=== PATIENT | male | born 1985 | race American Indian/Alaskan Native ===

== ENCOUNTER 2017-08-07 12:22 | Inpatient (IN) | payer OTHER ==
[2017-08-07 13:18] LABS: Basophils # (Auto) 0.1 K/mm3 (0.0-0.1); Basophils % (Auto) 0.7 % (0.0-1.8); Eosinophils # (Auto) 0.1 K/mm3 (0.0-0.4); Eosinophils % (Auto) 0.7 % (0.0-4.3); Hematocrit 43.4 % (35.5-45.6); Hemoglobin 14.3 gm/dl (11.8-15.2); Lymphocytes # (Auto) 2.4 K/mm3 (1.2-5.4); Mean Corpuscular HGB Conc 33 % (32-34); Mean Corpuscular Hemoglobin 30 pg (28-32); Mean Corpuscular Volume 90 fl (84-94); Monocytes # (Auto) 0.4 K/mm3 (0.0-0.8); Monocytes % (Auto) 5.3 % (0.0-7.3); Platelet Count 284 K/mm3 (140-440); Red Blood Count 4.82 M/mm3 (3.65-5.03); Red Cell Distribution Width 12.2 % (13.2-15.2)
[2017-08-07 13:30] LABS: Calcium 9.5 mg/dL (8.4-10.2)
[2017-08-07] MEDS ORDERED: CALCIUM GLUCONATE 1,000 MG in NACL 0.9% 100 ML IV ONE (23:10)
[2017-08-07] MEDS ORDERED: KIONEX PO ONE (23:10)
[2017-08-07] MEDS ORDERED: SODIUM CHLORIDE FLUSH SYRINGE 10 ML IV PRN (23:45)
[2017-08-07] MEDS ORDERED: D5W/0.45% NACL/KCL 20 MEQ 20 MEQ/1,000 ML BAG IV SCH (23:45)
[2017-08-07] MEDS ORDERED: D50W (25GM) Syringe IV PRN (23:45)
[2017-08-07] MEDS ORDERED: NovoLIN R 100 UNITS in NACL 0.9% 99 ML IV SCH (23:45)
[2017-08-07] MEDS ORDERED: NACL 0.9% 1000 ML 1,000 ML IV ONE (23:45)
--- NOTE | 2017-08-07 23:53 | Emergency Department Report ---
ED General Adult HPI - General Chief complaint: Hyperglycemia Stated complaint: CHEST PAIN Time Seen by Provider: 08/07/17 23:09 Source: patient Mode of arrival: Ambulatory Limitations: No Limitations - History of Present Illness Initial comments: 32 yo male who comes in today due to an elevated blood glucose. He states that he is a type 1 diabetic and has been out of his medications times greater than two months. He admits to polydipsia, nausea, and some vomiting. Denies any chest pain, shortness of breath, fever, or chills. Blood glucose is 510 on his cmp. -: month(s) (two ) - Related Data Allergies Allergy/AdvReac Type Severity Reaction Status Date / Time No Known Allergies Allergy Verified 08/07/17 23:24 ED Review of Systems ROS: Stated complaint: CHEST PAIN Other details as noted in HPI Constitutional: malaise, weakness Eyes: denies: eye pain, eye discharge, vision change ENT: denies: ear pain, throat pain Respiratory: denies: cough, shortness of breath, wheezing Cardiovascular: denies: chest pain, palpitations Endocrine: increased thirst Gastrointestinal: nausea, vomiting Musculoskeletal: denies: back pain, joint swelling, arthralgia Skin: other (pressure-sore/callus left foot (sole)) Neurological: denies: headache, weakness, paresthesias Psychiatric: denies: anxiety, depression Hematological/Lymphatic: denies: easy bleeding, easy bruising ED Past Medical Hx - Past Medical History Hx Diabetes: Yes - Surgical History Additional Surgical History: toe amputation right foot - Social History Smoking Status: Current Every Day Smoker Substance Use Type: Marijuana ED Physical Exam - General Limitations: No Limitations General appearance: alert, in no apparent distress - Head Head exam: Present: atraumatic, normocephalic - Eye Eye exam: Present: normal appearance - ENT ENT exam: Present: mucous membranes dry - Neck Neck exam: Present: normal inspection - Respiratory Respiratory exam: Present: normal lung sounds bilaterally. Absent: respiratory distress - Cardiovascular Cardiovascular Exam: Present: regular rate, normal rhythm. Absent: systolic murmur, diastolic murmur, rubs, gallop - GI/Abdominal GI/Abdominal exam: Present: soft, normal bowel sounds - Extremities Exam Extremities exam: Present: other (callus/pressure sore-left foot (sole)) - Back Exam Back exam: Present: normal inspection - Neurological Exam Neurological exam: Present: alert, oriented X3 - Psychiatric Psychiatric exam: Present: normal affect, normal mood - Skin Skin exam: Present: other (callus/pressure sore-left foot (sole)) ED Course Vital Signs 08/07/17 08/08/17 08/08/17 12:34 00:57 01:00 Temperature 97.6 F Pulse Rate 100 H 103 H 104 H Respiratory 20 14 14 Rate Blood Pressure 144/98 179/100 O2 Sat by Pulse 100 100 Oximetry 08/08/17 08/08/17 01:11 01:22 Temperature 98.4 F Pulse Rate 91 H Respiratory 8 L 16 Rate Blood Pressure 179/100 O2 Sat by Pulse 99 98 Oximetry - Reevaluation(s) Reevaluation #1: 08/08/17 02:09 Patient to be admitted by the hospitalist for dka. ED Medical Decision Making - Lab Data Result diagrams: 08/07/17 13:03 08/08/17 00:13 - Medical Decision Making Medication non-compliance DKA - Differential Diagnosis medication non-compliance, dka Critical care attestation.: If time is entered above; I have spent that time in minutes in the direct care of this critically ill patient, excluding procedure time. ED Disposition Clinical Impression: DKA, type 1, Noncompliance with medication regimen Disposition: OP ADMIT IP TO THIS HOSP Is pt being admited?: Yes Does the pt Need Aspirin: No Condition: Fair Instructions: Diabetic Ketoacidosis (ED) Referrals: PRIMARY CARE, [Primary Care Provider] - 3-5 Days Time of Disposition: 02:11
[2017-08-08 00:50] LABS: BUN/Creatinine Ratio 23; Blood Urea Nitrogen 27 mg/dL (9-20); Calcium 8.9 mg/dL (8.4-10.2); Hemolysis Index 4
[2017-08-08] MEDS: KCL 10MEQ/100ML 10 MEQ/100 ML BAG IV SCH (01:20)
[2017-08-08] MEDS: KCL 20MEQ/100ML 20 MEQ/100 ML BAG IV SCH (01:21)
[2017-08-08 03:48] LABS: Bilirubin,Urine NEG (Negative); Blood,Urine SM (Negative); Color,Urine Yellow (Yellow); Nitrite,Urine NEG (Negative); Urobilinogen,Urine < 2.0 mg/dL (<2.0)
[2017-08-08 03:51] LABS: Protein,Urine >500 mg/dL (Negative)
[2017-08-08 03:53] LABS: BUN/Creatinine Ratio 21; Blood Urea Nitrogen 23 mg/dL (9-20); Calcium 8.4 mg/dL (8.4-10.2); Hemolysis Index 16
[2017-08-08] MEDS ORDERED: MILK OF MAGNESIA PO PRN (03:55)
[2017-08-08] MEDS ORDERED: PERCOCET 5/325 PO PRN (03:55)
[2017-08-08] MEDS ORDERED: TYLENOL PO PRN (03:55)
[2017-08-08] MEDS ORDERED: ZOFRAN IV PRN (03:55)
[2017-08-08] MEDS ORDERED: DULCOLAX PR PRN (03:55)
--- NOTE | 2017-08-08 04:17 | History and Physical Report ---
History of Present Illness Date of examination: 08/08/17 History of present illness: 32-year-old man with a history of insulin-dependent diabetes comes emergency room with complaints of nausea vomiting, abdominal soreness and chest pain over the last 2 months. He has not taken any insulin since that time. Chest pain is in the left substernal which he describes as sharp pain, intermittent for 1- 2 hours, intensity 4 with 10, no radiation, stated that the pain is worse when he sits up Review Of Systems: Constitutional: no weight loss Ears, eyes, nose, mouth and throat: no nasal congestion, no nasal discharge, no sinus pressure, blurry vision, diplopia Neck: No neck pain or rigidity. Cardiovascular: No palpitations Respiratory: No shortness of breath, cough Gastrointestinal: No hematochezia Genitourinary : no dysuria, frequency , hematuria Musculoskeletal: no muscle ache Integumentary: no rash, no pruritis Neurological: no parathesias, focal weakness Endocrine: no cold or heat intolerance, no polyuria or polydipsia Hematologic/Lymphatic: no easy bruising, no easy bleeding, no gland swelling Allergic/Immunologic: no urticaria, no angioedema. PAST MEDICAL HISTORY:insulin-dependent diabetes PAST SURGICAL HISTORY: Amputation of the right second to fourth toe FAMILY HISTORY: Diabetes SOCIAL HISTORY: Smoked 2 cigars a day, now on use, and alcohol Medications and Allergies Allergies Allergy/AdvReac Type Severity Reaction Status Date / Time No Known Allergies Allergy Verified 08/07/17 23:24 Active Meds: Active Medications Acetaminophen (Tylenol) 650 mg PO Q4H PRN PRN Reason: Pain MILD(1-3)/Fever >100.5/BRUNO Bisacodyl (Dulcolax) 10 mg [place] QDAY PRN PRN Reason: Constipation unrelieved by MOM Dextrose (D50w (25gm) Syringe) 0 ml IV ONCE PRN PRN Reason: Hypoglycemia Enoxaparin Sodium (Lovenox) 40 mg SUB-Q QDAY@1000 MINNIE Potassium Chloride/Dextrose/Sod Cl (D5w/0.45% Nacl/Kcl 20 Meq) 20 meq in 1,000 mls @ 125 mls/hr IV DIRECT MINNIE Last Admin: 08/08/17 01:08 Dose: 125 mls/hr Insulin Human Regular 100 (units/ Sodium Chloride) 100 mls @ 1 mls/hr IV TITR MINNIE; 1 UNITS/HR PRN Reason: Protocol Last Titration: 08/08/17 03:40 Dose: 1.5 units/hr, 1.5 mls/hr Magnesium Hydroxide (Milk Of Magnesia) 30 ml PO Q4H PRN PRN Reason: Constipation Ondansetron HCl (Zofran) 4 mg IV Q8H PRN PRN Reason: N/V unrelieved by Reglan Oxycodone/Acetaminophen (Percocet 5/325) 1 tab PO Q6H PRN PRN Reason: Pain, Moderate (4-6) Sodium Chloride (Sodium Chloride Flush Syringe 10 Ml) 10 ml IV PRN PRN PRN Reason: LINE FLUSH Exam - Physical Exam Narrative exam: Gen. appearance: Patient lying in bed in no acute distress HEENT: Normocephalic/atraumatic, pupils equal round reactive to light, extra occular movement intact, no scleral icterus, no JVD or thyromegaly or nodule, neck is supple, mucous membrane dry, no erythema or exudate Heart: S1-S2, regular rate and rhythm Lungs: Clear to auscultation bilateral breathing comfortable Abdomen: Positive bowel sounds, nontender, nondistended, no organomegaly Extremities: Callous on the left foot, No edema, cyanosis, clubbing Neuro:: Oriented 3 , cranial nerves II-12 intact, speech, motor intact Skin: No rash, nodules, warm dry - Constitutional Vitals: Temp Pulse Resp BP Pulse Ox 98.4 F 97 H 13 131/82 100 08/08/17 03:34 08/08/17 03:30 08/08/17 03:30 08/08/17 03:30 08/08/17 03:30 Results - Labs CBC & Chem 7: 08/07/17 13:03 08/08/17 03:12 Labs: Abnormal lab results 08/07/17 08/07/17 08/07/17 Range/Units 12:41 13:03 13:03 RDW 12.2 L (13.2-15.2) % POC ABG pCO2 (35-45) Sodium 132 L (137-145) mmol/L Potassium 5.2 H (3.6-5.0) mmol/L Chloride 91.3 L (98-107) mmol/L Carbon Dioxide (22-30) mmol/L BUN 26 H (9-20) mg/dL Glucose 510 H* (75-100) mg/dL POC Glucose 445 H (70-105) 08/07/17 08/07/17 08/08/17 Range/Units 13:58 19:53 00:13 RDW (13.2-15.2) % POC ABG pCO2 46.5 H (35-45) Sodium 133 L (137-145) mmol/L Potassium (3.6-5.0) mmol/L Chloride 91.3 L (98-107) mmol/L Carbon Dioxide 31 H (22-30) mmol/L BUN 27 H (9-20) mg/dL Glucose 455 H (75-100) mg/dL POC Glucose 443 H (70-105) 08/08/17 08/08/17 08/08/17 Range/Units 01:17 02:22 03:12 RDW (13.2-15.2) % POC ABG pCO2 (35-45) Sodium (137-145) mmol/L Potassium (3.6-5.0) mmol/L Chloride (98-107) mmol/L Carbon Dioxide (22-30) mmol/L BUN 23 H (9-20) mg/dL Glucose 156 H (75-100) mg/dL POC Glucose 417 H 277 H (70-105) 08/08/17 Range/Units 03:43 RDW (13.2-15.2) % POC ABG pCO2 (35-45) Sodium (137-145) mmol/L Potassium (3.6-5.0) mmol/L Chloride (98-107) mmol/L Carbon Dioxide (22-30) mmol/L BUN (9-20) mg/dL Glucose (75-100) mg/dL POC Glucose 135 H (70-105) Assessment and Plan Assessment DKA Dehydration atypical chest pain Noncompliant Plan Admit to medicine Continue IV fluids, insulin drip Check serial chemistries, chest x-ray, cardiac enzymes Consult critical care, cardiology DVT prophylaxis
--- NOTE | 2017-08-08 04:48 | XRay Report ---
FINAL REPORT PROCEDURE: XR CHEST 1V AP TECHNIQUE: Chest radiograph anteroposterior view. CPT 65809 HISTORY: cp COMPARISON: No prior studies are available for comparison. FINDINGS: Heart: Normal. Mediastinum/Vessels: Normal. Lungs/Pleural space: There are no infiltrates, effusions or pneumothoraces.. Bony thorax: No acute osseous abnormality. Life support devices: None. IMPRESSION: No acute cardiopulmonary abnormality.
[2017-08-08] MEDS ORDERED: ZOFRAN ONE (05:50)
[2017-08-08 06:25] LABS: Creatine Kinase MB 4.8 ng/mL (0.0-4.0)
[2017-08-08 06:38] LABS: HDL Cholesterol 39 mg/dL (40-59); LDL Cholesterol,Direct TNR mg/dL (50-130)
[2017-08-08 06:50] LABS: BUN/Creatinine Ratio 22; Blood Urea Nitrogen 22 mg/dL (9-20); Calcium 8.6 mg/dL (8.4-10.2); Hemolysis Index 11
[2017-08-08 08:32] LABS: BUN/Creatinine Ratio 19; Blood Urea Nitrogen 21 mg/dL (9-20); Calcium 8.6 mg/dL (8.4-10.2); Hemolysis Index 6
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
[2017-08-08] MEDS ORDERED: LOVENOX SUB-Q SCH (10:00)
[2017-08-08] MEDS: ASPIRIN PO SCH (10:05)
[2017-08-08] MEDS: LOVENOX SUB-Q SCH (10:06)
[2017-08-08 10:35] LABS: Creatine Kinase MB 4.3 ng/mL (0.0-4.0)
[2017-08-08] MEDS ORDERED: D50W (25GM) Syringe IV PRN (11:52)
--- NOTE | 2017-08-08 11:55 | Progress Note ---
Assessment and Plan Assessment and plan: DKA. The patient will be transitioned to his home regimen long-acting insulin of 70/30 50 units every morning and 20 units at bedtime. Discontinue IV insulin drip. Now that the anion gap is closed. Chest pain, atypical. EKG with no acute ischemic changes. Continue to trend cardiac isoenzymes. Follow-up echocardiogram. Continue aspirin and statin. Patient for stress thallium in a.m. Cardiology following. Diabetes mellitus type 1. As above. Hyperlipidemia/hypertriglyceridemia. Consider starting gemfibrozil History Interval history: No new issues overnight. No complaints of chest pain. Hospitalist Physical - Constitutional Vitals: Temp Pulse Resp BP Pulse Ox 98.4 F 78 15 154/85 100 08/08/17 03:34 08/08/17 06:30 08/08/17 06:30 08/08/17 06:30 08/08/17 06:30 General appearance: Present: no acute distress - EENT Eyes: Present: PERRL, EOM intact ENT: hearing intact, clear oral mucosa, dentition normal - Neck Neck: Present: supple, normal ROM - Respiratory Respiratory effort: normal Respiratory: bilateral: CTA - Cardiovascular Rhythm: regular Heart Sounds: Present: S1 & S2. Absent: gallop, rub - Extremities Extremities: no ischemia, No edema, Full ROM - Abdominal General gastrointestinal: soft, non-tender, non-distended, normal bowel sounds - Integumentary Integumentary: Present: clear, warm, dry - Neurologic Neurologic: CNII-XII intact, moves all extremities Results - Labs CBC & Chem 7: 08/07/17 13:03 08/08/17 07:55 Labs: Laboratory Last Values WBC 7.6 K/mm3 (4.5-11.0) 08/07/17 13:03 RBC 4.82 M/mm3 (3.65-5.03) 08/07/17 13:03 Hgb 14.3 gm/dl (11.8-15.2) 08/07/17 13:03 Hct 43.4 % (35.5-45.6) 08/07/17 13:03 MCV 90 fl (84-94) 08/07/17 13:03 MCH 30 pg (28-32) 08/07/17 13:03 MCHC 33 % (32-34) 08/07/17 13:03 RDW 12.2 % (13.2-15.2) L 08/07/17 13:03 Plt Count 284 K/mm3 (140-440) 08/07/17 13:03 Lymph % (Auto) 31.0 % (13.4-35.0) 08/07/17 13:03 [place] % (Auto) 5.3 % (0.0-7.3) 08/07/17 13:03 Eos % (Auto) 0.7 % (0.0-4.3) 08/07/17 13:03 Baso % (Auto) 0.7 % (0.0-1.8) 08/07/17 13:03 Lymph # 2.4 K/mm3 (1.2-5.4) 08/07/17 13:03 [place] # 0.4 K/mm3 (0.0-0.8) 08/07/17 13:03 Eos # 0.1 K/mm3 (0.0-0.4) 08/07/17 13:03 Baso # 0.1 K/mm3 (0.0-0.1) 08/07/17 13:03 Seg Neutrophils % 62.3 % (40.0-70.0) 08/07/17 13:03 Seg Neutrophils # 4.7 K/mm3 (1.8-7.7) 08/07/17 13:03 POC ABG pH 7.390 (7.35-7.45) 08/07/17 13:58 POC ABG pCO2 46.5 (35-45) H 08/07/17 13:58 POC ABG pO2 82 (80-105) 08/07/17 13:58 POC ABG HCO3 28.1 08/07/17 13:58 POC ABG Total CO2 30 08/07/17 13:58 POC ABG O2 Sat 96 08/07/17 13:58 POC ABG Base Excess 3 08/07/17 13:58 FiO2 21 % 08/07/17 13:58 Sodium 143 mmol/L (137-145) 08/08/17 07:55 Potassium 3.8 mmol/L (3.6-5.0) 08/08/17 07:55 Chloride 103.4 mmol/L (98-107) 08/08/17 07:55 Carbon Dioxide 27 mmol/L (22-30) 08/08/17 07:55 Anion Gap 16 mmol/L 08/08/17 07:55 BUN 21 mg/dL (9-20) H 08/08/17 07:55 Creatinine 1.1 mg/dL (0.8-1.5) 08/08/17 07:55 Estimated GFR > 60 ml/min 08/08/17 07:55 BUN/Creatinine Ratio 19 % 08/08/17 07:55 Glucose 89 mg/dL (75-100) 08/08/17 07:55 POC Glucose 120 (70-105) H 08/08/17 07:38 Calcium 8.6 mg/dL (8.4-10.2) 08/08/17 07:55 Phosphorus 3.60 mg/dL (2.5-4.5) 08/08/17 00:13 Magnesium 1.90 mg/dL (1.7-2.3) 08/08/17 00:13 Total Creatine Kinase 237 units/L (55-170) H 08/08/17 09:54 CK-MB (CK-2) 4.3 ng/mL (0.0-4.0) H 08/08/17 09:54 CK-MB (CK-2) Rel Index 1.8 (0-4) 08/08/17 09:54 Troponin T 0.031 ng/mL (0.00-0.029) H D 08/08/17 09:54 Triglycerides 523 mg/dL (2-149) H 08/08/17 05:31 Cholesterol 363 mg/dL (50-199) H 08/08/17 05:31 LDL Cholesterol Direct TNR 08/08/17 05:31 HDL Cholesterol 39 mg/dL (40-59) L 08/08/17 05:31 Cholesterol/HDL Ratio 9.30 % 08/08/17 05:31 Urine Color Yellow (Yellow) 08/08/17 03:34 Urine Turbidity Clear (Clear) 08/08/17 03:34 Urine pH 6.0 (5.0-7.0) 08/08/17 03:34 Ur Specific [place] 1.023 (1.003-1.030) 08/08/17 03:34 Urine Protein >500 mg/dL (Negative) 08/08/17 03:34 Urine Glucose (UA) >=500 mg/dL (Negative) 08/08/17 03:34 Urine Ketones Neg mg/dL (Negative) 08/08/17 03:34 Urine Blood Sm (Negative) 08/08/17 03:34 Urine Nitrite Neg (Negative) 08/08/17 03:34 Urine Bilirubin Neg (Negative) 08/08/17 03:34 Urine Urobilinogen < 2.0 mg/dL (<2.0) 08/08/17 03:34 Ur Leukocyte Esterase Neg (Negative) 08/08/17 03:34 Urine WBC (Auto) 1.0 /HPF (0.0-6.0) 08/08/17 03:34 Urine RBC (Auto) 2.0 /HPF (0.0-6.0) 08/08/17 03:34 U Epithel Cells (Auto) < 1.0 /HPF (0-13.0) 08/08/17 03:34
--- NOTE | 2017-08-08 13:17 | Progress Note ---
Subjective Date of service: 08/08/17 Principal diagnosis: Diabetic ketoacidosis for ICU admission on insulin infusion Objective Vital Signs - 12hr 08/08/17 08/08/17 08/08/17 01:21 01:22 01:25 Temperature 98.4 F Pulse Rate 92 H 91 H Respiratory 12 16 11 L Rate Blood Pressure 181/97 181/97 O2 Sat by Pulse 99 98 100 Oximetry 08/08/17 08/08/17 08/08/17 01:30 01:35 01:41 Temperature Pulse Rate 90 93 H 99 H Respiratory 12 15 14 Rate Blood Pressure 155/109 155/109 155/109 O2 Sat by Pulse 100 100 Oximetry 08/08/17 08/08/17 08/08/17 01:45 01:50 01:55 Temperature Pulse Rate 96 H 97 H 103 H Respiratory 14 16 14 Rate Blood Pressure 155/97 155/109 155/97 O2 Sat by Pulse 100 100 100 Oximetry 08/08/17 08/08/17 08/08/17 02:00 02:05 02:10 Temperature Pulse Rate 104 H 96 H 100 H Respiratory 15 11 L 14 Rate Blood Pressure 155/97 139/88 139/88 O2 Sat by Pulse 99 100 100 Oximetry 08/08/17 08/08/17 08/08/17 02:15 02:21 02:25 Temperature Pulse Rate 102 H 93 H 99 H Respiratory 15 18 13 Rate Blood Pressure 135/90 135/90 135/90 O2 Sat by Pulse 100 100 100 Oximetry 08/08/17 08/08/17 08/08/17 02:30 02:35 02:41 Temperature Pulse Rate 95 H 103 H 104 H Respiratory 13 16 16 Rate Blood Pressure 148/95 148/95 148/95 O2 Sat by Pulse 100 100 Oximetry 08/08/17 08/08/17 08/08/17 02:45 02:51 02:55 Temperature Pulse Rate 93 H 100 H 107 H Respiratory 13 13 14 Rate Blood Pressure 131/76 131/76 131/76 O2 Sat by Pulse 100 99 Oximetry 08/08/17 08/08/17 08/08/17 03:00 03:05 03:11 Temperature Pulse Rate 99 H 100 H 110 H Respiratory 16 14 18 Rate Blood Pressure 135/76 135/76 135/76 O2 Sat by Pulse 99 100 100 Oximetry 08/08/17 08/08/17 08/08/17 03:15 03:21 03:25 Temperature Pulse Rate 102 H 96 H 97 H Respiratory 15 12 17 Rate Blood Pressure 131/80 131/80 131/80 O2 Sat by Pulse 100 99 100 Oximetry 08/08/17 08/08/17 08/08/17 03:30 03:34 03:40 Temperature 98.4 F Pulse Rate 97 H 94 H Respiratory 13 10 L Rate Blood Pressure 131/82 131/82 O2 Sat by Pulse 100 100 Oximetry 08/08/17 08/08/17 08/08/17 03:51 04:00 04:11 Temperature Pulse Rate 93 H 92 H 94 H Respiratory 11 L 12 15 Rate Blood Pressure 131/82 143/84 137/118 O2 Sat by Pulse 100 100 100 Oximetry 08/08/17 08/08/17 08/08/17 04:21 04:30 04:41 Temperature Pulse Rate 103 H 94 H 89 Respiratory 14 29 H 11 L Rate Blood Pressure 137/118 154/97 154/97 O2 Sat by Pulse 100 100 100 Oximetry 08/08/17 08/08/17 08/08/17 04:51 05:00 05:11 Temperature Pulse Rate 87 86 86 Respiratory 13 16 28 H Rate Blood Pressure 154/97 154/85 154/85 O2 Sat by Pulse 100 100 100 Oximetry 08/08/17 08/08/17 08/08/17 05:20 05:31 05:41 Temperature Pulse Rate 88 91 H 108 H Respiratory 32 H 13 9 L Rate Blood Pressure 154/85 154/85 154/85 O2 Sat by Pulse 100 100 100 Oximetry 08/08/17 08/08/17 08/08/17 05:51 05:55 06:00 Temperature Pulse Rate 89 84 81 Respiratory 10 L 15 13 Rate Blood Pressure 140/87 140/87 161/103 O2 Sat by Pulse 100 100 100 Oximetry 08/08/17 08/08/17 08/08/17 06:05 06:10 06:15 Temperature Pulse Rate 86 102 H 81 Respiratory 13 13 11 L Rate Blood Pressure 164/92 164/92 152/93 O2 Sat by Pulse 100 100 100 Oximetry 08/08/17 08/08/17 08/08/17 06:21 06:25 06:30 Temperature Pulse Rate 85 81 78 Respiratory 13 15 15 Rate Blood Pressure 164/92 164/92 154/85 O2 Sat by Pulse 100 100 100 Oximetry CBC and BMP: 01/23/18 13:03 08/08/17 07:55 ABG, PT/INR, D-dimer: ABG POC ABG pH 7.390 (7.35-7.45) 08/07/17 13:58 POC ABG pCO2 46.5 (35-45) H 08/07/17 13:58 POC ABG pO2 82 (80-105) 08/07/17 13:58 POC ABG HCO3 28.1 08/07/17 13:58 POC ABG Total CO2 30 08/07/17 13:58 POC ABG O2 Sat 96 08/07/17 13:58 Abnormal lab findings: Abnormal Labs 08/07/17 08/07/17 08/07/17 12:41 13:03 13:03 RDW 12.2 L POC ABG pCO2 Sodium 132 L Potassium 5.2 H Chloride 91.3 L Carbon Dioxide BUN 26 H Glucose 510 H* POC Glucose 445 H Total Creatine Kinase CK-MB (CK-2) Troponin T Triglycerides Cholesterol HDL Cholesterol 08/07/17 08/07/17 08/08/17 13:58 19:53 00:13 RDW POC ABG pCO2 46.5 H Sodium 133 L Potassium Chloride 91.3 L Carbon Dioxide 31 H BUN 27 H Glucose 455 H POC Glucose 443 H Total Creatine Kinase CK-MB (CK-2) Troponin T Triglycerides Cholesterol HDL Cholesterol 08/08/17 08/08/17 08/08/17 01:17 02:22 03:12 RDW POC ABG pCO2 Sodium Potassium Chloride Carbon Dioxide BUN 23 H Glucose 156 H POC Glucose 417 H 277 H Total Creatine Kinase CK-MB (CK-2) Troponin T Triglycerides Cholesterol HDL Cholesterol 08/08/17 08/08/17 08/08/17 03:43 05:20 05:31 RDW POC ABG pCO2 Sodium Potassium Chloride Carbon Dioxide BUN 22 H Glucose 138 H POC Glucose 135 H 154 H Total Creatine Kinase CK-MB (CK-2) Troponin T Triglycerides Cholesterol HDL Cholesterol 08/08/17 08/08/17 08/08/17 05:31 06:34 07:38 RDW POC ABG pCO2 Sodium Potassium Chloride Carbon Dioxide BUN Glucose POC Glucose 155 H 120 H Total Creatine Kinase 263 H CK-MB (CK-2) 4.8 H Troponin T 0.039 H Triglycerides 523 H Cholesterol 363 H HDL Cholesterol 39 L 08/08/17 08/08/17 07:55 09:54 RDW POC ABG pCO2 Sodium Potassium Chloride Carbon Dioxide BUN 21 H Glucose POC Glucose Total Creatine Kinase 237 H CK-MB (CK-2) 4.3 H Troponin T 0.031 H D Triglycerides Cholesterol HDL Cholesterol
--- NOTE | 2017-08-08 13:19 | Consultation ---
History of Present Illness Consult date: 08/08/17 Requesting physician: [facility]ERS History of present illness: 32-year-old man with a history of insulin-dependent diabetes comes emergency room with complaints of nausea vomiting, abdominal soreness and chest pain over the last 2 months. He has not taken any insulin since that time. Chest pain is in the left substernal which he describes as sharp pain, intermittent for 1- 2 hours, intensity 4 with 10, no radiation, stated that the pain is worse when he sits up Currently on insulin infusion, states his nausea and vomiting is better. No fevers or chills. No abdominal pain Review Of Systems: Constitutional: no weight loss Ears, eyes, nose, mouth and throat: no nasal congestion, no nasal discharge, no sinus pressure, blurry vision, diplopia Neck: No neck pain or rigidity. Cardiovascular: No palpitations Respiratory: No shortness of breath, cough Gastrointestinal: No hematochezia Genitourinary : no dysuria, frequency , hematuria Musculoskeletal: no muscle ache Integumentary: no rash, no pruritis Neurological: no parathesias, focal weakness Endocrine: no cold or heat intolerance, no polyuria or polydipsia Hematologic/Lymphatic: no easy bruising, no easy bleeding, no gland swelling Allergic/Immunologic: no urticaria, no angioedema. PAST MEDICAL HISTORY:insulin-dependent diabetes PAST SURGICAL HISTORY: Amputation of the right second to fourth toe FAMILY HISTORY: Diabetes SOCIAL HISTORY: Smoked 2 cigars a day, now on use, and alcohol Past History Past Medical History: diabetes Past Surgical History: Other (RLE toe amputations ) Social history: lives with family. denies: smoking, alcohol abuse, prescription drug abuse Family history: diabetes Medications and Allergies Allergies Allergy/AdvReac Type Severity Reaction Status Date / Time No Known Allergies Allergy Verified 08/07/17 23:24 Active Meds: Active Medications Acetaminophen (Tylenol) 650 mg PO Q4H PRN PRN Reason: Pain MILD(1-3)/Fever >100.5/BRUNO Aspirin (Aspirin) 325 mg PO QDAY [facility] Last Admin: 08/08/17 10:05 Dose: 325 mg Atorvastatin Calcium (Lipitor) 80 mg PO QHS MINNIE Bisacodyl (Dulcolax) 10 mg [place] QDAY PRN PRN Reason: Constipation unrelieved by MOM Dextrose (D50w (25gm) Syringe) 50 ml IV PRN PRN PRN Reason: Hypoglycemia Enoxaparin Sodium (Lovenox) 40 mg SUB-Q QDAY@1000 MINNIE Last Admin: 08/08/17 10:06 Dose: 40 mg Insulin Human Isoph/Insulin Regular (Novolin 70/30) 50 unit SUB-Q QAM MINNIE Insulin Human Isoph/Insulin Regular (Novolin 70/30) 20 unit SUB-Q QPM MINNIE Insulin Human Regular (Novolin R) 0 units SUB-Q ACHS MINNIE PRN Reason: Protocol Magnesium Hydroxide (Milk Of Magnesia) 30 ml PO Q4H PRN PRN Reason: Constipation Ondansetron HCl (Zofran) 4 mg IV Q8H PRN PRN Reason: N/V unrelieved by Burke Last Admin: 08/08/17 05:50 Dose: 4 mg Oxycodone/Acetaminophen (Percocet 5/325) 1 tab PO Q6H PRN PRN Reason: Pain, Moderate (4-6) Physical Examination Vital signs: Vital Signs Temp Pulse Resp BP Pulse Ox 97.6 F 100 H 20 144/98 100 08/07/17 12:34 08/07/17 12:34 08/07/17 12:34 08/07/17 12:34 08/07/17 12:34 General appearance: no acute distress HEENT: Positive: PERRL, Normocephaly, Mucus Membranes Moist Neck: Positive: neck supple, trachea midline Cardiac: Positive: Reg Rate and Rhythm, S1/S2 Lungs: Positive: clear to auscultation Neuro: Positive: Grossly Intact Abdomen: Positive: Soft. Negative: Tender Skin: Positive: Clear. Negative: Rash, Wound Musculoskeletal: No Fluid Collection, No Pain, Normal Range of Motion Extremities: Absent: edema Results - Laboratory Findings CBC and BMP: 08/07/17 13:03 08/08/17 07:55 ABG POC ABG pH 7.390 (7.35-7.45) 08/07/17 13:58 POC ABG pCO2 46.5 (35-45) H 08/07/17 13:58 POC ABG pO2 82 (80-105) 08/07/17 13:58 POC ABG HCO3 28.1 08/07/17 13:58 POC ABG Total CO2 30 08/07/17 13:58 POC ABG O2 Sat 96 08/07/17 13:58 Abnormal lab findings: Abnormal Labs 08/07/17 08/07/17 08/07/17 12:41 13:03 13:03 RDW 12.2 L POC ABG pCO2 Sodium 132 L Potassium 5.2 H Chloride 91.3 L Carbon Dioxide BUN 26 H Glucose 510 H* POC Glucose 445 H Total Creatine Kinase CK-MB (CK-2) Troponin T Triglycerides Cholesterol HDL Cholesterol 08/07/17 08/07/17 08/08/17 13:58 19:53 00:13 RDW POC ABG pCO2 46.5 H Sodium 133 L Potassium Chloride 91.3 L Carbon Dioxide 31 H BUN 27 H Glucose 455 H POC Glucose 443 H Total Creatine Kinase CK-MB (CK-2) Troponin T Triglycerides Cholesterol HDL Cholesterol 08/08/17 08/08/17 08/08/17 01:17 02:22 03:12 RDW POC ABG pCO2 Sodium Potassium Chloride Carbon Dioxide BUN 23 H Glucose 156 H POC Glucose 417 H 277 H Total Creatine Kinase CK-MB (CK-2) Troponin T Triglycerides Cholesterol HDL Cholesterol 08/08/17 08/08/17 08/08/17 03:43 05:20 05:31 RDW POC ABG pCO2 Sodium Potassium Chloride Carbon Dioxide BUN 22 H Glucose 138 H POC Glucose 135 H 154 H Total Creatine Kinase CK-MB (CK-2) Troponin T Triglycerides Cholesterol HDL Cholesterol 08/08/17 08/08/17 08/08/17 05:31 06:34 07:38 RDW POC ABG pCO2 Sodium Potassium Chloride Carbon Dioxide BUN Glucose POC Glucose 155 H 120 H Total Creatine Kinase 263 H CK-MB (CK-2) 4.8 H Troponin T 0.039 H Triglycerides 523 H Cholesterol 363 H HDL Cholesterol 39 L 08/08/17 08/08/17 07:55 09:54 RDW POC ABG pCO2 Sodium Potassium Chloride Carbon Dioxide BUN 21 H Glucose POC Glucose Total Creatine Kinase 237 H CK-MB (CK-2) 4.3 H Troponin T 0.031 H D Triglycerides Cholesterol HDL Cholesterol Assessment and Plan DKA Dehydration Atypical chest pain [place] abuse disorder Noncompliant - Admit telemetry -DKA protocol -VTE prophylaxis - Smoking cessation counselling -Need for medical adherence/compliance discussed -Transition to long acting and weight based insulin -Chest pain per cardiology
[2017-08-09 06:47] LABS: Alanine Aminotransferase 18 units/L (7-56); Albumin 2.6 g/dL (3.9-5); BUN/Creatinine Ratio 18; Blood Urea Nitrogen 18 mg/dL (9-20); Calcium 8.3 mg/dL (8.4-10.2); Hemolysis Index 1
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
[2017-08-09] MEDS ORDERED: LEXISCAN IV ONE ×2 (09:21→09:28)
[2017-08-09] MEDS: LOVENOX SUB-Q SCH (10:00)
[2017-08-09] MEDS: ASPIRIN PO SCH (10:00)
--- NOTE | 2017-08-09 10:12 | Progress Note ---
Assessment and Plan Assessment: Chest pain, atypical - currently resolved; ECG with no acute ischemic changes Minimally elevated troponin - with downwards trend Uncontrolled DM Hyperlipidemia Hypertriglyceridemia Medication noncompliance Plan: Proceed with lexiscan MPI stress test this AM. Await findings. Await echo. DM management per primary. Assessment and plan reviewed with pt at bedside. The patient has been seen in conjunction with Dr. VALENTIN Joaquin who agrees with the assessment and plan of care. Subjective Date of service: 08/09/17 Principal diagnosis: uncontrolled DM; chest pain Interval history: pt for stress test today. with no current complaints. Objective Last Vital Signs Temp 98.5 F 08/09/17 07:45 Pulse 95 H 08/09/17 07:45 Resp 20 08/09/17 07:45 BP 160/92 08/09/17 07:45 Pulse Ox 100 08/09/17 07:45 - Physical Examination General: No Apparent Distress HEENT: Positive: PERRL, Normocephaly, Mucus Membranes Moist Neck: Positive: neck supple, trachea midline Cardiac: Positive: Reg Rate and Rhythm, S1/S2 Lungs: Positive: clear to auscultation Neuro: Positive: Grossly Intact Abdomen: Positive: Soft. Negative: Tender Skin: Positive: Clear. Negative: Rash, Wound Musculoskeletal: No Fluid Collection, No Pain, Normal Range of Motion Extremities: Absent: edema - Labs and Meds Cardiac Enzymes 08/08/17 08/09/17 Range/Units 09:54 05:52 AST 24 (5-40) units/L CK-MB (CK-2) 4.3 H (0.0-4.0) ng/mL Comprehensive Metabolic Panel 08/09/17 Range/Units 05:52 Sodium 138 (137-145) mmol/L Potassium 3.7 (3.6-5.0) mmol/L Chloride 100.6 (98-107) mmol/L Carbon Dioxide 27 (22-30) mmol/L BUN 18 (9-20) mg/dL Creatinine 1.0 (0.8-1.5) mg/dL Glucose 233 H (75-100) mg/dL Calcium 8.3 L (8.4-10.2) mg/dL AST 24 (5-40) units/L ALT 18 (7-56) units/L Alkaline Phosphatase 73 (35-129) units/L Total Protein 5.4 L (6.3-8.2) g/dL Albumin 2.6 L (3.9-5) g/dL - Imaging and Cardiology EKG: report reviewed, image reviewed Echo: pending - Telemetry EKG Rhythm: Sinus Rhythm - EKG Sinus rhythms and dysrhythmias: sinus rhythm
--- NOTE | 2017-08-09 12:20 | Event Note ---
Date: 08/09/17 Lexiscan MPI stress test this AM negative for ischemia, EF 50%. Echo reviewed - EF 55-60%, normal diastolic filling, RVSP 20mmHg. Currently stable cardiac status. Nothing further to add from cardiac perspective at this time. Will follow on as needed basis. Ferdinand MONTEIRO NP / DR. VALENTIN KERR
[2017-08-09 17:44] VITALS: BP 148/102
--- NOTE | 2017-08-10 07:37 | Treadmill Report ---
NAME OF TEST: Nuclear stress test. The patient was brought to the Cardiology Lab and a Lexiscan stress test is performed. Post-stress images revealed homogeneous distribution of the isotope. No significant reversible defects are noted during rest. Accompanying gated study shows good systolic function with no wall motion abnormalities. Calculated ejection fraction is 59%. IMPRESSION: 1. Nuclear stress test is negative for ischemia. 2. Left ventricular ejection fraction is noted to be 59%. 3. Suggest clinical correlation. JOB# [id number] KBM/NTS
== END 2017-08-09 17:30 | disposition home or self-care (01) | DRG 639 ==
LOC: ED 12:22 → CC1 08-08 03:55 → 3A 08-08 13:50
PROVIDERS: ADMIT Internal Medicine; ATTEND Hospitalist
PROC: 4A033R1 Measurement of Arterial Saturation, Peripheral, Percutaneous Approach (ICD-10-PCS; principal; 2017-08-07)
DX: E10.10 Type 1 diabetes mellitus with ketoacidosis without coma (principal); Z89.421 Acquired absence of other right toe(s); F17.200 Nicotine dependence, unspecified, uncomplicated; Z91.19 Patient's noncompliance with other medical treatment and regimen; E86.0 Dehydration; Z83.3 Family history of diabetes mellitus; E78.1 Pure hyperglyceridemia
CPT/HCPCS: 36415; 71045; 78452; 80048; 80053; 80061; 81001; 82550; 82553; 82803; 82962; 83735; 84100; 84484; 85025; 93005; 93010; 93017; 93306; 96365; 96366; 96372; 96375; A9270-GY; A9502; J0610; J1650; J1815; J2405; J2785; J7030

== ENCOUNTER 2019-01-28 13:31 | Inpatient (IN) | payer OTHER ==
[2019-01-28] MEDS ORDERED: TYLENOL PO PRN (14:31)
[2019-01-28] MEDS ORDERED: D50W (25GM) Syringe IV PRN (14:31)
--- NOTE | 2019-01-28 16:54 | History and Physical Report ---
History of Present Illness Date: 01/28/19 Date of admission: 01/28/2019 Chief Complaint: Right AKA and new ESRD on HD History of present illness: 33-year-old male with chest pressure and MALONEY for 2 wks prior to seeking assistance at ED. Once admitted he was found to have dry gangrene of right foot and ARF. Vascular surgery and nephrology were consulted. After prolonged decision timeframe the patient opted for amputation and an AKA was performed on 01/02/2019. He also required HD. It was hoped that his kidneys would return to former level of function but this did not happen. He is now ESRD and on HD TTS. On exam patient noted to have lateral deviation of right eye and he states this has been the case for the past year and is accompanied by blurred vision in the right eye. Will need ophthalmology follow up. He states his diabetes control has been poor. After the patient was medically stabilized he was transferred for further rehabilitation. All available medical records have been reviewed. Plan of care was discussed with patient and family. Past History Past Medical History: diabetes (1), ESRD, hypertension Past Surgical History: Other (R AKA, Toe amputations) Social history: lives with family (two-story), full code, other (positive THC). denies: smoking (former), alcohol abuse, prescription drug abuse Family history: diabetes, hypertension Medications and Allergies Allergies Allergy/AdvReac Type Severity Reaction Status Date / Time No Known Allergies Allergy Verified 08/07/17 23:24 Home Medications Medication Instructions Recorded Confirmed Last Taken Type Aspirin 325 mg PO QDAY #30 tablet 08/09/17 Unknown Rx AtorvaSTATin [Lipitor] 80 mg PO QHS #30 tablet 08/09/17 Unknown Rx Insulin NPH/Regular [NovoLIN 70/30] 25 unit SUB-Q QPM #30 units 08/09/17 Unknown Rx Insulin NPH/Regular [NovoLIN 70/30] 50 unit SUB-Q QAM #30 units 08/09/17 Unknown Rx Active Meds: Active Medications Acetaminophen (Tylenol) 650 mg PO Q4H PRN PRN Reason: Pain MILD(1-3)/Fever >100.5/BRUNO Amlodipine Besylate (Norvasc) 10 mg PO QDAY [facility] Atorvastatin Calcium (Lipitor) 40 mg PO QHS [facility] Bumetanide (Bumex) 2 mg PO QDAY [facility] Carvedilol (Coreg) 25 mg PO BID [facility] Dextrose (D50w (25gm) Syringe) 50 ml IV PRN PRN PRN Reason: Hypoglycemia Ferrous Sulfate (Feosol) 325 mg PO QDAY [facility] Gabapentin (Neurontin) 100 mg PO HS [facility] Heparin Sodium (Porcine) (Heparin) 5,000 unit SUB-Q Q8HR [facility] Hydralazine HCl (Apresoline) 75 mg PO Q8HR [facility] Insulin Glargine (Lantus) 8 units SUB-Q QHS [facility] Insulin Human Lispro (Humalog) 0 unit SUB-Q AC [facility]; Protocol Isosorbide Mononitrate (Imdur) 60 mg PO BID [facility] Ondansetron HCl (Zofran Odt) 4 mg PO Q8H PRN PRN Reason: Nausea And Vomiting Oxycodone/Acetaminophen (Percocet 5/325) 1 tab PO Q6H PRN PRN Reason: Pain, Moderate (4-6) Polyethylene Glycol (Miralax 3350) 17 gm PO QDAY [facility] Sevelamer Carbonate (Renvela) 2,400 mg PO AC [facility]NIE Zinc Acetate/Diphenhydramine (Banophen Anti-Itch) 1 applic TP Q8H PRN PRN Reason: Itching Review of Systems All systems: negative (ROS negative for 12 systems except as noted below with pertinent positives and negatives.) Constitutional: weakness Eyes: right: blurred vision (for about 1 year) Ears, nose, mouth and throat: no tinnitis, no decreased hearing Cardiovascular: no chest pain, no orthopnea, no palpitations, no rapid/irregular heart beat, no edema Respiratory: no cough, no cough with sputum Gastrointestinal: nausea, constipation, no abdominal pain, no vomiting, no diarrhea Genitourinary Male: no dysuria, no hematuria Musculoskeletal: leg numbness/tingling, prior amputations Integumentary: sores, wounds (DTI left heel, wound on left forefoot plantar surface), dryness, other (tattoos) Neurological: no head injury, no transient paralysis, no lack of coordination Psychiatric: no anxiety Endocrine: high blood sugars Exam - Exam Narrative exam: MUSCULOSKELETAL SPECIALTY EXAM CONSTITUTIONAL: Well developed, well nourished, appropriately groomed LYMPHATIC: No appreciable abnormalities palpable in neck EENT: Visual chan full to confrontation on the left, decreased on right. EOMI with lateral deviation of the right. Oropharynx clear. Hearing intact to soft voice RESPIRATORY: Clear to auscultation bilaterally, no increased work of breathing CARDIOVASCULAR: Regular Rate/ Rhythm, no swelling, edema or tenderness in BUE or BLE. Pulses palpable in all extremities. All extremities warm. GI: + bowel sounds, soft, NTTP, nondistended. INTEGUMENTARY: DTI on left heel and dry skin with callus on the plantar surface of the forefoot, otherwise normal, no lesion, rash, masses or bruising noted in extremities. AKA well healed MUSCULOSKELETAL: Right AKA, otherwise BUE and BLE normal without defect, crepitus, subluxation, effusion, arthritic changes or TTP. BUE 4+/5, good ROM, with normal tone. BLE 4/5 good ROM, with normal tone, left foot drop NEURO: CN 2-12 grossly intact. Sensation intact in all extremities. Reflexes 2+ bilaterally at biceps, brachioradialis and L patella. No clonus at ankle. Coordination intact in BUE. No tremor noted in 4 extremities. POSTURE and GAIT: Sitting posture good. Balance appears reasonable. Gait deferred until seen with therapy. PSYCH: Alert, orientated x3, affect appears normal. Insight appears intact. Assessment and Plan Assessment and plan: Patient was assessed and evaluated for Acute Inpatient Rehab Unit. Due to the patients above-mentioned medical complexity, along with decreased functional mobility and self care, this patient continues to require and be appropriate for a comprehensive, multidisciplinary [id number] rehabilitation program. These needs cannot be met in an outpatient or other less intensive setting. The patient would continue to benefit from skilled therapy intervention for at least 3 hours per day, five days a week, with techniques specific to the needs of the patient to improve function, activities of daily living, and reintegration into the community. The patient continues to require: -- OT to improve ROM, self-care, and learn use of adaptive equipment -- PT to improve strength and balance, functional transfers, and ambulation with energy conservation techniques to improve functional mobility -- 24 hour RN to ensure and prevent skin breakdown, promote progressive independence while ensuring safety, ensure education regarding medications, and incorporation of the rehabilitation at the bedside -- 24 hour In Room Dining Server to coordinate this interdisciplinary program, and to manage/prevent complications as a result of the patients medical comorbidities. -Plan of care by day 4 -Weekly team conferences With such a program, there is a reasonable certainty that the goals individualized for this patient can be achieved within the specified length of stay. Right AKA: Monitor for wound healing or further injury. Contact Float Operator for prosthesis. Limb protector on when OOB. ESRD on HD: Consulted nephrology. TTS schedule. DM I: Continue diet and insulin. Monitor and adjust as needed. Constipation: Miralax and monitor for improvement Phantom sensation and phantom pain: Low dose gabapentin and monitor for improvement Left foot drop: likely due to neuropathy. May need AFO but will need to monitor for wound issues Left foot wounds: consult wound care, keep clean, monitor for healing Z73.6 ADL dysfunction: OT will work on improving ability to perform ADLs (including assistive devices) to increase independence and decrease caregiver burden and improve functional transfers and mobility training. R26.2 Difficulty walking: PT will work on gait training and proper use of assistive devices and advance as appropriate to use of stairs and outside ambulation on uneven surfaces. R26.81 Unsteadiness on feet: PT will work on improving static and dynamic si tting and standing balance as well as proper use of assistive devices to decrease risk of falls. R26.89 Abnormality of gait: PT will work to improve safety and efficiency of gait through neuromotor training and gait training along with instruction on proper use of assistive devices. M62.81 Muscle weakness: PT & OT will work on strengthening exercises to improve functional strength including mixture of closed and open kinetic chain exercises. R53.81 Debility: PT & OT will work on improving overall functional status to improve participation with ADLs, mobility and social involvement. R53.83 Fatigue: PT & OT will work on improving endurance through aerobic exercises and therapeutic activity while monitoring patients tolerance for activity and vital signs as needed. DVT ppx: heparin TID Pain: Continue physical modalities in therapy and pain medications as needed to achieve functional pain control. Sleep: Monitor and address as needed. Bowel: Monitor and address as needed. Appetite: Monitor and address as needed. Discharge planning: Pending therapy progress and care plan meeting. Will continue discussion with therapy team, SW, patient and family. Restrictions/ Precautions: Falls WB status: FWB Functional Hx: ADLs: Independent Cognition: Independent Mobility: No AD Barriers to Discharge: Decreased mobility and ability to perform self care, balance deficits, weakness Estimated Length of Stay: 14-18 days Discharge Destination: Home with family POST ADMISSION PHYSICIAN EVALUATION I have examined the patient and find that functional status, medical condition and appropriateness for IRF admission are essentially unchanged from those described in the preadmission screening. Will monitor for wound infection, DVT/PE, bowel and bladder complications and complications due to ESRD, DM, pressure sores and electrolyte abnormalities. Will attempt to avoid occurrence of these issues or treat them if they present themselves.
[2019-01-28] MEDS: LANTUS SUB-Q SCH (22:05)
[2019-01-28] MEDS: HEPARIN SUB-Q SCH (22:05)
[2019-01-28] MEDS: APRESOLINE PO SCH (22:06)
[2019-01-28] MEDS: COREG PO SCH (22:06)
[2019-01-28] MEDS: NEURONTIN PO SCH (22:07)
[2019-01-28] MEDS: IMDUR PO SCH (22:09)
[2019-01-28] MEDS: HumaLOG SUB-Q SCH (22:27)
[2019-01-28] MEDS: RENVELA PO SCH (22:27)
[2019-01-28] MEDS: PERCOCET 5/325 PO PRN (23:22)
[2019-01-29 04:47] LABS: Basophils # (Auto) 0.1 K/mm3 (0.0-0.1); Basophils % (Auto) 0.7 % (0.0-1.8); Eosinophils # (Auto) 0.1 K/mm3 (0.0-0.4); Eosinophils % (Auto) 1.8 % (0.0-4.3); Hematocrit 39.4 % (35.5-45.6); Hemoglobin 12.3 gm/dl (11.8-15.2); Lymphocytes # (Auto) 2.8 K/mm3 (1.2-5.4); Lymphocytes % (Auto) 38.8 % (13.4-35.0); Mean Corpuscular HGB Conc 31 % (32-34); Mean Corpuscular Volume 87 fl (84-94); Monocytes # (Auto) 0.7 K/mm3 (0.0-0.8); Monocytes % (Auto) 9.9 % (0.0-7.3); Platelet Count 390 K/mm3 (140-440); Red Blood Count 4.56 M/mm3 (3.65-5.03); Red Cell Distribution Width 17.4 % (13.2-15.2)
[2019-01-29 05:08] LABS: Alanine Aminotransferase 12 units/L (7-56); Albumin 2.1 g/dL (3.9-5); BUN/Creatinine Ratio 9; Blood Urea Nitrogen 35 mg/dL (9-20); Calcium 8.2 mg/dL (8.4-10.2); Hemolysis Index 7
[2019-01-29] MEDS: APRESOLINE PO SCH ×3 (05:10→23:06)
[2019-01-29] MEDS: HEPARIN SUB-Q SCH ×3 (05:11→23:08)
[2019-01-29] MEDS: IMDUR PO SCH ×2 (07:17→23:11)
[2019-01-29] MEDS: ZOFRAN ODT PO PRN (07:17)
[2019-01-29] MEDS: COREG PO SCH ×2 (07:18→23:07)
[2019-01-29] MEDS: RENVELA PO SCH ×3 (07:18→16:55)
[2019-01-29] MEDS: NORVASC PO SCH (07:19)
[2019-01-29] MEDS: MIRALAX 3350 PO SCH (07:20)
[2019-01-29] MEDS: BUMEX PO SCH (07:20)
[2019-01-29] MEDS: HumaLOG SUB-Q SCH ×3 (07:30→16:56)
[2019-01-29] MEDS ORDERED: FEOSOL PO SCH (08:00)
--- NOTE | 2019-01-29 12:17 | Consultation ---
History of Present Illness - History of Present Illness Thank you for the consultation ! Patient was evaluated today My assessment and plan are as follows; End-stage renal disease: Patient is currently on hemodialysis, and will need to continue with hemodialysis on Sunday schedule, outpatient dialysis can be arranged at [facility], patient wants to follow up with me Current dialysis access is a permacath patient will require fistula creation, vascular surgery need to consider fistula creation, we'll ask vascular surgery to see He was started on hemodialysis a month ago at [place] and was told that he has end-stage renal disease Anemia and end-stage renal disease: Monitor hemoglobin and hematocrit er ythropoietin as needed. Workup as required Secondary hyperparathyroidism: Check phosphorus and PTH level periodically, binders as needed Dialysis access: Currently working well, which is a permacath nearly one month old patient needs fistula, Malnutrition risk: High consider high-protein diet dietitian evaluation and follow-up in general 1.5 g protein per KG body weight Fluid restriction: 1200 cc per day not to exceed more than that Adequately counseled and educated about other hospital related issues as well Labs were discussed with patient and simple [place] Patient does appear to have good understanding of all the dialysis related issues Patient was adequately counseled and educated regarding multiple renal related issues. Renal prognosis remains guarded at this time All renal related questions were answered and simple [place] pertinent lab studies as well as imaging results were also discussed with patient We will continue to follow and make recommendations from renal standpoint. Thank you for the consultation Author: Jose Garcia M.D. [facility], [address] [place] [address] Tel; [phone] Source of information: From patient History of present illness Patient is a 33-year-old -[place] male who is currently in maintenance hemodialysis, he was told to have end-stage renal disease at [facility] and was initiated on dialysis and is currently on Sunday schedule patient does not have it indicated dialysis facility at this point he lives in the [facility] and is currently looking for dialysis facility. Patient stated that he used to live in [facility] and has known history of chronic kidney disease Dry gangrene of the right foot status post above-knee amputation on December History of smoking History of hypertension Hyperlipidemia Past medical history significant for end-stage renal disease, started dialysis in [place] peripheral arterial disease Above-knee amputation December 2018 Anemia and end-stage renal disease Secondary hyperparathyroidism Current allergies: None Home medication: Medication: Reviewed Social history: Reviewed Family history: Reviewed Review of systems: Patient is here for rehabilitation, has peripheral arterial disease All other review of systems negative Physical examination Vitals: Reviewed General: No acute distress HEENT: Oral mucosa moist no pallor or icterus Central venous catheter site: Clear Neck: Supple without any JVD thyromegaly or nodular mass Chest: Clear to auscultation Heart: Regular rate and rhythm S1-S2 heard no S3-S4 Abdomen: Soft nontender, bowel sounds present no renal bruit no suprapubic masses no CVA tenderness noted Extremity: Minimal edema dry skin no peripheral cyanosis above-knee amputation Endocrine: Thyroid not enlarged Psychiatric: No agitation and aggression noted Musculoskeletal: No joint effusion noted Labs and x-rays: Reviewed from this admission Past History Past Medical History: diabetes (1), ESRD, hypertension Past Surgical History: Other (R AKA, Toe amputations) Social history: lives with family (two-story), full code, other (positive THC). denies: smoking (former), alcohol abuse, prescription drug abuse Family history: diabetes, hypertension Medications and Allergies Allergies Allergy/AdvReac Type Severity Reaction Status Date / Time No Known Allergies Allergy Verified 08/07/17 23:24 Home Medications Medication Instructions Recorded Confirmed Last Taken Type Aspirin 325 mg PO QDAY #30 tablet 08/09/17 01/29/19 Unknown Rx AtorvaSTATin [Lipitor] 80 mg PO QHS #30 tablet 08/09/17 01/29/19 Unknown Rx Insulin NPH/Regular [NovoLIN 70/30] 25 unit SUB-Q QPM #30 units 08/09/17 01/29/19 Unknown Rx Insulin NPH/Regular [NovoLIN 70/30] 50 unit SUB-Q QAM #30 units 08/09/17 01/29/19 Unknown Rx Active Meds: Active Medications Acetaminophen (Tylenol) 650 mg PO Q4H PRN PRN Reason: Pain MILD(1-3)/Fever >100.5/BRUNO Amlodipine Besylate (Norvasc) 10 mg PO QDAY [facility] Last Admin: 01/29/19 07:19 Dose: 10 mg Documented by: Atorvastatin Calcium (Lipitor) 40 mg PO QHS [facility] Last Admin: 01/28/19 22:06 Dose: 40 mg Documented by: Bumetanide (Bumex) 2 mg PO QDAY [facility] Last Admin: 01/29/19 07:20 Dose: 2 mg Documented by: Carvedilol (Coreg) 25 mg PO BID [facility] Last Admin: 01/29/19 07:18 Dose: 25 mg Documented by: Dextrose (D50w (25gm) Syringe) 50 ml IV PRN PRN PRN Reason: Hypoglycemia Ferrous Sulfate (Feosol) 325 mg PO QDAY [facility] Last Admin: 01/29/19 07:19 Dose: 325 mg Documented by: Gabapentin (Neurontin) 100 mg PO [facility] Last Admin: 01/28/19 22:07 Dose: 100 mg Documented by: Heparin Sodium (Porcine) (Heparin) 5,000 unit SUB-Q Q8HR [facility] Last Admin: 01/29/19 05:11 Dose: 5,000 unit Documented by: Hydralazine HCl (Apresoline) 75 mg PO Q8HR [facility] Last Admin: 01/29/19 05:10 Dose: 75 mg Documented by: Insulin Glargine (Lantus) 8 units SUB-Q QHS [facility] Last Admin: 01/28/19 22:05 Dose: 8 units Documented by: Insulin Human Lispro (Humalog) 0 unit SUB-Q [facility]; Protocol Last Admin: 01/29/19 07:30 Dose: Not Given Documented by: Isosorbide Mononitrate (Imdur) 60 mg PO BID [facility] Last Admin: 01/29/19 07:17 Dose: 60 mg Documented by: Ondansetron HCl (Zofran Odt) 4 mg PO Q8H PRN PRN Reason: Nausea And Vomiting Last Admin: 01/29/19 07:17 Dose: 4 mg Documented by: Oxycodone/Acetaminophen (Percocet 5/325) 1 tab PO Q6H PRN PRN Reason: Pain, Moderate (4-6) Last Admin: 01/28/19 23:22 Dose: 1 tab Documented by: Polyethylene Glycol (Miralax 3350) 17 gm PO QDAY [facility] Last Admin: 01/29/19 07:20 Dose: 17 gm Documented by: Sevelamer Carbonate (Renvela) 2,400 mg PO [facility] Last Admin: 01/29/19 07:18 Dose: 2,400 mg Documented by: Zinc Acetate/Diphenhydramine (Banophen Anti-Itch) 1 applic TP Q8H PRN PRN Reason: Itching Exam - Vital Signs Vital signs: Vital Signs Temp Pulse Resp BP Pulse Ox 98.4 F 103 H 18 158/89 98 01/28/19 17:04 01/28/19 17:04 01/28/19 17:04 01/28/19 17:04 01/28/19 17:04 Results - Lab Results 01/29/19 04:00 01/29/19 04:00 Most recent lab results Calcium 8.2 mg/dL (8.4-10.2) L 01/29/19 04:00 Phosphorus 4.50 mg/dL (2.5-4.5) 01/29/19 04:00 Magnesium 2.50 mg/dL (1.7-2.3) H 01/29/19 04:00
[2019-01-29] MEDS ORDERED: NACL 0.9% 100 ML IV PRN (16:10)
--- NOTE | 2019-01-29 17:04 | Progress Note ---
Subjective Date of service: 01/29/19 Principal diagnosis: Right AKA and new ESRD on HD Interval history: 33-year-old male with chest pressure and MALONEY for 2 wks prior to seeking assistance at ED. Once admitted he was found to have dry gangrene of right foot and ARF. Vascular surgery and nephrology were consulted. After prolonged decision timeframe the patient opted for amputation and an AKA was performed on 01/02/2019. He also required HD. It was hoped that his kidneys would return to former level of function but this did not happen. He is now ESRD and on HD TTS. On exam patient noted to have lateral deviation of right eye and he states this has been the case for the past year and is accompanied by blurred vision in the right eye. Will need ophthalmology follow up. He states his diabetes control has been poor. Patient is participating in therapy and making reasonable progress. Taking rest breaks as needed. +BM. Denies pain, palpitations, dyspnea, cough, weakness, or joint pain. States he has constipation and hard stools over past several days. He does not want suppository but will continue to try oral methods. He does have some nausea but denies vomiting. Concerned for large stool burden but will be patient to see if he improves over the next few days. BP has been elevated at times. Will monitor and address medications after dialysis tomorrow to see where his baseline is on current medications. Blood GLU is reasonable, continue to monitor. All records, vitals, labs and medications were reviewed. No other issues per patient, nursing or therapy. Objective - Exam Narrative Exam: MUSCULOSKELETAL SPECIALTY EXAM CONSTITUTIONAL: Well developed, well nourished, appropriately groomed EENT: Visual chan full to confrontation on the left, decreased on right. EOMI with lateral deviation of the right. Hearing intact to soft voice RESPIRATORY: Clear to auscultation bilaterally, no increased work of breathing CARDIOVASCULAR: Regular Rate/ Rhythm, no swelling, edema or tenderness in BUE or BLE. Pulses palpable in all extremities. All extremities warm. GI: + bowel sounds, soft, NTTP, nondistended. INTEGUMENTARY: DTI on left heel and dry skin with callus on the plantar surface of the forefoot, otherwise normal, no lesion, rash, masses or bruising noted in extremities. AKA well healed MUSCULOSKELETAL: Right AKA, otherwise BUE and BLE normal without defect, crepitus, subluxation, effusion, arthritic changes or TTP. BUE 4+/5, good ROM, with normal tone. BLE 4/5 good ROM, with normal tone, left foot drop NEURO: CN 2-12 grossly intact. Sensation intact in all extremities. No tremor noted in 4 extremities. POSTURE and GAIT: Sitting posture good. Balance appears reasonable. Gait deferred until seen with therapy. PSYCH: Alert, orientated x3, affect appears normal. Insight appears intact. - Constitutional Vitals: Vital Signs - 12hr 01/29/19 01/29/19 01/29/19 05:10 07:19 07:48 Temperature 36.6 C Pulse Rate 95 H 101 H Respiratory 16 Rate Blood Pressure 150/85 120/60 Blood Pressure 120/60 [Left] O2 Sat by Pulse 100 100 Oximetry 01/29/19 01/29/19 12:36 15:39 Temperature 36.7 C 36.5 C Pulse Rate 96 H 103 H Respiratory 18 18 Rate Blood Pressure 142/84 177/99 Blood Pressure [Left] O2 Sat by Pulse 100 100 Oximetry - Allied health notes Allied health notes reviewed: nursing, PT, OT FIMS assessment as documented by PT/OT/ST: Grooming Patient cleans teeth/dentures: Yes Patient manjarrez/brushes hair: Yes Toileting Toileting Device Commode over Toilet,Grab Bar Patient able to: Adjust clothes before,Clean self Patient able to perform: 2/3 (67%) Toileting FIM Score 3. Moderate Assistance (Patient = 50% or more. Some lifting.) Social interaction/Memory/Problem solving Social Interaction FIM Score 6. Mod. Lucas (Mostly appropriate. May need meds. No supv.) Memory FIM Score 5. Supervision (Needs cueing <10%, stressful/ unfamiliar situations.) Problem Solving FIM Score 5. Supervision (Needs cueing <10% to solve routine problems.) Transfers Mode of Locomotion: Wheelchair Toilet Transfers FIM Score 4. Minimal Assistance (Patient = 75% or more. Needs touching.) Patient transferred to: Shower Shower Transfers FIM Score 4. Minimal Assistance (Patient = 75% or more. Needs touching.) Eating Eating FIM Score 6. Modified Lucas (Special consistency or uses device.) Dressing-Upper body Patient retrieves clothing No items: Patient applies/removes UE n/a prosthesis or orthosis: Upper Body Dressing FIM Score 6. Modified Lucas (Needs equipment, velcro or pros./orth.) Dressing-lower body Patient retrieves clothing No items: Patient applies/removes LE No prosthesis or orthosis: Lower Body Dressing FIM Score 2. Maximal Assistance (Patient = 25% or more) - Labs CBC & Chem 7: 01/29/19 04:00 01/29/19 04:00 Labs: Laboratory Results - last 72 hr 01/28/19 01/29/19 01/29/19 21:37 04:00 04:00 WBC 7.3 RBC 4.56 Hgb 12.3 Hct 39.4 MCV 87 MCH 27 L MCHC 31 L RDW 17.4 H Plt Count 390 Lymph % (Auto) 38.8 H Beauregard % (Auto) 9.9 H Eos % (Auto) 1.8 Baso % (Auto) 0.7 Lymph # 2.8 Beauregard # 0.7 Eos # 0.1 Baso # 0.1 Seg Neutrophils % 48.8 Seg Neutrophils # 3.6 Sodium 138 Potassium 4.9 Chloride 101.0 Carbon Dioxide 29 Anion Gap 13 BUN 35 H Creatinine 4.1 H Estimated GFR 21 BUN/Creatinine Ratio 9 Glucose 89 POC Glucose 240 H Hemoglobin A1c Calcium 8.2 L Phosphorus 4.50 Magnesium 2.50 H Total Bilirubin < 0.20 AST 13 ALT 12 Alkaline Phosphatase 137 H Total Protein 4.8 L Albumin 2.1 L Albumin/Globulin Ratio 0.8 01/29/19 01/29/19 01/29/19 04:00 07:23 11:58 WBC RBC Hgb Hct MCV MCH MCHC RDW Plt Count Lymph % (Auto) Beauregard % (Auto) Eos % (Auto) Baso % (Auto) Lymph # Beauregard # Eos # Baso # Seg Neutrophils % Seg Neutrophils # Sodium Potassium Chloride Carbon Dioxide Anion Gap BUN Creatinine Estimated GFR BUN/Creatinine Ratio Glucose POC Glucose 118 H 143 H Hemoglobin A1c 4.2 Calcium Phosphorus Magnesium Total Bilirubin AST ALT Alkaline Phosphatase Total Protein Albumin Albumin/Globulin Ratio 01/29/19 16:30 WBC RBC Hgb Hct MCV MCH MCHC RDW Plt Count Lymph % (Auto) Bea[place]gard % (Auto) Eos % (Auto) Baso % (Auto) Lymph # Bea[place]gard # Eos # Baso # Seg Neutrophils % Seg Neutrophils # Sodium Potassium Chloride Carbon Dioxide Anion Gap BUN Creatinine Estimated GFR BUN/Creatinine Ratio Glucose POC Glucose 135 H Hemoglobin A1c Calcium Phosphorus Magnesium Total Bilirubin AST ALT Alkaline Phosphatase Total Protein Albumin Albumin/Globulin Ratio Assessment and Plan Right AKA: Monitor for wound healing or further injury. Contact Home Care Scheduler for prosthesis. Limb protector on when OOB. ESRD on HD: Consulted nephrology. TTS schedule. Hypertension: Monitor for now, look to adjust medications after HD if BP remains elevated DM I: Continue diet and insulin. Monitor and adjust as needed. Constipation: Miralax and monitor for improvement Phantom sensation and phantom pain: Low dose gabapentin and monitor for improvement Left foot drop: likely due to neuropathy. May need AFO but will need to monitor for wound issues Left foot wounds: consult wound care, keep clean, monitor for healing Z73.6 ADL dysfunction: OT will work on improving ability to perform ADLs (including assistive devices) to increase independence and decrease caregiver burden and improve functional transfers and mobility training. R26.2 Difficulty walking: PT will work on gait training and proper use of assistive devices and advance as appropriate to use of stairs and outside ambulation on uneven surfaces. R26.81 Unsteadiness on feet: PT will work on improving static and dynamic sitting and standing balance as well as proper use of assistive devices to decrease risk of falls. R26.89 Abnormality of gait: PT will work to improve safety and efficiency of gait through neuromotor training and gait training along with instruction on proper use of assistive devices. M62.81 Muscle weakness: PT & OT will work on strengthening exercises to improve functional strength including mixture of closed and open kinetic chain exercises. R53.81 Debility: PT & OT will work on improving overall functional status to improve participation with ADLs, mobility and social involvement. R53.83 Fatigue: PT & OT will work on improving endurance through aerobic exercises and therapeutic activity while monitoring patients tolerance for activity and vital signs as needed. DVT ppx: heparin TID Pain: Continue physical modalities in therapy and pain medications as needed to achieve functional pain control. Sleep: Monitor and address as needed. Bowel: Monitor and address as needed. Appetite: Monitor and address as needed. Discharge planning: Pending therapy progress and care plan meeting. Will continue discussion with therapy team, SW, patient and family. Restrictions/ Precautions: Falls WB status: FWB Functional Hx: ADLs: Independent Cognition: Independent Mobility: No AD Barriers to Discharge: Decreased mobility and ability to perform self care, balance deficits, weakness Estimated Length of Stay: 14-18 days Discharge Destination: Home with family
[2019-01-29] MEDS: PERCOCET 5/325 PO PRN (23:07)
[2019-01-29] MEDS: NEURONTIN PO SCH (23:11)
[2019-01-29] MEDS: LANTUS SUB-Q SCH (23:14)
[2019-01-29] MEDS: BANOPHEN ANTI-ITCH TP PRN (23:21)
[2019-01-30] MEDS: IMDUR PO SCH ×2 (08:00→22:03)
[2019-01-30] MEDS: BUMEX PO SCH (08:00)
[2019-01-30] MEDS: COREG PO SCH ×3 (08:00→23:06)
[2019-01-30] MEDS: RENVELA PO SCH ×3 (08:06→16:30)
[2019-01-30] MEDS: HEPARIN SUB-Q SCH ×3 (08:06→22:01)
[2019-01-30] MEDS: APRESOLINE PO SCH ×4 (08:12→23:05)
--- NOTE | 2019-01-30 09:03 | Progress Note ---
Subjective Principal diagnosis: Right AKA and new ESRD on HD Interval history: Patient was seen today for follow-up on multiple renal related issues Patient normally dialyzes Sunday He does not want to do any vascular access: Fistula at this time He wants to do it in outpatient setting Patient denies any complaints of chest pain shortness of breath nausea vomiting Events over 24 hours were noted Vitals intake output medications were reviewed Allergies: Reviewed Social/family history: Reviewed Physical examination: Gen.: No acute distress HEENT: Oral mucosa moist, no icterus Neck: Supple no thyromegaly maass or JVD Chest: Clear to auscultation Heart: Regular rate and rhythm S1-S2 heard no S3-S4 Abdomen: Soft nontender no suprapubic masses nor organomegaly Extremity: Dry skin less than 1+ edema,No petechial rashes Psych: No evidence of any agitation and aggression noted Neurological: Alert awake Assessment and plan End-stage renal disease continue with hemodialysis treatment on Sunday Current dialysis access is a central venous catheter I have educated the patient to consider a avoid keeping this catheter for a long time Vascular surgery appointment has already been scheduled patient wants to think about his permanent access Told him about the signs and symptoms of catheter-related infection bacteremia sepsis and remotely Patient wants to establish the dialysis clinic at [facility] as he lives in that area and he wants to follow up with me has been given choices for other facilities as well Anemia and end-stage renal disease: To monitor and follow Secondary hyperparathyroidism: Monitor phosphorus and PTH level along with vitamin D Has had kidney biopsy done at [place] and was told that he has end-stage renal disease and will need to consider dialysis lifelong dose he gets transplant monitor dialysis related labs had a long discussion patient educated him about permanent access when health permits, Case was also discussed with his mother the bedside with his consent We'll continue to follow and make a recommendation from renal standpoint Patient has been adequately counseled and educated regarding all the renal related issues and does have a good understanding Lab results as well as renal progress was discussed with patient and simple [place] We will continue to follow and make recommendation from renal standpoint. For any questions please call me at: [phone] Objective - Vital Signs Vital signs: Vital Signs - 12hr 01/29/19 01/29/19 01/29/19 23:06 23:07 23:11 Temperature Pulse Rate 97 H 97 H 87 Respiratory Rate Blood Pressure 163/88 163/88 163/88 O2 Sat by Pulse Oximetry 01/30/19 01/30/19 01/30/19 00:20 00:21 04:53 Temperature 99.8 F H 98.6 F Pulse Rate 109 H 104 H Respiratory 17 24 Rate Blood Pressure 146/90 150/85 O2 Sat by Pulse 97 98 Oximetry 01/30/19 01/30/19 07:12 08:12 Temperature 98.6 F Pulse Rate 97 H 97 H Respiratory 18 Rate Blood Pressure 159/90 159/90 O2 Sat by Pulse 95 Oximetry - Lab 01/29/19 04:00 01/29/19 04:00 Most recent lab results Calcium 8.2 mg/dL (8.4-10.2) L 01/29/19 04:00 Phosphorus 4.50 mg/dL (2.5-4.5) 01/29/19 04:00 Magnesium 2.50 mg/dL (1.7-2.3) H 01/29/19 04:00 Medications & Allergies - Medications Allergies/Adverse Reactions: Allergies No Known Allergies Allergy (Verified 08/07/17 23:24) Home Medications: Home Medications Medication Instructions Recorded Confirmed Last Taken Type Aspirin 325 mg PO QDAY #30 tablet 08/09/17 01/29/19 Unknown Rx AtorvaSTATin [Lipitor] 80 mg PO QHS #30 tablet 08/09/17 01/29/19 Unknown Rx Insulin NPH/Regular [NovoLIN 70/30] 25 unit SUB-Q QPM #30 units 08/09/17 01/29/19 Unknown Rx Insulin NPH/Regular [NovoLIN 70/30] 50 unit SUB-Q QAM #30 units 08/09/17 01/29/19 Unknown Rx Active Medications: Generic Name Dose Route Start Last Admin Trade Name Freq PRN Reason Stop Dose Admin Acetaminophen 650 mg 01/28/19 14:31 Tylenol PO Q4H PRN Pain MILD(1-3)/Fever >100.5/BRUNO Amlodipine Besylate 10 mg 01/29/19 08:00 01/29/19 07:19 Norvasc PO 10 mg QDAY MINNIE Administration Atorvastatin Calcium 40 mg 01/28/19 21:00 01/29/19 23:08 Lipitor PO 40 mg QHS MINNIE Administration Bumetanide 2 mg 01/29/19 08:00 01/29/19 07:20 Bumex PO 2 mg QDAY MINNIE Administration Carvedilol 25 mg 01/28/19 22:00 01/29/19 23:07 Coreg PO 25 mg BID MINNIE Administration Dextrose 50 ml 01/28/19 14:31 D50w (25gm) Syringe IV PRN PRN Hypoglycemia Gabapentin 100 mg 01/28/19 22:00 01/29/19 23:11 Neurontin PO 100 mg HS MINNIE Administration Heparin Sodium (Porcine) 5,000 unit 01/28/19 22:00 01/30/19 08:06 Heparin SUB-Q 5,000 unit Q8HR MINNIE Administration Hydralazine HCl 25 mg 01/29/19 12:17 01/30/19 08:12 Apresoline PO 25 mg Q8HR MINNIE Administration Sodium Chloride 100 mls @ 999 mls/hr 01/29/19 16:10 Nacl 0.9% IV GRIS PRN Hypotension Insulin Glargine 8 units 01/28/19 21:00 01/29/19 23:14 Lantus SUB-Q 8 units QHS MINNIE Administration Insulin Human Lispro 0 unit 01/28/19 16:30 01/29/19 16:56 Humalog SUB-Q Not Given [facility] Protocol Isosorbide Mononitrate 60 mg 01/28/19 22:00 01/29/19 23:11 Imdur PO 60 mg BID MINNIE Administration Ondansetron HCl 4 mg 01/28/19 16:38 01/29/19 07:17 Zofran Odt PO 4 mg Q8H PRN Administration Nausea And Vomiting Oxycodone/Acetaminophen 1 tab 01/28/19 14:48 01/29/19 23:07 Percocet 5/325 PO 1 tab Q6H PRN Administration Pain, Moderate (4-6) Polyethylene Glycol 17 gm 01/29/19 08:00 01/29/19 07:20 Miralax 3350 PO 17 gm QDAY MINNIE Administration Sevelamer Carbonate 2,400 mg 01/28/19 16:30 01/30/19 08:06 Renvela PO 2,400 mg AC [facility] Administration Zinc Acetate/Diphenhydramine 1 applic 01/28/19 14:48 01/29/19 23:21 Banophen Anti-Itch TP 1 applic Q8H PRN Administration Itching
[2019-01-30] MEDS: HumaLOG SUB-Q SCH ×3 (10:00→16:30)
--- NOTE | 2019-01-30 10:35 | Progress Note ---
Subjective Date of service: 01/30/19 Principal diagnosis: Right AKA and new ESRD on HD Interval history: 33-year-old male with chest pressure and MALONEY for 2 wks prior to seeking assistance at ED. Once admitted he was found to have dry gangrene of right foot and ARF. Vascular surgery and nephrology were consulted. After prolonged decision timeframe the patient opted for amputation and an AKA was performed on 01/02/2019. He also required HD. It was hoped that his kidneys would return to former level of function but this did not happen. He is now ESRD and on HD TTS. On exam patient noted to have lateral deviation of right eye and he states this has been the case for the past year and is accompanied by blurred vision in the right eye. Will need ophthalmology follow up. He states his diabetes control has been poor. Patient is participating in therapy and making reasonable progress. Taking rest breaks as needed. +BM. Denies pain, palpitations, dyspnea, cough, weakness, or joint pain. States he has constipation and hard stools over past several days, had BM today but was difficult to pass. BP has been elevated and is moreso today. Hydralazine dose was decreased by nephrology. Will monitor and address. Blood GLU is reasonable, continue to monitor. Director Of Communications will re-assess the ampu shield soon - too large. Nephrology has consulted vascular for fistula creation. Appreciate assistance. Surgery will have to be coordinated with therapy next week after patient has bee n here for 7 days. Administrative coordination also needed and should be cleared through occupational therapist rehab manager. All records, vitals, labs and medications were reviewed. No other issues per patient, nursing or therapy. Objective - Exam Narrative Exam: MUSCULOSKELETAL SPECIALTY EXAM CONSTITUTIONAL: Well developed, well nourished, appropriately groomed EENT: Visual chan full to confrontation on the left, decreased on right. EOMI with lateral deviation of the right. Hearing intact to soft voice RESPIRATORY: Clear to auscultation bilaterally, no increased work of breathing CARDIOVASCULAR: Regular Rate/ Rhythm, no swelling, edema or tenderness in BUE or BLE. Pulses palpable in all extremities. All extremities warm. GI: + bowel sounds, soft, NTTP, nondistended. INTEGUMENTARY: DTI on left heel and dry skin with callus on the plantar surface of the forefoot, otherwise normal, no lesion, rash, masses or bruising noted in extremities. AKA well healed MUSCULOSKELETAL: Right AKA, otherwise BUE and BLE normal without defect, crepitus, subluxation, effusion, arthritic changes or TTP. BUE 4+/5, good ROM, with normal tone. BLE 4/5 good ROM, with normal tone, left foot drop NEURO: CN 2-12 grossly intact. Sensation intact in all extremities. No tremor noted in 4 extremities. POSTURE and GAIT: Sitting posture good. Balance appears reasonable. Gait deferred until seen with therapy. PSYCH: Alert, orientated x3, affect appears normal. Insight appears intact. - Constitutional Vitals: Vital Signs - 12hr 01/29/19 01/29/19 01/29/19 23:06 23:07 23:11 Temperature Pulse Rate 97 H 97 H 87 Respiratory Rate Blood Pressure 163/88 163/88 163/88 O2 Sat by Pulse Oximetry 01/30/19 01/30/19 01/30/19 00:20 00:21 04:53 Temperature 37.7 C H 37.0 C Pulse Rate 109 H 104 H Respiratory 17 24 Rate Blood Pressure 146/90 150/85 O2 Sat by Pulse 97 98 Oximetry 01/30/19 01/30/19 07:12 08:12 Temperature 37.0 C Pulse Rate 97 H 97 H Respiratory 18 Rate Blood Pressure 159/90 159/90 O2 Sat by Pulse 95 Oximetry - Allied health notes Allied health notes reviewed: nursing, PT, OT FIMS assessment as documented by PT/OT/ST: Grooming Patient cleans teeth/dentures: Yes Patient manjarrez/brushes hair: Yes Toileting Toileting Device Commode over Toilet,Grab Bar Patient able to: Adjust clothes before,Clean self Patient able to perform: 2/3 (67%) Toileting FIM Score 3. Moderate Assistance (Patient = 50% or more. Some lifting.) Social interaction/Memory/Problem solving Social Interaction FIM Score 6. Mod. [place] (Mostly appropriate. May need meds. No supv.) Memory FIM Score 6. Modified [place](Mild difficulty remembering people/routines.) Problem Solving FIM Score 5. Supervision (Needs cueing <10% to solve routine problems.) Transfers Mode of Locomotion: Wheelchair Bed/Chair/Wheelchair Transfers 4. Minimal Assistance (Patient = 75% or more. FIM Score Needs touching.) Toilet Transfers FIM Score 4. Minimal Assistance (Patient = 75% or more. Needs touching.) Patient transferred to: Shower Shower Transfers FIM Score 4. Minimal Assistance (Patient = 75% or more. Needs touching.) Locomotion- Stairs Stairs FIM Score 0. Activity does not occur Locomotion- walk/wheelchair Most Frequent Mode of Wheelchair Locomotion: Walking FIM Score 0. Activity does not occur Wheelchair Propulsion Distance 150 Wheelchair FIM Score 4. Minimal Assistance (Patient = 75% or more. Minimum of 150 ft.) Eating Eating FIM Score 6. Modified [place] (Special consistency or uses device.) Dressing-Upper body Patient retrieves clothing No items: Patient applies/removes UE n/a prosthesis or orthosis: Upper Body Dressing FIM Score 6. Modified [place] (Needs equipment, velcro or pros./orth.) Dressing-lower body Patient retrieves clothing No items: Patient applies/removes LE No prosthesis or orthosis: Lower Body Dressing FIM Score 2. Maximal Assistance (Patient = 25% or more) - Labs CBC & Chem 7: 01/29/19 04:00 01/29/19 04:00 Labs: Laboratory Results - last 72 hr 01/28/19 01/29/19 01/29/19 21:37 04:00 04:00 WBC 7.3 RBC 4.56 Hgb 12.3 Hct 39.4 MCV 87 MCH 27 L MCHC 31 L RDW 17.4 H Plt Count 390 Lymph % (Auto) 38.8 H [place] % (Auto) 9.9 H Eos % (Auto) 1.8 Baso % (Auto) 0.7 Lymph # 2.8 [place] # 0.7 Eos # 0.1 Baso # 0.1 Seg Neutrophils % 48.8 Seg Neutrophils # 3.6 Sodium 138 Potassium 4.9 Chloride 101.0 Carbon Dioxide 29 Anion Gap 13 BUN 35 H Creatinine 4.1 H Estimated GFR 21 BUN/Creatinine Ratio 9 Glucose 89 POC Glucose 240 H Hemoglobin A1c Calcium 8.2 L Phosphorus 4.50 Magnesium 2.50 H Total Bilirubin < 0.20 AST 13 ALT 12 Alkaline Phosphatase 137 H Total Protein 4.8 L Albumin 2.1 L Albumin/Globulin Ratio 0.8 01/29/19 01/29/19 01/29/19 04:00 07:23 11:58 WBC RBC Hgb Hct MCV MCH MCHC RDW Plt Count Lymph % (Auto) [place] % (Auto) Eos % (Auto) Baso % (Auto) Lymph # [place] # Eos # Baso # Seg Neutrophils % Seg Neutrophils # Sodium Potassium Chloride Carbon Dioxide Anion Gap BUN Creatinine Estimated GFR BUN/Creatinine Ratio Glucose POC Glucose 118 H 143 H Hemoglobin A1c 4.2 Calcium Phosphorus Magnesium Total Bilirubin AST ALT Alkaline Phosphatase Total Protein Albumin Albumin/Globulin Ratio 01/29/19 01/29/19 01/30/19 16:30 22:23 08:26 WBC RBC Hgb Hct MCV MCH MCHC RDW Plt Count Lymph % (Auto) [place] % (Auto) Eos % (Auto) Baso % (Auto) Lymph # [place] # Eos # Baso # Seg Neutrophils % Seg Neutrophils # Sodium Potassium Chloride Carbon Dioxide Anion Gap BUN Creatinine Estimated GFR BUN/Creatinine Ratio Glucose POC Glucose 135 H 247 H 141 H Hemoglobin A1c Calcium Phosphorus Magnesium Total Bilirubin AST ALT Alkaline Phosphatase Total Protein Albumin Albumin/Globulin Ratio Assessment and Plan Right AKA: Monitor for wound healing or further injury. Contact Director Of Communications for prosthesis. Limb protector on when OOB. ESRD on HD: Consulted nephrology. TTS schedule. Hypertension: Monitor for now, look to adjust medications after HD if BP remains elevated DM I: Continue diet and insulin. Monitor and adjust as needed. Constipation: Miralax and monitor for improvement Phantom sensation and phantom pain: Low dose gabapentin and monitor for improvement Left foot drop: likely due to neuropathy. May need AFO but will need to monitor for wound issues Left foot wounds: consult wound care, keep clean, monitor for healing Z73.6 ADL dysfunction: OT will work on improving ability to perform ADLs (including assistive devices) to increase independence and decrease caregiver burden and improve functional transfers and mobility training. R26.2 Difficulty walking: PT will work on gait training and proper use of assistive devices and advance as appropriate to use of stairs and outside ambulation on uneven surfaces. R26.81 Unsteadiness on feet: PT will work on improving static and dynamic sit ting and standing balance as well as proper use of assistive devices to decrease risk of falls. R26.89 Abnormality of gait: PT will work to improve safety and efficiency of gait through neuromotor training and gait training along with instruction on proper use of assistive devices. M62.81 Muscle weakness: PT & OT will work on strengthening exercises to improve functional strength including mixture of closed and open kinetic chain exercises. R53.81 Debility: PT & OT will work on improving overall functional status to improve participation with ADLs, mobility and social involvement. R53.83 Fatigue: PT & OT will work on improving endurance through aerobic exercises and therapeutic activity while monitoring patients tolerance for activity and vital signs as needed. DVT ppx: heparin TID Pain: Continue physical modalities in therapy and pain medications as needed to achieve functional pain control. Sleep: Monitor and address as needed. Bowel: Monitor and address as needed. Appetite: Monitor and address as needed. Discharge planning: Pending therapy progress and care plan meeting. Will continue discussion with therapy team, SW, patient and family. Restrictions/ Precautions: Falls WB status: FWB Functional Hx: ADLs: Independent Cognition: Independent Mobility: No AD Barriers to Discharge: Decreased mobility and ability to perform self care, balance deficits, weakness Estimated Length of Stay: 14-18 days Discharge Destination: Home with family
--- NOTE | 2019-01-30 13:56 | Consultation ---
History of Present Illness - Reason for Consult Consult date: 01/30/19 - History of Present Illness He is a 33-year-old Black male who is currently on maintenance hemodialysis, he was diagnosed with ESRD at [facility] and was initiated on dialysis and is currently on Sunday schedule. He is currently admitted in acute rehab after he had right AKA at [facility] 01/02/10. He is currently getting hemodialysis throught right IJ permacath placed at [facility] as well. A vascular surgery consult has been requested for evaluation for creation of permanent hemodialysis access. Past History Past Medical History: diabetes (1), ESRD, hypertension Past Surgical History: Other (R AKA, Toe amputations; right IJ permacath) Social history: lives with family (two-story), full code, other (positive THC; admits marijuana use). denies: smoking (former), alcohol abuse, prescription drug abuse Family history: diabetes, hypertension Medications and Allergies Allergies Allergy/AdvReac Type Severity Reaction Status Date / Time No Known Allergies Allergy Verified 08/07/17 23:24 Home Medications Medication Instructions Recorded Confirmed Last Taken Type Aspirin 325 mg PO QDAY #30 tablet 08/09/17 01/29/19 Unknown Rx AtorvaSTATin [Lipitor] 80 mg PO QHS #30 tablet 08/09/17 01/29/19 Unknown Rx Insulin NPH/Regular [NovoLIN 70/30] 25 unit SUB-Q QPM #30 units 08/09/17 01/29/19 Unknown Rx Insulin NPH/Regular [NovoLIN 70/30] 50 unit SUB-Q QAM #30 units 08/09/17 01/29/19 Unknown Rx Active Meds: Active Medications Acetaminophen (Tylenol) 650 mg PO Q4H PRN PRN Reason: Pain MILD(1-3)/Fever >100.5/BRUNO Amlodipine Besylate (Norvasc) 10 mg PO QDAY [facility] Last Admin: 01/29/19 07:19 Dose: 10 mg Documented by: Atorvastatin Calcium (Lipitor) 40 mg PO QHS [facility] Last Admin: 01/29/19 23:08 Dose: 40 mg Documented by: Bumetanide (Bumex) 2 mg PO QDAY [facility] Last Admin: 01/29/19 07:20 Dose: 2 mg Documented by: Carvedilol (Coreg) 25 mg PO BID [facility] Last Admin: 01/29/19 23:07 Dose: 25 mg Documented by: Dextrose (D50w (25gm) Syringe) 50 ml IV PRN PRN PRN Reason: Hypoglycemia Gabapentin (Neurontin) 100 mg PO HS [facility] Last Admin: 01/29/19 23:11 Dose: 100 mg Documented by: Heparin Sodium (Porcine) (Heparin) 5,000 unit SUB-Q Q8HR [facility] Last Admin: 01/30/19 08:06 Dose: 5,000 unit Documented by: Hydralazine HCl (Apresoline) 25 mg PO Q8HR [facility] Last Admin: 01/30/19 08:12 Dose: 25 mg Documented by: Sodium Chloride (Nacl 0.9%) 100 mls @ 999 mls/hr IV GRIS PRN PRN Reason: Hypotension Insulin Glargine (Lantus) 8 units SUB-Q QHS [facility] Last Admin: 01/29/19 23:14 Dose: 8 units Documented by: Insulin Human Lispro (Humalog) 0 unit SUB-Q [facility]; Protocol Last Admin: 01/29/19 16:56 Dose: Not Given Documented by: Isosorbide Mononitrate (Imdur) 60 mg PO BID [facility] Last Admin: 01/29/19 23:11 Dose: 60 mg Documented by: Ondansetron HCl (Zofran Odt) 4 mg PO Q8H PRN PRN Reason: Nausea And Vomiting Last Admin: 01/29/19 07:17 Dose: 4 mg Documented by: Oxycodone/Acetaminophen (Percocet 5/325) 1 tab PO Q6H PRN PRN Reason: Pain, Moderate (4-6) Last Admin: 01/29/19 23:07 Dose: 1 tab Documented by: Polyethylene Glycol (Miralax 3350) 17 gm PO QDAY [facility] Last Admin: 01/29/19 07:20 Dose: 17 gm Documented by: Sevelamer Carbonate (Renvela) 2,400 mg PO [facility] Last Admin: 01/30/19 08:06 Dose: 2,400 mg Documented by: Zinc Acetate/Diphenhydramine (Banophen Anti-Itch) 1 applic TP Q8H PRN PRN Reason: Itching Last Admin: 01/29/19 23:21 Dose: 1 applic Documented by: Review of Systems Constitutional: no weight loss, no weight gain, no fever, no chills Cardiovascular: no chest pain, no edema, no shortness of breath Respiratory: no cough, no shortness of breath, no congestion Integumentary: no rash, no sores Neurological: weakness, gait dysfunction Exam - Constitutional Vitals: Temp Pulse Resp BP Pulse Ox 98.6 F 97 H 18 159/90 95 01/30/19 07:12 01/30/19 08:12 01/30/19 07:12 01/30/19 08:12 01/30/19 07:12 General appearance: Present: no acute distress, well-nourished - EENT ENT: hearing intact, clear oral mucosa, dentition normal - Neck Neck: Present: supple, normal ROM, other (right IJ permacath ) - Respiratory Respiratory effort: normal (nonlabored at rest) - Cardiovascular Rhythm: regular - Extremities Extremities: No edema, normal temperature, abnormal (right radial pulse palpable +1 left radial pulse nonpalpabe) Extremity abnormal: other (Right AKA incision healing well) Results - Labs CBC & Chem 7: 01/29/19 04:00 01/29/19 04:00 Labs: Abnormal lab results 01/29/19 01/29/19 01/30/19 Range/Units 16:30 22:23 08:26 POC Glucose 135 H 247 H 141 H (70-105) 01/30/19 Range/Units 13:37 POC Glucose 140 H (70-105) Assessment and Plan ESRD on hemodialysis He has ESRD will need custodial hemodialysis access. Will obtain vein mapping to evaluate. He is right hand dominant. Advised no INT, BP, or phlebotomy to the left arm in preparation for creation of hemodialysis access. Long discussion completed about temporary and permanent hemodialysis accesses. Advised of risks if continues with temporary vs permanent hemodialysis access.
--- NOTE | 2019-01-30 17:05 | Vascular Lab Report ---
DOPPLER ULTRASOUND UPPER EXTREMITY VENOUS MAPPING, BILATERAL INDICATION / CLINICAL INFORMATION: vein mapping upper extremities for dialysis access TECHNIQUE: Grayscale, color and spectral Doppler imaging of the venous system of the right and left upper extrem ities was performed. COMPARISON: None available. FINDINGS: RIGHT UPPER EXTREMITY: Brachial Artery (Diameter, in cm): 0.38 Radial Artery (Diameter, in cm): 0.16 Basilic Vein (Diameter, in cm): - Upper Arm: 0.22 - Mid Arm: 0.23 - Low Arm: 0.23 - Antecubital: 0.23 - Upper Forearm: Not visualized - Mid Forearm: Not visualized - Distal Forearm: Not visualized Cephalic Vein (Diameter, in cm): - Upper Arm: 0.15 - Mid Arm: 0.16 - Low Arm: 0.14 - Antecubital: 0.39 - Upper Forearm: 0.15 - Mid Forearm: 0.12 - Distal Forearm: 0.13 LEFT UPPER EXTREMITY: Brachial Artery (Diameter, in cm): 0.28 Radial Artery (Diameter, in cm): 0.13 Basilic Vein (Diameter, in cm): - Upper Arm: 0.17 - Mid Arm: 0.19 - Low Arm: 0.17 - Antecubital: 0.17 - Upper Forearm: 0.16 - Mid Forearm: 0.15 - Distal Forearm: 0.11 Cephalic Vein (Diameter, in cm): - Upper Arm: 0.15 - Mid Arm: 0.17 - Low Arm: 0.17 - Antecubital: 0.19 - Upper Forearm: 0.13 - Mid Forearm: 0.15 - Distal Forearm: 0.09 Additional Findings: None. IMPRESSION: 1. Upper extremity venous mapping as above. Signer Name: Niharika Mejias MD Signed: 01/30/2019 5:00 PM Workstation Name: [id number]
[2019-01-30] MEDS: MIRALAX 3350 PO SCH (18:52)
[2019-01-30] MEDS: LANTUS SUB-Q SCH (22:02)
[2019-01-30] MEDS: NEURONTIN PO SCH (22:02)
[2019-01-30 22:14] LABS: Hepatitis C Virus Antibody Non-Reactive (NonReactive)
[2019-01-30 23:29] LABS: Hepatitis B Surface Antigen Non-Reactive (Negative)
[2019-01-31] MEDS: HEPARIN SUB-Q SCH ×3 (06:36→21:14)
[2019-01-31] MEDS: ZOFRAN ODT PO PRN (06:36)
[2019-01-31] MEDS: APRESOLINE PO SCH ×4 (06:37→22:55)
[2019-01-31] MEDS: NORVASC PO SCH ×2 (08:02→08:11)
[2019-01-31] MEDS: IMDUR PO SCH ×2 (08:02→21:19)
[2019-01-31] MEDS: BUMEX PO SCH (08:02)
[2019-01-31] MEDS: MIRALAX 3350 PO SCH (08:03)
[2019-01-31] MEDS: RENVELA PO SCH ×3 (08:03→17:09)
[2019-01-31] MEDS: COREG PO SCH ×2 (08:03→21:20)
[2019-01-31] MEDS: HumaLOG SUB-Q SCH ×3 (08:34→17:08)
--- NOTE | 2019-01-31 09:21 | Progress Note ---
Subjective Principal diagnosis: Right AKA and new ESRD on HD Interval history: Patient was seen today for follow-up on multiple renal related issues Patient normally dialyzes Sunday Tolerated his dialysis treatment fairly well Events over 24 hours were noted Vitals intake output medications were reviewed Allergies: Reviewed Social/family history: Reviewed Physical examination: Gen.: No acute distress HEENT: Oral mucosa moist, no icterus Neck: Supple no thyromegaly maass or JVD Chest: Clear to auscultation Heart: Regular rate and rhythm S1-S2 heard no S3-S4 Abdomen: Soft nontender no suprapubic masses nor organomegaly Extremity: Dry skin less than 1+ edema,No petechial rashes Psych: No evidence of any agitation and aggression noted Neurological: Alert awake Assessment and plan End-stage renal disease continue with hemodialysis treatment on Sunday, was started on dialysis at [facility] and is new to dialysis He does need an outpatient dialysis center, he wants to go to [facility] instruct him on losartan, increase hydralazine Current dialysis access is a central venous catheter I have educated the patient to consider a avoid keeping this catheter for a long time Vascular surgery appointment has already been scheduled patient wants to think about his permanent access Told him about the signs and symptoms of catheter-related infection bacteremia sepsis and remotely Patient wants to establish the dialysis clinic at [facility] as he lives in that area and he wants to follow up with me has been given choices for other facilities as well Anemia and end-stage renal disease: To monitor and follow Secondary hyperparathyroidism: Monitor phosphorus and PTH level along with vitamin D Has had kidney biopsy done at [place] and was told that he has end-stage renal disease and will need to consider dialysis lifelong dose he gets transplant monitor dialysis related labs had a long discussion patient educated him about permanent access when health permits, Case was also discussed with his mother the bedside with his consent We'll continue to follow and make a recommendation from renal standpoint Patient has been adequately counseled and educated regarding all the renal related issues and does have a good understanding Lab results as well as renal progress was discussed with patient and simple [place] We will continue to follow and make recommendation from renal standpoint. For any questions please call me at: [phone] Objective - Vital Signs Vital signs: Vital Signs - 12hr 01/30/19 01/30/19 01/31/19 22:00 22:03 04:21 Temperature 98.0 F Pulse Rate 102 H 86 Pulse Rate [ 104 H Left Radial] Respiratory 19 Rate Blood Pressure 178/94 157/78 O2 Sat by Pulse 100 Oximetry 01/31/19 01/31/19 06:37 08:11 Temperature Pulse Rate 86 Pulse Rate [ Left Radial] Respiratory Rate Blood Pressure 157/78 162/89 O2 Sat by Pulse Oximetry - Lab 01/29/19 04:00 01/29/19 04:00 Most recent lab results Calcium 8.2 mg/dL (8.4-10.2) L 01/29/19 04:00 Phosphorus 4.50 mg/dL (2.5-4.5) 01/29/19 04:00 Magnesium 2.50 mg/dL (1.7-2.3) H 01/29/19 04:00 Medications & Allergies - Medications Allergies/Adverse Reactions: Allergies No Known Allergies Allergy (Verified 08/07/17 23:24) Home Medications: Home Medications Medication Instructions Recorded Confirmed Last Taken Type Aspirin 325 mg PO QDAY #30 tablet 08/09/17 01/29/19 Unknown Rx AtorvaSTATin [Lipitor] 80 mg PO QHS #30 tablet 08/09/17 01/29/19 Unknown Rx Insulin NPH/Regular [NovoLIN 70/30] 25 unit SUB-Q QPM #30 units 08/09/17 0 01/29/19 Unknown Rx Insulin NPH/Regular [NovoLIN 70/30] 50 unit SUB-Q QAM #30 units 08/09/17 Unknown Rx Active Medications: Generic Name Dose Route Start Last Admin Trade Name Freq PRN Reason Stop Dose Admin Acetaminophen 650 mg 01/28/19 14:31 Tylenol PO Q4H PRN Pain MILD(1-3)/Fever >100.5/BRUNO Amlodipine Besylate 10 mg 01/29/19 08:00 01/31/19 08:11 Norvasc PO 10 mg QDAY [facility] Administration Atorvastatin Calcium 40 mg 01/28/19 21:00 01/30/19 22:02 Lipitor PO 40 mg QHS [facility] Administration Bumetanide 2 mg 01/29/19 08:00 01/31/19 08:02 Bumex PO 2 mg QDAY [facility] Administration Carvedilol 25 mg 01/28/19 22:00 01/31/19 08:03 Coreg PO 25 mg BID [facility] Administration Dextrose 50 ml 01/28/19 14:31 D50w (25gm) Syringe IV PRN PRN Hypoglycemia Gabapentin 100 mg 01/28/19 22:00 01/30/19 22:02 Neurontin PO 100 mg HS [facility] Administration Heparin Sodium (Porcine) 5,000 unit 01/28/19 22:00 01/31/19 06:36 Heparin SUB-Q 5,000 unit Q8HR [facility] Administration Hydralazine HCl 25 mg 01/29/19 12:17 01/31/19 06:37 Apresoline PO 25 mg Q8HR [facility] Administration Sodium Chloride 100 mls @ 999 mls/hr 01/29/19 16:10 Nacl 0.9% IV GRIS PRN Hypotension Insulin Glargine 8 units 01/28/19 21:00 01/30/19 22:02 Lantus SUB-Q 8 units QHS [facility] Administration Insulin Human Lispro 0 unit 01/28/19 16:30 01/31/19 08:34 Humalog SUB-Q Not Given [facility] Protocol Isosorbide Mononitrate 60 mg 01/28/19 22:00 01/31/19 08:02 Imdur PO 60 mg BID [facility] Administration Ondansetron HCl 4 mg 01/28/19 16:38 01/31/19 06:36 Zofran Odt PO 4 mg Q8H PRN Administration Nausea And Vomiting Oxycodone/Acetaminophen 1 tab 01/28/19 14:48 01/29/19 23:07 Percocet 5/325 PO 1 tab Q6H PRN Administration Pain, Moderate (4-6) Polyethylene Glycol 17 gm 01/29/19 08:00 01/31/19 08:03 Miralax 3350 PO 17 gm QDAY [facility] Administration Sevelamer Carbonate 2,400 mg 01/28/19 16:30 01/31/19 08:03 Renvela PO 2,400 mg [facility] Administration Zinc Acetate/Diphenhydramine 1 applic 01/28/19 14:48 01/29/19 23:21 Banophen Anti-Itch TP 1 applic Q8H PRN Administration Itching
--- NOTE | 2019-01-31 09:32 | Progress Note ---
Subjective Date of service: 01/31/19 Principal diagnosis: Right AKA and new ESRD on HD Interval history: 33-year-old male with chest pressure and MALONEY for 2 wks prior to seeking assistance at ED. Once admitted he was found to have dry gangrene of right foot and ARF. Vascular surgery and nephrology were consulted. After prolonged decision timeframe the patient opted for amputation and an AKA was performed on 01/02/2019. He also required HD. It was hoped that his kidneys would return to former level of function but this did not happen. He is now ESRD and on HD TTS. On exam patient noted to have lateral deviation of right eye and he states this has been the case for the past year and is accompanied by blurred vision in the right eye. Will need ophthalmology follow up. He states his diabetes control has been poor. Patient is participating in therapy and making reasonable progress. Taking rest breaks as needed. -BM. Denies pain, palpitations, dyspnea, cough, or joint pain. States he has constipation and hard stools over past several days, miralax is helping. Blood GLU is reasonable, continue to monitor. Discussed BP with Dr Garcia - appreciate assistance. Vein mapping yesterday. Will work to schedule fistual creation with vasc surgery. Discussed prognosis and use of prosthesis with patient and mother. He will need to closely monitor BLE for wounds to avoid further infections and/or amputations. Surgery will have to be coordinated with therapy next week after patient has been here for 7 days. Administrative coordination also needed and should be cleared through facility rehab director. All records, vitals, labs and medications were reviewed. No other issues per patient, nursing or therapy. Objective - Exam Narrative Exam: MUSCULOSKELETAL SPECIALTY EXAM CONSTITUTIONAL: Well developed, well nourished, appropriately groomed EENT: Visual chan full to confrontation on the left, decreased on right. EOMI with lateral deviation of the right. Hearing intact to soft voice RESPIRATORY: Clear to auscultation bilaterally, no increased work of breathing CARDIOVASCULAR: Regular Rate/ Rhythm, no swelling, edema or tenderness in BUE or BLE. Pulses palpable in all extremities. All extremities warm. GI: + bowel sounds, soft, NTTP, nondistended. INTEGUMENTARY: DTI on left heel and dry skin with callus on the plantar surface of the forefoot, otherwise normal, no lesion, rash, masses or bruising noted in extremities. AKA well healed MUSCULOSKELETAL: Right AKA, otherwise BUE and BLE normal without defect, crepitus, subluxation, effusion, arthritic changes or TTP. BUE 4+/5, good ROM, with normal tone. BLE 4-/5 good ROM, with normal tone, left foot drop NEURO: CN 2-12 grossly intact. Sensation intact in all extremities. No tremor noted in 4 extremities. POSTURE and GAIT: Sitting posture good. Balance appears reasonable. Gait deferred until seen with therapy. PSYCH: Alert, orientated x3, affect appears normal. Insight appears intact. - Constitutional Vitals: Vital Signs - 12hr 01/30/19 01/30/19 01/31/19 22:00 22:03 04:21 Temperature 36.7 C Pulse Rate 102 H 86 Pulse Rate [ 104 H Left Radial] Respiratory 19 Rate Blood Pressure 178/94 157/78 O2 Sat by Pulse 100 Oximetry 01/31/19 01/31/19 06:37 08:11 Temperature Pulse Rate 86 Pulse Rate [ Left Radial] Respiratory Rate Blood Pressure 157/78 162/89 O2 Sat by Pulse Oximetry - Allied health notes Allied health notes reviewed: nursing, PT, OT FIMS assessment as documented by PT/OT/ST: Grooming Patient cleans teeth/dentures: Yes Patient manjarrez/brushes hair: Yes Toileting Toileting Device Commode over Toilet,Grab Bar Patient able to: Adjust clothes before,Clean self Patient able to perform: 2/3 (67%) Toileting FIM Score 3. Moderate Assistance (Patient = 50% or more. Some lifting.) Social interaction/Memory/Problem solving Social Interaction FIM Score 6. Mod. Wirt (Mostly appropriate. May need meds. No supv.) Memory FIM Score 6. Modified Wirt(Mild difficulty remembering people/routines.) Problem Solving FIM Score 5. Supervision (Needs cueing <10% to solve routine problems.) Transfers Mode of Locomotion: Wheelchair Bed/Chair/Wheelchair Transfers 5. Supervision (Needs supv. or set-up for FIM Score sliding board, foot rests.) Toilet Transfers FIM Score 4. Minimal Assistance (Patient = 75% or more. Needs touching.) Patient transferred to: Shower Shower Transfers FIM Score 4. Minimal Assistance (Patient = 75% or more. Needs touching.) Locomotion- Stairs Stairs FIM Score 0. Activity does not occur Locomotion- walk/wheelchair Most Frequent Mode of Wheelchair Locomotion: Walking FIM Score 0. Activity does not occur Wheelchair Propulsion Distance 350 Wheelchair FIM Score 5. Supervision (Minimum 150 ft. supv./cues or 50 ft. independently.) Eating Eating FIM Score 6. Modified Wirt (Special consistency or uses device.) Dressing-Upper body Patient retrieves clothing No items: Patient applies/removes UE n/a prosthesis or orthosis: Upper Body Dressing FIM Score 6. Modified Wirt (Needs equipment, velcro or pros./orth.) Dressing-lower body Patient retrieves clothing No items: Patient applies/removes LE No prosthesis or orthosis: Lower Body Dressing FIM Score 2. Maximal Assistance (Patient = 25% or more) - Labs CBC & Chem 7: 01/29/19 04:00 01/29/19 04:00 Labs: Laboratory Results - last 72 hr 01/28/19 01/29/19 01/29/19 21:37 04:00 04:00 WBC 7.3 RBC 4.56 Hgb 12.3 Hct 39.4 MCV 87 MCH 27 L MCHC 31 L RDW 17.4 H Plt Count 390 Lymph % (Auto) 38.8 H Coles % (Auto) 9.9 H Eos % (Auto) 1.8 Baso % (Auto) 0.7 Lymph # 2.8 Coles # 0.7 Eos # 0.1 Baso # 0.1 Seg Neutrophils % 48.8 Seg Neutrophils # 3.6 Sodium 138 Potassium 4.9 Chloride 101.0 Carbon Dioxide 29 Anion Gap 13 BUN 35 H Creatinine 4.1 H Estimated GFR 21 BUN/Creatinine Ratio 9 Glucose 89 POC Glucose 240 H Hemoglobin A1c Calcium 8.2 L Phosphorus 4.50 Magnesium 2.50 H Total Bilirubin < 0.20 AST 13 ALT 12 Alkaline Phosphatase 137 H Total Protein 4.8 L Albumin 2.1 L Albumin/Globulin Ratio 0.8 Hepatitis A IgM Ab Hep Bs Antigen Hep B Core IgM Ab Hepatitis C Antibody 01/29/19 01/29/19 01/29/19 04:00 07:23 11:58 WBC RBC Hgb Hct MCV MCH MCHC RDW Plt Count Lymph % (Auto) Coles % (Auto) Eos % (Auto) Baso % (Auto) Lymph # Coles # Eos # Baso # Seg Neutrophils % Seg Neutrophils # Sodium Potassium Chloride Carbon Dioxide Anion Gap BUN Creatinine Estimated GFR BUN/Creatinine Ratio Glucose POC Glucose 118 H 143 H Hemoglobin A1c 4.2 Calcium Phosphorus Magnesium Total Bilirubin AST ALT Alkaline Phosphatase Total Protein Albumin Albumin/Globulin Ratio Hepatitis A IgM Ab Hep Bs Antigen Hep B Core IgM Ab Hepatitis C Antibody 01/29/19 01/29/19 01/30/19 16:30 22:23 08:26 WBC RBC Hgb Hct MCV MCH MCHC RDW Plt Count Lymph % (Auto) Coles % (Auto) Eos % (Auto) Baso % (Auto) Lymph # Coles # Eos # Baso # Seg Neutrophils % Seg Neutrophils # Sodium Potassium Chloride Carbon Dioxide Anion Gap BUN Creatinine Estimated GFR BUN/Creatinine Ratio Glucose POC Glucose 135 H 247 H 141 H Hemoglobin A1c Calcium Phosphorus Magnesium Total Bilirubin AST ALT Alkaline Phosphatase Total Protein Albumin Albumin/Globulin Ratio Hepatitis A IgM Ab Hep Bs Antigen Hep B Core IgM Ab Hepatitis C Antibody 01/30/19 01/30/19 01/30/19 13:37 20:52 21:24 WBC RBC Hgb Hct MCV MCH MCHC RDW Plt Count Lymph % (Auto) Coles % (Auto) Eos % (Auto) Baso % (Auto) Lymph # Coles # Eos # Baso # Seg Neutrophils % Seg Neutrophils # Sodium Potassium Chloride Carbon Dioxide Anion Gap BUN Creatinine Estimated GFR BUN/Creatinine Ratio Glucose POC Glucose 140 H 185 H Hemoglobin A1c Calcium Phosphorus Magnesium Total Bilirubin AST ALT Alkaline Phosphatase Total Protein Albumin Albumin/Globulin Ratio Hepatitis A IgM Ab Non-reactive Hep Bs Antigen Non-reactive Hep B Core IgM Ab Non-reactive Hepatitis C Antibody Non-reactive 01/31/19 08:35 WBC RBC Hgb Hct MCV MCH MCHC RDW Plt Count Lymph % (Auto) Coles % (Auto) Eos % (Auto) Baso % (Auto) Lymph # Coles # Eos # Baso # Seg Neutrophils % Seg Neutrophils # Sodium Potassium Chloride Carbon Dioxide Anion Gap BUN Creatinine Estimated GFR BUN/Creatinine Ratio Glucose POC Glucose 93 Hemoglobin A1c Calcium Phosphorus Magnesium Total Bilirubin AST ALT Alkaline Phosphatase Total Protein Albumin Albumin/Globulin Ratio Hepatitis A IgM Ab Hep Bs Antigen Hep B Core IgM Ab Hepatitis C Antibody Assessment and Plan Right AKA: Monitor for wound healing or further injury. Contact School Transportation Director for prosthesis. Limb protector on when OOB. ESRD on HD: Consulted nephrology. TTS schedule. Hypertension: Appreciate nephrology assistance DM I: Continue diet and insulin. Monitor and adjust as needed. Constipation: Miralax and monitor for improvement Phantom sensation and phantom pain: Low dose gabapentin and monitor for improvement Left foot drop: likely due to neuropathy. May need AFO but will need to monitor for wound issues Left foot wounds: consult wound care, keep clean, monitor for healing Z73.6 ADL dysfunction: OT will work on improving ability to perform ADLs ( including assistive devices) to increase independence and decrease caregiver burden and improve functional transfers and mobility training. R26.2 Difficulty walking: PT will work on gait training and proper use of assistive devices and advance as appropriate to use of stairs and outside ambulation on uneven surfaces. R26.81 Unsteadiness on feet: PT will work on improving static and dynamic sitting and standing balance as well as proper use of assistive devices to decrease risk of falls. R26.89 Abnormality of gait: PT will work to improve safety and efficiency of gait through neuromotor training and gait training along with instruction on proper use of assistive devices. M62.81 Muscle weakness: PT & OT will work on strengthening exercises to improve functional strength including mixture of closed and open kinetic chain exercises. R53.81 Debility: PT & OT will work on improving overall functional status to improve participation with ADLs, mobility and social involvement. R53.83 Fatigue: PT & OT will work on improving endurance through aerobic exercises and therapeutic activity while monitoring patients tolerance for activity and vital signs as needed. DVT ppx: heparin TID Pain: Continue physical modalities in therapy and pain medications as needed to achieve functional pain control. Sleep: Monitor and address as needed. Bowel: Monitor and address as needed. Appetite: Monitor and address as needed. Discharge planning: Pending therapy progress and care plan meeting. Will continue discussion with therapy team, SW, patient and family. Restrictions/ Precautions: Falls WB status: FWB Functional Hx: ADLs: Independent Cognition: Independent Mobility: No AD Barriers to Discharge: Decreased mobility and ability to perform self care, balance deficits, weakness Estimated Length of Stay: 14-18 days Discharge Destination: Home with family
[2019-01-31] MEDS: PERCOCET 5/325 PO PRN (17:07)
--- NOTE | 2019-01-31 18:45 | Progress Note ---
Assessment and Plan - Patient Problems (1) ESRD (end stage renal disease) on dialysis Current Visit: Yes Status: Chronic Plan to address problem: will need avg for permanent access our surgical schedule does not permit creation of new access anytime in the next few days. will most likely be scheduled as an out patient Subjective Date of service: 01/31/19 Principal diagnosis: Right AKA and new ESRD on HD Interval history: He underwent upper extremity venous imaging today for possible hemodialysis access results suggest no veins are usable for creation of an AV fistula. Objective - Exam Narrative Exam: no veins for avf- will need avg. - Constitutional Vitals: Vital Signs - 12hr 01/31/19 01/31/19 01/31/19 08:11 12:49 17:17 Temperature 97.8 F 97.9 F Pulse Rate 107 H 95 H Respiratory 20 20 Rate Blood Pressure 162/89 Blood Pressure 131/84 166/90 [Left] O2 Sat by Pulse 99 Oximetry - Labs CBC & Chem 7: 01/29/19 04:00 01/29/19 04:00 Labs: Abnormal lab results 01/30/19 01/31/19 01/31/19 Range/Units 21:24 13:15 17:04 POC Glucose 185 H 208 H 212 H (70-105) Medications & Allergies - Medications Allergies/Adverse Reactions: Allergies No Known Allergies Allergy (Verified 08/07/17 23:24) Home Medications: Home Medications Medication Instructions Recorded Confirmed Last Taken Type Aspirin 325 mg PO QDAY #30 tablet 08/09/17 01/29/19 Unknown Rx AtorvaSTATin [Lipitor] 80 mg PO QHS #30 tablet 08/09/17 01/29/19 Unknown Rx Insulin NPH/Regular [NovoLIN 70/30] 25 unit SUB-Q QPM #30 units 08/09/1701/13 Unknown Rx Insulin NPH/Regular [NovoLIN 70/30] 50 unit SUB-Q QAM #30 units 08/09/17 01/29/19 Unknown Rx Active Medications: Generic Name Dose Route Start Last Admin Trade Name Freq PRN Reason Stop Dose Admin Acetaminophen 650 mg 01/28/19 14:31 Tylenol PO Q4H PRN Pain MILD(1-3)/Fever >100.5/BRUNO Amlodipine Besylate 10 mg 01/29/19 08:00 01/31/19 08:11 Norvasc PO 10 mg QDAY MINNIE Administration Atorvastatin Calcium 40 mg 01/28/19 21:00 01/30/19 22:02 Lipitor PO 40 mg QHS MINNIE Administration Bumetanide 2 mg 01/29/19 08:00 01/31/19 08:02 Bumex PO 2 mg QDAY MINNIE Administration Carvedilol 25 mg 01/28/19 22:00 01/31/19 08:03 Coreg PO 25 mg BID MINNIE Administration Dextrose 50 ml 01/28/19 14:31 D50w (25gm) Syringe IV PRN PRN Hypoglycemia Gabapentin 100 mg 01/28/19 22:00 01/30/19 22:02 Neurontin PO 100 mg HS MINNIE Administration Heparin Sodium (Porcine) 5,000 unit 01/28/19 22:00 01/31/19 14:00 Heparin SUB-Q Not Given Q8HR MINNIE Hydralazine HCl 25 mg 01/29/19 12:17 01/31/19 14:00 Apresoline PO Not Given Q8HR [facility] Sodium Chloride 100 mls @ 999 mls/hr 01/29/19 16:10 Nacl 0.9% IV GRIS PRN Hypotension Insulin Glargine 8 units 01/28/19 21:00 01/30/19 22:02 Lantus SUB-Q 8 units QHS [facility] Administration Insulin Human Lispro 0 unit 01/28/19 16:30 01/31/19 17:08 Humalog SUB-Q 3 unit AC [facility] Administration Protocol Isosorbide Mononitrate 60 mg 01/28/19 22:00 01/31/19 08:02 Imdur PO 60 mg BID MINNIE Administration Ondansetron HCl 4 mg 01/28/19 16:38 01/31/19 06:36 Zofran Odt PO 4 mg Q8H PRN Administration Nausea And Vomiting Oxycodone/Acetaminophen 1 tab 01/28/19 14:48 01/31/19 17:07 Percocet 5/325 PO 1 tab Q6H PRN Administration Pain, Moderate (4-6) Polyethylene Glycol 17 gm 01/29/19 08:00 01/31/19 08:03 Miralax 3350 PO 17 gm QDAY MINNIE Administration Sevelamer Carbonate 2,400 mg 01/28/19 16:30 01/31/19 17:09 Renvela PO 2,400 mg AC MINNIE Administration Zinc Acetate/Diphenhydramine 1 applic 01/28/19 14:48 01/29/19 23:21 Banophen Anti-Itch TP 1 applic Q8H PRN Administration Itching
--- NOTE | 2019-01-31 19:51 | IRU Plan of Care ---
Interdisciplinary Plan of Care - IP IRU INTERDISCIPLINARY PLAN: [facility] Inpatient Rehab Unit Plan of Care IRU Interdisciplinary Care Plan Start: 01/28/19 16:50 Freq: Admission then PRN Status: Active Protocol: Document 01/31/19 15:52 TH (Rec: 01/31/19 15:59 TH [id number]) Interdisciplinary Problem List Interdisciplinary Problem List Interdisciplinary Problem List Impaired Bathing/Grooming, Query Text:Answers will Trigger Problems Impaired Dressing,Impaired and Outcomes on Worklist. Mobility,Impaired Transfers, Impaired Toileting,Impaired Nutrition,Knowledge Deficits, Impaired Skin/Tissue Integrity ,Discharge Concerns,Impaired Home Management,Impaired Safety,Medications Education, Diabetes Education,Impaired Cardiovascular System IRU Interdisciplinary Care Plan Therapy Services Therapy Services Will Include: Physical Therapy,Occupational Query Text:Patient will be seen for a Therapy minimum of 3 hours of daily therapy 5 out of 7 days a week. Therapy intensity may be adjusted within a 7 consecutive day period to effectively serve the individual needs of the patient. Treatment Frequency/Intensity/Duration Treatment Frequency 5xwk Treatment Intensity 3 hours per day Treatment Duration 14-21 days Problem Area: Eating/Swallowing Eating/Swallowing Outcomes Eating/Swallowing Interventions Problem Area: Bathing/Grooming Bathing/Grooming Outcomes Improve [place] w/ Grooming,Improve [place] w/ Bathing Bathing/Grooming Interventions ADL Training,Use of Assistive Devices,Therapeutic Exercise, Therapeutic Activity, Neuromuscular Re-Education, Balance Work Problem Area: Dressing Dressing Outcomes Improve [place] w/ UB Dressing,Improve [place] w/ LB Dressing Dressing Interventions ADL Training,Use of Assistive Devices,Neuromuscular Re- Education,Therapeutic Exercise ,Balance Work,Modalities, Patient/Caregiver Education Problem Area: Mobility Mobility Outcomes Improve [place] w/ Bed Mobility,Improve [place] w/ Ambulation,Improve [place] w/ Stairs/Curb, Improve [place] w/ Wheelchair Mobility Interventions Therapeutic Exercise, Neuromuscular Re-Ed.,Use of Assistive Devices,Patient/ Caregiver Education,Bed Mobility Work,Gait Training,W/ C Mobility Work Problem Area: Transfers Transfers Outcomes Improve [place] w/ Toilet Transfers,Improve [place] w/ Tub/Shower Transfers Transfers Interventions Transfer Training,Therapeutic Exercise,Neuromuscular Re- Education,Visual/Perceptual Training,Activity Tolerance Work,Modalities,Use of Assistive Devices,Patient/ Caregiver Education Problem Area: Bowel/Bladder Managment Bowel/Bladder Outcomes Bowel/Bladder Interventions Problem Area: Toileting Toileting Outcomes Improve [place] w/ Toileting Toileting Interventions ADL Training,Balance Work,Use of Assistive Devices,Patient/ Caregiver Education Problem Area: Nutrition Nutrition Outcomes Nutrition Interventions Problem Area: Comprehension Comprehension Outcomes Comprehension Interventions Problem Area: Expression Expression Outcomes Expression Interventions Problem Area: Problem Solving Problem Solving Outcomes Problem Solving Interventions Problem Area: Memory Memory Outcomes Memory Interventions Problem Area: Pain Management Pain Management Outcomes Pain Management Interventions Problem Area: Knowledge Deficits Knowledge Deficits Outcomes Demonstrate Ability to Manage Blood Glucose,Verbalize Understanding of S/S of Stroke Knowledge Deficits Interventions Disease/Injury/Sx. Intervention Education, Medication Use Education, Disease Management Education, Safety Education Problem Area: Skin/Tissue Integrity Skin/Tissue Integrity Outcomes Exhibit Healing of Wound/ Incision,Demonstrate Understanding of Pressure Relief Skin/Tissue Integrity Interventions Skin/Wound Care,Dressing Change Education,Positioning/ Turning Problem Area: Social Interaction Social Interaction Outcomes Social Interaction Interventions Problem Area: Adjustment to Disability Adjustment to Disability Outcomes Adjustment to Disability Interventions Problem Area: Discharge Concerns Discharge Concerns Outcomes Discharge w/ Necessary Equipment,Have Home Health/ Outpatient Services Discharge Concerns Interventions Discharge Planning,Family/ Caregiver Conference,Family/ Caregiver Training Problem Area: Community Reintegration Community Reintegration Outcomes Community Reintegration Interventions Problem Area: Home Management Home Management Outcomes Home Management Interventions Problem Area: Safety Safety Outcomes Provide Safe Environment, Perform Selfcare Safely, Demonstrate Good Safety w/ Transfers/Mobility Safety Interventions Identify Fall Risk,[place] Pt. to Environment,Reduce Environmental Hazards, Implement Mechanical Devices, i.e. Chair Alarm (Post Fall Update),Re-Educate Patient/ Caregiver for Safety (Post Fall Update) Problem Area: Medication Education Medication Education Outcomes Patient/Caregiver will Verbalize Understanding of Medications Medication Education Interventions Explain Administration/Side Effects/Interactions Problem Area: Diabetes Education Diabetes Education Outcomes Demonstrate Knowledge of Resources Availlable in Diabetic Ed. Folder Diabetes Education Interventions Give Pt. Diabetes Education Folder,Discuss Pathophysiology of Diabetes Problem Area: Oxygenation Oxygenation Outcomes Oxygenation Interventions Problem Area: Cardiovascular Cardiovascular Outcomes Cardiovascular Interventions Physician Only Medical Prognosis and Rehabilitation Fair medical prognosis. Poorly controlled type I DM, new onset ESRD, HTN, with recent AKA secondary to infection. Good rehab potential, AKA but does have significant motor weakness. Will need to improve strength, balance and continue education about medical condition to improve overall health and outcome. Potential (Completed by Physician) This plan of care has been developed based on the findings from the pre- admission assessment, post admission physician evaluation, information gathered from the assessments from all therapy disciplines and other pertinent clinicians. The plan of care has been reviewed and discussed in collaboration with the interdisciplinary team. The plan of care will be reviewed and updated at least weekly.
[2019-01-31] MEDS: LANTUS SUB-Q SCH (21:18)
[2019-01-31] MEDS: NEURONTIN PO SCH (21:22)
[2019-01-31] MEDS: COZAAR PO SCH (22:52)
[2019-02-01] MEDS: HEPARIN SUB-Q SCH ×3 (06:41→21:49)
[2019-02-01] MEDS: APRESOLINE PO SCH ×3 (06:42→21:51)
[2019-02-01] MEDS: RENVELA PO SCH ×4 (08:00→17:18)
[2019-02-01] MEDS: COZAAR PO SCH (08:25)
[2019-02-01] MEDS: IMDUR PO SCH ×2 (08:25→21:55)
[2019-02-01] MEDS: COREG PO SCH ×2 (08:26→21:54)
[2019-02-01] MEDS: MIRALAX 3350 PO SCH (10:16)
[2019-02-01] MEDS: BUMEX PO SCH (10:16)
[2019-02-01] MEDS: HumaLOG SUB-Q SCH ×3 (10:23→17:18)
--- NOTE | 2019-02-01 12:17 | Progress Note ---
Assessment and Plan Impression * End-stage renal disease * Hypertension * Status post right above-knee amputation * Anemia * Peripheral artery disease Recommendations * Patient is scheduled for hemodialysis today * Continue dialysis on TTS schedule * Vascular surgery consult appreciated * Binders with meals * Procrit with dialysis per protocol * He will also require outpatient dialysis arrangement Subjective Date of service: 02/01/19 Principal diagnosis: Right AKA and new ESRD on HD Interval history: Patient is awake and alert. Comfortable. Denies any shortness of breath. Objective - Vital Signs Vital signs: Vital Signs - 12hr 02/01/19 02/01/19 02/01/19 00:19 00:20 06:42 Temperature 97.9 F Pulse Rate 94 H 96 H 96 H Respiratory 16 Rate Blood Pressure 149/79 141/84 O2 Sat by Pulse 99 99 Oximetry 02/01/19 06:46 Temperature 98.8 F Pulse Rate 96 H Respiratory 18 Rate Blood Pressure 141/84 O2 Sat by Pulse 99 Oximetry - General Appearance General appearance: well-developed, well-nourished, appears stated age EENT: PERRL, mucous membranes moist Neck: no JVD, no thyromegaly, no carotid bruit, supple, other (right IJ PermCath in place) Respiratory: Present: Clear to Ascultation Cardiology: regular, normal heart rate, S1S2, no murmurs Gastrointestinal: normal, normoactive bowel sounds Integumentary: no rash, other (right above-knee amputation. 1+ edema in left leg) - Lab 01/29/19 04:00 01/29/19 04:00 Most recent lab results Calcium 8.2 mg/dL (8.4-10.2) L 01/29/19 04:00 Phosphorus 4.50 mg/dL (2.5-4.5) 01/29/19 04:00 Magnesium 2.50 mg/dL (1.7-2.3) H 01/29/19 04:00 Medications & Allergies - Medications Allergies/Adverse Reactions: Allergies No Known Allergies Allergy (Verified 08/07/17 23:24) Home Medications: Home Medications Medication Instructions Recorded Confirmed Last Taken Type Aspirin 325 mg PO QDAY #30 tablet 08/09/17 01/29/19 Unknown Rx AtorvaSTATin [Lipitor] 80 mg PO QHS #30 tablet 08/09/17 01/29/19 Unknown Rx Insulin NPH/Regular [NovoLIN 70/30] 25 unit SUB-Q QPM #30 units 08/09/17 01/29/19 Unknown Rx Insulin NPH/Regular [NovoLIN 70/30] 50 unit SUB-Q QAM #30 units 08/09/17 01/29/19 Unknown Rx Active Medications: Generic Name Dose Route Start Last Admin Trade Name Freq PRN Reason Stop Dose Admin Acetaminophen 650 mg 01/28/19 14:31 Tylenol PO Q4H PRN Pain MILD(1-3)/Fever >100.5/BRUNO Atorvastatin Calcium 40 mg 01/28/19 21:00 01/31/19 21:21 Lipitor PO 40 mg QHS MINNIE Administration Bumetanide 2 mg 01/29/19 08:00 02/01/19 10:16 Bumex PO 2 mg QDAY MINNIE Administration Carvedilol 25 mg 01/28/19 22:00 02/01/19 08:26 Coreg PO Not Given BID MINNIE Dextrose 50 ml 01/28/19 14:31 D50w (25gm) Syringe IV PRN PRN Hypoglycemia Gabapentin 100 mg 01/28/19 22:00 01/31/19 21:22 Neurontin PO 100 mg HS MINNIE Administration Heparin Sodium (Porcine) 5,000 unit 01/28/19 22:00 02/01/19 06:41 Heparin SUB-Q 5,000 unit Q8HR MINNIE Administration Hydralazine HCl 50 mg 01/31/19 22:00 02/01/19 06:42 Apresoline PO 50 mg Q8HR MINNIE Administration Sodium Chloride 100 mls @ 999 mls/hr 01/29/19 16:10 Nacl 0.9% IV GRIS PRN Hypotension Insulin Glargine 8 units 01/28/19 21:00 01/31/19 21:18 Lantus SUB-Q 8 units QHS MINNIE Administration Insulin Human Lispro 0 unit 01/28/19 16:30 02/01/19 10:23 Humalog SUB-Q 3 unit AC MINNIE Administration Protocol Isosorbide Mononitrate 60 mg 01/28/19 22:00 02/01/19 08:25 Imdur PO Not Given BID [facility] Losartan Potassium 100 mg 01/31/19 22:00 02/01/19 08:25 Cozaar PO Not Given QDAY MINNIE Ondansetron HCl 4 mg 01/28/19 16:38 01/31/19 06:36 Zofran Odt PO 4 mg Q8H PRN Administration Nausea And Vomiting Oxycodone/Acetaminophen 1 tab 01/28/19 14:48 01/31/19 17:07 Percocet 5/325 PO 1 tab Q6H PRN Administration Pain, Moderate (4-6) Polyethylene Glycol 17 gm 01/29/19 08:00 02/01/19 10:16 Miralax 3350 PO 17 gm QDAY MINNIE Administration Sevelamer Carbonate 2,400 mg 01/28/19 16:30 02/01/19 12:10 Renvela PO 2,400 mg AC MINNIE Administration Zinc Acetate/Diphenhydramine 1 applic 01/28/19 14:48 01/29/19 23:21 Banophen Anti-Itch TP 1 applic Q8H PRN Administration Itching
[2019-02-01] MEDS: PERCOCET 5/325 PO PRN ×2 (15:02→21:50)
[2019-02-01] MEDS ORDERED: NACL 0.9 (PRIMING MACHINE ONLY DIALYSIS) MC ONE (18:55)
[2019-02-01] MEDS: LANTUS SUB-Q SCH (21:45)
[2019-02-01] MEDS: NEURONTIN PO SCH (21:50)
[2019-02-02] MEDS: HEPARIN SUB-Q SCH ×3 (05:45→22:23)
[2019-02-02] MEDS: APRESOLINE PO SCH ×4 (05:46→22:25)
[2019-02-02] MEDS: PERCOCET 5/325 PO PRN ×3 (05:47→22:28)
[2019-02-02] MEDS: HumaLOG SUB-Q SCH ×3 (09:41→18:45)
[2019-02-02] MEDS: COREG PO SCH ×2 (09:44→22:24)
[2019-02-02] MEDS: BUMEX PO SCH (09:45)
[2019-02-02] MEDS: IMDUR PO SCH ×2 (09:45→22:25)
[2019-02-02] MEDS: RENVELA PO SCH ×3 (09:46→18:54)
[2019-02-02] MEDS: COZAAR PO SCH (09:47)
[2019-02-02] MEDS: MIRALAX 3350 PO SCH (09:49)
--- NOTE | 2019-02-02 13:04 | Progress Note ---
Assessment and Plan Impression * End-stage renal disease * Hypertension * Status post right above-knee amputation * Anemia * Peripheral artery disease Recommendations * Patient had uneventful hemodialysis yesterday * Continue dialysis on TTS schedule * Vascular surgery consult appreciated * Binders with meals * Procrit with dialysis per protocol * He will also require outpatient dialysis arrangement * His blood pressure is noted to be elevated. Adjust his antihypertensive meds Subjective Date of service: 02/02/19 Principal diagnosis: Right AKA and new ESRD on HD Interval history: Patient is comfortable. Uneventful hemodialysis yesterday. Objective - Vital Signs Vital signs: Vital Signs - 12hr 02/02/19 02/02/19 02/02/19 04:57 05:46 07:46 Temperature 98.3 F Pulse Rate 104 H 97 H 96 H Respiratory 20 Rate Blood Pressure 153/82 174/102 Blood Pressure 153/82 [Left] O2 Sat by Pulse 98 100 Oximetry 02/02/19 02/02/19 02/02/19 09:44 09:45 09:47 Temperature Pulse Rate 98 H 98 H 98 H Respiratory Rate Blood Pressure 174/102 174/102 174/102 Blood Pressure [Left] O2 Sat by Pulse Oximetry - General Appearance General appearance: well-developed, well-nourished, appears stated age EENT: PERRL, mucous membranes moist Neck: no JVD, no thyromegaly, no carotid bruit, supple, other (right IJ PermCath in place.) Respiratory: Present: Clear to Ascultation Cardiology: regular, normal heart rate, S1S2, no murmurs Gastrointestinal: normal, normoactive bowel sounds Integumentary: no rash, other (right above-knee amputation. 1+ edema left lower extremity) - Lab 01/29/19 04:00 01/29/19 04:00 Most recent lab results Calcium 8.2 mg/dL (8.4-10.2) L 01/29/19 04:00 Phosphorus 4.50 mg/dL (2.5-4.5) 01/29/19 04:00 Magnesium 2.50 mg/dL (1.7-2.3) H 01/29/19 04:00 Medications & Allergies - Medications Allergies/Adverse Reactions: Allergies No Known Allergies Allergy (Verified 08/07/17 23:24) Home Medications: Home Medications Medication Instructions Recorded Confirmed Last Taken Type Aspirin 325 mg PO QDAY #30 tablet 08/09/17 01/29/19 Unknown Rx AtorvaSTATin [Lipitor] 80 mg PO QHS #30 tablet 08/09/17 01/29/19 Unknown Rx Insulin NPH/Regular [NovoLIN 70/30] 25 unit SUB-Q QPM #30 units 08/09/17 01/29/19 Unknown Rx Insulin NPH/Regular [NovoLIN 70/30] 50 unit SUB-Q QAM #30 units 08/09/17 01/29/19 Unknown Rx Active Medications: Generic Name Dose Route Start Last Admin Trade Name Freq PRN Reason Stop Dose Admin Acetaminophen 650 mg 01/28/19 14:31 Tylenol PO Q4H PRN Pain MILD(1-3)/Fever >100.5/BRUNO Atorvastatin Calcium 40 mg 01/28/19 21:00 02/01/19 21:54 Lipitor PO 40 mg QHS MINNIE Administration Bumetanide 2 mg 01/29/19 08:00 02/02/19 09:45 Bumex PO 2 mg QDAY MINNIE Administration Carvedilol 25 mg 01/28/19 22:00 02/02/19 09:44 Coreg PO 25 mg BID MINNIE Administration Dextrose 50 ml 01/28/19 14:31 D50w (25gm) Syringe IV PRN PRN Hypoglycemia Gabapentin 100 mg 01/28/19 22:00 02/01/19 21:50 Neurontin PO 100 mg HS MINNIE Administration Heparin Sodium (Porcine) 5,000 unit 01/28/19 22:00 02/02/19 05:45 Heparin SUB-Q 5,000 unit Q8HR MINNIE Administration Hydralazine HCl 50 mg 01/31/19 22:00 02/02/19 05:46 Apresoline PO 50 mg Q8HR MINNIE Administration Sodium Chloride 100 mls @ 999 mls/hr 01/29/19 16:10 Nacl 0.9% IV GRIS PRN Hypotension Insulin Glargine 8 units 01/28/19 21:00 02/01/19 21:45 Lantus SUB-Q 8 units QHS MINNIE Administration Insulin Human Lispro 0 unit 01/28/19 16:30 02/02/19 09:41 Humalog SUB-Q 2 unit AC MINNIE Administration Protocol Isosorbide Mononitrate 60 mg 01/28/19 22:00 02/02/19 09:45 Imdur PO 60 mg BID MINNIE Administration Losartan Potassium 100 mg 01/31/19 22:00 02/02/19 09:47 Cozaar PO 100 mg QDAY MINNIE Administration Ondansetron HCl 4 mg 01/28/19 16:38 01/31/19 06:36 Zofran Odt PO 4 mg Q8H PRN Administration Nausea And Vomiting Oxycodone/Acetaminophen 1 tab 01/28/19 14:48 02/02/19 05:47 Percocet 5/325 PO 1 tab Q6H PRN Administration Pain, Moderate (4-6) Polyethylene Glycol 17 gm 01/29/19 08:00 02/02/19 09:49 Miralax 3350 PO Not Given QDAY MINNIE Sevelamer Carbonate 2,400 mg 01/28/19 16:30 02/02/19 09:46 Renvela PO 2,400 mg AC MINNIE Administration Zinc Acetate/Diphenhydramine 1 applic 01/28/19 14:48 01/29/19 23:21 Banophen Anti-Itch TP 1 applic Q8H PRN Administration Itching
[2019-02-02] MEDS: BANOPHEN ANTI-ITCH TP PRN (22:21)
[2019-02-02] MEDS: LANTUS SUB-Q SCH (22:22)
[2019-02-02] MEDS: NEURONTIN PO SCH (22:24)
[2019-02-03] MEDS: APRESOLINE PO SCH ×3 (06:22→22:30)
[2019-02-03] MEDS: PERCOCET 5/325 PO PRN ×2 (06:22→22:44)
[2019-02-03] MEDS: HEPARIN SUB-Q SCH ×3 (06:23→22:32)
[2019-02-03 07:35] LABS: Hematocrit 42.1 % (35.5-45.6); Hemoglobin 13.2 gm/dl (11.8-15.2); Mean Corpuscular HGB Conc 31 % (32-34); Mean Corpuscular Volume 85 fl (84-94); Platelet Count 336 K/mm3 (140-440); Red Blood Count 4.93 M/mm3 (3.65-5.03); Red Cell Distribution Width 17.2 % (13.2-15.2)
[2019-02-03 08:01] LABS: Calcium 8.7 mg/dL (8.4-10.2)
[2019-02-03] MEDS: RENVELA PO SCH ×3 (08:12→16:45)
[2019-02-03] MEDS: IMDUR PO SCH ×2 (08:13→22:29)
[2019-02-03] MEDS: MIRALAX 3350 PO SCH ×2 (08:13→08:22)
[2019-02-03] MEDS: BUMEX PO SCH (08:13)
[2019-02-03] MEDS: COREG PO SCH ×2 (08:13→22:30)
[2019-02-03] MEDS: COZAAR PO SCH (08:13)
[2019-02-03] MEDS: ZOFRAN ODT PO PRN (08:18)
[2019-02-03] MEDS: HumaLOG SUB-Q SCH ×3 (08:20→16:47)
--- NOTE | 2019-02-03 14:14 | Progress Note ---
Subjective Date of service: 02/03/19 Principal diagnosis: Right AKA and new ESRD on HD Interval history: 33-year-old male with chest pressure and MALONEY for 2 wks prior to seeking assistance at ED. Once admitted he was found to have dry gangrene of right foot and ARF. Vascular surgery and nephrology were consulted. After prolonged decision timeframe the patient opted for amputation and an AKA was performed on 01/02/2019. He also required HD. It was hoped that his kidneys would return to former level of function but this did not happen. He is now ESRD and on HD TTS. On exam patient noted to have lateral deviation of right eye and he states this has been the case for the past year and is accompanied by blurred vision in the right eye. Will need ophthalmology follow up. He states his diabetes control has been poor. Patient is participating in therapy and making reasonable progress. Taking rest breaks as needed. +BM. Denies pain, palpitations, dyspnea, cough, or joint pain. Blood GLU is reasonable, continue to monitor. BP elevated, nephrology managing - appreciate their assistance. Will work to schedule fistual creation with vasc surgery. Continue to work on improving LLE strength. He states he has secured a first floor apartment. He will need to closely monitor BLE for wounds to avoid further infections and/or amputations. Still awaiting wound nurse consult Surgery will have to be coordinated with therapy next week after patient has been here for 7 days. Administrative coordination also needed and should be cleared through music rehabilitation therapist. All records, vitals, labs and medications were reviewed. No other issues per patient, nursing or therapy. Objective - Exam Narrative Exam: MUSCULOSKELETAL SPECIALTY EXAM CONSTITUTIONAL: Well developed, well nourished, appropriately groomed EENT: EOMI with lateral deviation of the right. Hearing intact to soft voice RESPIRATORY: Clear to auscultation bilaterally, no increased work of breathing CARDIOVASCULAR: Regular Rate/ Rhythm, no swelling, edema or tenderness in BUE or BLE. Pulses palpable in all extremities. All extremities warm. GI: + bowel sounds, soft, NTTP, nondistended. INTEGUMENTARY: DTI on left heel and dry skin with callus on the plantar surface of the forefoot, otherwise normal, no lesion, rash, masses or bruising noted in extremities. AKA well healed MUSCULOSKELETAL: Right AKA, otherwise BUE and BLE normal without defect, crepitus, subluxation, effusion, arthritic changes or TTP. BUE 4+/5, good ROM, with normal tone. BLE 4-/5 good ROM, with normal tone, left foot drop NEURO: CN 2-12 grossly intact. Sensation intact in all extremities. No tremor noted in 4 extremities. POSTURE and GAIT: Sitting posture good. Balance appears reasonable. Gait deferred until seen with therapy. PSYCH: Alert, orientated x3, affect appears normal. Insight appears intact. - Constitutional Vitals: Vital Signs - 12hr 02/03/19 08:00 Temperature 37.0 C Pulse Rate 71 Respiratory 20 Rate Blood Pressure 154/90 [Left] O2 Sat by Pulse 97 Oximetry - Allied health notes Allied health notes reviewed: nursing, PT, OT FIMS assessment as documented by PT/OT/ST: Grooming Patient cleans teeth/dentures: Yes Patient manjarrez/brushes hair: Yes Toileting Toileting Device Commode over Toilet,Grab Bar Patient able to: Adjust clothes before,Clean self Patient able to perform: 2/3 (67%) Toileting FIM Score 3. Moderate Assistance (Patient = 50% or more. Some lifting.) Social interaction/Memory/Problem solving Social Interaction FIM Score 7. Complete [place] (Interacts appropriately. Controls temper.) Memory FIM Score 6. Modified [place](Mild difficulty remembering people/routines.) Problem Solving FIM Score 6. Mod. [place] (Mild difficulty or needs more time w/ complex.) Transfers Mode of Locomotion: Wheelchair Bed/Chair/Wheelchair Transfers 3. Moderate Assistance (Patient = 50% or more. FIM Score Some lifting.) Toilet Transfers FIM Score 4. Minimal Assistance (Patient = 75% or more. Needs touching.) Patient transferred to: Shower Shower Transfers FIM Score 4. Minimal Assistance (Patient = 75% or more. Needs touching.) Locomotion- Stairs Stairs FIM Score 0. Activity does not occur Locomotion- walk/wheelchair Most Frequent Mode of Wheelchair Locomotion: Walking FIM Score 0. Activity does not occur Wheelchair Propulsion Distance 250 Wheelchair FIM Score 5. Supervision (Minimum 150 ft. supv./cues or 50 ft. independently.) Eating Eating FIM Score 7. Complete [place] (Cuts meat, opens containers, regular diet.) Dressing-Upper body Patient retrieves clothing No items: Patient applies/removes UE n/a prosthesis or orthosis: Upper Body Dressing FIM Score 6. Modified [place] (Needs equipment, velcro or pros./orth.) Dressing-lower body Patient retrieves clothing No items: Patient applies/removes LE No prosthesis or orthosis: Lower Body Dressing FIM Score 5. Supv./Set-Up ([place] sets out clothes or applies pros./orth.) - Labs CBC & Chem 7: 02/03/19 07:25 02/03/19 07:25 Labs: Laboratory Results - last 72 hr 01/31/19 01/31/19 01/31/19 13:15 17:04 21:23 WBC RBC Hgb Hct MCV MCH MCHC RDW Plt Count Sodium Potassium Chloride Carbon Dioxide Anion Gap BUN Creatinine Estimated GFR BUN/Creatinine Ratio Glucose POC Glucose 208 H 212 H 188 H Calcium 02/01/19 02/01/19 02/01/19 07:41 12:12 21:00 WBC RBC Hgb Hct MCV MCH MCHC RDW Plt Count Sodium Potassium Chloride Carbon Dioxide Anion Gap BUN Creatinine Estimated GFR BUN/Creatinine Ratio Glucose POC Glucose 200 H 216 H 189 H Calcium 02/02/19 02/02/19 02/02/19 07:50 11:52 16:06 WBC RBC Hgb Hct MCV MCH MCHC RDW Plt Count Sodium Potassium Chloride Carbon Dioxide Anion Gap BUN Creatinine Estimated GFR BUN/Creatinine Ratio Glucose POC Glucose 164 H 177 H 204 H Calcium 02/02/19 02/03/19 02/03/19 21:12 07:25 07:25 WBC 8.0 RBC 4.93 Hgb 13.2 Hct 42.1 MCV 85 MCH 27 L MCHC 31 L RDW 17.2 H Plt Count 336 Sodium 142 Potassium 4.4 Chloride 105.3 Carbon Dioxide 26 Anion Gap 15 BUN 33 H Creatinine 4.1 H Estimated GFR 21 BUN/Creatinine Ratio 8 Glucose 97 POC Glucose 160 H Calcium 8.7 02/03/19 02/03/19 07:29 12:11 WBC RBC Hgb Hct MCV MCH MCHC RDW Plt Count Sodium Potassium Chloride Carbon Dioxide Anion Gap BUN Creatinine Estimated GFR BUN/Creatinine Ratio Glucose POC Glucose 93 175 H Calcium Assessment and Plan Right AKA: Monitor for wound healing or further injury. Contact Publishing Systems Analyst for prosthesis. Limb protector on when OOB. ESRD on HD: Consulted nephrology. TTS schedule. Has center at discharge but may transfer to one in [place] Hypertension: Appreciate nephrology assistance DM I: Continue diet and insulin. Monitor and adjust as needed. Constipation: Miralax and monitor for improvement Phantom sensation and phantom pain: Low dose gabapentin and monitor for improvement Left foot drop: likely due to neuropathy. May need AFO but will need to monitor for wound issues Left foot wounds: consult wound care, keep clean, monitor for healing Z73.6 ADL dysfunction: OT will work on improving ability to perform ADLs (including assistive devices) to increase independence and decrease caregiver burden and improve functional transfers and mobility training. R26.2 Difficulty walking: PT will work on gait training and proper use of assistive devices and advance as appropriate to use of stairs and outside ambulation on uneven surfaces. R26.81 Unsteadiness on feet: PT will work on improving static and dynamic sitting and standing balance as well as proper use of assistive devices to decrease risk of falls. R26.89 Abnormality of gait: PT will work to improve safety and efficiency of gait through neuromotor training and gait training along with instruction on proper use of assistive devices. M62.81 Muscle weakness: PT & OT will work on strengthening exercises to improve functional strength including mixture of closed and open kinetic chain exercises. R53.81 Debility: PT & OT will work on improving overall functional status to improve participation with ADLs, mobility and social involvement. R53.83 Fatigue: PT & OT will work on improving endurance through aerobic exercises and therapeutic activity while monitoring patients tolerance for activity and vital signs as needed. DVT ppx: heparin TID Pain: Continue physical modalities in therapy and pain medications as needed to achieve functional pain control. Sleep: Monitor and address as needed. Bowel: Monitor and address as needed. Appetite: Monitor and address as needed. Discharge planning: Pending therapy progress and care plan meeting. Will continue discussion with therapy team, SW, patient and family. Restrictions/ Precautions: Falls WB status: FWB Functional Hx: ADLs: Independent Cognition: Independent Mobility: No AD Barriers to Discharge: Decreased mobility and ability to perform self care, balance deficits, weakness Estimated Length of Stay: 14-18 days Discharge Destination: Home with family
--- NOTE | 2019-02-03 16:56 | Progress Note ---
Assessment and Plan - Patient Problems (1) ESRD (end stage renal disease) on dialysis Current Visit: Yes Status: Chronic Plan to address problem: ESRD on hemodialysis access: Right IJ perm cath continue HD TTS. (2) DKA, type 1 Current Visit: No Status: Acute Plan to address problem: DM type I with history of DKA Continue medications monitor fingerstick. (3) Anemia Current Visit: Yes Status: Acute Plan to address problem: Mild Anemia Hb: 13.2g/dl Monitor CBC. (4) Chest pain Current Visit: No Status: Acute Qualifiers: Ischemic chest pain type: other angina pectoris type Plan to address problem: Chest pain : - has resolved - Subjective Principal diagnosis: Right AKA and new ESRD on HD Interval history: 33 year old with medical history signficant for uncontrolled DM type I with new right above knee amputation and ESRD s/p kidney biopsy per report had DM nephropathy Patient seen today has Right IJ perm cath is anxious about fistula creation denies any orthopnea or PNd Dialysis TTS schedule.d Objective - Vital Signs Vital signs: Vital Signs - 12hr 02/03/19 02/03/19 02/03/19 08:00 12:01 16:29 Temperature 98.6 F 98.0 F 97.9 F Pulse Rate 71 93 H 99 H Respiratory 20 20 18 Rate Blood Pressure 146/90 152/94 Blood Pressure 154/90 [Left] O2 Sat by Pulse 97 99 99 Oximetry - General Appearance General appearance: well-developed, well-nourished EENT: ATNC, PERRL, mucous membranes moist Neck: no JVD Respiratory: Present: Clear to Ascultation Cardiology: regular, S1S2 Gastrointestinal: normal, normoactive bowel sounds Integumentary: no rash Neurologic: no focal deficit, alert and oriented x3, CN 3-12 intact, other (righ t AKA. ) Psychiatric: mood/affect appropriate - Lab 02/03/19 07:25 02/03/19 07:25 Most recent lab results Calcium 8.7 mg/dL (8.4-10.2) 02/03/19 07:25 Phosphorus 4.50 mg/dL (2.5-4.5) 01/29/19 04:00 Magnesium 2.50 mg/dL (1.7-2.3) H 01/29/19 04:00 Medications & Allergies - Medications Allergies/Adverse Reactions: Allergies No Known Allergies Allergy (Verified 08/07/17 23:24) Home Medications: Home Medications Medication Instructions Recorded Confirmed Last Taken Type Aspirin 325 mg PO QDAY #30 tablet 08/09/17 01/29/19 Unknown Rx AtorvaSTATin [Lipitor] 80 mg PO QHS #30 tablet 08/09/17 01/29/19 Unknown Rx Insulin NPH/Regular [NovoLIN 70/30] 25 unit SUB-Q QPM #30 units 08/09/17 01/29/19 Unknown Rx Insulin NPH/Regular [NovoLIN 70/30] 50 unit SUB-Q QAM #30 units 08/09/17 01/29/19 Unknown Rx Active Medications: Generic Name Dose Route Start Last Admin Trade Name Freq PRN Reason Stop Dose Admin Acetaminophen 650 mg 01/28/19 14:31 Tylenol PO Q4H PRN Pain MILD(1-3)/Fever >100.5/BRUNO Atorvastatin Calcium 40 mg 01/28/19 21:00 02/02/19 22:24 Lipitor PO 40 mg QHS MINNIE Administration Bumetanide 2 mg 01/29/19 08:00 02/03/19 08:13 Bumex PO 2 mg QDAY MINNIE Administration Carvedilol 25 mg 01/28/19 22:00 02/03/19 08:13 Coreg PO 25 mg BID MINNIE Administration Dextrose 50 ml 01/28/19 14:31 D50w (25gm) Syringe IV PRN PRN Hypoglycemia Gabapentin 100 mg 01/28/19 22:00 02/02/19 22:24 Neurontin PO 100 mg HS MINNIE Administration Heparin Sodium (Porcine) 5,000 unit 01/28/19 22:00 02/03/19 15:08 Heparin SUB-Q 5,000 unit Q8HR MINNIE Administration Hydralazine HCl 100 mg 02/02/19 14:00 02/03/19 15:07 Apresoline PO 100 mg Q8HR MINNIE Administration Sodium Chloride 100 mls @ 999 mls/hr 01/29/19 16:10 Nacl 0.9% IV GRIS PRN Hypotension Insulin Glargine 8 units 01/28/19 21:00 02/02/19 22:22 Lantus SUB-Q 8 units QHS MINNIE Administration Insulin Human Lispro 0 unit 01/28/19 16:30 02/03/19 16:47 Humalog SUB-Q Not Given AC ON LICENSE OF [facility] Protocol Isosorbide Mononitrate 60 mg 01/28/19 22:00 02/03/19 08:13 Imdur PO 60 mg BID MINNIE Administration Losartan Potassium 100 mg 01/31/19 22:00 02/03/19 08:13 Cozaar PO 100 mg QDAY MINNIE Administration Ondansetron HCl 4 mg 01/28/19 16:38 02/03/19 08:18 Zofran Odt PO 4 mg Q8H PRN Administration Nausea And Vomiting Oxycodone/Acetaminophen 1 tab 01/28/19 14:48 02/03/19 06:22 Percocet 5/325 PO 1 tab Q6H PRN Administration Pain, Moderate (4-6) Polyethylene Glycol 17 gm 01/29/19 08:00 02/03/19 08:22 Miralax 3350 PO Not Given QDAY ON LICENSE OF [facility] Sevelamer Carbonate 2,400 mg 01/28/19 16:30 02/03/19 16:45 Renvela PO 2,400 mg AC ON LICENSE OF [facility] Administration Zinc Acetate/Diphenhydramine 1 applic 01/28/19 14:48 02/02/19 22:21 Banophen Anti-Itch TP 1 applic Q8H PRN Administration Itching
[2019-02-03] MEDS: NEURONTIN PO SCH (22:30)
[2019-02-03] MEDS: LANTUS SUB-Q SCH (22:30)
[2019-02-04] MEDS: HEPARIN SUB-Q SCH ×3 (05:35→21:36)
[2019-02-04] MEDS: APRESOLINE PO SCH ×3 (05:35→21:36)
[2019-02-04] MEDS: ZOFRAN ODT PO PRN (05:40)
[2019-02-04] MEDS: MIRALAX 3350 PO SCH ×2 (05:46→08:32)
[2019-02-04] MEDS: HumaLOG SUB-Q SCH ×3 (07:17→16:53)
[2019-02-04 08:36] LABS: Calcium 8.8 mg/dL (8.4-10.2)
[2019-02-04] MEDS: RENVELA PO SCH ×3 (09:27→19:27)
[2019-02-04] MEDS: COZAAR PO SCH (09:27)
[2019-02-04] MEDS: IMDUR PO SCH ×2 (09:28→21:36)
[2019-02-04] MEDS: COREG PO SCH ×2 (09:28→21:36)
[2019-02-04] MEDS: BUMEX PO SCH (09:29)
--- NOTE | 2019-02-04 09:34 | Progress Note ---
Subjective Date of service: 02/04/19 Principal diagnosis: Right AKA and new ESRD on HD Interval history: 33-year-old male with chest pressure and MALONEY for 2 wks prior to seeking assistance at ED. Once admitted he was found to have dry gangrene of right foot and ARF. Vascular surgery and nephrology were consulted. After prolonged decision timeframe the patient opted for amputation and an AKA was performed on 01/02/2019. He also required HD. It was hoped that his kidneys would return to former level of function but this did not happen. He is now ESRD and on HD TTS. On exam patient noted to have lateral deviation of right eye and he states this has been the case for the past year and is accompanied by blurred vision in the right eye. Will need ophthalmology follow up. He states his diabetes control has been poor. Patient is participating in therapy and making reasonable progress. Taking rest breaks as needed. +BM. Denies pain, palpitations, dyspnea, cough, or joint pain. Blood GLU is reasonable, continue to monitor. BP elevated, nephrology managing - appreciate their assistance. Continue to work on improving LLE strength. He states he has secured a first floor apartment. He will need to closely monitor BLE for wounds to avoid further infections and/or amputations. W ound nurse educated patient on care of DTI. Continue to monitor. Surgery will likely be after discharge based on surgery schedule. Discussed in team conference. Making good progress. Able to stand. Continues with foot drop. new protector in place. All records, vitals, labs and medications were reviewed. No other issues per patient, nursing or therapy. Objective - Exam Narrative Exam: MUSCULOSKELETAL SPECIALTY EXAM CONSTITUTIONAL: Well developed, well nourished, appropriately groomed EENT: EOMI with lateral deviation of the right. Hearing intact to soft voice RESPIRATORY: Clear to auscultation bilaterally, no increased work of breathing CARDIOVASCULAR: Regular Rate/ Rhythm, no swelling, edema or tenderness in BUE or BLE. Pulses palpable in all extremities. All extremities warm. GI: + bowel sounds, soft, NTTP, nondistended. INTEGUMENTARY: DTI on left heel and dry skin with callus on the plantar surface of the forefoot, otherwise normal, no lesion, rash, masses or bruising noted in extremities. AKA well healed MUSCULOSKELETAL: Right AKA, otherwise BUE and BLE normal without defect, crepitus, subluxation, effusion, arthritic changes or TTP. BUE 4+/5, good ROM, with normal tone. BLE 4-/5 good ROM, with normal tone, left foot drop NEURO: CN 2-12 grossly intact. Sensation intact in all extremities. No tremor noted in 4 extremities. POSTURE and GAIT: Sitting posture good. Balance appears reasonable. Gait deferred until seen with therapy. PSYCH: Alert, orientated x3, affect appears normal. Insight appears intact. - Constitutional Vitals: Vital Signs - 12hr 02/04/19 02/04/19 04:18 07:13 Temperature 36.6 C 36.9 C Pulse Rate 100 H 104 H Pulse Rate [ 100 H From Monitor] Respiratory 18 18 Rate Blood Pressure 162/87 128/77 O2 Sat by Pulse 98 98 Oximetry - Allied health notes Allied health notes reviewed: nursing, PT, OT FIMS assessment as documented by PT/OT/ST: Grooming Patient cleans teeth/dentures: Yes Patient manjarrez/brushes hair: Yes Patient washes, rinses and Yes dries face: Patient washes, rinses and Yes dries hands: Patient performs (no make-up/ / (100%) shaving): Grooming FIM Score 5. Supervision ([place] applies toothpaste or opens containers.) Toileting Toileting Device Commode over Toilet,Grab Bar Patient able to: Adjust clothes before,Clean self Patient able to perform: 2/3 (67%) Toileting FIM Score 3. Moderate Assistance (Patient = 50% or more. Some lifting.) Social interaction/Memory/Problem solving Social Interaction FIM Score 6. Mod. [place] (Mostly appropriate. May need meds. No supv.) Memory FIM Score 6. Modified [place](Mild difficulty remembering people/routines.) Problem Solving FIM Score 6. Mod. [place] (Mild difficulty or needs more time w/ complex.) Transfers Mode of Locomotion: Wheelchair Bed/Chair/Wheelchair Transfers 4. Minimal Assistance (Patient = 75% or more. FIM Score Needs touching.) Toilet Transfers FIM Score 4. Minimal Assistance (Patient = 75% or more. Needs touching.) Patient transferred to: Shower Shower Transfers FIM Score 4. Minimal Assistance (Patient = 75% or more. Needs touching.) Locomotion- Stairs Stairs FIM Score 0. Activity does not occur Locomotion- walk/wheelchair Most Frequent Mode of Wheelchair Locomotion: Walking FIM Score 0. Activity does not occur Wheelchair Propulsion Distance 250 Wheelchair FIM Score 5. Supervision (Minimum 150 ft. supv./cues or 50 ft. independently.) Eating Eating FIM Score 6. Modified [place] (Special consistency or uses device.) Dressing-Upper body Patient retrieves clothing Yes items: Patient applies/removes UE n/a prosthesis or orthosis: Upper Body Dressing FIM Score 5. Supv./Set-Up ([place] sets out clothes or applies pros./orth.) Dressing-lower body Patient retrieves clothing No items: Patient applies/removes LE n/a prosthesis or orthosis: Lower Body Dressing FIM Score 5. Supv./Set-Up ([place] sets out clothes or applies pros./orth.) - Labs CBC & Chem 7: 02/03/19 07:25 02/04/19 07:22 Labs: Laboratory Results - last 72 hr 02/01/19 02/01/19 02/02/19 12:12 21:00 07:50 WBC RBC Hgb Hct MCV MCH MCHC RDW Plt Count Sodium Potassium Chloride Carbon Dioxide Anion Gap BUN Creatinine Estimated GFR BUN/Creatinine Ratio Glucose POC Glucose 216 H 189 H 164 H Calcium 02/02/19 02/02/19 02/02/19 11:52 16:06 21:12 WBC RBC Hgb Hct MCV MCH MCHC RDW Plt Count Sodium Potassium Chloride Carbon Dioxide Anion Gap BUN Creatinine Estimated GFR BUN/Creatinine Ratio Glucose POC Glucose 177 H 204 H 160 H Calcium 02/03/19 02/03/19 02/03/19 07:25 07:25 07:29 WBC 8.0 RBC 4.93 Hgb 13.2 Hct 42.1 MCV 85 MCH 27 L MCHC 31 L RDW 17.2 H Plt Count 336 Sodium 142 Potassium 4.4 Chloride 105.3 Carbon Dioxide 26 Anion Gap 15 BUN 33 H Creatinine 4.1 H Estimated GFR 21 BUN/Creatinine Ratio 8 Glucose 97 POC Glucose 93 Calcium 8.7 02/03/19 02/03/19 02/03/19 12:11 16:36 21:10 WBC RBC Hgb Hct MCV MCH MCHC RDW Plt Count Sodium Potassium Chloride Carbon Dioxide Anion Gap BUN Creatinine Estimated GFR BUN/Creatinine Ratio Glucose POC Glucose 175 H 140 H 247 H Calcium 02/04/19 02/04/19 07:20 07:22 WBC RBC Hgb Hct MCV MCH MCHC RDW Plt Count Sodium 140 Potassium 4.9 Chloride 103.6 Carbon Dioxide 26 Anion Gap 15 BUN 43 H Creatinine 4.5 H Estimated GFR 19 BUN/Creatinine Ratio 10 Glucose 159 H POC Glucose 151 H Calcium 8.8 Assessment and Plan Right AKA: Monitor for wound healing or further injury. Contact Motor Builder Assembler for prosthesis. Limb protector on when OOB. ESRD on HD: Consulted nephrology. TTS schedule. Has center at discharge but may transfer to one in [place] Hypertension: Appreciate nephrology assistance DM I: Continue diet and insulin. Monitor and adjust as needed. Constipation: Miralax and monitor for improvement Phantom sensation and phantom pain: Low dose gabapentin and monitor for improvement Left foot drop: likely due to neuropathy. May need AFO but will need to monitor for wound issues Left foot wounds: consult wound care, keep clean, monitor for healing Z73.6 ADL dysfunction: OT will work on improving ability to perform ADLs (including assistive devices) to increase independence and decrease caregiver burden and improve functional transfers and mobility training. R26.2 Difficulty walking: PT will work on gait training and proper use of assistive devices and advance as appropriate to use of stairs and outside ambulation on uneven surfaces. R26.81 Unsteadiness on feet: PT will work on improving static and dynamic sitting and standing balance as well as proper use of assistive devices to decrease risk of falls. R26.89 Abnormality of gait: PT will work to improve safety and efficiency of gait through neuromotor training and gait training along with instruction on proper use of assistive devices. M62.81 Muscle weakness: PT & OT will work on strengthening exercises to improve functional strength including mixture of closed and open kinetic chain exercises. R53.81 Debility: PT & OT will work on improving overall functional status to improve participation with ADLs, mobility and social involvement. R53.83 Fatigue: PT & OT will work on improving endurance through aerobic exe rcises and therapeutic activity while monitoring patients tolerance for activity and vital signs as needed. DVT ppx: heparin TID Pain: Continue physical modalities in therapy and pain medications as needed to achieve functional pain control. Sleep: Monitor and address as needed. Bowel: Monitor and address as needed. Appetite: Monitor and address as needed. Discharge planning: Pending therapy progress and care plan meeting. Will continue discussion with therapy team, SW, patient and family. Restrictions/ Precautions: Falls WB status: FWB Functional Hx: ADLs: Independent Cognition: Independent Mobility: No AD Barriers to Discharge: Decreased mobility and ability to perform self care, balance deficits, weakness Estimated Length of Stay: 14-18 days Discharge Destination: Home with family
--- NOTE | 2019-02-04 16:47 | Progress Note ---
Assessment and Plan - Patient Problems (1) ESRD (end stage renal disease) on dialysis Current Visit: Yes Status: Chronic Plan to address problem: ESRD on hemodialysis access: Right IJ perm cath continue HD TTS. (2) DKA, type 1 Current Visit: No Status: Acute Plan to address problem: DM type I with history of DKA Continue medications monitor fingerstick. (3) Anemia Current Visit: Yes Status: Acute Plan to address problem: Mild Anemia Hb: 13.2g/dl Monitor CBC. (4) Chest pain Current Visit: No Status: Acute Qualifiers: Ischemic chest pain type: other angina pectoris type Plan to address problem: Chest pain : - has resolved -Will continue to monitor. 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 denies any orthopnea or PND. Objective - Vital Signs Vital signs: Vital Signs - 12hr 02/04/19 02/04/19 02/04/19 07:13 13:55 14:00 Temperature 98.4 F 98.2 F Pulse Rate 104 H 94 H 93 H Respiratory 18 18 Rate Blood Pressure 128/77 166/98 168/95 O2 Sat by Pulse 98 Oximetry 02/04/19 02/04/19 02/04/19 14:15 14:30 14:45 Temperature Pulse Rate 70 92 H 92 H Respiratory Rate Blood Pressure 178/96 155/87 156/87 O2 Sat by Pulse Oximetry 02/04/19 02/04/19 02/04/19 15:00 15:15 15:30 Temperature Pulse Rate 92 H 94 H 103 H Respiratory Rate Blood Pressure 165/84 159/94 165/95 O2 Sat by Pulse Oximetry 02/04/19 02/04/19 02/04/19 15:45 16:00 16:15 Temperature Pulse Rate 96 H 96 H 98 H Respiratory Rate Blood Pressure 181/100 178/100 172/105 O2 Sat by Pulse Oximetry 02/04/19 16:30 Temperature Pulse Rate 96 H Respiratory Rate Blood Pressure 183/105 O2 Sat by Pulse Oximetry - General Appearance General appearance: well-developed, well-nourished EENT: ATNC, PERRL Neck: no JVD Respiratory: Present: Clear to Ascultation Cardiology: regular, S1S2 Gastrointestinal: normal, normoactive bowel sounds Integumentary: no rash Neurologic: CN 3-12 intact Musculoskeletal: other (right above knee amputation. ) Psychiatric: mood/affect appropriate - Lab 02/03/19 07:25 02/04/19 07:22 Most recent lab results Calcium 8.8 mg/dL (8.4-10.2) 02/04/19 07:22 Phosphorus 4.50 mg/dL (2.5-4.5) 01/29/19 04:00 Magnesium 2.50 mg/dL (1.7-2.3) H 01/29/19 04:00 Medications & Allergies - Medications Allergies/Adverse Reactions: Allergies No Known Allergies Allergy (Verified 08/07/17 23:24) Home Medications: Home Medications Medication Instructions Recorded Confirmed Last Taken Type Aspirin 325 mg PO QDAY #30 tablet 08/09/17 01/29/19 Unknown Rx AtorvaSTATin [Lipitor] 80 mg PO QHS #30 tablet 08/09/17 01/29/19 Unknown Rx Insulin NPH/Regular [NovoLIN 70/30] 25 unit SUB-Q QPM #30 units 08/09/17 01/29/19 Unknown Rx Insulin NPH/Regular [NovoLIN 70/30] 50 unit SUB-Q QAM #30 units 08/09/17 01/29/19 Unknown Rx Active Medications: Generic Name Dose Route Start Last Admin Trade Name Freq PRN Reason Stop Dose Admin Acetaminophen 650 mg 01/28/19 14:31 Tylenol PO Q4H PRN Pain MILD(1-3)/Fever >100.5/BRUNO Atorvastatin Calcium 40 mg 01/28/19 21:00 02/03/19 22:30 Lipitor PO 40 mg QHS MINNIE Administration Bumetanide 2 mg 01/29/19 08:00 02/04/19 09:29 Bumex PO 2 mg QDAY MINNIE Administration Carvedilol 25 mg 01/28/19 22:00 02/04/19 09:28 Coreg PO 25 mg BID MINNIE Administration Dextrose 50 ml 01/28/19 14:31 D50w (25gm) Syringe IV PRN PRN Hypoglycemia Gabapentin 100 mg 01/28/19 22:00 02/03/19 22:30 Neurontin PO 100 mg HS MINNIE Administration Heparin Sodium (Porcine) 5,000 unit 01/28/19 22:00 02/04/19 14:33 Heparin SUB-Q Not Given Q8HR [facility] Hydralazine HCl 100 mg 02/02/19 14:00 02/04/19 14:33 Apresoline PO Not Given Q8HR [facility] Sodium Chloride 100 mls @ 999 mls/hr 01/29/19 16:10 Nacl 0.9% IV GRIS PRN Hypotension Insulin Glargine 8 units 01/28/19 21:00 02/03/19 22:30 Lantus SUB-Q 8 units QHS MINNIE Administration Insulin Human Lispro 0 unit 01/28/19 16:30 02/03/19 16:47 Humalog SUB-Q Not Given AC [facility] Protocol Isosorbide Mononitrate 60 mg 01/28/19 22:00 02/04/19 09:28 Imdur PO 60 mg BID MINNIE Administration Losartan Potassium 100 mg 01/31/19 22:00 02/04/19 09:27 Cozaar PO 100 mg QDAY [facility] Administration Ondansetron HCl 4 mg 01/28/19 16:38 02/04/19 05:40 Zofran Odt PO 4 mg Q8H PRN Administration Nausea And Vomiting Oxycodone/Acetaminophen 1 tab 01/28/19 14:48 02/03/19 22:44 Percocet 5/325 PO 1 tab Q6H PRN Administration Pain, Moderate (4-6) Polyethylene Glycol 17 gm 01/29/19 08:00 02/04/19 05:46 Miralax 3350 PO 17 gm QDAY MINNIE Administration Sevelamer Carbonate 2,400 mg 01/28/19 16:30 02/04/19 13:20 Renvela PO 2,400 mg AC [facility] Administration Zinc Acetate/Diphenhydramine 1 applic 01/28/19 14:48 02/02/19 22:21 Banophen Anti-Itch TP 1 applic Q8H PRN Administration Itching
[2019-02-04] MEDS ORDERED: NACL 0.9 (PRIMING MACHINE ONLY DIALYSIS) MC ONE (18:43)
[2019-02-04] MEDS: NEURONTIN PO SCH (21:36)
[2019-02-04] MEDS: PERCOCET 5/325 PO PRN (21:36)
[2019-02-04] MEDS: LANTUS SUB-Q SCH (21:48)
[2019-02-05] MEDS: HEPARIN SUB-Q SCH ×3 (06:19→22:39)
[2019-02-05] MEDS: APRESOLINE PO SCH ×3 (06:21→22:37)
[2019-02-05] MEDS: ZOFRAN ODT PO PRN ×2 (06:26→15:32)
[2019-02-05] MEDS: HumaLOG SUB-Q SCH ×3 (08:22→18:19)
[2019-02-05] MEDS: RENVELA PO SCH ×3 (09:39→18:19)
[2019-02-05] MEDS: COZAAR PO SCH (09:39)
[2019-02-05] MEDS: PERCOCET 5/325 PO PRN ×2 (09:40→18:16)
[2019-02-05] MEDS: COREG PO SCH ×2 (09:40→22:35)
[2019-02-05] MEDS: BUMEX PO SCH (09:41)
[2019-02-05] MEDS: IMDUR PO SCH ×2 (09:41→22:35)
[2019-02-05] MEDS: MIRALAX 3350 PO SCH (09:46)
--- NOTE | 2019-02-05 12:40 | Progress Note ---
Subjective Date of service: 02/05/19 Principal diagnosis: Right AKA and new ESRD on HD Interval history: 33-year-old male with chest pressure and MALONEY for 2 wks prior to seeking assistance at ED. Once admitted he was found to have dry gangrene of right foot and ARF. Vascular surgery and nephrology were consulted. After prolonged decision timeframe the patient opted for amputation and an AKA was performed on 01/02/2019. He also required HD. It was hoped that his kidneys would return to former level of function but this did not happen. He is now ESRD and on HD TTS. On exam patient noted to have lateral deviation of right eye and he states this has been the case for the past year and is accompanied by blurred vision in the right eye. Will need ophthalmology follow up. He states his diabetes control has been poor. Patient is participating in therapy and making reasonable progress. Taking rest breaks as needed. +BM. Denies pain, palpitations, dyspnea, cough, or joint pain. Neuropathic pain controlled with medication. Blood GLU is reasonable, continue to monitor. BP elevated but better, nephrology managing - appreciate their assistance. Continue to work on improving LLE strength. He will need to closely monitor BLE for wounds to avoid further infections and/or amputations. Continue to monitor. Surgery will likely be after discharge based on surgery schedule. All records, vitals, labs and medications were reviewed. No other issues per patient, nursing or therapy. Objective - Exam Narrative Exam: MUSCULOSKELETAL SPECIALTY EXAM CONSTITUTIONAL: Well developed, well nourished, appropriately groomed EENT: EOMI with lateral deviation of the right. Hearing intact to soft voice RESPIRATORY: Clear to auscultation bilaterally, no increased work of breathing CARDIOVASCULAR: Regular Rate/ Rhythm, no swelling, edema or tenderness in BUE or BLE. Pulses palpable in all extremities. All extremities warm. GI: + bowel sounds, soft, NTTP, nondistended. INTEGUMENTARY: DTI on left heel and dry skin with callus on the plantar surface of the forefoot, otherwise normal, no lesion, rash, masses or bruising noted in extremities. AKA well healed MUSCULOSKELETAL: Right AKA, otherwise BUE and BLE normal without defect, crepitus, subluxation, effusion, arthritic changes or TTP. BUE 4+/5, good ROM, with normal tone. BLE 4-/5 good ROM, with normal tone, left foot drop NEURO: CN 2-12 grossly intact. Sensation intact in all extremities. No tremor noted in 4 extremities. POSTURE and GAIT: Sitting posture good. Balance appears reasonable. Gait deferred until seen with therapy. PSYCH: Alert, orientated x3, affect appears normal. Insight appears intact. - Constitutional Vitals: Vital Signs - 12hr 02/05/19 02/05/19 02/05/19 06:13 06:20 06:21 Temperature 37.3 C 37.3 C Pulse Rate 99 H 99 H 96 H Respiratory 99 H 16 Rate Blood Pressure 162/98 Blood Pressure 162/98 [Left] O2 Sat by Pulse 99 98 Oximetry 02/05/19 02/05/19 02/05/19 07:26 07:27 09:39 Temperature 37.0 C Pulse Rate 98 H 98 H 98 H Respiratory 18 Rate Blood Pressure 137/71 137/77 Blood Pressure [Left] O2 Sat by Pulse 99 98 Oximetry 02/05/19 02/05/19 09:40 09:41 Temperature Pulse Rate 98 H 98 H Respiratory Rate Blood Pressure 137/77 137/77 Blood Pressure [Left] O2 Sat by Pulse Oximetry - Allied health notes Allied health notes reviewed: nursing, PT, OT FIMS assessment as documented by PT/OT/ST: Grooming Patient cleans teeth/dentures: Yes Patient manjarrez/brushes hair: Yes Patient washes, rinses and Yes dries face: Patient washes, rinses and Yes dries hands: Patient performs (no make-up/ 4/4 (100%) shaving): Grooming FIM Score 5. Supervision ([place] applies toothpaste or opens containers.) Toileting Toileting Device Commode over Toilet,Grab Bar Patient able to: Adjust clothes before,Clean self Patient able to perform: 2/3 (67%) Toileting FIM Score 3. Moderate Assistance (Patient = 50% or more. Some lifting.) Social interaction/Memory/Problem solving Social Interaction FIM Score 6. Mod. [place] (Mostly appropriate. May need meds. No supv.) Memory FIM Score 6. Modified [place](Mild difficulty remembering people/routines.) Problem Solving FIM Score 6. Mod. [place] (Mild difficulty or needs more time w/ complex.) Transfers Mode of Locomotion: Wheelchair Bed/Chair/Wheelchair Transfers 5. Supervision (Needs supv. or set-up for FIM Score sliding board, foot rests.) Toilet Transfers FIM Score 4. Minimal Assistance (Patient = 75% or more. Needs touching.) Patient transferred to: Shower Shower Transfers FIM Score 4. Minimal Assistance (Patient = 75% or more. Needs touching.) Locomotion- Stairs Stairs FIM Score 0. Activity does not occur Locomotion- walk/wheelchair Most Frequent Mode of Wheelchair Locomotion: Ambulation Distance 8 Walking FIM Score 1. Total Assistance (Pt. < 25%, 2 or more person assist, or <50 ft.) Wheelchair Propulsion Distance 250 Wheelchair FIM Score 5. Supervision (Minimum 150 ft. supv./cues or 50 ft. independently.) Eating Eating FIM Score 6. Modified [place] (Special consistency or uses device.) Dressing-Upper body Patient retrieves clothing Yes items: Patient applies/removes UE n/a prosthesis or orthosis: Upper Body Dressing FIM Score 5. Supv./Set-Up ([place] sets out clothes or applies pros./orth.) Dressing-lower body Patient retrieves clothing Yes items: Patient applies/removes LE n/a prosthesis or orthosis: Lower Body Dressing FIM Score 4. Minimal Assistance (Patient = 75% or more. Needs touching.) - Labs CBC & Chem 7: 02/03/19 07:25 02/04/19 07:22 Labs: Laboratory Results - last 72 hr 02/02/19 02/02/19 02/03/19 16:06 21:12 07:25 WBC 8.0 RBC 4.93 Hgb 13.2 Hct 42.1 MCV 85 MCH 27 L MCHC 31 L RDW 17.2 H Plt Count 336 Sodium Potassium Chloride Carbon Dioxide Anion Gap BUN Creatinine Estimated GFR BUN/Creatinine Ratio Glucose POC Glucose 204 H 160 H Calcium 02/03/19 02/03/19 02/03/19 07:25 07:29 12:11 WBC RBC Hgb Hct MCV MCH MCHC RDW Plt Count Sodium 142 Potassium 4.4 Chloride 105.3 Carbon Dioxide 26 Anion Gap 15 BUN 33 H Creatinine 4.1 H Estimated GFR 21 BUN/Creatinine Ratio 8 Glucose 97 POC Glucose 93 175 H Calcium 8.7 02/03/19 02/03/19 02/04/19 16:36 21:10 07:20 WBC RBC Hgb Hct MCV MCH MCHC RDW Plt Count Sodium Potassium Chloride Carbon Dioxide Anion Gap BUN Creatinine Estimated GFR BUN/Creatinine Ratio Glucose POC Glucose 140 H 247 H 151 H Calcium 02/04/19 02/04/19 02/04/19 07:22 12:32 16:46 WBC RBC Hgb Hct MCV MCH MCHC RDW Plt Count Sodium 140 Potassium 4.9 Chloride 103.6 Carbon Dioxide 26 Anion Gap 15 BUN 43 H Creatinine 4.5 H Estimated GFR 19 BUN/Creatinine Ratio 10 Glucose 159 H POC Glucose 217 H 202 H Calcium 8.8 02/04/19 02/05/19 22:11 07:31 WBC RBC Hgb Hct MCV MCH MCHC RDW Plt Count Sodium Potassium Chloride Carbon Dioxide Anion Gap BUN Creatinine Estimated GFR BUN/Creatinine Ratio Glucose POC Glucose 128 H 78 Calcium Assessment and Plan Right AKA: Monitor for wound healing or further injury. Contact Print Line Tailer for prosthesis. Limb protector on when OOB. ESRD on HD: Consulted nephrology. TTS schedule. Has center at discharge but may transfer to one in [place] Hypertension: Appreciate nephrology assistance DM I: Continue diet and insulin. Monitor and adjust as needed. Constipation: Miralax and monitor for improvement Phantom sensation and phantom pain: Low dose gabapentin and monitor for improvement Left foot drop: likely due to neuropathy. May need AFO but will need to monitor for wound issues Left foot wounds: consult wound care, keep clean, monitor for healing Z73.6 ADL dysfunction: OT will work on improving ability to perform ADLs (including assistive devices) to increase independence and decrease caregiver burden and improve functional transfers and mobility training. R26.2 Difficulty walking: PT will work on gait training and proper use of assistive devices and advance as appropriate to use of stairs and outside ambulation on uneven surfaces. R26.81 Unsteadiness on feet: PT will work on improving static and dynamic sitting and standing balance as well as proper use of assistive devices to decrease risk of falls. R26.89 Abnormality of gait: PT will work to improve safety and efficiency of gait through neuromotor training and gait training along with instruction on proper use of assistive devices. M62.81 Muscle weakness: PT & OT will work on strengthening exercises to improve functional strength including mixture of closed and open kinetic chain exerc ises. R53.81 Debility: PT & OT will work on improving overall functional status to improve participation with ADLs, mobility and social involvement. R53.83 Fatigue: PT & OT will work on improving endurance through aerobic exercises and therapeutic activity while monitoring patients tolerance for ac tivity and vital signs as needed. DVT ppx: heparin TID Pain: Continue physical modalities in therapy and pain medications as needed to achieve functional pain control. Sleep: Monitor and address as needed. Bowel: Monitor and address as needed. Appetite: Monitor and address as needed. Discharge planning: Pending therapy progress and care plan meeting. Will continue discussion with therapy team, SW, patient and family. Patient wants to leave at 14 days. LLE still really weak, would benefit from a little longer stay to improve strength. Restrictions/ Precautions: Falls WB status: FWB Functional Hx: ADLs: Independent Cognition: Independent Mobility: No AD Barriers to Discharge: Decreased mobility and ability to perform self care, balance deficits, weakness Estimated Length of Stay: 14-18 days Discharge Destination: Home with family
--- NOTE | 2019-02-05 14:36 | Progress Note ---
Assessment and Plan - Patient Problems (1) ESRD (end stage renal disease) on dialysis Current Visit: Yes Status: Chronic Plan to address problem: ESRD on hemodialysis access: Right IJ perm cath continue HD TTS. (2) DKA, type 1 Current Visit: No Status: Acute Plan to address problem: DM type I with history of DKA Continue medications monitor fingerstick. (3) Anemia Current Visit: Yes Status: Acute Plan to address problem: Mild Anemia Hb: 13.2g/dl Monitor CBC. (4) Chest pain Current Visit: No Status: Acute Qualifiers: Ischemic chest pain type: other angina pectoris type Plan to address problem: Chest pain : - has resolved -Will continue to monitor. Subjective Principal diagnosis: Right AKA and new ESRD on HD Interval history: 33 year old with medical history signficant for uncontrolled DM type I with new right above knee amputation and ESRD s/p kidney biopsy per report had DM nephropathy Patient seen today has Right IJ perm cath Patient undergoing Rehab. denies any orthopnea or PND. Objective - Vital Signs Vital signs: Vital Signs - 12hr 02/05/19 02/05/19 02/05/19 06:13 06:20 06:21 Temperature 99.1 F 99.1 F Pulse Rate 99 H 99 H 96 H Respiratory 99 H 16 Rate Blood Pressure 162/98 Blood Pressure 162/98 [Left] O2 Sat by Pulse 99 98 Oximetry 02/05/19 02/05/19 02/05/19 07:26 07:27 09:39 Temperature 98.6 F Pulse Rate 98 H 98 H 98 H Respiratory 18 Rate Blood Pressure 137/71 137/77 Blood Pressure [Left] O2 Sat by Pulse 99 98 Oximetry 02/05/19 02/05/19 09:40 09:41 Temperature Pulse Rate 98 H 98 H Respiratory Rate Blood Pressure 137/77 137/77 Blood Pressure [Left] O2 Sat by Pulse Oximetry - General Appearance General appearance: well-developed, well-nourished EENT: ATNC, PERRL Neck: no JVD Respiratory: Present: Clear to Ascultation Cardiology: regular, S1S2 Gastrointestinal: normal, normoactive bowel sounds Integumentary: no rash Neurologic: alert and oriented x3 Psychiatric: mood/affect appropriate - Lab 02/03/19 07:25 02/04/19 07:22 Most recent lab results Calcium 8.8 mg/dL (8.4-10.2) 02/04/19 07:22 Phosphorus 4.50 mg/dL (2.5-4.5) 01/29/19 04:00 Magnesium 2.50 mg/dL (1.7-2.3) H 01/29/19 04:00 - Imaging Other: other (I reviewed ultrasound mapping results. ) Medications & Allergies - Medications Allergies/Adverse Reactions: Allergies No Known Allergies Allergy (Verified 08/07/17 23:24) Home Medications: Home Medications Medication Instructions Recorded Confirmed Last Taken Type Aspirin 325 mg PO QDAY #30 tablet 08/09/17 01/29/19 Unknown Rx AtorvaSTATin [Lipitor] 80 mg PO QHS #30 tablet 08/09/17 01/29/19 Unknown Rx Insulin NPH/Regular [NovoLIN 70/30] 25 unit SUB-Q QPM #30 units 08/09/17 01/29/19 Unknown Rx Insulin NPH/Regular [NovoLIN 70/30] 50 unit SUB-Q QAM #30 units 08/09/17 01/29/19 Unknown Rx Active Medications: Generic Name Dose Route Start Last Admin Trade Name Freq PRN Reason Stop Dose Admin Acetaminophen 650 mg 01/28/19 14:31 Tylenol PO Q4H PRN Pain MILD(1-3)/Fever >100.5/BRUNO Atorvastatin Calcium 40 mg 01/28/19 21:00 02/04/19 21:36 Lipitor PO 40 mg QHS MINNIE Administration Bumetanide 2 mg 01/29/19 08:00 02/05/19 09:41 Bumex PO 2 mg QDAY MINNIE Administration Carvedilol 25 mg 01/28/19 22:00 02/05/19 09:40 Coreg PO 25 mg BID MINNIE Administration Dextrose 50 ml 01/28/19 14:31 D50w (25gm) Syringe IV PRN PRN Hypoglycemia Gabapentin 100 mg 01/28/19 22:00 02/04/19 21:36 Neurontin PO 100 mg HS MINNIE Administration Heparin Sodium (Porcine) 5,000 unit 01/28/19 22:00 02/05/19 06:19 Heparin SUB-Q 5,000 unit Q8HR MINNIE Administration Hydralazine HCl 100 mg 02/02/19 14:00 02/05/19 06:21 Apresoline PO 100 mg Q8HR MINNIE Administration Sodium Chloride 100 mls @ 999 mls/hr 01/29/19 16:10 Nacl 0.9% IV GRIS PRN Hypotension Insulin Glargine 8 units 01/28/19 21:00 02/04/19 21:48 Lantus SUB-Q 8 units QHS MINNIE Administration Insulin Human Lispro 0 unit 01/28/19 16:30 02/05/19 08:22 Humalog SUB-Q Not Given AC [facility] Protocol Isosorbide Mononitrate 60 mg 01/28/19 22:00 02/05/19 09:41 Imdur PO 60 mg BID [facility] Administration Losartan Potassium 100 mg 01/31/19 22:00 02/05/19 09:39 Cozaar PO 100 mg QDAY [facility] Administration Ondansetron HCl 4 mg 01/28/19 16:38 02/05/19 06:26 Zofran Odt PO 4 mg Q8H PRN Administration Nausea And Vomiting Oxycodone/Acetaminophen 1 tab 01/28/19 14:48 02/05/19 09:40 Percocet 5/325 PO 1 tab Q6H PRN Administration Pain, Moderate (4-6) Polyethylene Glycol 17 gm 01/29/19 08:00 02/05/19 09:46 Miralax 3350 PO Not Given QDAY [facility] Sevelamer Carbonate 2,400 mg 01/28/19 16:30 02/05/19 09:39 Renvela PO 2,400 mg AC [facility] Administration Zinc Acetate/Diphenhydramine 1 applic 01/28/19 14:48 02/02/19 22:21 Banophen Anti-Itch TP 1 applic Q8H PRN Administration Itching
[2019-02-05] MEDS: NEURONTIN PO SCH (22:36)
[2019-02-05] MEDS: LANTUS SUB-Q SCH (22:37)
[2019-02-06] MEDS: APRESOLINE PO SCH ×3 (06:57→21:14)
[2019-02-06] MEDS: ZOFRAN ODT PO PRN (06:57)
[2019-02-06] MEDS: HEPARIN SUB-Q SCH ×3 (06:59→21:15)
[2019-02-06 07:13] LABS: Calcium 8.7 mg/dL (8.4-10.2)
[2019-02-06] MEDS: HumaLOG SUB-Q SCH ×3 (08:22→16:40)
[2019-02-06] MEDS: COREG PO SCH ×2 (08:23→21:14)
[2019-02-06] MEDS: IMDUR PO SCH ×2 (08:23→21:15)
[2019-02-06] MEDS: COZAAR PO SCH (08:23)
[2019-02-06] MEDS: RENVELA PO SCH ×3 (09:10→17:00)
[2019-02-06] MEDS: BUMEX PO SCH (09:16)
[2019-02-06] MEDS: MIRALAX 3350 PO SCH (09:22)
--- NOTE | 2019-02-06 09:32 | Progress Note ---
Assessment and Plan - Patient Problems (1) ESRD (end stage renal disease) on dialysis Current Visit: Yes Status: Chronic Plan to address problem: ESRD on hemodialysis access: Right IJ perm cath continue HD TTS. Repeat dialysis after Rehab today. (2) DKA, type 1 Current Visit: No Status: Acute Plan to address problem: DM type I with history of DKA Continue medications monitor fingerstick. (3) Anemia Current Visit: Yes Status: Acute Plan to address problem: Mild Anemia Hb: 13.2g/dl Monitor CBC. (4) Chest pain Current Visit: No Status: Acute Qualifiers: Ischemic chest pain type: other angina pectoris type Plan to address problem: Chest pain : - has resolved -Will continue to monitor. Subjective Principal diagnosis: Right AKA and new ESRD on HD Interval history: 33 year old with medical history signficant for uncontrolled DM type I with new right above knee amputation and ESRD s/p kidney biopsy per report had DM nephropathy Patient seen today has Right IJ perm cath Patient seen in physical therapy today. denies any orthopnea or PND. Objective - Vital Signs Vital signs: Vital Signs - 12hr 02/05/19 02/05/19 02/05/19 22:30 22:32 22:35 Temperature 99.0 F Pulse Rate 108 H 109 H Respiratory 16 Rate Blood Pressure 169/96 169/96 Blood Pressure 169/96 [Right] O2 Sat by Pulse 98 Oximetry 02/06/19 02/06/19 06:51 08:00 Temperature 98.6 F Pulse Rate 94 H 94 H Respiratory 18 Rate Blood Pressure Blood Pressure 152/92 [Right] O2 Sat by Pulse 99 Oximetry - General Appearance General appearance: well-developed, well-nourished EENT: ATNC, PERRL Neck: no JVD Respiratory: Present: Clear to Ascultation Cardiology: regular, S1S2 Gastrointestinal: normal, normoactive bowel sounds Integumentary: no rash Neurologic: CN 3-12 intact Musculoskeletal: other (Right above knee amputation , no edema. ) Psychiatric: mood/affect appropriate - Lab 02/03/19 07:25 02/06/19 06:28 Most recent lab results Calcium 8.7 mg/dL (8.4-10.2) 02/06/19 06:28 Phosphorus 4.50 mg/dL (2.5-4.5) 01/29/19 04:00 Magnesium 2.50 mg/dL (1.7-2.3) H 01/29/19 04:00 - Imaging Chest x-ray: image reviewed (I reviewed CXR ) Medications & Allergies - Medications Allergies/Adverse Reactions: Allergies No Known Allergies Allergy (Verified 08/07/17 23:24) Home Medications: Home Medications Medication Instructions Recorded Confirmed Last Taken Type Aspirin 325 mg PO QDAY #30 tablet 08/09/17 01/29/19 Unknown Rx AtorvaSTATin [Lipitor] 80 mg PO QHS #30 tablet 08/09/17 01/29/19 Unknown Rx Insulin NPH/Regular [NovoLIN 70/30] 25 unit SUB-Q QPM #30 units 08/09/17 01/29/19 Unknown Rx Insulin NPH/Regular [NovoLIN 70/30] 50 unit SUB-Q QAM #30 units 08/09/17 01/29/19 Unknown Rx Active Medications: Generic Name Dose Route Start Last Admin Trade Name Freq PRN Reason Stop Dose Admin Acetaminophen 650 mg 01/28/19 14:31 Tylenol PO Q4H PRN Pain MILD(1-3)/Fever >100.5/BRUNO Atorvastatin Calcium 40 mg 01/28/19 21:00 02/05/19 22:35 Lipitor PO 40 mg QHS MINNIE Administration Bumetanide 2 mg 01/29/19 08:00 02/06/19 09:16 Bumex PO 2 mg QDAY MINNIE Administration Carvedilol 25 mg 01/28/19 22:00 02/06/19 08:23 Coreg PO Not Given BID MINNIE Dextrose 50 ml 01/28/19 14:31 D50w (25gm) Syringe IV PRN PRN Hypoglycemia Gabapentin 100 mg 01/28/19 22:00 02/05/19 22:36 Neurontin PO 100 mg HS MINNIE Administration Heparin Sodium (Porcine) 5,000 unit 01/28/19 22:00 02/06/19 06:59 Heparin SUB-Q 5,000 unit Q8HR MINNIE Administration Hydralazine HCl 100 mg 02/02/19 14:00 02/06/19 06:57 Apresoline PO 100 mg Q8HR MINNIE Administration Sodium Chloride 100 mls @ 999 mls/hr 01/29/19 16:10 Nacl 0.9% IV GRIS PRN Hypotension Insulin Glargine 8 units 01/28/19 21:00 02/05/19 22:37 Lantus SUB-Q 8 units QHS [facility] Administration Insulin Human Lispro 0 unit 01/28/19 16:30 02/06/19 08:22 Humalog SUB-Q Not Given AC [facility] Protocol Isosorbide Mononitrate 60 mg 01/28/19 22:00 02/06/19 08:23 Imdur PO Not Given BID [facility] Losartan Potassium 100 mg 01/31/19 22:00 02/06/19 08:23 Cozaar PO Not Given QDAY [facility] Ondansetron HCl 4 mg 01/28/19 16:38 02/06/19 06:57 Zofran Odt PO 4 mg Q8H PRN Administration Nausea And Vomiting Oxycodone/Acetaminophen 1 tab 01/28/19 14:48 02/05/19 18:16 Percocet 5/325 PO 1 tab Q6H PRN Administration Pain, Moderate (4-6) Polyethylene Glycol 17 gm 01/29/19 08:00 02/06/19 09:22 Miralax 3350 PO Not Given QDAY [facility] Sevelamer Carbonate 2,400 mg 01/28/19 16:30 02/06/19 09:10 Renvela PO 2,400 mg AC [facility] Administration Zinc Acetate/Diphenhydramine 1 applic 01/28/19 14:48 02/02/19 22:21 Banophen Anti-Itch TP 1 applic Q8H PRN Administration Itching
--- NOTE | 2019-02-06 10:12 | Progress Note ---
Subjective Date of service: 02/06/19 Principal diagnosis: Right AKA and new ESRD on HD Interval history: 33-year-old male with chest pressure and MALONEY for 2 wks prior to seeking assistance at ED. Once admitted he was found to have dry gangrene of right foot and ARF. Vascular surgery and nephrology were consulted. After prolonged decision timeframe the patient opted for amputation and an AKA was performed on 01/02/2019. He also required HD. It was hoped that his kidneys would return to former level of function but this did not happen. He is now ESRD and on HD TTS. On exam patient noted to have lateral deviation of right eye and he states this has been the case for the past year and is accompanied by blurred vision in the right eye. Will need ophthalmology follow up. He states his diabetes control has been poor. Patient is participating in therapy and making reasonable progress. Taking rest breaks as needed. Took some steps outside today even though he thought he couldn't. +BM. Denies pain, palpitations, dyspnea, cough, or joint pain. Neuropathic pain controlled with medication. Blood GLU is reasonable, continue to monitor. Continue to work on improving LLE strength. He will need to closely monitor BLE for wounds to avoid further infections and/or amputations. Continue to monitor. States LLE has been weak since surgery on foot about 2 years ago. From his story it sounds like he has been favoring the LLE since then and weakness is likely disuse and debility. Surgery was on an abscess on the plantar surface of the forefoot and should not have any neurological impact on the hip flexors/quads. BP elevated, nephrology managing. Have seen some dangerously high levels (190s/100s). Difficult to manage due to renal function. Really appreciate nephrology assistance Surgery for dialysis graft will likely be after discharge based on surgery schedule. All records, vitals, labs and medications were reviewed. No other issues per patient, nursing or therapy. Objective - Exam Narrative Exam: MUSCULOSKELETAL SPECIALTY EXAM CONSTITUTIONAL: Well developed, well nourished, appropriately groomed EENT: EOMI with lateral deviation of the right. Hearing intact to soft voice RESPIRATORY: Clear to auscultation bilaterally, no increased work of breathing CARDIOVASCULAR: Regular Rate/ Rhythm, no swelling, edema or tenderness in BUE or BLE. Pulses palpable in all extremities. All extremities warm. GI: + bowel sounds, soft, NTTP, nondistended. INTEGUMENTARY: DTI on left heel and dry skin with callus on the plantar surface of the forefoot, otherwise normal, no lesion, rash, masses or bruising noted in extremities. AKA well healed MUSCULOSKELETAL: Right AKA, otherwise BUE and BLE normal without defect, crepitus, subluxation, effusion, arthritic changes or TTP. BUE 4+/5, good ROM, with normal tone. BLE 4-/5 good ROM, with normal tone, left foot drop NEURO: CN 2-12 grossly intact. Sensation intact in all extremities. No tremor noted in 4 extremities. POSTURE and GAIT: Sitting posture good. Balance appears reasonable. Gait deferred until seen with therapy. PSYCH: Alert, orientated x3, affect appears normal. Insight appears intact. - Constitutional Vitals: Vital Signs - 12hr 02/05/19 02/05/19 02/05/19 22:30 22:32 22:35 Temperature 37.2 C Pulse Rate 108 H 109 H Respiratory 16 Rate Blood Pressure 169/96 169/96 Blood Pressure 169/96 [Right] O2 Sat by Pulse 98 Oximetry 02/06/19 02/06/19 06:51 08:00 Temperature 37.0 C Pulse Rate 94 H 94 H Respiratory 18 Rate Blood Pressure Blood Pressure 152/92 [Right] O2 Sat by Pulse 99 Oximetry - Allied health notes Allied health notes reviewed: nursing, PT, OT FIMS assessment as documented by PT/OT/ST: Grooming Patient cleans teeth/dentures: Yes Patient manjarrez/brushes hair: Yes Patient washes, rinses and Yes dries face: Patient washes, rinses and Yes dries hands: Patient performs (no make-up/ 4/4 (100%) shaving): Grooming FIM Score 5. Supervision ([place] applies toothpaste or opens containers.) Toileting Toileting Device Commode over Toilet,Grab Bar Patient able to: Adjust clothes before,Clean self Patient able to perform: 2/3 (67%) Toileting FIM Score 3. Moderate Assistance (Patient = 50% or more. Some lifting.) Social interaction/Memory/Problem solving Social Interaction FIM Score 6. Mod. [place] (Mostly appropriate. May need meds. No supv.) Memory FIM Score 6. Modified [place](Mild difficulty remembering people/routines.) Problem Solving FIM Score 6. Mod. [place] (Mild difficulty or needs more time w/ complex.) Transfers Mode of Locomotion: Wheelchair Bed/Chair/Wheelchair Transfers 5. Supervision (Needs supv. or set-up for FIM Score sliding board, foot rests.) Toilet Transfers FIM Score 4. Minimal Assistance (Patient = 75% or more. Needs touching.) Patient transferred to: Shower Shower Transfers FIM Score 4. Minimal Assistance (Patient = 75% or more. Needs touching.) Locomotion- Stairs Stairs FIM Score 0. Activity does not occur Locomotion- walk/wheelchair Most Frequent Mode of Wheelchair Locomotion: Ambulation Distance 8 Walking FIM Score 1. Total Assistance (Pt. < 25%, 2 or more person assist, or <50 ft.) Wheelchair Propulsion Distance 250 Wheelchair FIM Score 5. Supervision (Minimum 150 ft. supv./cues or 50 ft. independently.) Eating Eating FIM Score 6. Modified [place] (Special consistency or uses device.) Dressing-Upper body Patient retrieves clothing Yes items: Patient applies/removes UE No prosthesis or orthosis: Upper Body Dressing FIM Score 5. Supv./Set-Up (Dixon sets out clothes or applies pros./orth.) Dressing-lower body Patient retrieves clothing Yes items: Patient applies/removes LE n/a prosthesis or orthosis: Lower Body Dressing FIM Score 4. Minimal Assistance (Patient = 75% or more. Needs touching.) - Labs CBC & Chem 7: 02/03/19 07:25 02/06/19 06:28 Labs: Laboratory Results - last 72 hr 02/03/19 02/03/19 02/03/19 12:11 16:36 21:10 Sodium Potassium Chloride Carbon Dioxide Anion Gap BUN Creatinine Estimated GFR BUN/Creatinine Ratio Glucose POC Glucose 175 H 140 H 247 H Calcium 02/04/19 02/04/19 02/04/19 07:20 07:22 12:32 Sodium 140 Potassium 4.9 Chloride 103.6 Carbon Dioxide 26 Anion Gap 15 BUN 43 H Creatinine 4.5 H Estimated GFR 19 BUN/Creatinine Ratio 10 Glucose 159 H POC Glucose 151 H 217 H Calcium 8.8 02/04/19 02/04/19 02/05/19 16:46 22:11 07:31 Sodium Potassium Chloride Carbon Dioxide Anion Gap BUN Creatinine Estimated GFR BUN/Creatinine Ratio Glucose POC Glucose 202 H 128 H 78 Calcium 02/05/19 02/05/19 02/05/19 12:55 16:42 23:01 Sodium Potassium Chloride Carbon Dioxide Anion Gap BUN Creatinine Estimated GFR BUN/Creatinine Ratio Glucose POC Glucose 90 162 H 152 H Calcium 02/06/19 02/06/19 06:28 07:36 Sodium 141 Potassium 4.8 Chloride 103.2 Carbon Dioxide 30 Anion Gap 13 BUN 43 H Creatinine 4.5 H Estimated GFR 19 BUN/Creatinine Ratio 10 Glucose 138 H POC Glucose 114 H Calcium 8.7 Assessment and Plan Right AKA: Monitor for wound healing or further injury. Contact Provider Relations Representative for prosthesis. Limb protector on when OOB. ESRD on HD: Consulted nephrology. TTS schedule. Has center at discharge but may transfer to one in [place] Hypertension: Appreciate nephrology assistance. Still elevated despite adjustment of medications. DM I: Continue diet and insulin. Monitor and adjust as needed. Constipation: Miralax and monitor for improvement Phantom sensation and phantom pain: Low dose gabapentin and monitor for improvement Left foot drop: likely due to neuropathy. May need AFO but will need to monitor for wound issues Left foot wounds: consult wound care, keep clean, monitor for healing Z73.6 ADL dysfunction: OT will work on improving ability to perform ADLs (including assistive devices) to increase independence and decrease caregiver burden and improve functional transfers and mobility training. R26.2 Difficulty walking: PT will work on gait training and proper use of assistive devices and advance as appropriate to use of stairs and outside ambulation on uneven surfaces. R26.81 Unsteadiness on feet: PT will work on improving static and dynamic sitting and standing balance as well as proper use of assistive devices to decrease risk of falls. R26.89 Abnormality of gait: PT will work to improve safety and efficiency of gait through neuromotor training and gait training along with instruction on proper use of assistive devices. M62.81 Muscle weakness: PT & OT will work on strengthening exercises to improve functional strength including mixture of closed and open kinetic chain exercises. R53.81 Debility: PT & OT will work on improving overall functional status to improve participation with ADLs, mobility and social involvement. R53.83 Fatigue: PT & OT will work on improving endurance through aerobic exercises and therapeutic activity while monitoring patients tolerance for activity and vital signs as needed. DVT ppx: heparin TID Pain: Continue physical modalities in therapy and pain medications as needed to achieve functional pain control. Sleep: Monitor and address as needed. Bowel: Monitor and address as needed. Appetite: Monitor and address as needed. Discharge planning: Pending therapy progress and care plan meeting. Will continue discussion with therapy team, SW, patient and family. LLE still really weak, would benefit from a little longer stay to improve strength. Restrictions/ Precautions: Falls WB status: FWB Functional Hx: ADLs: Independent Cognition: Independent Mobility: No AD Barriers to Discharge: Decreased mobility and ability to perform self care, balance deficits, weakness Estimated Length of Stay: 14-18 days Discharge Destination: Home with family
[2019-02-06] MEDS: NEURONTIN PO SCH (21:15)
[2019-02-06] MEDS: LANTUS SUB-Q SCH (21:16)
[2019-02-06] MEDS: PERCOCET 5/325 PO PRN (21:23)
[2019-02-07] MEDS: APRESOLINE PO SCH ×3 (05:19→21:55)
[2019-02-07] MEDS: HEPARIN SUB-Q SCH ×3 (05:20→21:54)
[2019-02-07] MEDS: COZAAR PO SCH (09:54)
[2019-02-07] MEDS: RENVELA PO SCH ×3 (09:54→18:01)
[2019-02-07] MEDS: IMDUR PO SCH ×2 (09:55→21:54)
[2019-02-07] MEDS: PERCOCET 5/325 PO PRN ×2 (09:55→18:01)
[2019-02-07] MEDS: BUMEX PO SCH (09:56)
[2019-02-07] MEDS: COREG PO SCH ×2 (09:56→21:54)
[2019-02-07] MEDS: HumaLOG SUB-Q SCH ×3 (09:57→18:02)
[2019-02-07] MEDS: MIRALAX 3350 PO SCH (10:04)
--- NOTE | 2019-02-07 13:25 | Progress Note ---
Subjective Date of service: 02/07/19 Principal diagnosis: Right AKA and new ESRD on HD Interval history: 33-year-old male with chest pressure and MALONEY for 2 wks prior to seeking assistance at ED. Once admitted he was found to have dry gangrene of right foot and ARF. Vascular surgery and nephrology were consulted. After prolonged decision timeframe the patient opted for amputation and an AKA was performed on 01/02/2019. He also required HD. It was hoped that his kidneys would return to former level of function but this did not happen. He is now ESRD and on HD TTS. On exam patient noted to have lateral deviation of right eye and he states this has been the case for the past year and is accompanied by blurred vision in the right eye. Will need ophthalmology follow up. He states his diabetes control has been poor. Patient is participating in therapy and making reasonable progress. Taking rest breaks as needed. +BM. Denies pain, palpitations, dyspnea, cough, or joint pain. Neuropathic pain controlled with medication. Blood GLU is reasonable, continue to monitor. Continue to work on improving LLE strength. He will need to closely monitor BLE for wounds to avoid further infections and/or amputations. BP elevated, nephrology managing. Discussed with Nephro . Really appreciate nephrology assistance Surgery for dialysis graft will likely be after discharge based on surgery schedule. All records, vitals, labs and medications were reviewed. No other issues per patient, nursing or therapy. Objective - Exam Narrative Exam: MUSCULOSKELETAL SPECIALTY EXAM CONSTITUTIONAL: Well developed, well nourished, appropriately groomed EENT: EOMI with lateral deviation of the right. Hearing intact to soft voice RESPIRATORY: Clear to auscultation bilaterally, no increased work of breathing CARDIOVASCULAR: Regular Rate/ Rhythm, no swelling, edema or tenderness in BUE or BLE. Pulses palpable in all extremities. All extremities warm. GI: + bowel sounds, soft, NTTP, nondistended. INTEGUMENTARY: DTI on left heel and dry skin with callus on the plantar surface of the forefoot, otherwise normal, no lesion, rash, masses or bruising noted in extremities. AKA well healed MUSCULOSKELETAL: Right AKA, otherwise BUE and BLE normal without defect, crepitus, subluxation, effusion, arthritic changes or TTP. BUE 4+/5, good ROM, with normal tone. BLE 4-/5 good ROM, with normal tone, left foot drop NEURO: CN 2-12 grossly intact. Sensation intact in all extremities. No tremor noted in 4 extremities. POSTURE and GAIT: Sitting posture good. Balance appears reasonable. Gait with RW and TotA x2. PSYCH: Alert, orientated x3, affect appears normal. Insight appears intact. - Constitutional Vitals: Vital Signs - 12hr 02/07/19 02/07/19 02/07/19 04:21 07:23 09:54 Temperature 36.4 C L 36.8 C Pulse Rate 96 H 94 H 94 H Respiratory 19 18 Rate Blood Pressure 143/84 151/92 151/92 Blood Pressure [Right] O2 Sat by Pulse 99 97 Oximetry 02/07/19 02/07/19 02/07/19 09:55 09:56 12:00 Temperature 36.9 C Pulse Rate 94 H 94 H 95 H Respiratory 18 Rate Blood Pressure 151/92 151/92 Blood Pressure 150/90 [Right] O2 Sat by Pulse 98 Oximetry - Allied health notes Allied health notes reviewed: nursing, PT, OT FIMS assessment as documented by PT/OT/ST: Grooming Patient cleans teeth/dentures: Yes Patient manjarrez/brushes hair: Yes Patient washes, rinses and Yes dries face: Patient washes, rinses and Yes dries hands: Patient performs (no make-up/ 4/4 (100%) shaving): Grooming FIM Score 5. Supervision ([place] applies toothpaste or opens containers.) Toileting Toileting Device Commode over Toilet,Grab Bar Patient able to: Adjust clothes before,Clean self Patient able to perform: 2/3 (67%) Toileting FIM Score 3. Moderate Assistance (Patient = 50% or more. Some lifting.) Social interaction/Memory/Problem solving Social Interaction FIM Score 6. Mod. [place] (Mostly appropriate. May need meds. No supv.) Memory FIM Score 6. Modified [place](Mild difficulty remembering people/routines.) Problem Solving FIM Score 6. Mod. [place] (Mild difficulty or needs more time w/ complex.) Transfers Mode of Locomotion: Wheelchair Bed/Chair/Wheelchair Transfers 5. Supervision (Needs supv. or set-up for FIM Score sliding board, foot rests.) Toilet Transfers FIM Score 4. Minimal Assistance (Patient = 75% or more. Needs touching.) Patient transferred to: Shower Shower Transfers FIM Score 4. Minimal Assistance (Patient = 75% or more. Needs touching.) Locomotion- Stairs Stairs FIM Score 0. Activity does not occur Locomotion- walk/wheelchair Most Frequent Mode of Wheelchair Locomotion: Ambulation Distance 11 Walking FIM Score 1. Total Assistance (Pt. < 25%, 2 or more person assist, or <50 ft.) Wheelchair Propulsion Distance 300 Wheelchair FIM Score 6. Modified [place] (Wheels a minimum of 150 ft.) Eating Eating FIM Score 7. Complete [place] (Cuts meat, opens containers, regular diet.) Dressing-Upper body Patient retrieves clothing Yes items: Patient applies/removes UE No prosthesis or orthosis: Upper Body Dressing FIM Score 6. Modified [place] (Needs equipment, velcro or pros./orth.) Dressing-lower body Patient retrieves clothing Yes items: Patient applies/removes LE n/a prosthesis or orthosis: Lower Body Dressing FIM Score 5. Supv./Set-Up ([place] sets out clothes or applies pros./orth.) - Labs CBC & Chem 7: 02/10/19 07:43 02/10/19 07:43 Labs: Laboratory Results - last 72 hr 02/04/19 02/04/19 02/05/19 16:46 22:11 07:31 Sodium Potassium Chloride Carbon Dioxide Anion Gap BUN Creatinine Estimated GFR BUN/Creatinine Ratio Glucose POC Glucose 202 H 128 H 78 Calcium 02/05/19 02/05/19 02/05/19 12:55 16:42 23:01 Sodium Potassium Chloride Carbon Dioxide Anion Gap BUN Creatinine Estimated GFR BUN/Creatinine Ratio Glucose POC Glucose 90 162 H 152 H Calcium 02/06/19 02/06/19 02/06/19 06:28 07:36 11:51 Sodium 141 Potassium 4.8 Chloride 103.2 Carbon Dioxide 30 Anion Gap 13 BUN 43 H Creatinine 4.5 H Estimated GFR 19 BUN/Creatinine Ratio 10 Glucose 138 H POC Glucose 114 H 158 H Calcium 8.7 02/06/19 02/07/19 02/07/19 21:08 07:31 12:37 Sodium Potassium Chloride Carbon Dioxide Anion Gap BUN Creatinine Estimated GFR BUN/Creatinine Ratio Glucose POC Glucose 223 H 177 H 136 H Calcium Assessment and Plan Right AKA: Monitor for wound healing or further injury. Contact Tack Welder for prosthesis. Limb protector on when OOB. ESRD on HD: Consulted nephrology. TTS schedule. Has center at discharge but may transfer to one in [place] Hypertension: Appreciate nephrology assistance. Improving DM I: Continue diet and insulin. Monitor and adjust as needed. Constipation: Miralax and monitor for improvement Phantom sensation and phantom pain: Low dose gabapentin and monitor for improvement Left foot drop: likely due to neuropathy. May need AFO but will need to monitor for wound issues Left foot wounds: consult wound care, keep clean, monitor for healing Z73.6 ADL dysfunction: OT will work on improving ability to perform ADLs (including assistive devices) to increase independence and decrease caregiver burden and improve functional transfers and mobility training. R26.2 Difficulty walking: PT will work on gait training and proper use of assistive devices and advance as appropriate to use of stairs and outside ambulation on uneven surfaces. R26.81 Unsteadiness on feet: PT will work on improving static and dynamic sitting and standing balance as well as proper use of assistive devices to decrease risk of falls. R26.89 Abnormality of gait: PT will work to improve safety and efficiency of gait through neuromotor training and gait training along with instruction on proper use of assistive devices. M62.81 Muscle weakness: PT & OT will work on strengthening exercises to improve functional strength including mixture of closed and open kinetic chain exercises. R53.81 Debility: PT & OT will work on improving overall functional status to improve participation with ADLs, mobility and social involvement. R53.83 Fatigue: PT & OT will work on improving endurance through aerobic exercises and therapeutic activity while monitoring patients tolerance for activity and vital signs as needed. DVT ppx: heparin TID Pain: Continue physical modalities in therapy and pain medications as needed to achieve functional pain control. Sleep: Monitor and address as needed. Bowel: Monitor and address as needed. Appetite: Monitor and address as needed. Discharge planning: Pending therapy progress and care plan meeting. Will continue discussion with therapy team, SW, patient and family. LLE still really weak, would benefit from a little longer stay to improve strength. Restrictions/ Precautions: Falls WB status: FWB Functional Hx: ADLs: Independent Cognition: Independent Mobility: No AD Barriers to Discharge: Decreased mobility and ability to perform self care, balance deficits, weakness Estimated Length of Stay: 14-18 days Discharge Destination: Home with family
--- NOTE | 2019-02-07 13:47 | Progress Note ---
Assessment and Plan - Patient Problems (1) ESRD (end stage renal disease) on dialysis Current Visit: Yes Status: Chronic Plan to address problem: ESRD on hemodialysis access: Right IJ perm cath continue HD TTS. (2) DKA, type 1 Current Visit: No Status: Acute Plan to address problem: DM type I with history of DKA Continue medications monitor fingerstick. (3) Anemia Current Visit: Yes Status: Acute Plan to address problem: Mild Anemia Hb: 13.2g/dl 2/2 Chronic disease No indication for INDIGO. Monitor CBC. (4) Chest pain Current Visit: No Status: Acute Qualifiers: Ischemic chest pain type: other angina pectoris type Plan to address problem: Chest pain : - has resolved -Will continue to monitor. 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 Objective - Vital Signs Vital signs: Vital Signs - 12hr 02/07/19 02/07/19 02/07/19 04:21 07:23 09:54 Temperature 97.5 F L 98.3 F Pulse Rate 96 H 94 H 94 H Respiratory 19 18 Rate Blood Pressure 143/84 151/92 151/92 Blood Pressure [Right] O2 Sat by Pulse 99 97 Oximetry 02/07/19 02/07/19 02/07/19 09:55 09:56 12:00 Temperature 98.5 F Pulse Rate 94 H 94 H 95 H Respiratory 18 Rate Blood Pressure 151/92 151/92 Blood Pressure 150/90 [Right] O2 Sat by Pulse 98 Oximetry - General Appearance General appearance: well-developed, well-nourished EENT: ATNC, PERRL Neck: no JVD Respiratory: Present: Clear to Ascultation Cardiology: regular, S1S2 Gastrointestinal: normal, normoactive bowel sounds Neurologic: alert and oriented x3, CN 3-12 intact Musculoskeletal: other (right above knee amputation , left leg without edema. ) Psychiatric: mood/affect appropriate - Lab 02/03/19 07:25 02/06/19 06:28 Most recent lab results Calcium 8.7 mg/dL (8.4-10.2) 02/06/19 06:28 Phosphorus 4.50 mg/dL (2.5-4.5) 01/29/19 04:00 Magnesium 2.50 mg/dL (1.7-2.3) H 01/29/19 04:00 - Imaging Other: image reviewed (I reviewed ultrasound mapping of extremities. ) Medications & Allergies - Medications Allergies/Adverse Reactions: Allergies No Known Allergies Allergy (Verified 08/07/17 23:24) Home Medications: Home Medications Medication Instructions Recorded Confirmed Last Taken Type Aspirin 325 mg PO QDAY #30 tablet 08/09/17 01/29/19 Unknown Rx AtorvaSTATin [Lipitor] 80 mg PO QHS #30 tablet 08/09/17 01/29/19 Unknown Rx Insulin NPH/Regular [NovoLIN 70/30] 25 unit SUB-Q QPM #30 units 08/09/17 01/29/19 Unknown Rx Insulin NPH/Regular [NovoLIN 70/30] 50 unit SUB-Q QAM #30 units 08/09/17 01/29/19 Unknown Rx Active Medications: Generic Name Dose Route Start Last Admin Trade Name Freq PRN Reason Stop Dose Admin Acetaminophen 650 mg 01/28/19 14:31 Tylenol PO Q4H PRN Pain MILD(1-3)/Fever >100.5/BRUNO Atorvastatin Calcium 40 mg 01/28/19 21:00 02/06/19 21:15 Lipitor PO 40 mg QHS MINNIE Administration Bumetanide 2 mg 01/29/19 08:00 02/07/19 09:56 Bumex PO 2 mg QDAY MINNIE Administration Carvedilol 25 mg 01/28/19 22:00 02/07/19 09:56 Coreg PO 25 mg BID MINNIE Administration Dextrose 50 ml 01/28/19 14:31 D50w (25gm) Syringe IV PRN PRN Hypoglycemia Gabapentin 100 mg 01/28/19 22:00 02/06/19 21:15 Neurontin PO 100 mg HS MINNIE Administration Heparin Sodium (Porcine) 5,000 unit 01/28/19 22:00 02/07/19 05:20 Heparin SUB-Q Not Given Q8HR MINNIE Hydralazine HCl 100 mg 02/02/19 14:00 02/07/19 05:19 Apresoline PO 100 mg Q8HR MINNIE Administration Sodium Chloride 100 mls @ 999 mls/hr 01/29/19 16:10 Nacl 0.9% IV GRIS PRN Hypotension Insulin Glargine 8 units 01/28/19 21:00 02/06/19 21:16 Lantus SUB-Q 8 units QHS MINNIE Administration Insulin Human Lispro 0 unit 01/28/19 16:30 02/07/19 09:57 Humalog SUB-Q 2 unit AC MINNIE Administration Protocol Isosorbide Mononitrate 60 mg 01/28/19 22:00 02/07/19 09:55 Imdur PO 60 mg BID MINNIE Administration Losartan Potassium 100 mg 01/31/19 22:00 02/07/19 09:54 Cozaar PO 100 mg QDAY MINNIE Administration Ondansetron HCl 4 mg 01/28/19 16:38 02/06/19 06:57 Zofran Odt PO 4 mg Q8H PRN Administration Nausea And Vomiting Oxycodone/Acetaminophen 1 tab 01/28/19 14:48 02/07/19 09:55 Percocet 5/325 PO 1 tab Q6H PRN Administration Pain, Moderate (4-6) Polyethylene Glycol 17 gm 01/29/19 08:00 02/07/19 10:04 Miralax 3350 PO 17 gm QDAY MINNIE Administration Sevelamer Carbonate 2,400 mg 01/28/19 16:30 02/07/19 09:54 Renvela PO 2,400 mg AC MINNIE Administration Zinc Acetate/Diphenhydramine 1 applic 01/28/19 14:48 02/02/19 22:21 Banophen Anti-Itch TP 1 applic Q8H PRN Administration Itching
[2019-02-07] MEDS: NORVASC PO SCH (18:03)
[2019-02-07] MEDS: LANTUS SUB-Q SCH (21:54)
[2019-02-07] MEDS: NEURONTIN PO SCH (21:58)
[2019-02-08] MEDS: APRESOLINE PO SCH ×3 (05:16→22:32)
[2019-02-08] MEDS: HEPARIN SUB-Q SCH ×3 (05:17→22:32)
[2019-02-08 07:25] LABS: Calcium 8.8 mg/dL (8.4-10.2)
[2019-02-08] MEDS: HumaLOG SUB-Q SCH ×3 (07:33→16:53)
[2019-02-08] MEDS: BUMEX PO SCH (08:16)
[2019-02-08] MEDS: RENVELA PO SCH ×3 (08:16→16:54)
[2019-02-08] MEDS: IMDUR PO SCH ×2 (08:17→22:32)
[2019-02-08] MEDS: COZAAR PO SCH (08:17)
[2019-02-08] MEDS: COREG PO SCH ×2 (08:17→22:33)
[2019-02-08] MEDS: NORVASC PO SCH (08:17)
[2019-02-08] MEDS: MIRALAX 3350 PO SCH (08:17)
--- NOTE | 2019-02-08 10:39 | Progress Note ---
Assessment and Plan Impression * End-stage renal disease * Hypertension * Status post right above-knee amputation * Anemia * Peripheral artery disease Recommendations * Continue dialysis on TTS schedule * Binders with meals * Procrit with dialysis per protocol * He will also require outpatient dialysis arrangement * His blood pressure is noted to be elevated. Adjust his antihypertensive meds Subjective Date of service: 02/08/19 Principal diagnosis: Right AKA and new ESRD on HD Interval history: resting in bed today Objective - Exam Narrative Exam: General appearance: well-developed, well-nourished, appears stated age EENT: PERRL, mucous membranes moist Neck: no JVD, no thyromegaly, no carotid bruit, supple, other (right IJ PermCath in place.) Respiratory: Present: Clear to Ascultation Cardiology: regular, normal heart rate, S1S2, no murmurs Gastrointestinal: normal, normoactive bowel sounds Integumentary: no rash, other (right above-knee amputation. 1+ edema left lower extremity) - Vital Signs Vital signs: Vital Signs - 12hr 02/08/19 02/08/19 04:02 07:21 Temperature 98.5 F 98.0 F Pulse Rate 99 H 100 H Respiratory 18 20 Rate Blood Pressure 138/78 141/82 O2 Sat by Pulse 96 99 Oximetry - Lab 02/03/19 07:25 02/08/19 06:29 Most recent lab results Calcium 8.8 mg/dL (8.4-10.2) 02/08/19 06:29 Phosphorus 4.50 mg/dL (2.5-4.5) 01/29/19 04:00 Magnesium 2.50 mg/dL (1.7-2.3) H 01/29/19 04:00 Medications & Allergies - Medications Allergies/Adverse Reactions: Allergies No Known Allergies Allergy (Verified 08/07/17 23:24) Home Medications: Home Medications Medication Instructions Recorded Confirmed Last Taken Type Aspirin 325 mg PO QDAY #30 tablet 08/09/17 01/29/19 Unknown Rx AtorvaSTATin [Lipitor] 80 mg PO QHS #30 tablet 08/09/17 01/29/19 Unknown Rx Insulin NPH/Regular [NovoLIN 70/30] 25 unit SUB-Q QPM #30 units 08/09/17 01/29/19 Unknown Rx Insulin NPH/Regular [NovoLIN 70/30] 50 unit SUB-Q QAM #30 units 08/09/17 01/29/19 Unknown Rx Active Medications: Generic Name Dose Route Start Last Admin Trade Name Freq PRN Reason Stop Dose Admin Acetaminophen 650 mg 01/28/19 14:31 Tylenol PO Q4H PRN Pain MILD(1-3)/Fever >100.5/BRUNO Amlodipine Besylate 5 mg 02/07/19 17:00 02/08/19 08:17 Norvasc PO 5 mg QDAY MINNIE Administration Atorvastatin Calcium 40 mg 01/28/19 21:00 02/07/19 21:54 Lipitor PO 40 mg QHS MINNIE Administration Bumetanide 2 mg 01/29/19 08:00 02/08/19 08:16 Bumex PO 2 mg QDAY MINNIE Administration Carvedilol 25 mg 01/28/19 22:00 02/08/19 08:17 Coreg PO 25 mg BID MINNIE Administration Dextrose 50 ml 01/28/19 14:31 D50w (25gm) Syringe IV PRN PRN Hypoglycemia Gabapentin 100 mg 01/28/19 22:00 02/07/19 21:58 Neurontin PO 100 mg HS MINNIE Administration Heparin Sodium (Porcine) 5,000 unit 01/28/19 22:00 02/08/19 05:17 Heparin SUB-Q 5,000 unit Q8HR MINNIE Administration Hydralazine HCl 100 mg 02/02/19 14:00 02/08/19 05:16 Apresoline PO 100 mg Q8HR MINNIE Administration Sodium Chloride 100 mls @ 999 mls/hr 01/29/19 16:10 Nacl 0.9% IV GRIS PRN Hypotension Insulin Glargine 8 units 01/28/19 21:00 02/07/19 21:54 Lantus SUB-Q 8 units QHS MINNIE Administration Insulin Human Lispro 0 unit 01/28/19 16:30 02/08/19 07:33 Humalog SUB-Q Not Given AC [facility] Protocol Isosorbide Mononitrate 60 mg 01/28/19 22:00 02/08/19 08:17 Imdur PO 60 mg BID MINNIE Administration Losartan Potassium 100 mg 01/31/19 22:00 02/08/19 08:17 Cozaar PO 100 mg QDAY MINNIE Administration Ondansetron HCl 4 mg 01/28/19 16:38 02/06/19 06:57 Zofran Odt PO 4 mg Q8H PRN Administration Nausea And Vomiting Oxycodone/Acetaminophen 1 tab 01/28/19 14:48 02/07/19 18:01 Percocet 5/325 PO 1 tab Q6H PRN Administration Pain, Moderate (4-6) Polyethylene Glycol 17 gm 01/29/19 08:00 02/08/19 08:17 Miralax 3350 PO 17 gm QDAY MINNIE Administration Sevelamer Carbonate 2,400 mg 01/28/19 16:30 02/08/19 08:16 Renvela PO 2,400 mg AC MINNIE Administration Zinc Acetate/Diphenhydramine 1 applic 01/28/19 14:48 02/02/19 22:21 Banophen Anti-Itch TP 1 applic Q8H PRN Administration Itching
[2019-02-08] MEDS ORDERED: NACL 0.9 (PRIMING MACHINE ONLY DIALYSIS) MC ONE (14:14)
[2019-02-08] MEDS: PERCOCET 5/325 PO PRN (19:24)
[2019-02-08] MEDS: LANTUS SUB-Q SCH (22:32)
[2019-02-08] MEDS: NEURONTIN PO SCH (22:32)
[2019-02-09] MEDS: HEPARIN SUB-Q SCH ×3 (06:17→22:21)
[2019-02-09] MEDS: APRESOLINE PO SCH ×3 (06:17→22:20)
[2019-02-09] MEDS: HumaLOG SUB-Q SCH ×3 (08:10→17:15)
[2019-02-09] MEDS: IMDUR PO SCH ×2 (09:19→22:19)
[2019-02-09] MEDS: BUMEX PO SCH (09:19)
[2019-02-09] MEDS: RENVELA PO SCH ×3 (09:19→17:15)
[2019-02-09] MEDS: COZAAR PO SCH (09:20)
[2019-02-09] MEDS: COREG PO SCH ×2 (09:21→22:20)
[2019-02-09] MEDS: NORVASC PO SCH (09:21)
[2019-02-09] MEDS: MIRALAX 3350 PO SCH ×2 (09:23→17:20)
--- NOTE | 2019-02-09 11:43 | Progress Note ---
Assessment and Plan Impression * End-stage renal disease * Hypertension * Status post right above-knee amputation * Anemia * Peripheral artery disease Recommendations * Continue dialysis on TTS schedule * Binders with meals * Procrit with dialysis per protocol * He will also require outpatient dialysis arrangement * His blood pressure is noted to be elevated. Adjust his antihypertensive meds Subjective Date of service: 02/09/19 Principal diagnosis: Right AKA and new ESRD on HD Interval history: resting in bed today Objective - Exam Narrative Exam: General appearance: well-developed, well-nourished, appears stated age EENT: PERRL, mucous membranes moist Neck: no JVD, no thyromegaly, no carotid bruit, supple, other (right IJ PermCath in place.) Respiratory: Present: Clear to Ascultation Cardiology: regular, normal heart rate, S1S2, no murmurs Gastrointestinal: normal, normoactive bowel sounds Integumentary: no rash, other (right above-knee amputation. 1+ edema left lower extremity) - Vital Signs Vital signs: Vital Signs - 12hr 02/09/19 02/09/19 02/09/19 04:18 07:30 07:44 Temperature 98.6 F 98.2 F 98.4 F Pulse Rate 97 H 97 H Respiratory 18 18 18 Rate Blood Pressure 134/90 142/78 Blood Pressure 142/78 [Right] O2 Sat by Pulse 98 Oximetry 02/09/19 02/09/19 02/09/19 09:19 09:20 09:21 Temperature Pulse Rate 97 H 97 H Respiratory Rate Blood Pressure 142/78 142/78 142/78 Blood Pressure [Right] O2 Sat by Pulse Oximetry - Lab 02/03/19 07:25 02/08/19 06:29 Most recent lab results Calcium 8.8 mg/dL (8.4-10.2) 02/08/19 06:29 Phosphorus 4.50 mg/dL (2.5-4.5) 01/29/19 04:00 Magnesium 2.50 mg/dL (1.7-2.3) H 01/29/19 04:00 Medications & Allergies - Medications Allergies/Adverse Reactions: Allergies No Known Allergies Allergy (Verified 08/07/17 23:24) Home Medications: Home Medications Medication Instructions Recorded Confirmed Last Taken Type Aspirin 325 mg PO QDAY #30 tablet 08/09/17 01/29/19 Unknown Rx AtorvaSTATin [Lipitor] 80 mg PO QHS #30 tablet 08/09/17 01/29/19 Unknown Rx Insulin NPH/Regular [NovoLIN 70/30] 25 unit SUB-Q QPM #30 units 08/09/17 01/29/19 Unknown Rx Insulin NPH/Regular [NovoLIN 70/30] 50 unit SUB-Q QAM #30 units 08/09/17 01/29/19 Unknown Rx Active Medications: Generic Name Dose Route Start Last Admin Trade Name Freq PRN Reason Stop Dose Admin Acetaminophen 650 mg 01/28/19 14:31 Tylenol PO Q4H PRN Pain MILD(1-3)/Fever >100.5/BRUNO Amlodipine Besylate 5 mg 02/07/19 17:00 02/09/19 09:21 Norvasc PO 5 mg QDAY MINNIE Administration Atorvastatin Calcium 40 mg 01/28/19 21:00 02/08/19 22:33 Lipitor PO 40 mg QHS MINNIE Administration Bumetanide 2 mg 01/29/19 08:00 02/09/19 09:19 Bumex PO 2 mg QDAY MINNIE Administration Carvedilol 25 mg 01/28/19 22:00 02/09/19 09:21 Coreg PO 25 mg BID MINNIE Administration Dextrose 50 ml 01/28/19 14:31 D50w (25gm) Syringe IV PRN PRN Hypoglycemia Gabapentin 100 mg 01/28/19 22:00 02/08/19 22:32 Neurontin PO 100 mg HS MINNIE Administration Heparin Sodium (Porcine) 5,000 unit 01/28/19 22:00 02/09/19 06:17 Heparin SUB-Q 5,000 unit Q8HR MINNIE Administration Hydralazine HCl 100 mg 02/02/19 14:00 02/09/19 06:17 Apresoline PO 100 mg Q8HR MINNIE Administration Sodium Chloride 100 mls @ 999 mls/hr 01/29/19 16:10 Nacl 0.9% IV GRIS PRN Hypotension Insulin Glargine 8 units 01/28/19 21:00 02/08/19 22:32 Lantus SUB-Q 8 units QHS MINNIE Administration Insulin Human Lispro 0 unit 01/28/19 16:30 02/09/19 08:10 Humalog SUB-Q Not Given AC [facility] Protocol Isosorbide Mononitrate 60 mg 01/28/19 22:00 02/09/19 09:19 Imdur PO 60 mg BID MINNIE Administration Losartan Potassium 100 mg 01/31/19 22:00 02/09/19 09:20 Cozaar PO 100 mg QDAY MINNIE Administration Ondansetron HCl 4 mg 01/28/19 16:38 02/06/19 06:57 Zofran Odt PO 4 mg Q8H PRN Administration Nausea And Vomiting Oxycodone/Acetaminophen 1 tab 01/28/19 14:48 02/08/19 19:24 Percocet 5/325 PO 1 tab Q6H PRN Administration Pain, Moderate (4-6) Polyethylene Glycol 17 gm 01/29/19 08:00 02/09/19 09:23 Miralax 3350 PO 17 gm QDAY MINNIE Administration Sevelamer Carbonate 2,400 mg 01/28/19 16:30 02/09/19 09:19 Renvela PO 2,400 mg AC MINNIE Administration Zinc Acetate/Diphenhydramine 1 applic 01/28/19 14:48 02/02/19 22:21 Banophen Anti-Itch TP 1 applic Q8H PRN Administration Itching
[2019-02-09] MEDS: LANTUS SUB-Q SCH (22:13)
[2019-02-09] MEDS: NEURONTIN PO SCH (22:20)
[2019-02-09] MEDS: PERCOCET 5/325 PO PRN (22:22)
[2019-02-10] MEDS: APRESOLINE PO SCH ×3 (06:45→21:37)
[2019-02-10] MEDS: HEPARIN SUB-Q SCH ×3 (06:46→21:46)
--- NOTE | 2019-02-10 08:06 | Progress Note ---
Assessment and Plan Impression * End-stage renal disease * Hypertension * Status post right above-knee amputation * Anemia * Peripheral artery disease Recommendations * Continue dialysis on TTS schedule * Binders with meals * Epogen TIW prn * Renal diet * Outpatient HD clinic placement - patient resides in [facility], [place] Date of service: 02/10/19 Principal diagnosis: Right AKA and new ESRD on HD Interval history: Patient has no complaints today. Objective - Vital Signs Vital signs: Vital Signs - 12hr 02/09/19 02/09/19 02/09/19 22:06 22:19 22:20 Temperature Pulse Rate 107 H 107 H Respiratory Rate Blood Pressure 119/79 119/79 O2 Sat by Pulse 97 Oximetry 02/10/19 06:26 Temperature 97.9 F Pulse Rate 104 H Respiratory 20 Rate Blood Pressure 160/98 O2 Sat by Pulse 99 Oximetry - General Appearance General appearance: well-developed, well-nourished EENT: ATNC Respiratory: Present: Clear to Ascultation Cardiology: regular, S1S2 Gastrointestinal: normal, no tenderness, no distended Integumentary: no rash, warm and dry Musculoskeletal: other (R AKA) Psychiatric: cooperative - Lab 02/10/19 07:43 02/10/19 07:43 Most recent lab results Calcium 8.8 mg/dL (8.4-10.2) 02/08/19 06:29 Phosphorus 4.50 mg/dL (2.5-4.5) 01/29/19 04:00 Magnesium 2.50 mg/dL (1.7-2.3) H 01/29/19 04:00 Medications & Allergies - Medications Allergies/Adverse Reactions: Allergies No Known Allergies Allergy (Verified 08/07/17 23:24) Home Medications: Home Medications Medication Instructions Recorded Confirmed Last Taken Type Aspirin 325 mg PO QDAY #30 tablet 08/09/17 01/29/19 Unknown Rx AtorvaSTATin [Lipitor] 80 mg PO QHS #30 tablet 08/09/17 01/29/19 Unknown Rx Insulin NPH/Regular [NovoLIN 70/30] 25 unit SUB-Q QPM #30 units 08/09/17 01/29/19 Unknown Rx Insulin NPH/Regular [NovoLIN 70/30] 50 unit SUB-Q QAM #30 units 08/09/17 01/29/19 Unknown Rx Active Medications: Generic Name Dose Route Start Last Admin Trade Name Freq PRN Reason Stop Dose Admin Acetaminophen 650 mg 01/28/19 14:31 Tylenol PO Q4H PRN Pain MILD(1-3)/Fever >100.5/BRUNO Amlodipine Besylate 5 mg 02/07/19 17:00 02/09/19 09:21 Norvasc PO 5 mg QDAY MINNIE Administration Atorvastatin Calcium 40 mg 01/28/19 21:00 02/09/19 22:20 Lipitor PO 40 mg QHS [facility] Administration Bumetanide 2 mg 01/29/19 08:00 02/09/19 09:19 Bumex PO 2 mg QDAY MINNIE Administration Carvedilol 25 mg 01/28/19 22:00 02/09/19 22:20 Coreg PO 25 mg BID MINNIE Administration Dextrose 50 ml 01/28/19 14:31 D50w (25gm) Syringe IV PRN PRN Hypoglycemia Gabapentin 100 mg 01/28/19 22:00 02/09/19 22:20 Neurontin PO 100 mg HS MINNIE Administration Heparin Sodium (Porcine) 5,000 unit 01/28/19 22:00 02/10/19 06:46 Heparin SUB-Q Not Given Q8HR [facility] Hydralazine HCl 100 mg 02/02/19 14:00 02/10/19 06:45 Apresoline PO 100 mg Q8HR [facility] Administration Sodium Chloride 100 mls @ 999 mls/hr 01/29/19 16:10 Nacl 0.9% IV GRIS PRN Hypotension Insulin Glargine 8 units 01/28/19 21:00 02/09/19 22:13 Lantus SUB-Q 8 units QHS [facility] Administration Insulin Human Lispro 0 unit 01/28/19 16:30 02/09/19 17:15 Humalog SUB-Q 2 unit AC MINNIE Administration Protocol Isosorbide Mononitrate 60 mg 01/28/19 22:00 02/09/19 22:19 Imdur PO 60 mg BID MINNIE Administration Losartan Potassium 100 mg 01/31/19 22:00 02/09/19 09:20 Cozaar PO 100 mg QDAY MINNIE Administration Ondansetron HCl 4 mg 01/28/19 16:38 02/06/19 06:57 Zofran Odt PO 4 mg Q8H PRN Administration Nausea And Vomiting Oxycodone/Acetaminophen 1 tab 01/28/19 14:48 02/09/19 22:22 Percocet 5/325 PO 1 tab Q6H PRN Administration Pain, Moderate (4-6) Polyethylene Glycol 17 gm 01/29/19 08:00 02/09/19 17:20 Miralax 3350 PO Not Given QDAY MINNIE Sevelamer Carbonate 2,400 mg 01/28/19 16:30 02/09/19 17:15 Renvela PO 2,400 mg AC MINNIE Administration Zinc Acetate/Diphenhydramine 1 applic 01/28/19 14:48 02/02/19 22:21 Banophen Anti-Itch TP 1 applic Q8H PRN Administration Itching
[2019-02-10 08:21] LABS: Hematocrit 44.7 % (35.5-45.6); Mean Corpuscular HGB Conc 31 % (32-34); Mean Corpuscular Volume 84 fl (84-94); Platelet Count 279 K/mm3 (140-440); Red Blood Count 5.35 M/mm3 (3.65-5.03); Red Cell Distribution Width 17.3 % (13.2-15.2)
[2019-02-10] MEDS: HumaLOG SUB-Q SCH ×3 (08:23→18:32)
[2019-02-10 08:45] LABS: Calcium 9.2 mg/dL (8.4-10.2)
[2019-02-10] MEDS: NORVASC PO SCH (09:45)
[2019-02-10] MEDS: COREG PO SCH ×2 (09:45→21:30)
[2019-02-10] MEDS: PERCOCET 5/325 PO PRN ×2 (09:46→19:13)
[2019-02-10] MEDS: IMDUR PO SCH ×2 (09:47→21:37)
[2019-02-10] MEDS: RENVELA PO SCH ×3 (09:47→19:12)
[2019-02-10] MEDS: COZAAR PO SCH (09:48)
[2019-02-10] MEDS: MIRALAX 3350 PO SCH (09:49)
[2019-02-10] MEDS: BUMEX PO SCH (09:49)
--- NOTE | 2019-02-10 11:33 | Progress Note ---
Subjective Date of service: 02/10/19 Principal diagnosis: Right AKA and new ESRD on HD Interval history: 33-year-old male with chest pressure and MALONEY for 2 wks prior to seeking assistance at ED. Once admitted he was found to have dry gangrene of right foot and ARF. Vascular surgery and nephrology were consulted. After prolonged decision timeframe the patient opted for amputation and an AKA was performed on 01/02/2019. He also required HD. It was hoped that his kidneys would return to former level of function but this did not happen. He is now ESRD and on HD TTS. On exam patient noted to have lateral deviation of right eye and he states this has been the case for the past year and is accompanied by blurred vision in the right eye. Will need ophthalmology follow up. He states his diabetes control has been poor. Patient is participating in therapy and making reasonable progress. Taking rest breaks as needed. +BM. Denies pain, palpitations, dyspnea, cough. Has develoiped left knee pain that is worse with weight bearing and not made better with meds. TTP in medial joint line, no crepitus noted. Neuropathic pain controlled with medication. Blood GLU is reasonable, continue to monitor. Continue to work on improving LLE strength. He will need to closely monitor BLE for wounds to avoid further infections and/or amputations. Took a few steps today with RW and 1 person assist. BP elevated but improving, nephrology managing. Really appreciate nephrology assistance Surgery for dialysis graft will be after discharge based on surgery schedule. All records, vitals, labs and medications were reviewed. No other issues per patient, nursing or therapy. Objective - Exam Narrative Exam: MUSCULOSKELETAL SPECIALTY EXAM CONSTITUTIONAL: Well developed, well nourished, appropriately groomed EENT: EOMI with lateral deviation of the right. Hearing intact to soft voice RESPIRATORY: Clear to auscultation bilaterally, no increased work of breathing CARDIOVASCULAR: Regular Rate/ Rhythm, no swelling, edema or tenderness in BUE or BLE. Pulses palpable in all extremities. All extremities warm. GI: + bowel sounds, soft, NTTP, nondistended. INTEGUMENTARY: DTI on left heel and dry skin with callus on the plantar surface of the forefoot, otherwise normal, no lesion, rash, masses or bruising noted in extremities. AKA well healed MUSCULOSKELETAL: Right AKA, Left knee pain, TTP medial jointline, no crepitus, otherwise BUE and BLE normal without defect, crepitus, subluxation, effusion, arthritic changes or TTP. BUE 4+/5, good ROM, with normal tone. BLE 4-/5 good ROM, with normal tone, left foot drop NEURO: CN 2-12 grossly intact. Sensation intact in all extremities. No tremor noted in 4 extremities. POSTURE and GAIT: Sitting posture good. Balance appears reasonable. Gait with RW and TotA x1. PSYCH: Alert, orientated x3, affect appears normal. Insight appears intact. - Constitutional Vitals: Vital Signs - 12hr 02/10/19 02/10/19 02/10/19 06:26 09:45 09:47 Temperature 36.6 C Pulse Rate 104 H 104 H 104 H Respiratory 20 Rate Blood Pressure 160/98 160/98 160/98 O2 Sat by Pulse 99 Oximetry 02/10/19 09:48 Temperature Pulse Rate 104 H Respiratory Rate Blood Pressure 160/98 O2 Sat by Pulse Oximetry - Allied health notes Allied health notes reviewed: nursing, PT, OT FIMS assessment as documented by PT/OT/ST: Grooming Patient cleans teeth/dentures: Yes Patient manjarrez/brushes hair: Yes Patient washes, rinses and Yes dries face: Patient washes, rinses and Yes dries hands: Patient performs (no make-up/ / (100%) shaving): Grooming FIM Score 5. Supervision ([place] applies toothpaste or opens containers.) Toileting Toileting Device Commode over Toilet,Grab Bar Patient able to: Adjust clothes before,Clean self Patient able to perform: 2/3 (67%) Toileting FIM Score 3. Moderate Assistance (Patient = 50% or more. Some lifting.) Social interaction/Memory/Problem solving Social Interaction FIM Score 6. Mod. [place] (Mostly appropriate. May need meds. No supv.) Memory FIM Score 6. Modified [place](Mild difficulty remembering people/routines.) Problem Solving FIM Score 6. Mod. [place] (Mild difficulty or needs more time w/ complex.) Transfers Mode of Locomotion: Wheelchair Bed/Chair/Wheelchair Transfers 4. Minimal Assistance (Patient = 75% or more. FIM Score Needs touching.) Toilet Transfers FIM Score 4. Minimal Assistance (Patient = 75% or more. Needs touching.) Patient transferred to: Shower Shower Transfers FIM Score 4. Minimal Assistance (Patient = 75% or more. Needs touching.) Locomotion- Stairs Stairs FIM Score 0. Activity does not occur Locomotion- walk/wheelchair Most Frequent Mode of Wheelchair Locomotion: Ambulation Distance 11 Walking FIM Score 1. Total Assistance (Pt. < 25%, 2 or more person assist, or <50 ft.) Wheelchair Propulsion Distance 300 Wheelchair FIM Score 6. Modified [place] (Wheels a minimum of 150 ft.) Eating Eating FIM Score 6. Modified [place] (Special consistency or uses device.) Dressing-Upper body Patient retrieves clothing Yes items: Patient applies/removes UE No prosthesis or orthosis: Upper Body Dressing FIM Score 6. Modified [place] (Needs equipment, velcro or pros./orth.) Dressing-lower body Patient retrieves clothing Yes items: Patient applies/removes LE n/a prosthesis or orthosis: Lower Body Dressing FIM Score 5. Supv./Set-Up ([place] sets out clothes or applies pros./orth.) - Labs CBC & Chem 7: 02/10/19 07:43 02/10/19 07:43 Labs: Laboratory Results - last 72 hr 02/07/19 02/07/19 02/07/19 12:37 16:35 21:11 WBC RBC Hgb Hct MCV MCH MCHC RDW Plt Count Sodium Potassium Chloride Carbon Dioxide Anion Gap BUN Creatinine Estimated GFR BUN/Creatinine Ratio Glucose POC Glucose 136 H 216 H 212 H Calcium 02/08/19 02/08/19 02/08/19 06:29 07:30 16:29 WBC RBC Hgb Hct MCV MCH MCHC RDW Plt Count Sodium 138 Potassium 4.0 Chloride 101.5 Carbon Dioxide 27 Anion Gap 14 BUN 38 H Creatinine 4.4 H Estimated GFR 19 BUN/Creatinine Ratio 9 Glucose 137 H POC Glucose 115 H 190 H Calcium 8.8 02/08/19 02/09/19 02/09/19 20:59 07:49 12:14 WBC RBC Hgb Hct MCV MCH MCHC RDW Plt Count Sodium Potassium Chloride Carbon Dioxide Anion Gap BUN Creatinine Estimated GFR BUN/Creatinine Ratio Glucose POC Glucose 194 H 144 H 173 H Calcium 02/09/19 02/09/19 02/10/19 16:11 21:02 07:43 WBC RBC Hgb Hct MCV MCH MCHC RDW Plt Count Sodium 137 Potassium 4.7 Chloride 100.4 Carbon Dioxide 25 Anion Gap 16 BUN 46 H Creatinine 4.5 H Estimated GFR 19 BUN/Creatinine Ratio 10 Glucose 155 H POC Glucose 151 H 171 H Calcium 9.2 02/10/19 02/10/19 07:43 08:27 WBC 7.2 RBC 5.35 H Hgb 14.0 Hct 44.7 MCV 84 MCH 26 L MCHC 31 L RDW 17.3 H Plt Count 279 Sodium Potassium Chloride Carbon Dioxide Anion Gap BUN Creatinine Estimated GFR BUN/Creatinine Ratio Glucose POC Glucose 143 H Calcium Assessment and Plan Right AKA: Monitor for wound healing or further injury. Contact Instrument Lens Generator for prosthesis. Limb protector on when OOB. ESRD on HD: Consulted nephrology. TTS schedule. Has center at discharge but may transfer to one in [place] Hypertension: Appreciate nephrology assistance. Improving DM I: Continue diet and insulin. Monitor and adjust as needed. Constipation: Miralax and monitor for improvement Phantom sensation and phantom pain: Low dose gabapentin and monitor for improvement Left foot drop: likely due to neuropathy. May need AFO but will need to monitor for wound issues Left foot wounds: consult wound care, keep clean, monitor for healing Z73.6 ADL dysfunction: OT will work on improving ability to perform ADLs (including assistive devices) to increase independence and decrease caregiver burden and improve functional transfers and mobility training. R26.2 Difficulty walking: PT will work on gait training and proper use of assistive devices and advance as appropriate to use of stairs and outside ambulation on uneven surfaces. R26.81 Unsteadiness on feet: PT will work on improving static and dynamic sitting and standing balance as well as proper use of assistive devices to decrease risk of falls. R26.89 Abnormality of gait: PT will work to improve safety and efficiency of gait through neuromotor training and gait training along with instruction on proper use of assistive devices. M62.81 Muscle weakness: PT & OT will work on strengthening exercises to improve functional strength including mixture of closed and open kinetic chain e xercises. R53.81 Debility: PT & OT will work on improving overall functional status to improve participation with ADLs, mobility and social involvement. R53.83 Fatigue: PT & OT will work on improving endurance through aerobic exercises and therapeutic activity while monitoring patients tolerance for activity and vital signs as needed. Left knee pain: voltaren gel and monitor DVT ppx: heparin TID Pain: Continue physical modalities in therapy and pain medications as needed to achieve functional pain control. Sleep: Monitor and address as needed. Bowel: Monitor and address as needed. Appetite: Monitor and address as needed. Discharge planning: Pending therapy progress and care plan meeting. Will continue discussion with therapy team, SW, patient and family. LLE still really weak, would benefit from a little longer stay to improve strength. Restrictions/ Precautions: Falls WB status: FWB Functional Hx: ADLs: Independent Cognition: Independent Mobility: No AD Barriers to Discharge: Decreased mobility and ability to perform self care, balance deficits, weakness Estimated Length of Stay: 14-18 days Discharge Destination: Home with family
[2019-02-10] MEDS: DICLOFENAC 1% TP SCH ×2 (19:16→21:27)
[2019-02-10] MEDS: LANTUS SUB-Q SCH (21:28)
[2019-02-10] MEDS: NEURONTIN PO SCH (21:38)
[2019-02-11] MEDS: PERCOCET 5/325 PO PRN ×2 (06:24→22:33)
[2019-02-11] MEDS: APRESOLINE PO SCH ×3 (06:25→22:33)
[2019-02-11] MEDS: HEPARIN SUB-Q SCH ×3 (06:26→22:45)
[2019-02-11] MEDS: IMDUR PO SCH ×2 (07:50→22:31)
[2019-02-11] MEDS: COZAAR PO SCH (07:50)
[2019-02-11] MEDS: NORVASC PO SCH (07:50)
[2019-02-11] MEDS: BUMEX PO SCH (07:50)
[2019-02-11] MEDS: MIRALAX 3350 PO SCH (07:51)
[2019-02-11] MEDS: HumaLOG SUB-Q SCH ×3 (07:51→16:30)
[2019-02-11] MEDS: COREG PO SCH ×2 (07:52→22:32)
[2019-02-11] MEDS: DICLOFENAC 1% TP SCH ×3 (07:52→22:34)
[2019-02-11] MEDS: RENVELA PO SCH ×3 (08:02→18:51)
--- NOTE | 2019-02-11 09:07 | Progress Note ---
Assessment and Plan Impression * End-stage renal disease * Hypertension * Status post right above-knee amputation * Anemia * Peripheral artery disease Recommendations * Continue dialysis on TTS schedule * UF as tolerated * Continue current antiHTN medications * Binders with meals * Epogen TIW prn * Renal diet * Outpatient HD clinic placement - patient resides in [facility] Date of service: 02/11/19 Principal diagnosis: Right AKA and new ESRD on HD Interval history: Chart reviewed. Vitals, labs and nursing notes reviewed. Objective - Exam Narrative Exam: Deferred as patient is off the floor at time of visit. - Vital Signs Vital signs: Vital Signs - 12hr 02/10/19 02/10/19 02/11/19 21:30 21:37 04:36 Temperature 98.4 F Pulse Rate 102 H 102 H 101 H Respiratory 19 Rate Blood Pressure 171/95 171/95 Blood Pressure 137/90 [Right] O2 Sat by Pulse 99 Oximetry 02/11/19 07:33 Temperature 98.4 F Pulse Rate 96 H Respiratory 16 Rate Blood Pressure 138/84 Blood Pressure [Right] O2 Sat by Pulse 97 Oximetry - Lab 02/10/19 07:43 02/10/19 07:43 Most recent lab results Calcium 9.2 mg/dL (8.4-10.2) 02/10/19 07:43 Phosphorus 4.50 mg/dL (2.5-4.5) 01/29/19 04:00 Magnesium 2.50 mg/dL (1.7-2.3) H 01/29/19 04:00 Medications & Allergies - Medications Allergies/Adverse Reactions: Allergies No Known Allergies Allergy (Verified 08/07/17 23:24) Home Medications: Home Medications Medication Instructions Recorded Confirmed Last Taken Type Aspirin 325 mg PO QDAY #30 tablet 08/09/17 01/29/19 Unknown Rx AtorvaSTATin [Lipitor] 80 mg PO QHS #30 tablet 08/09/17 01/29/19 Unknown Rx Insulin NPH/Regular [NovoLIN 70/30] 25 unit SUB-Q QPM #30 units 08/09/17 01/29/19 Unknown Rx Insulin NPH/Regular [NovoLIN 70/30] 50 unit SUB-Q QAM #30 units 08/09/17 01/29/19 Unknown Rx Active Medications: Generic Name Dose Route Start Last Admin Trade Name Freq PRN Reason Stop Dose Admin Acetaminophen 650 mg 01/28/19 14:31 Tylenol PO Q4H PRN Pain MILD(1-3)/Fever >100.5/BRUNO Amlodipine Besylate 5 mg 02/07/19 17:00 02/11/19 07:50 Norvasc PO 5 mg QDAY MINNIE Administration Atorvastatin Calcium 40 mg 01/28/19 21:00 02/10/19 21:38 Lipitor PO 40 mg QHS MINNIE Administration Bumetanide 2 mg 01/29/19 08:00 02/11/19 07:50 Bumex PO 2 mg QDAY MINNIE Administration Carvedilol 25 mg 01/28/19 22:00 02/11/19 07:52 Coreg PO 25 mg BID MNINIE Administration Dextrose 50 ml 01/28/19 14:31 D50w (25gm) Syringe IV PRN PRN Hypoglycemia Diclofenac Sodium 1 applic 02/10/19 14:00 02/11/19 07:52 Diclofenac 1% TP 1 applic TID MINNIE Administration Gabapentin 100 mg 01/28/19 22:00 02/10/19 21:38 Neurontin PO 100 mg HS MINNIE Administration Heparin Sodium (Porcine) 5,000 unit 01/28/19 22:00 02/11/19 06:26 Heparin SUB-Q Not Given Q8HR [facility] Hydralazine HCl 100 mg 02/02/19 14:00 02/11/19 06:25 Apresoline PO 100 mg Q8HR MINNIE Administration Sodium Chloride 100 mls @ 999 mls/hr 01/29/19 16:10 Nacl 0.9% IV GRIS PRN Hypotension Insulin Glargine 8 units 01/28/19 21:00 02/10/19 21:28 Lantus SUB-Q 8 units QHS [facility] Administration Insulin Human Lispro 0 unit 01/28/19 16:30 02/11/19 07:51 Humalog SUB-Q Not Given AC [facility] Protocol Isosorbide Mononitrate 60 mg 01/28/19 22:00 02/11/19 07:50 Imdur PO 60 mg BID MINNIE Administration Losartan Potassium 100 mg 01/31/19 22:00 02/11/19 07:50 Cozaar PO 100 mg QDAY MINNIE Administration Ondansetron HCl 4 mg 01/28/19 16:38 02/06/19 06:57 Zofran Odt PO 4 mg Q8H PRN Administration Nausea And Vomiting Oxycodone/Acetaminophen 1 tab 01/28/19 14:48 02/11/19 06:24 Percocet 5/325 PO 1 tab Q6H PRN Administration Pain, Moderate (4-6) Polyethylene Glycol 17 gm 01/29/19 08:00 02/11/19 07:51 Miralax 3350 PO 17 gm QDAY MINNIE Administration Sevelamer Carbonate 2,400 mg 01/28/19 16:30 02/11/19 08:02 Renvela PO 2,400 mg AC MINNIE Administration Zinc Acetate/Diphenhydramine 1 applic 01/28/19 14:48 02/02/19 22:21 Banophen Anti-Itch TP 1 applic Q8H PRN Administration Itching
--- NOTE | 2019-02-11 21:03 | Progress Note ---
Subjective Date of service: 02/11/19 Principal diagnosis: Right AKA and new ESRD on HD Interval history: 33-year-old male with chest pressure and MALONEY for 2 wks prior to seeking assistance at ED. Once admitted he was found to have dry gangrene of right foot and ARF. Vascular surgery and nephrology were consulted. After prolonged decision timeframe the patient opted for amputation and an AKA was performed on 01/02/2019. He also required HD. It was hoped that his kidneys would return to former level of function but this did not happen. He is now ESRD and on HD TTS. On exam patient noted to have lateral deviation of right eye and he states this has been the case for the past year and is accompanied by blurred vision in the right eye. Will need ophthalmology follow up. He states his diabetes control has been poor. Patient is participating in therapy and making reasonable progress. Taking rest breaks as needed. +BM. Denies pain, palpitations, dyspnea, cough. Left knee pain is somewhat better with Voltaern gel. Neuropathic pain controlled with medication. Blood GLU is reasonable, continue to monitor. Continue to work on improving LLE strength. He will need to closely monitor BLE for wounds to avoid further infections and/or amputations. Standing balance and LLE strength still poor overall and he is NOT a safe ambulator at this point. SS disability ppwk requested. Motivated and eagerly participating. Would like to relax renal diet due to choices available - explained reason for the dietary restriction. Will defer to nephrology. BP elevated but improving, nephrology managing. Really appreciate nephrology assistance Surgery for dialysis graft will be after discharge based on surgery schedule. All records, vitals, labs and medications were reviewed. No other issues per patient, nursing or therapy. Objective - Exam Narrative Exam: MUSCULOSKELETAL SPECIALTY EXAM CONSTITUTIONAL: Well developed, well nourished, appropriately groomed EENT: EOMI with lateral deviation of the right. Hearing intact to soft voice RESPIRATORY: Clear to auscultation bilaterally, no increased work of breathing CARDIOVASCULAR: Regular Rate/ Rhythm, no swelling, edema or tenderness in BUE or BLE. Pulses palpable in all extremities. All extremities warm. GI: + bowel sounds, soft, NTTP, nondistended. INTEGUMENTARY: DTI on left heel and dry skin with callus on the plantar surface of the f orefoot, otherwise normal, no lesion, rash, masses or bruising noted in extremities. AKA well healed MUSCULOSKELETAL: Right AKA, Left knee pain, TTP medial jointline, no crepitus, otherwise BUE and BLE normal without defect, crepitus, subluxation, effusion, arthritic changes or TTP. BUE 4+/5, good ROM, with normal tone. BLE 4-/5 good ROM, with normal tone, left foot drop NEURO: CN 2-12 grossly intact. Sensation intact in all extremities. No tremor noted in 4 extremities. POSTURE and GAIT: Sitting posture good. Balance appears reasonable sitting, standing poor. Gait with RW and TotA x1 for a few steps. Weakness and LOB limit safe use of RW for primary mobility. PSYCH: Alert, orientated x3, affect appears normal. Insight appears intact. - Constitutional Vitals: Vital Signs - 12hr 02/11/19 02/11/19 02/11/19 12:51 13:50 14:00 Temperature 36.7 C 36.7 C Pulse Rate 96 H 86 86 Respiratory 18 18 Rate Blood Pressure 144/84 157/86 149/83 O2 Sat by Pulse 99 Oximetry 02/11/19 02/11/19 02/11/19 14:15 14:30 14:45 Temperature Pulse Rate 87 90 89 Respiratory Rate Blood Pressure 145/80 122/69 131/72 O2 Sat by Pulse Oximetry 02/11/19 02/11/19 02/11/19 15:00 15:15 15:30 Temperature Pulse Rate 89 92 H 96 H Respiratory Rate Blood Pressure 133/72 139/76 156/85 O2 Sat by Pulse Oximetry 02/11/19 02/11/19 02/11/19 15:45 16:00 16:15 Temperature Pulse Rate 96 H 92 H 95 H Respiratory Rate Blood Pressure 146/82 137/77 124/73 O2 Sat by Pulse Oximetry 02/11/19 02/11/19 02/11/19 16:30 16:45 17:00 Temperature Pulse Rate 96 H 95 H 96 H Respiratory Rate Blood Pressure 145/78 149/79 170/95 O2 Sat by Pulse Oximetry 02/11/19 02/11/19 02/11/19 17:15 17:35 17:45 Temperature 36.7 C Pulse Rate 96 H 94 H 96 H Respiratory 18 Rate Blood Pressure 155/86 150/84 170/96 O2 Sat by Pulse Oximetry 02/11/19 19:56 Temperature 36.6 C Pulse Rate 95 H Respiratory 16 Rate Blood Pressure 158/98 O2 Sat by Pulse 99 Oximetry - Allied health notes Allied health notes reviewed: nursing, PT, OT FIMS assessment as documented by PT/OT/ST: Grooming Patient cleans teeth/dentures: Yes Patient manjarrez/brushes hair: Yes Patient washes, rinses and Yes dries face: Patient washes, rinses and Yes dries hands: Patient performs (no make-up/ / (100%) shaving): Grooming FIM Score 5. Supervision ([place] applies toothpaste or opens containers.) Toileting Toileting Device Commode over Toilet,Grab Bar Patient able to: Adjust clothes before,Clean self Patient able to perform: 2/3 (67%) Toileting FIM Score 3. Moderate Assistance (Patient = 50% or more. Some lifting.) Social interaction/Memory/Problem solving Social Interaction FIM Score 7. Complete [place] (Interacts appropriately. Controls temper.) Memory FIM Score 7. Complete [place] (Remembers people and routines.) Problem Solving FIM Score 7. Complete [place] (Solves complex problems. Self corrects.) Transfers Mode of Locomotion: Wheelchair Bed/Chair/Wheelchair Transfers 4. Minimal Assistance (Patient = 75% or more. FIM Score Needs touching.) Toilet Transfers FIM Score 4. Minimal Assistance (Patient = 75% or more. Needs touching.) Patient transferred to: Shower Shower Transfers FIM Score 4. Minimal Assistance (Patient = 75% or more. Needs touching.) Locomotion- Stairs Stairs FIM Score 0. Activity does not occur Locomotion- walk/wheelchair Most Frequent Mode of Wheelchair Locomotion: Ambulation Distance 37 Walking FIM Score 1. Total Assistance (Pt. < 25%, 2 or more person assist, or <50 ft.) Wheelchair Propulsion Distance 300 Wheelchair FIM Score 6. Modified [place] (Wheels a minimum of 150 ft.) Eating Eating FIM Score 6. Modified [place] (Special consistency or uses device.) Dressing-Upper body Patient retrieves clothing Yes items: Patient applies/removes UE No prosthesis or orthosis: Upper Body Dressing FIM Score 6. Modified [place] (Needs equipment, velcro or pros./orth.) Dressing-lower body Patient retrieves clothing Yes items: Patient applies/removes LE n/a prosthesis or orthosis: Lower Body Dressing FIM Score 5. Supv./Set-Up ([place] sets out clothes or applies pros./orth.) - Labs CBC & Chem 7: 02/10/19 07:43 02/12/19 07:05 Labs: Laboratory Results - last 72 hr 02/09/19 02/09/19 02/09/19 07:49 12:14 16:11 WBC RBC Hgb Hct MCV MCH MCHC RDW Plt Count Sodium Potassium Chloride Carbon Dioxide Anion Gap BUN Creatinine Estimated GFR BUN/Creatinine Ratio Glucose POC Glucose 144 H 173 H 151 H Calcium 02/09/19 02/10/19 02/10/19 21:02 07:43 07:43 WBC 7.2 RBC 5.35 H Hgb 14.0 Hct 44.7 MCV 84 MCH 26 L MCHC 31 L RDW 17.3 H Plt Count 279 Sodium 137 Potassium 4.7 Chloride 100.4 Carbon Dioxide 25 Anion Gap 16 BUN 46 H Creatinine 4.5 H Estimated GFR 19 BUN/Creatinine Ratio 10 Glucose 155 H POC Glucose 171 H Calcium 9.2 02/10/19 02/10/19 02/10/19 08:27 11:32 17:05 WBC RBC Hgb Hct MCV MCH MCHC RDW Plt Count Sodium Potassium Chloride Carbon Dioxide Anion Gap BUN Creatinine Estimated GFR BUN/Creatinine Ratio Glucose POC Glucose 143 H 204 H 145 H Calcium 02/10/19 02/11/19 02/11/19 20:42 07:42 13:00 WBC RBC Hgb Hct MCV MCH MCHC RDW Plt Count Sodium Potassium Chloride Carbon Dioxide Anion Gap BUN Creatinine Estimated GFR BUN/Creatinine Ratio Glucose POC Glucose 225 H 152 H 164 H Calcium 02/11/19 20:39 WBC RBC Hgb Hct MCV MCH MCHC RDW Plt Count Sodium Potassium Chloride Carbon Dioxide Anion Gap BUN Creatinine Estimated GFR BUN/Creatinine Ratio Glucose POC Glucose 235 H Calcium Assessment and Plan Right AKA: Monitor for wound healing or further injury. Contact [employer] for prosthesis. Limb protector on when OOB. Not safe for ambulation with RW at this point due to 1) R AKA 2) Weakness of LLE with buckling 3) LOB . Will need w/c at discharge. ESRD on HD: Consulted nephrology. TTS schedule. Has center at discharge but may transfer to one in [place] Hypertension: Appreciate nephrology assistance. Improving DM I: Continue diet and insulin. Monitor and adjust as needed. Constipation: Miralax and monitor for improvement Phantom sensation and phantom pain: Low dose gabapentin and monitor for improvement Left foot drop: likely due to neuropathy. May need AFO but will need to monitor for wound issues Left foot wounds: consult wound care, keep clean, monitor for healing Z73.6 ADL dysfunction: OT will work on improving ability to perform ADLs (including assistive devices) to increase independence and decrease caregiver burden and improve functional transfers and mobility training. R26.2 Difficulty walking: PT will work on gait training and proper use of assistive devices and advance as appropriate to use of stairs and outside ambulation on uneven surfaces. R26.81 Unsteadiness on feet: PT will work on improving static and dynamic sitting and standing balance as well as proper use of assistive devices to decrease risk of falls. R26.89 Abnormality of gait: PT will work to improve safety and efficiency of gait through neuromotor training and gait training along with instruction on proper use of assistive devices. M62.81 Muscle weakness: PT & OT will work on strengthening exercises to improve functional strength including mixture of closed and open kinetic chain exercises. R53.81 Debility: PT & OT will work on improving overall functional status to improve participation with ADLs, mobility and social involvement. R53.83 Fatigue: PT & OT will work on improving endurance through aerobic exercises and therapeutic activity while monitoring patients tolerance for activity and vital signs as needed. Left knee pain: voltaren gel and monitor DVT ppx: heparin TID Pain: Continue physical modalities in therapy and pain medications as needed to achieve functional pain control. Sleep: Monitor and address as needed. Bowel: Monitor and address as needed. Appetite: Monitor and address as needed. Discharge planning: Pending therapy progress and care plan meeting. Will continue discussion with therapy team, SW, patient and family. LLE still really weak, would benefit from a little longer stay to improve strength. Restrictions/ Precautions: Falls WB status: FWB Functional Hx: ADLs: Independent Cognition: Independent Mobility: No AD Barriers to Discharge: Decreased mobility and ability to perform self care, balance deficits, weakness Estimated Length of Stay: 14-18 days Discharge Destination: Home with family
[2019-02-11] MEDS ORDERED: NACL 0.9 (PRIMING MACHINE ONLY DIALYSIS) MC ONE (22:11)
[2019-02-11] MEDS: LANTUS SUB-Q SCH (22:27)
[2019-02-11] MEDS: NEURONTIN PO SCH (22:31)
[2019-02-12] MEDS: HEPARIN SUB-Q SCH ×3 (06:15→22:21)
[2019-02-12] MEDS: APRESOLINE PO SCH ×3 (06:21→22:24)
[2019-02-12] MEDS: HumaLOG SUB-Q SCH ×3 (07:35→18:25)
[2019-02-12 07:45] LABS: Calcium 8.9 mg/dL (8.4-10.2)
--- NOTE | 2019-02-12 09:24 | Progress Note ---
Subjective Date of service: 02/12/19 Principal diagnosis: Right AKA and new ESRD on HD Interval history: 33-year-old male with chest pressure and MALONEY for 2 wks prior to seeking assistance at ED. Once admitted he was found to have dry gangrene of right foot and ARF. Vascular surgery and nephrology were consulted. After prolonged decision timeframe the patient opted for amputation and an AKA was performed on 01/02/2019. He also required HD. It was hoped that his kidneys would return to former level of function but this did not happen. He is now ESRD and on HD TTS. On exam patient noted to have lateral deviation of right eye and he states this has been the case for the past year and is accompanied by blurred vision in the right eye. Will need ophthalmology follow up. He states his diabetes control has been poor. Patient is participating in therapy and making reasonable progress. Taking rest breaks as needed. +BM. Denies pain, palpitations, dyspnea, cough. Left knee pain is somewhat better with Voltaern gel. Neuropathic pain controlled with medication. Blood GLU is reasonable, continue to monitor. Continue to work on improving LLE strength. He will need to closely monitor BLE for wounds to avoid further infections and/or amputations. Standing balance and LLE strength still poor overall and he is NOT a safe ambulator at this point. Motivated and eagerly participating. Would like to relax renal diet due to choices available - explained reason for the dietary restriction. Will defer to nephrology. BP variable but improving, nephrology managing. Really appreciate nephrology assistance Surgery for dialysis graft will be after discharge based on surgery schedule. All records, vitals, labs and medications were reviewed. No other issues per patient, nursing or therapy. Objective - Exam Narrative Exam: MUSCULOSKELETAL SPECIALTY EXAM CONSTITUTIONAL: Well developed, well nourished, appropriately groomed EENT: EOMI with lateral deviation of the right. Hearing intact to soft voice RESPIRATORY: Clear to auscultation bilaterally, no increased work of breathing CARDIOVASCULAR: Regular Rate/ Rhythm, no swelling, edema or tenderness in BUE or BLE. Pulses palpable in all extremities. All extremities warm. GI: + bowel sounds, soft, NTTP, nondistended. INTEGUMENTARY: DTI on left heel and dry skin with callus on the plantar surface of the forefoot, otherwise normal, no lesion, rash, masses or bruising noted in extremities. AKA well healed MUSCULOSKELETAL: Right AKA, Left knee pain, TTP medial jointline, no crepitus, otherwise BUE and BLE normal without defect, crepitus, subluxation, effusion, arthritic changes or TTP. BUE 4+/5, good ROM, with normal tone. BLE 4-/5 good ROM, with normal tone, left foot drop NEURO: CN 2-12 grossly intact. Sensation intact in all extremities. No tremor noted in 4 extremities. POSTURE and GAIT: Sitting posture good. Balance appears reasonable sitting, standing poor. Gait with RW and TotA x1 for a few steps. Weakness and LOB limit safe use of RW for primary mobility. Awaiting prosthesis PSYCH: Alert, orientated x3, affect appears normal. Insight appears intact. - Constitutional Vitals: Vital Signs - 12hr 02/11/19 02/11/19 02/12/19 22:31 22:32 04:39 Temperature 36.8 C Pulse Rate 95 H 95 H 95 H Respiratory 16 Rate Blood Pressure 158/98 158/98 145/86 Blood Pressure [Right] O2 Sat by Pulse 98 Oximetry 02/12/19 07:30 Temperature 36.1 C L Pulse Rate 95 H Respiratory 16 Rate Blood Pressure Blood Pressure 150/95 [Right] O2 Sat by Pulse 95 Oximetry - Allied health notes Allied health notes reviewed: nursing, PT, OT FIMS assessment as documented by PT/OT/ST: Grooming Patient cleans teeth/dentures: Yes Patient manjarrez/brushes hair: Yes Patient washes, rinses and Yes dries face: Patient washes, rinses and Yes dries hands: Patient performs (no make-up/ 4/4 (100%) shaving): Grooming FIM Score 5. Supervision ([place] applies toothpaste or opens containers.) Toileting Toileting Device Commode over Toilet,Grab Bar Patient able to: Adjust clothes before,Clean self Patient able to perform: 2/3 (67%) Toileting FIM Score 3. Moderate Assistance (Patient = 50% or more. Some lifting.) Social interaction/Memory/Problem solving Social Interaction FIM Score 7. Complete [place] (Interacts appropriately. Controls temper.) Memory FIM Score 7. Complete [place] (Remembers people and routines.) Problem Solving FIM Score 7. Complete [place] (Solves complex problems. Self corrects.) Transfers Mode of Locomotion: Wheelchair Bed/Chair/Wheelchair Transfers 4. Minimal Assistance (Patient = 75% or more. FIM Score Needs touching.) Toilet Transfers FIM Score 4. Minimal Assistance (Patient = 75% or more. Needs touching.) Patient transferred to: Shower Shower Transfers FIM Score 4. Minimal Assistance (Patient = 75% or more. Needs touching.) Locomotion- Stairs Stairs FIM Score 0. Activity does not occur Locomotion- walk/wheelchair Most Frequent Mode of Wheelchair Locomotion: Ambulation Distance 37 Walking FIM Score 1. Total Assistance (Pt. < 25%, 2 or more person assist, or <50 ft.) Wheelchair Propulsion Distance 300 Wheelchair FIM Score 6. Modified [place] (Wheels a minimum of 150 ft.) Eating Eating FIM Score 6. Modified [place] (Special consistency or uses device.) Dressing-Upper body Patient retrieves clothing Yes items: Patient applies/removes UE No prosthesis or orthosis: Upper Body Dressing FIM Score 6. Modified [place] (Needs equipment, velcro or pros./orth.) Dressing-lower body Patient retrieves clothing Yes items: Patient applies/removes LE n/a prosthesis or orthosis: Lower Body Dressing FIM Score 5. Supv./Set-Up ([place] sets out clothes or applies pros./orth.) - Labs CBC & Chem 7: 02/10/19 07:43 02/12/19 07:05 Labs: Laboratory Results - last 72 hr 02/09/19 02/09/19 02/09/19 12:14 16:11 21:02 WBC RBC Hgb Hct MCV MCH MCHC RDW Plt Count Sodium Potassium Chloride Carbon Dioxide Anion Gap BUN Creatinine Estimated GFR BUN/Creatinine Ratio Glucose POC Glucose 173 H 151 H 171 H Calcium 02/10/19 02/10/19 02/10/19 07:43 07:43 08:27 WBC 7.2 RBC 5.35 H Hgb 14.0 Hct 44.7 MCV 84 MCH 26 L MCHC 31 L RDW 17.3 H Plt Count 279 Sodium 137 Potassium 4.7 Chloride 100.4 Carbon Dioxide 25 Anion Gap 16 BUN 46 H Creatinine 4.5 H Estimated GFR 19 BUN/Creatinine Ratio 10 Glucose 155 H POC Glucose 143 H Calcium 9.2 02/10/19 02/10/19 02/10/19 11:32 17:05 20:42 WBC RBC Hgb Hct MCV MCH MCHC RDW Plt Count Sodium Potassium Chloride Carbon Dioxide Anion Gap BUN Creatinine Estimated GFR BUN/Creatinine Ratio Glucose POC Glucose 204 H 145 H 225 H Calcium 02/11/19 02/11/19 02/11/19 07:42 13:00 20:39 WBC RBC Hgb Hct MCV MCH MCHC RDW Plt Count Sodium Potassium Chloride Carbon Dioxide Anion Gap BUN Creatinine Estimated GFR BUN/Creatinine Ratio Glucose POC Glucose 152 H 164 H 235 H Calcium 02/12/19 02/12/19 07:05 07:21 WBC RBC Hgb Hct MCV MCH MCHC RDW Plt Count Sodium 141 Potassium 4.3 Chloride 103.2 Carbon Dioxide 30 Anion Gap 12 BUN 34 H Creatinine 3.6 H Estimated GFR 24 BUN/Creatinine Ratio 9 Glucose 135 H POC Glucose 124 H Calcium 8.9 Assessment and Plan Right AKA: Monitor for wound healing or further injury. Contact Head Counsel[employer] for prosthesis. Limb protector on when OOB. Not safe for ambulation with RW at this point due to 1) R AKA 2) Weakness of LLE with buckling 3) LOB . Will need w/c at discharge. ESRD on HD: Consulted nephrology. TTS schedule. Has center at discharge but may transfer to one in [place] Hypertension: Appreciate nephrology assistance. Improving DM I: Continue diet and insulin. Monitor and adjust as needed. Constipation: Miralax and monitor for improvement Phantom sensation and phantom pain: Low dose gabapentin and monitor for improvement Left foot drop: likely due to neuropathy. May need AFO but will need to monitor for wound issues Left foot wounds: consult wound care, keep clean, monitor for healing Z73.6 ADL dysfunction: OT will work on improving ability to perform ADLs (including assistive devices) to increase independence and decrease caregiver burden and improve functional transfers and mobility training. R26.2 Difficulty walking: PT will work on gait training and proper use of assistive devices and advance as appropriate to use of stairs and outside ambula tion on uneven surfaces. R26.81 Unsteadiness on feet: PT will work on improving static and dynamic s itting and standing balance as well as proper use of assistive devices to decrease risk of falls. R26.89 Abnormality of gait: PT will work to improve safety and efficiency of gait through neuromotor training and gait training along with instruction on proper use of assistive devices. M62.81 Muscle weakness: PT & OT will work on strengthening exercises to improve functional strength including mixture of closed and open kinetic chain exercises. R53.81 Debility: PT & OT will work on improving overall functional status to improve participation with ADLs, mobility and social involvement. R53.83 Fatigue: PT & OT will work on improving endurance through aerobic exercises and therapeutic activity while monitoring patients tolerance for activity and vital signs as needed. Left knee pain: voltaren gel and monitor DVT ppx: heparin TID Pain: Continue physical modalities in therapy and pain medications as needed to achieve functional pain control. Sleep: Monitor and address as needed. Bowel: Monitor and address as needed. Appetite: Monitor and address as needed. Discharge planning: Pending therapy progress and care plan meeting. Will continue discussion with therapy team, SW, patient and family. LLE still really weak, would benefit from a little longer stay to improve strength. Restrictions/ Precautions: Falls WB status: FWB Functional Hx: ADLs: Independent Cognition: Independent Mobility: No AD Barriers to Discharge: Decreased mobility and ability to perform self care, bal ance deficits, weakness Estimated Length of Stay: 14-18 days Discharge Destination: Home with family
[2019-02-12] MEDS: NORVASC PO SCH (12:06)
[2019-02-12] MEDS: MIRALAX 3350 PO SCH (12:06)
[2019-02-12] MEDS: COREG PO SCH ×2 (12:06→22:23)
[2019-02-12] MEDS: BUMEX PO SCH (12:07)
[2019-02-12] MEDS: COZAAR PO SCH (12:07)
[2019-02-12] MEDS: IMDUR PO SCH ×2 (12:07→22:22)
[2019-02-12] MEDS: RENVELA PO SCH ×3 (12:08→17:20)
[2019-02-12] MEDS: DICLOFENAC 1% TP SCH ×3 (12:10→20:00)
--- NOTE | 2019-02-12 17:56 | Progress Note ---
Assessment and Plan Impression * End-stage renal disease * Hypertension * Status post right above-knee amputation * Anemia * Peripheral artery disease Recommendations * Continue dialysis on TTS schedule * UF as tolerated * Continue current antiHTN medications * Binders with meals * Epogen TIW prn * Renal diet * Outpatient HD clinic placement - patient resides in [facility], [place], [facility] Date of service: 02/12/19 Principal diagnosis: Right AKA and new ESRD on HD Interval history: Patient has no complaints today Objective - Vital Signs Vital signs: Vital Signs - 12hr 02/12/19 02/12/19 02/12/19 07:30 12:00 12:06 Temperature 97 F L 98 F Pulse Rate 95 H 94 H Respiratory 16 Rate Blood Pressure 137/90 Blood Pressure 150/95 137/90 [Right] O2 Sat by Pulse 95 Oximetry 02/12/19 12:07 Temperature Pulse Rate Respiratory Rate Blood Pressure 137/90 Blood Pressure [Right] O2 Sat by Pulse Oximetry - General Appearance General appearance: well-developed, well-nourished EENT: ATNC Respiratory: Present: Clear to Ascultation Cardiology: regular, S1S2 Gastrointestinal: normal, no tenderness, no distended Integumentary: no rash, warm and dry Neurologic: no focal deficit, alert and oriented x3 Musculoskeletal: other (R AKA; no edema) Psychiatric: cooperative - Lab 02/10/19 07:43 02/12/19 07:05 Most recent lab results Calcium 8.9 mg/dL (8.4-10.2) 02/12/19 07:05 Phosphorus 4.50 mg/dL (2.5-4.5) 01/29/19 04:00 Magnesium 2.50 mg/dL (1.7-2.3) H 01/29/19 04:00 Medications & Allergies - Medications Allergies/Adverse Reactions: Allergies No Known Allergies Allergy (Verified 08/07/17 23:24) Home Medications: Home Medications Medication Instructions Recorded Confirmed Last Taken Type Aspirin 325 mg PO QDAY #30 tablet 08/09/17 01/29/19 Unknown Rx AtorvaSTATin [Lipitor] 80 mg PO QHS #30 tablet 08/09/17 01/29/19 Unknown Rx Insulin NPH/Regular [NovoLIN 70/30] 25 unit SUB-Q QPM #30 units 08/09/17 01/29/19 Unknown Rx Insulin NPH/Regular [NovoLIN 70/30] 50 unit SUB-Q QAM #30 units 08/09/17 01/29/19 Unknown Rx Active Medications: Generic Name Dose Route Start Last Admin Trade Name Mars PRN Reason Stop Dose Admin Acetaminophen 650 mg 01/28/19 14:31 Tylenol PO Q4H PRN Pain MILD(1-3)/Fever >100.5/BRUNO Amlodipine Besylate 5 mg 02/07/19 17:00 02/12/19 12:06 Norvasc PO 5 mg QDAY MINNIE Administration Atorvastatin Calcium 40 mg 01/28/19 21:00 02/11/19 22:34 Lipitor PO 40 mg QHS MINNIE Administration Bumetanide 2 mg 01/29/19 08:00 02/12/19 12:07 Bumex PO 2 mg QDAY MINNIE Administration Carvedilol 25 mg 01/28/19 22:00 02/12/19 12:06 Coreg PO 25 mg BID MINNIE Administration Dextrose 50 ml 01/28/19 14:31 D50w (25gm) Syringe IV PRN PRN Hypoglycemia Diclofenac Sodium 1 applic 02/10/19 14:00 02/12/19 12:10 Diclofenac 1% TP 1 applic TID MINNIE Administration Gabapentin 100 mg 01/28/19 22:00 02/11/19 22:31 Neurontin PO 100 mg HS MINNIE Administration Heparin Sodium (Porcine) 5,000 unit 01/28/19 22:00 02/12/19 14:40 Heparin SUB-Q Not Given Q8HR MINNIE Hydralazine HCl 100 mg 02/02/19 14:00 02/12/19 15:12 Apresoline PO 100 mg Q8HR MINNIE Administration Sodium Chloride 100 mls @ 999 mls/hr 01/29/19 16:10 Nacl 0.9% IV GRIS PRN Hypotension Insulin Glargine 8 units 01/28/19 21:00 02/11/19 22:27 Lantus SUB-Q 8 units QHS MINNIE Administration Insulin Human Lispro 0 unit 01/28/19 16:30 02/12/19 12:11 Humalog SUB-Q Not Given [facility] Protocol Isosorbide Mononitrate 60 mg 01/28/19 22:00 02/12/19 12:07 Imdur PO 60 mg BID MINNIE Administration Losartan Potassium 100 mg 01/31/19 22:00 02/12/19 12:07 Cozaar PO 100 mg QDAY MINNIE Administration Ondansetron HCl 4 mg 01/28/19 16:38 02/06/19 06:57 Zofran Odt PO 4 mg Q8H PRN Administration Nausea And Vomiting Oxycodone/Acetaminophen 1 tab 01/28/19 14:48 02/11/19 22:33 Percocet 5/325 PO 1 tab Q6H PRN Administration Pain, Moderate (4-6) Polyethylene Glycol 17 gm 01/29/19 08:00 02/12/19 12:06 Miralax 3350 PO 17 gm QDAY MINNIE Administration Sevelamer Carbonate 2,400 mg 01/28/19 16:30 02/12/19 12:08 Renvela PO 2,400 mg AC MINNIE Administration Zinc Acetate/Diphenhydramine 1 applic 01/28/19 14:48 02/02/19 22:21 Banophen Anti-Itch TP 1 applic Q8H PRN Administration Itching
[2019-02-12] MEDS: PERCOCET 5/325 PO PRN (18:45)
[2019-02-12] MEDS: LANTUS SUB-Q SCH (22:20)
[2019-02-12] MEDS: NEURONTIN PO SCH (22:23)
[2019-02-13] MEDS: APRESOLINE PO SCH ×3 (06:21→22:27)
[2019-02-13] MEDS: HEPARIN SUB-Q SCH ×3 (06:22→22:32)
[2019-02-13] MEDS: BUMEX PO SCH (07:45)
[2019-02-13] MEDS: HumaLOG SUB-Q SCH ×3 (07:45→17:40)
[2019-02-13] MEDS: RENVELA PO SCH ×3 (07:45→16:30)
[2019-02-13] MEDS: COZAAR PO SCH (07:45)
[2019-02-13] MEDS: DICLOFENAC 1% TP SCH ×3 (07:45→22:32)
[2019-02-13] MEDS: MIRALAX 3350 PO SCH (07:45)
--- NOTE | 2019-02-13 09:43 | Progress Note ---
Subjective Date of service: 02/13/19 Principal diagnosis: Right AKA and new ESRD on HD Interval history: 33-year-old male with chest pressure and MALONEY for 2 wks prior to seeking assistance at ED. Once admitted he was found to have dry gangrene of right foot and ARF. Vascular surgery and nephrology were consulted. After prolonged decision timeframe the patient opted for amputation and an AKA was performed on 01/02/2019. He also required HD. It was hoped that his kidneys would return to former level of function but this did not happen. He is now ESRD and on HD TTS. On exam patient noted to have lateral deviation of right eye and he states this has been the case for the past year and is accompanied by blurred vision in the right eye. Will need ophthalmology follow up. He states his diabetes control has been poor. Patient is participating in therapy and making reasonable progress. Taking rest breaks as needed. +BM. Denies pain, palpitations, dyspnea, cough. Left knee pain is somewhat better with Voltaren gel. Neuropathic pain a little worse, will increase gabapentin to bid. Blood GLU is reasonable, continue to monitor. Continue to work on improving LLE strength. He will need to closely monitor BLE for wounds to avoid further infections and/or amputations. Standing balance and LLE strength still poor overall and he is NOT a safe ambulator at this point. Motivated and eagerly participating. Would like to relax renal diet due to choices available - explained reason for the dietary restriction. Will defer to nephrology. BP variable but improving, nephrology managing. Really appreciate nephrology assistance Surgery for dialysis graft will be after discharge based on surgery schedule. Discussed in team conference. Making good progress. Will look to ct next week. All records, vitals, labs and medications were reviewed. No other issues per patient, nursing or therapy. Objective - Exam Narrative Exam: MUSCULOSKELETAL SPECIALTY EXAM CONSTITUTIONAL: Well developed, well nourished, appropriately groomed EENT: EOMI with lateral deviation of the right. Hearing intact to soft voice RESPIRATORY: Clear to auscultation bilaterally, no increased work of breathing CARDIOVASCULAR: Regular Rate/ Rhythm, no swelling, edema or tenderness in BUE or BLE. Pulses palpable in all extremities. All extremities warm. GI: + bowel sounds, soft, NTTP, nondistended. INTEGUMENTARY: DTI on left heel and dry skin with callus on the plantar surface of the forefoot, otherwise normal, no lesion, rash, masses or bruising noted in extremities. AKA well healed MUSCULOSKELETAL: Right AKA, Left knee pain, TTP medial jointline, no crepitus, otherwise BUE and BLE normal without defect, crepitus, subluxation, effusion, arthritic changes or TTP. BUE 4+/5, good ROM, with normal tone. BLE 4-/5 good ROM, with normal tone, left foot drop NEURO: CN 2-12 grossly intact. Sensation intact in all extremities. No tremor noted in 4 extremities. POSTURE and GAIT: Sitting posture good. Balance appears reasonable sitting, standing poor. Gait with RW and TotA x1 for a few steps. Weakness and LOB limit safe use of RW for primary mobility. Awaiting prosthesis PSYCH: Alert, orientated x3, affect appears normal. Insight appears intact. - Constitutional Vitals: Vital Signs - 12hr 02/12/19 02/13/19 02/13/19 22:00 04:37 08:00 Temperature 36.6 C 36.7 C Pulse Rate 92 H Respiratory 18 Rate Respiratory 20 Rate [Left Knee ] Blood Pressure 159/93 O2 Sat by Pulse 98 Oximetry 02/13/19 02/13/19 08:12 08:13 Temperature Pulse Rate 92 H 100 H Respiratory 18 Rate Respiratory Rate [Left Knee ] Blood Pressure 153/79 O2 Sat by Pulse 98 97 Oximetry - Allied health notes Allied health notes reviewed: nursing, PT, OT FIMS assessment as documented by PT/OT/ST: Grooming Patient cleans teeth/dentures: Yes Patient manjarrez/brushes hair: Yes Patient washes, rinses and Yes dries face: Patient washes, rinses and Yes dries hands: Patient performs (no make-up/ 10/17 (100%) shaving): Grooming FIM Score 5. Supervision ([place] applies toothpaste or opens containers.) Toileting Toileting Device Commode over Toilet,Grab Bar Patient able to: Adjust clothes before,Clean self Patient able to perform: 2/3 (67%) Toileting FIM Score 3. Moderate Assistance (Patient = 50% or more. Some lifting.) Social interaction/Memory/Problem solving Social Interaction FIM Score 7. Complete Kane (Interacts appropriately. Controls temper.) Memory FIM Score 7. Complete Kane (Remembers people and routines.) Problem Solving FIM Score 7. Complete Kane (Solves complex problems. Self corrects.) Transfers Mode of Locomotion: Wheelchair Bed/Chair/Wheelchair Transfers 4. Minimal Assistance (Patient = 75% or more. FIM Score Needs touching.) Toilet Transfers FIM Score 4. Minimal Assistance (Patient = 75% or more. Needs touching.) Patient transferred to: Shower Shower Transfers FIM Score 4. Minimal Assistance (Patient = 75% or more. Needs touching.) Locomotion- Stairs Stairs FIM Score 0. Activity does not occur Locomotion- walk/wheelchair Most Frequent Mode of Wheelchair Locomotion: Ambulation Distance 30 Walking FIM Score 1. Total Assistance (Pt. < 25%, 2 or more person assist, or <50 ft.) Wheelchair Propulsion Distance 300 Wheelchair FIM Score 6. Modified Kane (Wheels a minimum of 150 ft.) Eating Eating FIM Score 6. Modified Kane (Special consistency or uses device.) Dressing-Upper body Patient retrieves clothing Yes items: Patient applies/removes UE No prosthesis or orthosis: Upper Body Dressing FIM Score 6. Modified Kane (Needs equipment, velcro or pros./orth.) Dressing-lower body Patient retrieves clothing Yes items: Patient applies/removes LE n/a prosthesis or orthosis: Lower Body Dressing FIM Score 5. Supv./Set-Up (G[place] Allen sets out clothes or applies pros./orth.) - Labs CBC & Chem 7: 02/10/19 07:43 02/12/19 07:05 Labs: Laboratory Results - last 72 hr 02/10/19 02/10/19 02/10/19 11:32 17:05 20:42 Sodium Potassium Chloride Carbon Dioxide Anion Gap BUN Creatinine Estimated GFR BUN/Creatinine Ratio Glucose POC Glucose 204 H 145 H 225 H Calcium 02/11/19 02/11/19 02/11/19 07:42 13:00 20:39 Sodium Potassium Chloride Carbon Dioxide Anion Gap BUN Creatinine Estimated GFR BUN/Creatinine Ratio Glucose POC Glucose 152 H 164 H 235 H Calcium 02/12/19 02/12/19 02/12/19 07:05 07:21 11:39 Sodium 141 Potassium 4.3 Chloride 103.2 Carbon Dioxide 30 Anion Gap 12 BUN 34 H Creatinine 3.6 H Estimated GFR 24 BUN/Creatinine Ratio 9 Glucose 135 H POC Glucose 124 H 129 H Calcium 8.9 02/12/19 02/12/19 02/13/19 16:51 21:23 08:18 Sodium Potassium Chloride Carbon Dioxide Anion Gap BUN Creatinine Estimated GFR BUN/Creatinine Ratio Glucose POC Glucose 215 H 190 H 109 H Calcium Assessment and Plan Right AKA: Monitor for wound healing or further injury. 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 Limb protector on when OOB. Not safe for ambulation with RW at this point due to 1) R AKA 2) Weakness of LLE with buckling 3) LOB . Will need w/c at discharge. ESRD on HD: Consulted nephrology. TTS schedule. Has center at discharge but may transfer to one in [place] Hypertension: Appreciate nephrology assistance. Improving DM I: Continue diet and insulin. Monitor and adjust as needed. Constipation: Miralax and monitor for improvement Phantom sensation and phantom pain: increase dose gabapentin and monitor for improvement Left foot drop: likely due to neuropathy. May need AFO but will need to monitor for wound issues Left foot wounds: consult wound care, keep clean, monitor for healing Z73.6 ADL dysfunction: OT will work on improving ability to perform ADLs (including assistive devices) to increase independence and decrease caregiver burden and improve functional transfers and mobility training. R26.2 Difficulty walking: PT will work on gait training and proper use of assistive devices and advance as appropriate to use of stairs and outside ambu lation on uneven surfaces. R26.81 Unsteadiness on feet: PT will work on improving static and dynamic sitting and standing balance as well as proper use of assistive devices to decrease risk of falls. R26.89 Abnormality of gait: PT will work to improve safety and efficiency of gait through neuromotor training and gait training along with instruction on proper use of assistive devices. M62.81 Muscle weakness: PT & OT will work on strengthening exercises to improve functional strength including mixture of closed and open kinetic chain exercises. R53.81 Debility: PT & OT will work on improving overall functional status to improve participation with ADLs, mobility and social involvement. R53.83 Fatigue: PT & OT will work on improving endurance through aerobic exercises and therapeutic activity while monitoring patients tolerance for activity and vital signs as needed. Left knee pain: voltaren gel and monitor DVT ppx: heparin TID Pain: Continue physical modalities in therapy and pain medications as needed to achieve functional pain control. Sleep: Monitor and address as needed. Bowel: Monitor and address as needed. Appetite: Monitor and address as needed. Discharge planning: Pending therapy progress and care plan meeting. Will continue discussion with therapy team, SW, patient and family. LLE still really weak, would benefit from a little longer stay to improve strength. Restrictions/ Precautions: Falls WB status: FWB Functional Hx: ADLs: Independent Cognition: Independent Mobility: No AD Barriers to Discharge: Decreased mobility and ability to perform self care, b alance deficits, weakness Estimated Length of Stay: 14-18 days Discharge Destination: Home with family
--- NOTE | 2019-02-13 15:57 | Progress Note ---
Assessment and Plan Impression * End-stage renal disease * Hypertension * Status post right above-knee amputation * Anemia * Peripheral artery disease Recommendations * Continue dialysis on TTS schedule * UF as tolerated * Continue current antiHTN medications * Binders with meals * Epogen TIW prn * Renal diet * Outpatient HD clinic placement (CM consult placed on 02/10) patient resides in [facility] Date of service: 02/13/19 Principal diagnosis: Right AKA and new ESRD on HD Interval history: Patient off the floor at the time of visit. Objective - Exam Narrative Exam: Deferred as patient is off the floor at time of visit. - Vital Signs Vital signs: Vital Signs - 12hr 02/13/19 02/13/19 02/13/19 04:37 07:45 08:00 Temperature 97.9 F 98.1 F Pulse Rate 92 H 76 Respiratory 18 Rate Blood Pressure 159/93 105/59 O2 Sat by Pulse 98 Oximetry 02/13/19 02/13/19 02/13/19 08:12 08:13 12:50 Temperature 98.1 F Pulse Rate 92 H 100 H 80 Respiratory 18 18 Rate Blood Pressure 153/79 168/91 O2 Sat by Pulse 98 97 Oximetry 02/13/19 02/13/19 02/13/19 13:00 13:15 13:30 Temperature Pulse Rate 79 79 79 Respiratory Rate Blood Pressure 165/97 159/94 156/92 O2 Sat by Pulse Oximetry 02/13/19 02/13/19 02/13/19 13:45 14:00 14:15 Temperature Pulse Rate 81 81 86 Respiratory Rate Blood Pressure 159/96 155/92 173/105 O2 Sat by Pulse Oximetry 02/13/19 02/13/19 02/13/19 14:30 14:45 15:00 Temperature Pulse Rate 79 84 82 Respiratory Rate Blood Pressure 182/101 181/104 168/107 O2 Sat by Pulse Oximetry 02/13/19 02/13/19 02/13/19 15:15 15:30 15:45 Temperature Pulse Rate 84 83 84 Respiratory Rate Blood Pressure 174/110 183/119 189/117 O2 Sat by Pulse Oximetry - Lab 02/10/19 07:43 02/12/19 07:05 Most recent lab results Calcium 8.9 mg/dL (8.4-10.2) 02/12/19 07:05 Phosphorus 4.50 mg/dL (2.5-4.5) 01/29/19 04:00 Magnesium 2.50 mg/dL (1.7-2.3) H 01/29/19 04:00 Medications & Allergies - Medications Allergies/Adverse Reactions: Allergies No Known Allergies Allergy (Verified 08/07/17 23:24) Home Medications: Home Medications Medication Instructions Recorded Confirmed Last Taken Type Aspirin 325 mg PO QDAY #30 tablet 08/09/17 01/29/19 Unknown Rx AtorvaSTATin [Lipitor] 80 mg PO QHS #30 tablet 08/09/17 01/29/19 Unknown Rx Insulin NPH/Regular [NovoLIN 70/30] 25 unit SUB-Q QPM #30 units 08/09/17 01/29/19 Unknown Rx Insulin NPH/Regular [NovoLIN 70/30] 50 unit SUB-Q QAM #30 units 08/09/17 01/29/19 Unknown Rx Active Medications: Generic Name Dose Route Start Last Admin Trade Name Freq PRN Reason Stop Dose Admin Acetaminophen 650 mg 01/28/19 14:31 Tylenol PO Q4H PRN Pain MILD(1-3)/Fever >100.5/BRUNO Amlodipine Besylate 5 mg 02/07/19 17:00 02/12/19 12:06 Norvasc PO 5 mg QDAY MINNIE Administration Atorvastatin Calcium 40 mg 01/28/19 21:00 02/12/19 21:00 Lipitor PO 40 mg QHS MINNIE Administration Bumetanide 2 mg 01/29/19 08:00 02/13/19 07:45 Bumex PO 2 mg QDAY MINNIE Administration Carvedilol 25 mg 01/28/19 22:00 02/12/19 22:23 Coreg PO 25 mg BID MINNIE Administration Dextrose 50 ml 01/28/19 14:31 D50w (25gm) Syringe IV PRN PRN Hypoglycemia Diclofenac Sodium 1 applic 02/10/19 14:00 02/13/19 07:45 Diclofenac 1% TP 1 applic TID MINNIE Administration Gabapentin 100 mg 01/28/19 22:00 02/12/19 22:23 Neurontin PO 100 mg HS MINNIE Administration Heparin Sodium (Porcine) 5,000 unit 01/28/19 22:00 02/13/19 06:22 Heparin SUB-Q Not Given Q8HR [facility] Hydralazine HCl 100 mg 02/02/19 14:00 02/13/19 06:21 Apresoline PO 100 mg Q8HR MINNIE Administration Sodium Chloride 100 mls @ 999 mls/hr 01/29/19 16:10 Nacl 0.9% IV GRIS PRN Hypotension Insulin Glargine 8 units 01/28/19 21:00 02/12/19 22:20 Lantus SUB-Q 8 units QHS MINNIE Administration Insulin Human Lispro 0 unit 01/28/19 16:30 02/13/19 12:20 Humalog SUB-Q Not Given [facility] Protocol Isosorbide Mononitrate 60 mg 01/28/19 22:00 02/12/19 22:22 Imdur PO 60 mg BID MINNIE Administration Losartan Potassium 100 mg 01/31/19 22:00 02/13/19 07:45 Cozaar PO 100 mg QDAY MINNIE Administration Ondansetron HCl 4 mg 01/28/19 16:38 02/06/19 06:57 Zofran Odt PO 4 mg Q8H PRN Administration Nausea And Vomiting Oxycodone/Acetaminophen 1 tab 01/28/19 14:48 02/12/19 18:45 Percocet 5/325 PO 1 tab Q6H PRN Administration Pain, Moderate (4-6) Polyethylene Glycol 17 gm 01/29/19 08:00 02/13/19 07:45 Miralax 3350 PO 17 gm QDAY MINNIE Administration Sevelamer Carbonate 2,400 mg 01/28/19 16:30 02/13/19 12:20 Renvela PO Not Given [facility] Zinc Acetate/Diphenhydramine 1 applic 01/28/19 14:48 02/02/19 22:21 Banophen Anti-Itch TP 1 applic Q8H PRN Administration Itching
[2019-02-13] MEDS: NORVASC PO SCH (16:00)
[2019-02-13] MEDS: COREG PO SCH ×2 (16:00→22:27)
[2019-02-13] MEDS: IMDUR PO SCH ×2 (16:36→22:27)
[2019-02-13] MEDS: LANTUS SUB-Q SCH (22:27)
[2019-02-13] MEDS: PERCOCET 5/325 PO PRN (22:27)
[2019-02-13] MEDS: NEURONTIN PO SCH (22:37)
[2019-02-14] MEDS: HEPARIN SUB-Q SCH ×3 (05:54→21:14)
[2019-02-14] MEDS: APRESOLINE PO SCH ×3 (05:54→21:14)
[2019-02-14] MEDS: HumaLOG SUB-Q SCH ×3 (08:03→17:11)
[2019-02-14] MEDS: DICLOFENAC 1% TP SCH ×3 (08:12→21:17)
[2019-02-14] MEDS: MIRALAX 3350 PO SCH (08:13)
[2019-02-14] MEDS: NEURONTIN PO SCH ×2 (08:14→21:13)
--- NOTE | 2019-02-14 09:06 | Progress Note ---
Subjective Date of service: 02/14/19 Principal diagnosis: Right AKA and new ESRD on HD Interval history: 33-year-old male with chest pressure and MALONEY for 2 wks prior to seeking assistance at ED. Once admitted he was found to have dry gangrene of right foot and ARF. Vascular surgery and nephrology were consulted. After prolonged decision timeframe the patient opted for amputation and an AKA was performed on 01/02/2019. He also required HD. It was hoped that his kidneys would return to former level of function but this did not happen. He is now ESRD and on HD TTS. On exam patient noted to have lateral deviation of right eye and he states this has been the case for the past year and is accompanied by blurred vision in the right eye. Will need ophthalmology follow up. He states his diabetes control has been poor. Patient is participating in therapy and making reasonable progress. Taking rest breaks as needed. +BM. Denies pain, palpitations, dyspnea, cough. Neuropathic pain stable with increased dose of gabapentin. Knee pain worse today. Caused him to reduce amount of walking/standing. Blood GLU is reasonable, continue to monitor. Continue to work on improving LLE strength. He will need to closely monitor BLE for wounds to avoid further infections and/or amputations. Standing balance and LLE strength still poor overall and he is NOT a safe ambulator at this point. Motivated and eagerly participating. BP variable but improving, nephrology managing. Really appreciate nephrology assistance Surgery for dialysis graft will be after discharge based on surgery schedule. All records, vitals, labs and medications were reviewed. No other issues per patient, nursing or therapy. Objective - Exam Narrative Exam: MUSCULOSKELETAL SPECIALTY EXAM CONSTITUTIONAL: Well developed, well nourished, appropriately groomed EENT: EOMI with lateral deviation of the right. Hearing intact to soft voice RESPIRATORY: Clear to auscultation bilaterally, no increased work of breathing CARDIOVASCULAR: Regular Rate/ Rhythm, no swelling, edema or tenderness in BUE or BLE. Pulses palpable in all extremities. All extremities warm. GI: + bowel sounds, soft, NTTP, nondistended. INTEGUMENTARY: DTI on left heel and dry skin with callus on the plantar surface of the forefoot, otherwise normal, no lesion, rash, masses or bruising noted in extremities. AKA well healed MUSCULOSKELETAL: Right AKA, Left knee pain, TTP medial jointline, no crepitus, otherwise BUE and BLE normal without defect, crepitus, subluxation, effusion, arthritic changes or TTP. BUE 4+/5, good ROM, with normal tone. BLE 4-/5 good ROM, with normal tone, left foot drop NEURO: CN 2-12 grossly intact. Sensation intact in all extremities. No tremor noted in 4 extremities. POSTURE and GAIT: Sitting posture good. Balance appears reasonable sitting, standing poor. Gait with RW and TotA x1 for a few steps. Weakness and LOB limit safe use of RW for primary mobility. Awaiting prosthesis PSYCH: Alert, orientated x3, affect appears normal. Insight appears intact. - Constitutional Vitals: Vital Signs - 12hr 02/14/19 02/14/19 02/14/19 04:47 07:02 08:00 Temperature 37.2 C 37.1 C Pulse Rate 96 H 104 H 101 H Respiratory 18 18 Rate Blood Pressure 137/79 Blood Pressure 125/76 [Right] O2 Sat by Pulse 97 97 Oximetry - Allied health notes Allied health notes reviewed: nursing, PT, OT FIMS assessment as documented by PT/OT/ST: Grooming Patient cleans teeth/dentures: Yes Patient manjarrez/brushes hair: Yes Patient washes, rinses and Yes dries face: Patient washes, rinses and Yes dries hands: Patient performs (no make-up/ / (100%) shaving): Grooming FIM Score 5. Supervision ([place] applies toothpaste or opens containers.) Toileting Toileting Device Commode over Toilet,Grab Bar Patient able to: Adjust clothes before,Clean self Patient able to perform: 2/3 (67%) Toileting FIM Score 3. Moderate Assistance (Patient = 50% or more. Some lifting.) Social interaction/Memory/Problem solving Social Interaction FIM Score 7. Complete [place] (Interacts appropriately. Controls temper.) Memory FIM Score 7. Complete [place] (Remembers people and routines.) Problem Solving FIM Score 7. Complete [place] (Solves complex problems. Self corrects.) Transfers Mode of Locomotion: Wheelchair Bed/Chair/Wheelchair Transfers 4. Minimal Assistance (Patient = 75% or more. FIM Score Needs touching.) Toilet Transfers FIM Score 4. Minimal Assistance (Patient = 75% or more. Needs touching.) Patient transferred to: Shower Shower Transfers FIM Score 4. Minimal Assistance (Patient = 75% or more. Needs touching.) Locomotion- Stairs Stairs FIM Score 0. Activity does not occur Locomotion- walk/wheelchair Most Frequent Mode of Wheelchair Locomotion: Ambulation Distance 50 Walking FIM Score 2. Maximal Assistance (Patient = 25% or more. Minimum of 50 ft.) Wheelchair Propulsion Distance 300 Wheelchair FIM Score 6. Modified [place] (Wheels a minimum of 150 ft.) Eating Eating FIM Score 6. Modified [place] (Special consistency or uses device.) Dressing-Upper body Patient retrieves clothing Yes items: Patient applies/removes UE No prosthesis or orthosis: Upper Body Dressing FIM Score 6. Modified [place] (Needs equipment, velcro or pros./orth.) Dressing-lower body Patient retrieves clothing Yes items: Patient applies/removes LE n/a prosthesis or orthosis: Lower Body Dressing FIM Score 5. Supv./Set-Up ([place] sets out clothes or applies pros./orth.) - Labs CBC & Chem 7: 02/10/19 07:43 02/12/19 07:05 Labs: Laboratory Results - last 72 hr 02/11/19 02/11/19 02/12/19 13:00 20:39 07:05 Sodium 141 Potassium 4.3 Chloride 103.2 Carbon Dioxide 30 Anion Gap 12 BUN 34 H Creatinine 3.6 H Estimated GFR 24 BUN/Creatinine Ratio 9 Glucose 135 H POC Glucose 164 H 235 H Calcium 8.9 02/12/19 02/12/19 02/12/19 07:21 11:39 16:51 Sodium Potassium Chloride Carbon Dioxide Anion Gap BUN Creatinine Estimated GFR BUN/Creatinine Ratio Glucose POC Glucose 124 H 129 H 215 H Calcium 02/12/19 02/13/19 02/13/19 21:23 08:18 17:36 Sodium Potassium Chloride Carbon Dioxide Anion Gap BUN Creatinine Estimated GFR BUN/Creatinine Ratio Glucose POC Glucose 190 H 109 H 134 H Calcium 02/13/19 02/14/19 21:37 09:06 Sodium Potassium Chloride Carbon Dioxide Anion Gap BUN Creatinine Estimated GFR BUN/Creatinine Ratio Glucose POC Glucose 170 H 192 H Calcium Assessment and Plan Right AKA: Monitor for wound healing or further injury. Contact [employer] for prosthesis. Limb protector on when OOB. Not safe for ambulation with RW at this point due to 1) R AKA 2) Weakness of LLE with buckling 3) LOB . Will need w/c at discharge. ESRD on HD: Consulted nephrology. TTS schedule. Has center at discharge but may transfer to one in [place] Hypertension: Appreciate nephrology assistance. Improving DM I: Continue diet and insulin. Monitor and adjust as needed. Constipation: Miralax and monitor for improvement Phantom sensation and phantom pain: increase dose gabapentin and monitor for improvement Left foot drop: likely due to neuropathy. AFO, cont to monitor for wound issues Left foot wounds: consult wound care, keep clean, monitor for healing Z73.6 ADL dysfunction: OT will work on improving ability to perform ADLs (including assistive devices) to increase independence and decrease caregiver burden and improve functional transfers and mobility training. R26.2 Difficulty walking: PT will work on gait training and proper use of assistive devices and advance as appropriate to use of stairs and outside ambulation on uneven surfaces. R26.81 Unsteadiness on feet: PT will work on improving static and dynamic sitting and standing balance as well as proper use of assistive devices to decrease risk of falls. R26.89 Abnormality of gait: PT will work to improve safety and efficiency of gait through neuromotor training and gait training along with instruction on pro per use of assistive devices. M62.81 Muscle weakness: PT & OT will work on strengthening exercises to improve functional strength including mixture of closed and open kinetic chain exercises. R53.81 Debility: PT & OT will work on improving overall functional status to improve participation with ADLs, mobility and social involvement. R53.83 Fatigue: PT & OT will work on improving endurance through aerobic exercises and therapeutic activity while monitoring patients tolerance for activity and vital signs as needed. Left knee pain: voltaren gel and monitor DVT ppx: heparin TID Pain: Continue physical modalities in therapy and pain medications as needed to achieve functional pain control. Sleep: Monitor and address as needed. Bowel: Monitor and address as needed. Appetite: Monitor and address as needed. Discharge planning: Pending therapy progress and care plan meeting. Will continue discussion with therapy team, SW, patient and family. Restrictions/ Precautions: Falls WB status: FWB Functional Hx: ADLs: Independent Cognition: Independent Mobility: No AD Barriers to Discharge: Decreased mobility and ability to perform self care, balance deficits, weakness Estimated Length of Stay: 14-18 days Discharge Destination: Home with family
[2019-02-14] MEDS: IMDUR PO SCH ×2 (09:34→21:13)
[2019-02-14] MEDS: COREG PO SCH ×2 (09:34→21:14)
[2019-02-14] MEDS: BUMEX PO SCH (09:35)
[2019-02-14] MEDS: PERCOCET 5/325 PO PRN ×2 (09:35→21:21)
[2019-02-14] MEDS: RENVELA PO SCH ×3 (09:36→16:15)
[2019-02-14] MEDS: COZAAR PO SCH (09:36)
[2019-02-14] MEDS: NORVASC PO SCH (09:36)
[2019-02-14] MEDS: LANTUS SUB-Q SCH (21:27)
--- NOTE | 2019-02-14 21:35 | Progress Note ---
Assessment and Plan Impression * End-stage renal disease * Hypertension * Status post right above-knee amputation * Anemia * Peripheral artery disease Recommendations * Continue dialysis on TTS schedule * UF as tolerated * Continue current antiHTN medications * Binders with meals * Epogen TIW prn * Renal diet * Outpatient HD clinic placement (CM consult placed on 02/10); patient is new to dialysis; outpt HD arranged at [facility] appx 25min from patient's home. Patient resides in [place]. Subjective Date of service: 02/14/19 Principal diagnosis: Right AKA and new ESRD on HD Interval history: Patient off the floor at the time of visit. Objective - Vital Signs Vital signs: Vital Signs - 12hr 02/14/19 02/14/19 02/14/19 20:12 20:31 21:13 Temperature 98.0 F Pulse Rate 94 H 94 H Respiratory 18 Rate Respiratory 17 Rate [Right Knee] Blood Pressure 145/89 145/89 O2 Sat by Pulse 96 Oximetry 02/14/19 02/14/19 21:14 21:21 Temperature Pulse Rate 94 H Respiratory 17 Rate Respiratory Rate [Right Knee] Blood Pressure 145/89 O2 Sat by Pulse Oximetry - General Appearance General appearance: well-developed, well-nourished EENT: ATNC Respiratory: Present: Clear to Ascultation Cardiology: regular, S1S2 Gastrointestinal: normal, no tenderness, no distended Integumentary: no rash, warm and dry Neurologic: no focal deficit, alert and oriented x3 Psychiatric: cooperative - Lab 02/10/19 07:43 02/12/19 07:05 Most recent lab results Calcium 8.9 mg/dL (8.4-10.2) 02/12/19 07:05 Phosphorus 4.50 mg/dL (2.5-4.5) 01/29/19 04:00 Magnesium 2.50 mg/dL (1.7-2.3) H 01/29/19 04:00 Medications & Allergies - Medications Allergies/Adverse Reactions: Allergies No Known Allergies Allergy (Verified 08/07/17 23:24) Home Medications: Home Medications Medication Instructions Recorded Confirmed Last Taken Type Aspirin 325 mg PO QDAY #30 tablet 08/09/17 01/29/19 Unknown Rx AtorvaSTATin [Lipitor] 80 mg PO QHS #30 tablet 08/09/17 01/29/19 Unknown Rx Insulin NPH/Regular [NovoLIN 70/30] 25 unit SUB-Q QPM #30 units 08/09/17 9 Unknown Rx Insulin NPH/Regular [NovoLIN 70/30] 50 unit SUB-Q QAM #30 units 08/09/17 01/29/19 Unknown Rx Active Medications: Generic Name Dose Route Start Last Admin Trade Name Freq PRN Reason Stop Dose Admin Acetaminophen 650 mg 01/28/19 14:31 Tylenol PO Q4H PRN Pain MILD(1-3)/Fever >100.5/BRUNO Amlodipine Besylate 5 mg 02/07/19 17:00 02/14/19 09:36 Norvasc PO 5 mg QDAY MINNIE Administration Atorvastatin Calcium 40 mg 01/28/19 21:00 02/14/19 21:13 Lipitor PO 40 mg QHS MINNIE Administration Bumetanide 2 mg 01/29/19 08:00 02/14/19 09:35 Bumex PO 2 mg QDAY MINNIE Administration Carvedilol 25 mg 01/28/19 22:00 02/14/19 21:14 Coreg PO 25 mg BID MINNIE Administration Dextrose 50 ml 01/28/19 14:31 D50w (25gm) Syringe IV PRN PRN Hypoglycemia Diclofenac Sodium 1 applic 02/10/19 14:00 02/14/19 21:17 Diclofenac 1% TP 1 applic TID MINNIE Administration Gabapentin 100 mg 02/13/19 22:00 02/14/19 21:13 Neurontin PO 100 mg BID MINNIE Administration Heparin Sodium (Porcine) 5,000 unit 01/28/19 22:00 02/14/19 21:14 Heparin SUB-Q 5,000 unit Q8HR MINNIE Administration Hydralazine HCl 100 mg 02/02/19 14:00 02/14/19 21:14 Apresoline PO 100 mg Q8HR MINNIE Administration Sodium Chloride 100 mls @ 999 mls/hr 01/29/19 16:10 Nacl 0.9% IV GRIS PRN Hypotension Insulin Glargine 8 units 01/28/19 21:00 02/14/19 21:27 Lantus SUB-Q 8 units QHS MINNIE Administration Insulin Human Lispro 0 unit 01/28/19 16:30 02/14/19 17:11 Humalog SUB-Q 1 unit AC MINNIE Administration Protocol Isosorbide Mononitrate 60 mg 01/28/19 22:00 02/14/19 21:13 Imdur PO 60 mg BID MINNIE Administration Losartan Potassium 100 mg 01/31/19 22:00 02/14/19 09:36 Cozaar PO 100 mg QDAY MINNIE Administration Ondansetron HCl 4 mg 01/28/19 16:38 02/06/19 06:57 Zofran Odt PO 4 mg Q8H PRN Administration Nausea And Vomiting Oxycodone/Acetaminophen 1 tab 01/28/19 14:48 02/14/19 21:21 Percocet 5/325 PO 1 tab Q6H PRN Administration Pain, Moderate (4-6) Polyethylene Glycol 17 gm 01/29/19 08:00 02/14/19 08:13 Miralax 3350 PO 17 gm QDAY MINNIE Administration Sevelamer Carbonate 2,400 mg 01/28/19 16:30 02/14/19 16:15 Renvela PO 2,400 mg AC MINNIE Administration Zinc Acetate/Diphenhydramine 1 applic 01/28/19 14:48 02/02/19 22:21 Banophen Anti-Itch TP 1 applic Q8H PRN Administration Itching
[2019-02-15] MEDS: HEPARIN SUB-Q SCH ×3 (07:44→22:00)
[2019-02-15] MEDS: APRESOLINE PO SCH ×3 (07:44→21:58)
[2019-02-15] MEDS: HumaLOG SUB-Q SCH ×3 (09:46→19:08)
[2019-02-15] MEDS: NEURONTIN PO SCH ×2 (09:49→21:59)
[2019-02-15] MEDS: PERCOCET 5/325 PO PRN ×2 (09:49→19:09)
[2019-02-15] MEDS: DICLOFENAC 1% TP SCH ×3 (09:51→21:56)
[2019-02-15] MEDS: RENVELA PO SCH ×3 (09:58→19:09)
[2019-02-15] MEDS: COREG PO SCH ×2 (10:02→21:59)
[2019-02-15] MEDS: BUMEX PO SCH (10:02)
[2019-02-15] MEDS: COZAAR PO SCH (10:02)
[2019-02-15] MEDS: IMDUR PO SCH ×2 (10:03→22:04)
[2019-02-15] MEDS: MIRALAX 3350 PO SCH (10:03)
[2019-02-15] MEDS: NORVASC PO SCH (10:03)
--- NOTE | 2019-02-15 10:46 | Progress Note ---
Assessment and Plan Impression * End-stage renal disease * Hypertension * Status post right above-knee amputation * Anemia * Peripheral artery disease Recommendations * Patient is scheduled for hemodialysis today * Continue dialysis on TTS schedule * UF as tolerated * Continue current antiHTN medications * Binders with meals * Epogen TIW prn * Renal diet * Outpatient HD clinic placement (CM consult placed on 02/10); patient is new to dialysis; outpt HD arranged at [facility] appx 25min from patient's home. Patient resides in [place] Subjective Date of service: 02/15/19 Principal diagnosis: Right AKA and new ESRD on HD Interval history: Patient is comfortable. Denies any shortness of breath. Scheduled for hemodialysis today Objective - Vital Signs Vital signs: Vital Signs - 12hr 02/15/19 02/15/19 07:23 08:00 Temperature 98.7 F 98.7 F Pulse Rate 99 H 99 H Respiratory 20 20 Rate Blood Pressure 146/85 Blood Pressure 146/85 [Right] O2 Sat by Pulse 98 96 Oximetry - General Appearance General appearance: well-developed, well-nourished, appears stated age EENT: PERRL, mucous membranes moist Neck: no JVD, no thyromegaly, no carotid bruit, supple, other (right IJ permcath in place ) Respiratory: Present: Clear to Ascultation Cardiology: regular, normal heart rate, S1S2, no murmurs Gastrointestinal: normal, normoactive bowel sounds Integumentary: no rash, other (right AKA) - Lab 02/10/19 07:43 02/12/19 07:05 Most recent lab results Calcium 8.9 mg/dL (8.4-10.2) 02/12/19 07:05 Phosphorus 4.50 mg/dL (2.5-4.5) 01/29/19 04:00 Magnesium 2.50 mg/dL (1.7-2.3) H 01/29/19 04:00 Medications & Allergies - Medications Allergies/Adverse Reactions: Allergies No Known Allergies Allergy (Verified 08/07/17 23:24) Home Medications: Home Medications Medication Instructions Recorded Confirmed Last Taken Type Aspirin 325 mg PO QDAY #30 tablet 08/09/17 01/29/19 Unknown Rx AtorvaSTATin [Lipitor] 80 mg PO QHS #30 tablet 08/09/17 01/29/19 Unknown Rx Insulin NPH/Regular [NovoLIN 70/30] 25 unit SUB-Q QPM #30 units 08/09/17 01/29/19 Unknown Rx Insulin NPH/Regular [NovoLIN 70/30] 50 unit SUB-Q QAM #30 units 08/09/17 01/29/19 Unknown Rx Active Medications: Generic Name Dose Route Start Last Admin Trade Name Freq PRN Reason Stop Dose Admin Acetaminophen 650 mg 01/28/19 14:31 Tylenol PO Q4H PRN Pain MILD(1-3)/Fever >100.5/BRUNO Amlodipine Besylate 5 mg 02/07/19 17:00 02/15/19 10:03 Norvasc PO Not Given QDAY MINNIE Atorvastatin Calcium 40 mg 01/28/19 21:00 02/14/19 21:13 Lipitor PO 40 mg QHS MINNIE Administration Bumetanide 2 mg 01/29/19 08:00 02/15/19 10:02 Bumex PO Not Given QDAY MINNIE Carvedilol 25 mg 01/28/19 22:00 02/15/19 10:02 Coreg PO Not Given BID MINNIE Dextrose 50 ml 01/28/19 14:31 D50w (25gm) Syringe IV PRN PRN Hypoglycemia Diclofenac Sodium 1 applic 02/10/19 14:00 02/15/19 09:51 Diclofenac 1% TP 1 applic TID MINNIE Administration Gabapentin 100 mg 02/13/19 22:00 02/15/19 09:49 Neurontin PO 100 mg BID MINNIE Administration Heparin Sodium (Porcine) 5,000 unit 01/28/19 22:00 02/15/19 07:44 Heparin SUB-Q 5,000 unit Q8HR MINNIE Administration Hydralazine HCl 100 mg 02/02/19 14:00 02/15/19 07:44 Apresoline PO 100 mg Q8HR MINNIE Administration Sodium Chloride 100 mls @ 999 mls/hr 01/29/19 16:10 Nacl 0.9% IV GRIS PRN Hypotension Insulin Glargine 8 units 01/28/19 21:00 02/14/19 21:27 Lantus SUB-Q 8 units QHS MINNIE Administration Insulin Human Lispro 0 unit 01/28/19 16:30 02/15/19 09:46 Humalog SUB-Q Not Given [facility] Protocol Isosorbide Mononitrate 60 mg 01/28/19 22:00 02/15/19 10:03 Imdur PO Not Given BID [facility] Losartan Potassium 100 mg 01/31/19 22:00 02/15/19 10:02 Cozaar PO Not Given QDAY [facility] Ondansetron HCl 4 mg 01/28/19 16:38 02/06/19 06:57 Zofran Odt PO 4 mg Q8H PRN Administration Nausea And Vomiting Oxycodone/Acetaminophen 1 tab 01/28/19 14:48 02/15/19 09:49 Percocet 5/325 PO 1 tab Q6H PRN Administration Pain, Moderate (4-6) Polyethylene Glycol 17 gm 01/29/19 08:00 02/15/19 10:03 Miralax 3350 PO Not Given QDAY [facility] Sevelamer Carbonate 2,400 mg 01/28/19 16:30 02/15/19 09:58 Renvela PO 2,400 mg AC MINNIE Administration Zinc Acetate/Diphenhydramine 1 applic 01/28/19 14:48 02/02/19 22:21 Banophen Anti-Itch TP 1 applic Q8H PRN Administration Itching
[2019-02-15] MEDS: LANTUS SUB-Q SCH (22:05)
[2019-02-16] MEDS: APRESOLINE PO SCH ×3 (06:20→22:32)
[2019-02-16] MEDS: HEPARIN SUB-Q SCH ×3 (06:21→22:33)
[2019-02-16] MEDS: PERCOCET 5/325 PO PRN ×2 (08:07→22:31)
[2019-02-16] MEDS: NEURONTIN PO SCH ×2 (08:07→22:30)
[2019-02-16] MEDS: COZAAR PO SCH (08:08)
[2019-02-16] MEDS: RENVELA PO SCH ×3 (08:10→18:58)
[2019-02-16] MEDS: IMDUR PO SCH ×2 (08:10→22:30)
[2019-02-16] MEDS: NORVASC PO SCH (08:11)
[2019-02-16] MEDS: BUMEX PO SCH (08:11)
[2019-02-16] MEDS: COREG PO SCH ×2 (08:12→22:32)
[2019-02-16] MEDS: HumaLOG SUB-Q SCH ×3 (08:20→18:56)
[2019-02-16] MEDS: MIRALAX 3350 PO SCH (08:21)
[2019-02-16] MEDS: DICLOFENAC 1% TP SCH ×3 (08:21→22:32)
--- NOTE | 2019-02-16 11:54 | Progress Note ---
Assessment and Plan Impression * End-stage renal disease * Hypertension * Status post right above-knee amputation * Anemia * Peripheral artery disease Recommendations * Patient had uneventful hemodialysis yesterday * Continue dialysis on TTS schedule * UF as tolerated * Continue current antiHTN medications * Binders with meals * Epogen TIW prn * Renal diet * Outpatient HD clinic placement (CM consult placed on 02/10); patient is new to dialysis; outpt HD arranged at [facility] appx 25min from patient's home. Patient resides in [facility] Date of service: 02/16/19 Principal diagnosis: Right AKA and new ESRD on HD Interval history: Patient is comfortable. Denies any shortness of breath. Uneventful hemodialysis yesterday Objective - Vital Signs Vital signs: Vital Signs - 12hr 02/16/19 02/16/19 02/16/19 03:46 06:54 08:07 Temperature 99.1 F 98.7 F Pulse Rate 100 H 104 H Respiratory 18 18 18 Rate Blood Pressure 147/78 144/80 O2 Sat by Pulse 98 99 Oximetry 02/16/19 02/16/19 02/16/19 08:08 08:10 08:11 Temperature Pulse Rate 103 H 103 H 103 H Respiratory Rate Blood Pressure 144/80 144/80 144/80 O2 Sat by Pulse Oximetry 02/16/19 02/16/19 08:12 11:17 Temperature 98.3 F Pulse Rate 103 H 105 H Respiratory 16 Rate Blood Pressure 144/80 156/94 O2 Sat by Pulse 100 Oximetry - General Appearance General appearance: well-developed, well-nourished, appears stated age EENT: PERRL, mucous membranes moist Neck: no JVD, no thyromegaly, no carotid bruit, supple, other (IJ PermCath in place) Respiratory: Present: Clear to Ascultation Cardiology: regular, normal heart rate, S1S2, no murmurs Gastrointestinal: normal, normoactive bowel sounds Integumentary: no rash, other (right above-knee amputation) - Lab 02/10/19 07:43 02/12/19 07:05 Most recent lab results Calcium 8.9 mg/dL (8.4-10.2) 02/12/19 07:05 Phosphorus 4.50 mg/dL (2.5-4.5) 01/29/19 04:00 Magnesium 2.50 mg/dL (1.7-2.3) H 01/29/19 04:00 Medications & Allergies - Medications Allergies/Adverse Reactions: Allergies No Known Allergies Allergy (Verified 08/07/17 23:24) Home Medications: Home Medications Medication Instructions Recorded Confirmed Last Taken Type Aspirin 325 mg PO QDAY #30 tablet 08/09/17 01/29/19 Unknown Rx AtorvaSTATin [Lipitor] 80 mg PO QHS #30 tablet 08/09/17 01/29/19 Unknown Rx Insulin NPH/Regular [NovoLIN 70/30] 25 unit SUB-Q QPM #30 units 08/09/17 01/29/19 Unknown Rx Insulin NPH/Regular [NovoLIN 70/30] 50 unit SUB-Q QAM #30 units 08/09/17 01/29/19 Unknown Rx Active Medications: Generic Name Dose Route Start Last Admin Trade Name Freq PRN Reason Stop Dose Admin Acetaminophen 650 mg 01/28/19 14:31 Tylenol PO Q4H PRN Pain MILD(1-3)/Fever >100.5/BRUNO Amlodipine Besylate 5 mg 02/07/19 17:00 02/16/19 08:11 Norvasc PO 5 mg QDAY MINNIE Administration Atorvastatin Calcium 40 mg 01/28/19 21:00 02/15/19 21:59 Lipitor PO 40 mg QHS MINNIE Administration Bumetanide 2 mg 01/29/19 08:00 02/16/19 08:11 Bumex PO 2 mg QDAY MINNIE Administration Carvedilol 25 mg 01/28/19 22:00 02/16/19 08:12 Coreg PO 25 mg BID MINNIE Administration Dextrose 50 ml 01/28/19 14:31 D50w (25gm) Syringe IV PRN PRN Hypoglycemia Diclofenac Sodium 1 applic 02/10/19 14:00 02/16/19 08:21 Diclofenac 1% TP 1 applic TID MINNIE Administration Gabapentin 100 mg 02/13/19 22:00 02/16/19 08:07 Neurontin PO 100 mg BID MINNIE Administration Heparin Sodium (Porcine) 5,000 unit 01/28/19 22:00 02/16/19 06:21 Heparin SUB-Q Not Given Q8HR MINNIE Hydralazine HCl 100 mg 02/02/19 14:00 02/16/19 06:20 Apresoline PO 100 mg Q8HR MINNIE Administration Sodium Chloride 100 mls @ 999 mls/hr 01/29/19 16:10 Nacl 0.9% IV GRIS PRN Hypotension Insulin Glargine 8 units 01/28/19 21:00 02/15/19 22:05 Lantus SUB-Q 8 units QHS MINNIE Administration Insulin Human Lispro 0 unit 01/28/19 16:30 02/16/19 08:20 Humalog SUB-Q 1 unit AC [facility] Administration Protocol Isosorbide Mononitrate 60 mg 01/28/19 22:00 02/16/19 08:10 Imdur PO 60 mg BID MINNIE Administration Losartan Potassium 100 mg 01/31/19 22:00 02/16/19 08:08 Cozaar PO 100 mg QDAY [facility] Administration Ondansetron HCl 4 mg 01/28/19 16:38 02/06/19 06:57 Zofran Odt PO 4 mg Q8H PRN Administration Nausea And Vomiting Oxycodone/Acetaminophen 1 tab 01/28/19 14:48 02/16/19 08:07 Percocet 5/325 PO 1 tab Q6H PRN Administration Pain, Moderate (4-6) Polyethylene Glycol 17 gm 01/29/19 08:00 02/16/19 08:21 Miralax 3350 PO Not Given QDAY [facility] Sevelamer Carbonate 2,400 mg 01/28/19 16:30 02/16/19 08:10 Renvela PO 2,400 mg AC [facility] Administration Zinc Acetate/Diphenhydramine 1 applic 01/28/19 14:48 02/02/19 22:21 Banophen Anti-Itch TP 1 applic Q8H PRN Administration Itching
[2019-02-16] MEDS: LANTUS SUB-Q SCH (22:28)
[2019-02-17] MEDS: APRESOLINE PO SCH ×3 (06:17→21:03)
[2019-02-17] MEDS: HEPARIN SUB-Q SCH ×3 (06:18→21:05)
[2019-02-17] MEDS: COREG PO SCH ×2 (07:57→21:04)
[2019-02-17] MEDS: NORVASC PO SCH (07:57)
[2019-02-17] MEDS: RENVELA PO SCH ×3 (07:58→16:34)
[2019-02-17] MEDS: MIRALAX 3350 PO SCH (07:58)
[2019-02-17] MEDS: BUMEX PO SCH (07:58)
[2019-02-17] MEDS: NEURONTIN PO SCH ×2 (07:58→21:04)
[2019-02-17] MEDS: COZAAR PO SCH (07:58)
[2019-02-17] MEDS: IMDUR PO SCH ×2 (07:58→21:03)
[2019-02-17] MEDS: DICLOFENAC 1% TP SCH ×3 (07:59→22:12)
[2019-02-17] MEDS: HumaLOG SUB-Q SCH ×3 (08:04→16:51)
[2019-02-17 08:22] LABS: Calcium 9.3 mg/dL (8.4-10.2)
[2019-02-17] MEDS: PERCOCET 5/325 PO PRN ×2 (09:29→21:08)
--- NOTE | 2019-02-17 09:33 | Progress Note ---
Subjective Principal diagnosis: Right AKA and new ESRD on HD Interval history: Patient was seen today for follow-up on multiple renal related issues Events of this hospitalization were noted Patient is currently on hemodialysis Sunday Blood pressure again around 160 systolic Interdisciplinary notes were also reviewed Vitals intake output medications were reviewed Past medical history: Reviewed Family, social history: Reviewed Allergies: Reviewed Physical examination General: No acute distress Vitals: Reviewed HEENT: Oral mucosa moist no icterus Neck: Supple no thyromegaly nodular mass or JVD Chest: Clear to auscultation anteriorly Heart: Regular rate and rhythm S1-S2 heard no S3-S4 Abdomen: Soft nontender no suprapubic masses no organomegaly Extremity: Dry skin less than 1+ edema Psych: No evidence of any agitation and aggression noted Derm: No petechial rash Assessment and plan: End stage renal disease: Patient will continue with hemodialysis on Sunday and Sunday schedule Anemia and end-stage renal disease: To monitor and follow erythropoietin as needed Secondary hyperparathyroidism: Periodically check vitamin D and phosphorus level along with PTH Hypertension and volume: To monitor and follow low systolic blood pressure under 150, high clinical index of suspicion for renovascular hypertension, We'll check aldosterone and plasma renin level Would like to add Aldactone today and follow Nutrition: High-protein diet due to dialysis status Patient was adequately counseled and educated regarding all the dialysis related issues Prognosis: Guarded We'll continue to follow and make recommendation from renal standpoint Objective - Vital Signs Vital signs: Vital Signs - 12hr 02/16/19 02/16/19 02/17/19 22:30 22:32 04:33 Temperature 98.5 F Pulse Rate 90 90 96 H Respiratory 18 Rate Blood Pressure 188/104 188/104 140/87 O2 Sat by Pulse 98 Oximetry 02/17/19 02/17/19 07:21 07:22 Temperature 97.9 F Pulse Rate 100 H 96 H Respiratory 18 Rate Blood Pressure 165/90 O2 Sat by Pulse 100 100 Oximetry - Lab 02/10/19 07:43 02/17/19 06:43 Most recent lab results Calcium 9.3 mg/dL (8.4-10.2) 02/17/19 06:43 Phosphorus 4.50 mg/dL (2.5-4.5) 01/29/19 04:00 Magnesium 2.50 mg/dL (1.7-2.3) H 01/29/19 04:00 Medications & Allergies - Medications Allergies/Adverse Reactions: Allergies No Known Allergies Allergy (Verified 08/07/17 23:24) Home Medications: Home Medications Medication Instructions Recorded Confirmed Last Taken Type Aspirin 325 mg PO QDAY #30 tablet 08/09/17 01/29/19 Unknown Rx AtorvaSTATin [Lipitor] 80 mg PO QHS #30 tablet 08/09/17 01/29/19 Unknown Rx Insulin NPH/Regular [NovoLIN 70/30] 25 unit SUB-Q QPM #30 units 08/09/17 01/29/19 Unknown Rx Insulin NPH/Regular [NovoLIN 70/30] 50 unit SUB-Q QAM #30 units 08/09/17 01/29/19 Unknown Rx Active Medications: Generic Name Dose Route Start Last Admin Trade Name Freq PRN Reason Stop Dose Admin Acetaminophen 650 mg 01/28/19 14:31 Tylenol PO Q4H PRN Pain MILD(1-3)/Fever >100.5/BRUNO Amlodipine Besylate 5 mg 02/07/19 17:00 02/17/19 07:57 Norvasc PO 5 mg QDAY MINNIE Administration Atorvastatin Calcium 40 mg 01/28/19 21:00 02/16/19 22:30 Lipitor PO 40 mg QHS MININE Administration Bumetanide 2 mg 01/29/19 08:00 02/17/19 07:58 Bumex PO 2 mg QDAY MINNIE Administration Carvedilol 25 mg 01/28/19 22:00 02/17/19 07:57 Coreg PO 25 mg BID MINNIE Administration Dextrose 50 ml 01/28/19 14:31 D50w (25gm) Syringe IV PRN PRN Hypoglycemia Diclofenac Sodium 1 applic 02/10/19 14:00 02/17/19 07:59 Diclofenac 1% TP 1 applic TID MINNIE Administration Gabapentin 100 mg 02/13/19 22:00 02/17/19 07:58 Neurontin PO 100 mg BID MINNIE Administration Heparin Sodium (Porcine) 5,000 unit 01/28/19 22:00 02/17/19 06:18 Heparin SUB-Q Not Given Q8HR MINNIE Hydralazine HCl 100 mg 02/02/19 14:00 02/17/19 06:17 Apresoline PO 100 mg Q8HR MINNIE Administration Sodium Chloride 100 mls @ 999 mls/hr 01/29/19 16:10 Nacl 0.9% IV GRIS PRN Hypotension Insulin Glargine 8 units 01/28/19 21:00 02/16/19 22:28 Lantus SUB-Q 8 units QHS MINNIE Administration Insulin Human Lispro 0 unit 01/28/19 16:30 02/17/19 08:04 Humalog SUB-Q Not Given AC [facility] Protocol Isosorbide Mononitrate 60 mg 01/28/19 22:00 02/17/19 07:58 Imdur PO 60 mg BID MINNIE Administration Losartan Potassium 100 mg 01/31/19 22:00 02/17/19 07:58 Cozaar PO 100 mg QDAY [facility] Administration Ondansetron HCl 4 mg 01/28/19 16:38 02/06/19 06:57 Zofran Odt PO 4 mg Q8H PRN Administration Nausea And Vomiting Oxycodone/Acetaminophen 1 tab 01/28/19 14:48 02/17/19 09:29 Percocet 5/325 PO 1 tab Q6H PRN Administration Pain, Moderate (4-6) Polyethylene Glycol 17 gm 01/29/19 08:00 02/17/19 07:58 Miralax 3350 PO 17 gm QDAY MINNIE Administration Sevelamer Carbonate 2,400 mg 01/28/19 16:30 02/17/19 07:58 Renvela PO 2,400 mg AC [facility] Administration Zinc Acetate/Diphenhydramine 1 applic 01/28/19 14:48 02/02/19 22:21 Banophen Anti-Itch TP 1 applic Q8H PRN Administration Itching
[2019-02-17] MEDS: ALDACTONE PO SCH (13:49)
--- NOTE | 2019-02-17 15:54 | Progress Note ---
Subjective Date of service: 02/17/19 Principal diagnosis: Right AKA and new ESRD on HD Interval history: 33-year-old male with chest pressure and MALONEY for 2 wks prior to seeking assistance at ED. Once admitted he was found to have dry gangrene of right foot and ARF. Vascular surgery and nephrology were consulted. After prolonged decision timeframe the patient opted for amputation and an AKA was performed on 01/02/2019. He also required HD. It was hoped that his kidneys would return to former level of function but this did not happen. He is now ESRD and on HD TTS. On exam patient noted to have lateral deviation of right eye and he states this has been the case for the past year and is accompanied by blurred vision in the right eye. Will need ophthalmology follow up. He states his diabetes control has been poor. Patient is participating in therapy and making reasonable progress. Taking rest breaks as needed. +BM. Denies pain, palpitations, dyspnea, cough. Neuropathic pain stable with increased dose of gabapentin. Knee pain continues today. Caused him to reduce amount of walking/standing. Blood GLU is reasonable, continue to monitor. Continue to work on improving LLE strength. He will need to closely monitor BLE for wounds to avoid further infections and/or amputations. Standing balance and LLE strength still poor overall and he is NOT a safe ambulator at this point. Motivated and eagerly participating. Will go home at w/c level. BP variable but improving, nephrology managing. 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 We called and initiated transfer of dialysis to [place]. Requested that if the transfer can happen before Sunday to move forward but otherwise to not lose his place until chair is confirmed at . Surgery for dialysis graft will be after discharge based on surgery schedule. All records, vitals, labs and medications were reviewed. No other issues per patient, nursing or therapy. Objective - Exam Narrative Exam: MUSCULOSKELETAL SPECIALTY EXAM CONSTITUTIONAL: Well developed, well nourished, appropriately groomed EENT: EOMI with lateral deviation of the right. Hearing intact to soft voice RESPIRATORY: Clear to auscultation bilaterally, no increased work of breathing CARDIOVASCULAR: Regular Rate/ Rhythm, no swelling, edema or tenderness in BUE or BLE. Pulses palpable in all extremities. All extremities warm. GI: + bowel sounds, soft, NTTP, nondistended. INTEGUMENTARY: DTI on left heel and dry skin with callus on the plantar surface of the forefoot, otherwise normal, no lesion, rash, masses or bruising noted in extremities. AKA well healed MUSCULOSKELETAL: Right AKA, Left knee pain, TTP medial jointline, no crepitus, otherwise BUE and BLE normal without defect, crepitus, subluxation, effusion, arthritic changes or TTP. BUE 4+/5, good ROM, with normal tone. BLE 4-/5 good ROM, with normal tone, left foot drop NEURO: CN 2-12 grossly intact. Sensation intact in all extremities. No tremor noted in 4 extremities. POSTURE and GAIT: Sitting posture good. Balance appears reasonable sitting, standing poor. Gait with RW for a few steps. Weakness and LOB limit safe use of RW for primary mobility. Awaiting prosthesis PSYCH: Alert, orientated x3, affect appears normal. Insight appears intact. - Constitutional Vitals: Vital Signs - 12hr 02/17/19 02/17/19 02/17/19 04:33 07:21 07:22 Temperature 36.9 C 36.6 C Pulse Rate 96 H 100 H 96 H Respiratory 18 18 Rate Blood Pressure 140/87 165/90 O2 Sat by Pulse 98 100 100 Oximetry 02/17/19 11:56 Temperature Pulse Rate 88 Respiratory Rate Blood Pressure O2 Sat by Pulse 98 Oximetry - Allied health notes Allied health notes reviewed: nursing, PT, OT FIMS assessment as documented by PT/OT/ST: Grooming Patient cleans teeth/dentures: Yes Patient mnajarrez/brushes hair: Yes Patient washes, rinses and Yes dries face: Patient washes, rinses and Yes dries hands: Patient shaves: No Patient performs (no make-up/ 10/17 (100%) shaving): Grooming FIM Score 6. Modified Mineral (Needs equipment/device . Extra time.) Toileting Toileting Device Urinal,Bedside Commode,Commode over Toilet,Grab Bar Patient able to: Adjust clothes before,Clean self,Adjust clothes after Patient able to perform: 3/3 (100%) Toileting FIM Score 6. Modified Mineral (Needs equip. or prosth ./orth.) Social interaction/Memory/Problem solving Social Interaction FIM Score 7. Complete Mineral (Interacts appropriately. Controls temper.) Memory FIM Score 7. Complete Mineral (Remembers people and routines.) Problem Solving FIM Score 7. Complete Mineral (Solves complex problems. Self corrects.) Transfers Mode of Locomotion: Wheelchair Bed/Chair/Wheelchair Transfers 7. Complete Mineral (Walking: Stands. W/C: FIM Score Locks brakes, pivots.) Toilet Transfers FIM Score 6. Modified Mineral (Uses device, special seat or more time.) Patient transferred to: Shower Shower Transfers FIM Score 6. Modified Mineral (Needs slide board, grab bar, tub bench.) Locomotion- Stairs Stairs FIM Score 0. Activity does not occur Locomotion- walk/wheelchair Most Frequent Mode of Wheelchair Locomotion: Ambulation Distance 15 Walking FIM Score 1. Total Assistance (Pt. < 25%, 2 or more person assist, or <50 ft.) Wheelchair Propulsion Distance 300 Wheelchair FIM Score 6. Modified Mineral (Wheels a minimum of 150 ft.) Eating Eating FIM Score 6. Modified Mineral (Special consistency or uses device.) Dressing-Upper body Patient retrieves clothing Yes items: Patient applies/removes UE n/a prosthesis or orthosis: Upper Body Dressing FIM Score 6. Modified Mineral (Needs equipment, velcro or pros./orth.) Dressing-lower body Patient retrieves clothing Yes items: Patient applies/removes LE Yes: sock to stump prosthesis or orthosis: Lower Body Dressing FIM Score 6. Modified Mineral (Needs equipment, velcro or pros./orth.) - Labs CBC & Chem 7: 02/10/19 07:43 02/17/19 06:43 Labs: Laboratory Results - last 72 hr 02/14/19 02/14/19 02/15/19 15:54 21:34 07:31 Sodium Potassium Chloride Carbon Dioxide Anion Gap BUN Creatinine Estimated GFR BUN/Creatinine Ratio Glucose POC Glucose 167 H 217 H 147 H Calcium 02/15/19 02/15/19 02/15/19 11:58 18:53 21:37 Sodium Potassium Chloride Carbon Dioxide Anion Gap BUN Creatinine Estimated GFR BUN/Creatinine Ratio Glucose POC Glucose 192 H 193 H 179 H Calcium 02/16/19 02/16/19 02/16/19 07:02 11:25 16:11 Sodium Potassium Chloride Carbon Dioxide Anion Gap BUN Creatinine Estimated GFR BUN/Creatinine Ratio Glucose POC Glucose 190 H 162 H 206 H Calcium 02/16/19 02/17/19 02/17/19 21:33 06:43 07:25 Sodium 140 Potassium 4.2 Chloride 101.8 Carbon Dioxide 26 Anion Gap 16 BUN 50 H Creatinine 4.6 H Estimated GFR 18 BUN/Creatinine Ratio 11 Glucose 79 POC Glucose 139 H 97 Calcium 9.3 02/17/19 12:01 Sodium Potassium Chloride Carbon Dioxide Anion Gap BUN Creatinine Estimated GFR BUN/Creatinine Ratio Glucose POC Glucose 172 H Calcium Assessment and Plan Right AKA: Monitor for wound healing or further injury. Contact Inspector Barrel for prosthesis. Limb protector on when OOB. Not safe for ambulation with RW at this point due to 1) R AKA 2) Weakness of LLE with buckling 3) LOB . Will need w/c at discharge. ESRD on HD: Consulted nephrology. TTS schedule. Has center at discharge but may transfer to one in [place] Hypertension: Appreciate nephrology assistance. Improving DM I: Continue diet and insulin. Monitor and adjust as needed. Constipation: Miralax and monitor for improvement Phantom sensation and phantom pain: increase dose gabapentin and monitor for improvement Left foot drop: likely due to neuropathy. AFO, cont to monitor for wound issues Left foot wounds: consult wound care, keep clean, monitor for healing Z73.6 ADL dysfunction: OT will work on improving ability to perform ADLs (including assistive devices) to increase independence and decrease caregiver burden and improve functional transfers and mobility training. R26.2 Difficulty walking: PT will work on gait training and proper use of assistive devices and advance as appropriate to use of stairs and outside ambulation on uneven surfaces. R26.81 Unsteadiness on feet: PT will work on improving static and dynamic sitting and standing balance as well as proper use of assistive devices to decrease risk of falls. R26.89 Abnormality of gait: PT will work to improve safety and efficiency of gait through neuromotor training and gait training along with instruction on proper use of assistive devices. M62.81 Muscle weakness: PT & OT will work on strengthening exercises to improve functional strength including mixture of closed and open kinetic chain exercises. R53.81 Debility: PT & OT will work on improving overall functional status to improve participation with ADLs, mobility and social involvement. R53.83 Fatigue: PT & OT will work on improving endurance through aerobic exercises and therapeutic activity while monitoring patients tolerance for activity and vital signs as needed. Left knee pain: voltaren gel and monitor DVT ppx: heparin TID Pain: Continue physical modalities in therapy and pain medications as needed to achieve functional pain control. Sleep: Monitor and address as needed. Bowel: Monitor and address as needed. Appetite: Monitor and address as needed. Discharge planning: Pending therapy progress and care plan meeting. Will continue discussion with therapy team, SW, patient and family. Restrictions/ Precautions: Falls WB status: FWB Functional Hx: ADLs: Independent Cognition: Independent Mobility: No AD Barriers to Discharge: Decreased mobility and ability to perform self care, balance deficits, weakness Estimated Length of Stay: 14-18 days Discharge Destination: Home with family
[2019-02-17] MEDS: ZOFRAN ODT PO PRN (21:08)
[2019-02-17] MEDS: LANTUS SUB-Q SCH (22:11)
[2019-02-18] MEDS: APRESOLINE PO SCH ×3 (06:28→21:42)
[2019-02-18] MEDS: HEPARIN SUB-Q SCH ×4 (06:29→21:44)
[2019-02-18] MEDS: HumaLOG SUB-Q SCH ×3 (07:40→16:30)
[2019-02-18] MEDS: RENVELA PO SCH ×3 (07:55→17:30)
[2019-02-18] MEDS: NEURONTIN PO SCH ×2 (07:55→21:42)
[2019-02-18] MEDS: ALDACTONE PO SCH (07:56)
[2019-02-18] MEDS: BUMEX PO SCH (07:57)
[2019-02-18] MEDS: COREG PO SCH ×2 (07:57→21:43)
[2019-02-18] MEDS: COZAAR PO SCH (07:58)
[2019-02-18] MEDS: IMDUR PO SCH ×2 (07:59→21:42)
[2019-02-18] MEDS: NORVASC PO SCH (08:00)
[2019-02-18] MEDS: MIRALAX 3350 PO SCH (08:00)
[2019-02-18] MEDS: PERCOCET 5/325 PO PRN ×2 (08:04→21:43)
[2019-02-18] MEDS: DICLOFENAC 1% TP SCH ×3 (08:05→21:41)
--- NOTE | 2019-02-18 08:55 | Progress Note ---
Subjective Principal diagnosis: Right AKA and new ESRD on HD Interval history: Patient was seen today for follow-up on multiple renal related issues Blood pressure is currently much better controlled after addition of spi ronolactone Interdisciplinary notes were also reviewed Vitals intake output medications were reviewed Past medical history: Reviewed Family, social history: Reviewed Allergies: Reviewed Physical examination General: No acute distress Vitals: Reviewed HEENT: Oral mucosa moist no icterus Neck: Supple no thyromegaly nodular mass or JVD Chest: Clear to auscultation anteriorly Heart: Regular rate and rhythm S1-S2 heard no S3-S4 Abdomen: Soft nontender no suprapubic masses no organomegaly Extremity: Dry skin less than 1+ edema Psych: No evidence of any agitation and aggression noted Derm: No petechial rash Assessment and plan: End stage renal disease: Patient will continue with hemodialysis on Sunday and Sunday schedule Anemia and end-stage renal disease: To monitor and follow erythropoietin as needed Secondary hyperparathyroidism: Periodically check vitamin D and phosphorus level along with PTH From dialysis perspective, patient's last potassium is 4.2BU and 50 creatinine 4 .6 hemoglobin A1c 4.2 phosphorus 4.5 Will order for an intact parathyroid hormone level Follow-up on the aldosterone as well as plasma renin level Patient was advised to reduce fluid he does have some swelling in his legs Nutrition: High-protein diet due to dialysis status Patient was adequately counseled and educated regarding all the dialysis related issues Prognosis: Guarded We'll continue to follow and make recommendation from renal standpoint Objective - Vital Signs Vital signs: Vital Signs - 12hr 02/17/19 02/17/19 02/17/19 21:03 21:04 21:08 Temperature Pulse Rate 96 H 96 H Respiratory 16 Rate Blood Pressure 149/92 149/92 O2 Sat by Pulse Oximetry 02/18/19 02/18/19 02/18/19 00:07 05:06 05:07 Temperature 97.9 F 98.1 F Pulse Rate 98 H 101 H Respiratory 20 20 Rate Blood Pressure 136/78 159/94 152/95 O2 Sat by Pulse 96 97 Oximetry 02/18/19 07:37 Temperature 98.3 F Pulse Rate 99 H Respiratory 18 Rate Blood Pressure 139/83 O2 Sat by Pulse 98 Oximetry - Lab 02/10/19 07:43 02/17/19 06:43 Most recent lab results Calcium 9.3 mg/dL (8.4-10.2) 02/17/19 06:43 Phosphorus 4.50 mg/dL (2.5-4.5) 01/29/19 04:00 Magnesium 2.50 mg/dL (1.7-2.3) H 01/29/19 04:00 Medications & Allergies - Medications Allergies/Adverse Reactions: Allergies No Known Allergies Allergy (Verified 08/07/17 23:24) Home Medications: Home Medications Medication Instructions Recorded Confirmed Last Taken Type Aspirin 325 mg PO QDAY #30 tablet 08/09/17 01/29/19 Unknown Rx AtorvaSTATin [Lipitor] 80 mg PO QHS #30 tablet 08/09/17 01/29/19 Unknown Rx Insulin NPH/Regular [NovoLIN 70/30] 25 unit SUB-Q QPM #30 units 08/09/17 01/29/19 Unknown Rx Insulin NPH/Regular [NovoLIN 70/30] 50 unit SUB-Q QAM #30 units 08/09/17 01/29/19 Unknown Rx Active Medications: Generic Name Dose Route Start Last Admin Trade Name Freq PRN Reason Stop Dose Admin Acetaminophen 650 mg 01/28/19 14:31 Tylenol PO Q4H PRN Pain MILD(1-3)/Fever >100.5/BRUNO Amlodipine Besylate 5 mg 02/07/19 17:00 02/18/19 08:00 Norvasc PO Not Given QDAY [facility] Atorvastatin Calcium 40 mg 01/28/19 21:00 02/17/19 21:04 Lipitor PO 40 mg QHS MINNIE Administration Bumetanide 2 mg 01/29/19 08:00 02/18/19 07:57 Bumex PO 2 mg QDAY MINNIE Administration Carvedilol 25 mg 01/28/19 22:00 02/18/19 07:57 Coreg PO Not Given BID [facility] Dextrose 50 ml 01/28/19 14:31 D50w (25gm) Syringe IV PRN PRN Hypoglycemia Diclofenac Sodium 1 applic 02/10/19 14:00 02/18/19 08:05 Diclofenac 1% TP 1 applic TID [facility] Administration Gabapentin 100 mg 02/13/19 22:00 02/18/19 07:55 Neurontin PO 100 mg BID MINNIE Administration Heparin Sodium (Porcine) 5,000 unit 01/28/19 22:00 02/18/19 07:12 Heparin SUB-Q Not Given Q8HR [facility] Hydralazine HCl 100 mg 02/02/19 14:00 02/18/19 06:28 Apresoline PO 100 mg Q8HR [facility] Administration Sodium Chloride 100 mls @ 999 mls/hr 01/29/19 16:10 Nacl 0.9% IV GRIS PRN Hypotension Insulin Glargine 8 units 01/28/19 21:00 02/17/19 22:11 Lantus SUB-Q Not Given QHS [facility] Insulin Human Lispro 0 unit 01/28/19 16:30 02/18/19 07:40 Humalog SUB-Q 2 unit [facility] Administration Protocol Isosorbide Mononitrate 60 mg 01/28/19 22:00 02/18/19 07:59 Imdur PO 60 mg BID [facility] Administration Losartan Potassium 100 mg 01/31/19 22:00 02/18/19 07:58 Cozaar PO Not Given QDAY [facility] Ondansetron HCl 4 mg 01/28/19 16:38 02/17/19 21:08 Zofran Odt PO 4 mg Q8H PRN Administration Nausea And Vomiting Oxycodone/Acetaminophen 1 tab 01/28/19 14:48 02/18/19 08:04 Percocet 5/325 PO 1 tab Q6H PRN Administration Pain, Moderate (4-6) Polyethylene Glycol 17 gm 01/29/19 08:00 02/18/19 08:00 Miralax 3350 PO Not Given QDAY [facility] Sevelamer Carbonate 2,400 mg 01/28/19 16:30 02/18/19 07:55 Renvela PO 2,400 mg AC [facility] Administration Spironolactone 25 mg 02/17/19 10:00 02/18/19 07:56 Aldactone PO Not Given QDAY [facility] Zinc Acetate/Diphenhydramine 1 applic 01/28/19 14:48 02/02/19 22:21 Banophen Anti-Itch TP 1 applic Q8H PRN Administration Itching
--- NOTE | 2019-02-18 11:33 | Progress Note ---
Subjective Date of service: 02/18/19 Principal diagnosis: Right AKA and new ESRD on HD Interval history: 33-year-old male with chest pressure and MALONEY for 2 wks prior to seeking assistance at ED. Once admitted he was found to have dry gangrene of right foot and ARF. Vascular surgery and nephrology were consulted. After prolonged decision timeframe the patient opted for amputation and an AKA was performed on 01/02/2019. He also required HD. It was hoped that his kidneys would return to former level of function but this did not happen. He is now ESRD and on HD TTS. On exam patient noted to have lateral deviation of right eye and he states this has been the case for the past year and is accompanied by blurred vision in the right eye. Will need ophthalmology follow up. He states his diabetes control has been poor. Patient is participating in therapy and making reasonable progress. Taking rest breaks as needed. +BM. Denies pain, palpitations, dyspnea, cough. Neuropathic pain stable. Knee pain better today. Blood GLU is reasonable, continue to monitor. Continue to work on improving LLE strength. Standing balance and LLE strength still poor overall and he is NOT a safe ambulator at this point. Motivated and eagerly participating. Will go home at w/c level. BP variable but improving, nephrology managing. Really appreciate nephrology assistance [facility] is at capacity, patient will need to transfer at a later date. Surgery for dialysis graft will be after discharge based on surgery schedule. All records, vitals, labs and medications were reviewed. No other issues per patient, nursing or therapy. Objective - Exam Narrative Exam: MUSCULOSKELETAL SPECIALTY EXAM CONSTITUTIONAL: Well developed, well nourished, appropriately groomed EENT: EOMI with lateral deviation of the right. Hearing intact to soft voice RESPIRATORY: Clear to auscultation bilaterally, no increased work of breathing CARDIOVASCULAR: Regular Rate/ Rhythm, no swelling, edema or tenderness in BUE or BLE. Pulses palpable in all extremities. All extremities warm. GI: + bowel sounds, soft, NTTP, nondistended. INTEGUMENTARY: DTI on left heel and dry skin with callus on the plantar surface of the forefoot, otherwise normal, no lesion, rash, masses or bruising noted in extremities. AKA well healed MUSCULOSKELETAL: Right AKA, Left knee pain, no crepitus, otherwise BUE and BLE normal without d efect, crepitus, subluxation, effusion, arthritic changes or TTP. BUE 4+/5, good ROM, with normal tone. BLE 4-/5 good ROM, with normal tone, left foot drop NEURO: CN 2-12 grossly intact. Sensation intact in all extremities. No tremor noted in 4 extremities. POSTURE and GAIT: Sitting posture good. Balance appears reasonable sitting, standing poor. Gait with RW for a few steps. Weakness and LOB limit safe use of RW for primary mobility. Awaiting prosthesis PSYCH: Alert, orientated x3, affect appears normal. Insight appears intact. - Constitutional Vitals: Vital Signs - 12hr 02/18/19 02/18/19 02/18/19 00:07 05:06 05:07 Temperature 36.6 C 36.7 C Pulse Rate 98 H 101 H Respiratory 20 20 Rate Blood Pressure 136/78 159/94 152/95 O2 Sat by Pulse 96 97 Oximetry 02/18/19 07:37 Temperature 36.8 C Pulse Rate 99 H Respiratory 18 Rate Blood Pressure 139/83 O2 Sat by Pulse 98 Oximetry - Allied health notes Allied health notes reviewed: nursing, PT, OT FIMS assessment as documented by PT/OT/ST: Grooming Patient cleans teeth/dentures: Yes Patient manjarrez/brushes hair: Yes Patient washes, rinses and Yes dries face: Patient washes, rinses and Yes dries hands: Patient shaves: No Patient performs (no make-up/ 10/17 (100%) shaving): Grooming FIM Score 6. Modified [place] (Needs equipment/dev ice . Extra time.) Toileting Toileting Device Urinal,Bedside Commode,Commode over Toilet,Grab Bar Patient able to: Adjust clothes before,Clean self,Adjust clothes after Patient able to perform: 3/3 (100%) Toileting FIM Score 6. Modified [place] (Needs equip. or prosth ./orth.) Social interaction/Memory/Problem solving Social Interaction FIM Score 7. Complete [place] (Interacts appropriately. Controls temper.) Memory FIM Score 7. Complete [place] (Remembers people and routines.) Problem Solving FIM Score 7. Complete [place] (Solves complex problems. Self corrects.) Transfers Mode of Locomotion: Wheelchair Bed/Chair/Wheelchair Transfers 7. Complete [place] (Walking: Stands. W/C: FIM Score Locks brakes, pivots.) Toilet Transfers FIM Score 6. Modified [place] (Uses device, special seat or more time.) Patient transferred to: Shower Shower Transfers FIM Score 6. Modified [place] (Needs slide board, grab bar, tub bench.) Locomotion- Stairs Stairs FIM Score 0. Activity does not occur Locomotion- walk/wheelchair Most Frequent Mode of Wheelchair Locomotion: Ambulation Distance 50 Walking FIM Score 1. Total Assistance (Pt. < 25%, 2 or more person assist, or <50 ft.) Wheelchair Propulsion Distance 300 Wheelchair FIM Score 6. Modified [place] (Wheels a minimum of 150 ft.) Eating Eating FIM Score 6. Modified [place] (Special consistency or uses device.) Dressing-Upper body Patient retrieves clothing Yes items: Patient applies/removes UE n/a prosthesis or orthosis: Upper Body Dressing FIM Score 6. Modified [place] (Needs equipment, velcro or pros./orth.) Dressing-lower body Patient retrieves clothing Yes items: Patient applies/removes LE Yes: sock to stump prosthesis or orthosis: Lower Body Dressing FIM Score 6. Modified [place] (Needs equipment, velcro or pros./orth.) - Labs CBC & Chem 7: 02/10/19 07:43 02/19/19 05:54 Labs: Laboratory Results - last 72 hr 02/15/19 02/15/19 02/15/19 11:58 18:53 21:37 Sodium Potassium Chloride Carbon Dioxide Anion Gap BUN Creatinine Estimated GFR BUN/Creatinine Ratio Glucose POC Glucose 192 H 193 H 179 H Calcium 02/16/19 02/16/19 02/16/19 07:02 11:25 16:11 Sodium Potassium Chloride Carbon Dioxide Anion Gap BUN Creatinine Estimated GFR BUN/Creatinine Ratio Glucose POC Glucose 190 H 162 H 206 H Calcium 02/16/19 02/17/19 02/17/19 21:33 06:43 07:25 Sodium 140 Potassium 4.2 Chloride 101.8 Carbon Dioxide 26 Anion Gap 16 BUN 50 H Creatinine 4.6 H Estimated GFR 18 BUN/Creatinine Ratio 11 Glucose 79 POC Glucose 139 H 97 Calcium 9.3 02/17/19 02/17/19 02/17/19 12:01 16:50 21:44 Sodium Potassium Chloride Carbon Dioxide Anion Gap BUN Creatinine Estimated GFR BUN/Creatinine Ratio Glucose POC Glucose 172 H 212 H 128 H Calcium 02/18/19 07:44 Sodium Potassium Chloride Carbon Dioxide Anion Gap BUN Creatinine Estimated GFR BUN/Creatinine Ratio Glucose POC Glucose 190 H Calcium Assessment and Plan Right AKA: Monitor for wound healing or further injury. Contact Cleaning Professional for prosthesis. Limb protector on when OOB. Not safe for ambulation with RW at this point due to 1) R AKA 2) Weakness of LLE with buckling 3) LOB . Will need w/c at discharge. ESRD on HD: Consulted nephrology. TTS schedule. Has center at discharge but may transfer to one in [place] Hypertension: Appreciate nephrology assistance. Improving DM I: Continue diet and insulin. Monitor and adjust as needed. Constipation: Miralax and monitor for improvement, improved Phantom sensation and phantom pain: cont gabapentin and monitor for improvement Left foot drop: likely due to neuropathy. AFO, cont to monitor for wound issues Left foot wounds: consult wound care, keep clean, monitor for healing Z73.6 ADL dysfunction: OT will work on improving ability to perform ADLs (including assistive devices) to increase independence and decrease caregiver burden and improve functional transfers and mobility training. R26.2 Difficulty walking: PT will work on gait training and proper use of assistive devices and advance as appropriate to use of stairs and outside ambulation on uneven surfaces. R26.81 Unsteadiness on feet: PT will work on improving static and dynamic sitting and standing balance as well as proper use of assistive devices to decrease risk of falls. R26.89 Abnormality of gait: PT will work to improve safety and efficiency of gait through neuromotor training and gait training along with instruction on proper use of assistive devices. M62.81 Muscle weakness: PT & OT will work on strengthening exercises to improve functional strength including mixture of closed and open kinetic chain exercises. R53.81 Debility: PT & OT will work on improving overall functional status to improve participation with ADLs, mobility and social involvement. R53.83 Fatigue: PT & OT will work on improving endurance through aerobic exercises and therapeutic activity while monitoring patients tolerance for activity and vital signs as needed. Left knee pain: voltaren gel and monitor DVT ppx: heparin TID Pain: Continue physical modalities in therapy and pain medications as needed to achieve functional pain control. Sleep: Monitor and address as needed. Bowel: Monitor and address as needed. Appetite: Monitor and address as needed. Discharge planning: Pending therapy progress and care plan meeting. Will continue discussion with therapy team, SW, patient and family. Restrictions/ Precautions: Falls WB status: FWB Functional Hx: ADLs: Independent Cognition: Independent Mobility: No AD Barriers to Discharge: Decreased mobility and ability to perform self care, balance deficits, weakness Estimated Length of Stay: 14-18 days Discharge Destination: Home with family
[2019-02-18] MEDS ORDERED: NACL 0.9 (PRIMING MACHINE ONLY DIALYSIS) MC ONE (15:53)
[2019-02-18] MEDS: LANTUS SUB-Q SCH (21:42)
[2019-02-18] MEDS: BANOPHEN ANTI-ITCH TP PRN (21:43)
[2019-02-19] MEDS: APRESOLINE PO SCH ×2 (05:06→13:21)
[2019-02-19] MEDS: PERCOCET 5/325 PO PRN ×2 (05:07→10:17)
[2019-02-19] MEDS: HEPARIN SUB-Q SCH ×2 (05:35→13:20)
[2019-02-19] MEDS: HumaLOG SUB-Q SCH ×2 (09:06→13:20)
[2019-02-19 09:22] LABS: Calcium 8.3 mg/dL (8.4-10.2)
[2019-02-19] MEDS: RENVELA PO SCH ×2 (10:12→12:08)
[2019-02-19] MEDS: COREG PO SCH (10:12)
[2019-02-19] MEDS: ALDACTONE PO SCH (10:13)
[2019-02-19] MEDS: COZAAR PO SCH (10:13)
[2019-02-19] MEDS: IMDUR PO SCH (10:13)
[2019-02-19] MEDS: NEURONTIN PO SCH (10:13)
[2019-02-19] MEDS: BUMEX PO SCH (10:14)
[2019-02-19] MEDS: MIRALAX 3350 PO SCH (10:14)
[2019-02-19] MEDS: NORVASC PO SCH (10:14)
[2019-02-19] MEDS: DICLOFENAC 1% TP SCH ×2 (10:15→13:21)
--- NOTE | 2019-02-19 13:13 | Discharge Summary ---
Providers - Providers Date of Admission: 01/28/19 16:45 Date of discharge: 02/19/19 Attending physician: ABILIO BOWENS III, MD 01/28/19 14:31 Consult to Dietitian/Nutrition [CONS] Routine Physician Instructions: Reason For Exam: Reason for Consult: Diet education Occupational Therapy Evaluate and Treat [CONS] Routine Comment: Reason For Exam: ADL dysfunction Physical Therapy Evaluation and Treat [CONS] Routine Comment: Reason For Exam: Mobility Dysfunction 01/28/19 14:42 Consult to Case Management [CONS] Routine Services Needed at Discharge: Home Health Services Notified:: cm notified 01/28/19 16:04 Consult to Physician [CONS] Routine Comment: New to HD Consulting Provider: JAZMYN AMARAL [facility] For [facility]: [facility] on HD and renal mgmt 01/29/19 16:29 Consult to Physician [CONS] Routine Comment: Consulting Provider: KASHIF FRIAS Physician Instructions: Reason For Exam: AVF creation vein mapping 01/29/19 18:16 Consult to Wound/ET Nurse [CONS] Routine Reason For Exam: wound eval -left heel DTI and foot 02/10/19 22:17 Consult to Case Management [CONS] Routine Services Needed at Discharge: Other Notified:: cm notified Comment:: OUTPATIENT HEMODIALYSIS CLINIC PLACEMENT - PT RESIDES IN [place] Primary care physician: DESK OPERATOR Hospitalization Reason for admission: Right AKA and new ESRD on HD Condition: Fair Hospital course: 33-year-old male with chest pressure and MALONEY for 2 wks prior to seeking assi stance at ED. Once admitted he was found to have dry gangrene of right foot and ARF. Vascular surgery and nephrology were consulted. After prolonged decision timeframe the patient opted for amputation and an AKA was performed on 01/02/2019. He also required HD. It was hoped that his kidneys would return to former level of function but this did not happen. He is now ESRD and on HD TTS. On exam patient noted to have lateral deviation of right eye and he states this has been the case for the past year and is accompanied by blurred vision in the right eye. Will need ophthalmology follow up. He states his diabetes control has been poor. Patient also has weak LLE with foot drop. He has progressed fairly well but is not back to baseline with his weakness. States this started after a foot surgery and he stopped placing as much weight on the LLE. Also may be due to neuropathy. At any rate, he is able to ambulate with a RW and assistance for short distances but is not safe. He would be safer with W/C mobility until he gains more strength in the LLE and is able to obtain a prosthesis. As far as ADLs he is [place] for most with some assistance needed for lower extremities. His BP was difficult to control and nephrology adjusted medications to assist with control. He will need to continue to modify medications once he is in his home regimen to ensure he does not continue to elevate. Dr Garcia has accepted him as a patient. He currently has a dialysis chair time at [facility] in [place] whic was set up by the prior hospital. He has requested to move to the [facility] at which is closer and also attended by Dr Garcia. We have called to attempt to facilitate this but is at capacity. Blood GLU was reasonably controlled during his stay. He will need to adjust based on his eating habits and he admits he was previously poorly controlled. He will need to see an Behavioral Assistant. He has stated that his vision has worsened and he has not had an eye exam. Phantom sensation and phantom pain was well controlled on low dose gabapentin. I discussed with him that he can not take high doses due to his ESRD. He will follow up with [facility] clinic for prosthesis fitting. He will follow up as outpatient with vascular for dialysis access. Disposition: - TO HOME OR SELFCARE Time spent for discharge: >30mins Core Measure Documentation - Palliative Care Palliative Care/ Comfort Measures: Not Applicable - Core Measures Any of the following diagnoses?: none Exam - Physical Exam Narrative exam: MUSCULOSKELETAL SPECIALTY EXAM CONSTITUTIONAL: Well developed, well nourished, appropriately groomed EENT: EOMI with lateral deviation of the right. Hearing intact to soft voice RESPIRATORY: Clear to auscultation bilaterally, no increased work of breathing CARDIOVASCULAR: Regular Rate/ Rhythm, no swelling, edema or tenderness in BUE or BLE. Pulses palpable in all extremities. All extremities warm. GI: + bowel sounds, soft, NTTP, nondistended. INTEGUMENTARY: DTI on left heel and dry skin with callus on the plantar surface of the forefoot, otherwise normal, no lesion, rash, masses or bruising noted in extremities. AKA well healed MUSCULOSKELETAL: Right AKA, Left knee pain, no crepitus, otherwise BUE and BLE normal without defect, crepitus, subluxation, effusion, arthritic changes or TTP. BUE 4+/5, good ROM, with normal tone. BLE 4-/5 good ROM, with normal tone, left foot drop NEURO: CN 2-12 grossly intact. Sensation intact in all extremities. No tremor noted in 4 extremities. POSTURE and GAIT: Sitting posture good. Balance appears reasonable sitting, standing poor. Gait with RW for a few steps. Weakness and LOB limit safe use of RW for primary mobility. Awaiting prosthesis PSYCH: Alert, orientated x3, affect appears normal. Insight appears intact. - Constitutional Vitals: Temp Pulse Resp BP Pulse Ox 37.1 C 102 H 18 148/85 98 02/19/19 09:11 02/19/19 09:11 02/19/19 05:36 02/19/19 09:11 02/19/19 08:01 Plan Activity: advance as tolerated, fall precautions Diet: diabetic, renal Special Instructions: record daily weights, record daily BP diary, record blood sugar diary, follow up in rehab, physical therapy, occupational therapy Durable Medical Equipment Needed Upon Discharge: Wheelchair, Bedside Commode Follow up with: PRIMARY CARE, [Primary Care Provider] - 7 Days VITO GARCIA MD [Staff Physician] - 7 Days ALEXUS LOTT MD [Staff Physician] - 7 Days Prescriptions: Insulin Glargine [Lantus VIAL] 8 units SUB-Q QHS 30 Days units AtorvaSTATin [Lipitor] 40 mg PO QHS #30 tablet Spironolactone [Aldactone] 25 mg PO QDAY #30 tablet hydrALAZINE [Apresoline TAB] 100 mg PO Q8HR #90 tab diphenhydrAMINE/ZINC 2% [Banophen Anti-Itch] 1 applic TP Q8H PRN 30 Days tube PRN Reason: Itching Bumetanide [Bumex 1 mg tab] 2 mg PO QDAY #60 tablet Carvedilol [Coreg] 25 mg PO BID #60 tablet Losartan [Cozaar] 100 mg PO QDAY #30 tablet Diclofenac 1% [Diclofenac 1% topical gel] 1 applic TP TID 30 Days tube Lispro Insulin [HumaLOG] 0 unit SUB-Q AC 30 Days units ISOSORBIDE MONOnitrate [Imdur ER] 60 mg PO BID #60 tablet Gabapentin [Neurontin] 100 mg PO BID #60 capsule amLODIPine [Norvasc] 5 mg PO QDAY #30 tablet Sevelamer Carbonate [Renvela] 2,400 mg PO AC #270 tablet
--- NOTE | 2019-02-19 13:39 | Progress Note ---
Subjective Principal diagnosis: Right AKA and new ESRD on HD Objective - Vital Signs Vital signs: Vital Signs - 12hr 02/19/19 02/19/19 02/19/19 05:15 05:36 08:01 Temperature 98.0 F Pulse Rate 94 H 96 H 101 H Respiratory 18 Rate Blood Pressure 165/92 [Right] O2 Sat by Pulse 100 100 98 Oximetry 02/19/19 09:11 Temperature 98.8 F Pulse Rate 102 H Respiratory Rate Blood Pressure 148/85 [Right] O2 Sat by Pulse Oximetry - Lab 02/10/19 07:43 02/19/19 05:54 Most recent lab results Calcium 8.3 mg/dL (8.4-10.2) L 02/19/19 05:54 Phosphorus 4.50 mg/dL (2.5-4.5) 01/29/19 04:00 Magnesium 2.50 mg/dL (1.7-2.3) H 01/29/19 04:00 Medications & Allergies - Medications Allergies/Adverse Reactions: Allergies No Known Allergies Allergy (Verified 08/07/17 23:24) Home Medications: Home Medications Medication Instructions Recorded Confirmed Last Taken Type AtorvaSTATin [Lipitor] 40 mg PO QHS #30 tablet 02/19/19 Unknown Rx Bumetanide [Bumex 1 mg tab] 2 mg PO QDAY #60 tablet 02/19/19 Unknown Rx Carvedilol [Coreg] 25 mg PO BID #60 tablet 02/19/19 Unknown Rx Diclofenac 1% [Diclofenac 1% 1 applic TP TID 30 Days tube 02/19/19 Unknown Rx topical gel] Gabapentin [Neurontin] 100 mg PO BID #60 capsule 02/19/19 Unknown Rx ISOSORBIDE MONOnitrate [Imdur ER] 60 mg PO BID #60 tablet 02/19/19 Unknown Rx Insulin Glargine [Lantus VIAL] 8 units SUB-Q QHS 30 Days units 02/19/19 Unknown Rx Lispro Insulin [HumaLOG] 0 unit SUB-Q AC 30 Days units 02/19/19 Unknown Rx Losartan [Cozaar] 100 mg PO QDAY #30 tablet 02/19/19 Unknown Rx Sevelamer Carbonate [Renvela] 2,400 mg PO AC #270 tablet 02/19/19 Unknown Rx Spironolactone [Aldactone] 25 mg PO QDAY #30 tablet 02/19/19 Unknown Rx amLODIPine [Norvasc] 5 mg PO QDAY #30 tablet 02/19/19 Unknown Rx diphenhydrAMINE/ZINC 2% [Banophen 1 applic TP Q8H PRN 30 Days tube 02/19/19 Unknown Rx Anti-Itch] hydrALAZINE [Apresoline TAB] 100 mg PO Q8HR #90 tab 02/19/19 Unknown Rx Active Medications: Generic Name Dose Route Start Last Admin Trade Name Freq PRN Reason Stop Dose Admin Acetaminophen 650 mg 01/28/19 14:31 Tylenol PO Q4H PRN Pain MILD(1-3)/Fever >100.5/BRUNO Amlodipine Besylate 5 mg 02/07/19 17:00 02/19/19 10:14 Norvasc PO 5 mg QDAY MINNIE Administration Atorvastatin Calcium 40 mg 01/28/19 21:00 02/18/19 21:42 Lipitor PO 40 mg QHS MINNIE Administration Bumetanide 2 mg 01/29/19 08:00 02/19/19 10:14 Bumex PO 2 mg QDAY MINNIE Administration Carvedilol 25 mg 01/28/19 22:00 02/19/19 10:12 Coreg PO 25 mg BID MINNIE Administration Dextrose 50 ml 01/28/19 14:31 D50w (25gm) Syringe IV PRN PRN Hypoglycemia Diclofenac Sodium 1 applic 02/10/19 14:00 02/19/19 13:21 Diclofenac 1% TP 1 applic TID MINNIE Administration Gabapentin 100 mg 02/13/19 22:00 02/19/19 10:13 Neurontin PO 100 mg BID MINNIE Administration Heparin Sodium (Porcine) 5,000 unit 01/28/19 22:00 02/19/19 13:20 Heparin SUB-Q 5,000 unit Q8HR MINNIE Administration Hydralazine HCl 100 mg 02/02/19 14:00 02/19/19 13:21 Apresoline PO 100 mg Q8HR MINNIE Administration Sodium Chloride 100 mls @ 999 mls/hr 01/29/19 16:10 Nacl 0.9% IV GRIS PRN Hypotension Insulin Glargine 8 units 01/28/19 21:00 02/18/19 21:42 Lantus SUB-Q 8 units QHS MINNIE Administration Insulin Human Lispro 0 unit 01/28/19 16:30 02/19/19 13:20 Humalog SUB-Q 2 unit AC MINNIE Administration Protocol Isosorbide Mononitrate 60 mg 01/28/19 22:00 02/19/19 10:13 Imdur PO 60 mg BID MINNIE Administration Losartan Potassium 100 mg 01/31/19 22:00 02/19/19 10:13 Cozaar PO 100 mg QDAY MINNIE Administration Ondansetron HCl 4 mg 01/28/19 16:38 02/17/19 21:08 Zofran Odt PO 4 mg Q8H PRN Administration Nausea And Vomiting Oxycodone/Acetaminophen 1 tab 01/28/19 14:48 02/19/19 10:17 Percocet 5/325 PO 1 tab Q6H PRN Administration Pain, Moderate (4-6) Polyethylene Glycol 17 gm 01/29/19 08:00 02/19/19 10:14 Miralax 3350 PO Not Given QDAY MINNIE Sevelamer Carbonate 2,400 mg 01/28/19 16:30 02/19/19 12:08 Renvela PO Not Given AC [facility] Spironolactone 25 mg 02/17/19 10:00 02/19/19 10:13 Aldactone PO 25 mg QDAY MINNIE Administration Zinc Acetate/Diphenhydramine 1 applic 01/28/19 14:48 02/18/19 21:43 Banophen Anti-Itch TP 1 applic Q8H PRN Administration Itching
[2019-02-19 13:55] VITALS: BP 127/82
== END 2019-02-19 14:50 | disposition home or self-care (01) | DRG 947 ==
LOC: 3A 13:31 → UNDOADMIN 13:31 → 3B 16:45
PROVIDERS: ADMIT Physical Medicine & Rehabilitation; ATTEND Physical Medicine & Rehabilitation
PROC: 5A1D70Z Performance of Urinary Filtration, Intermittent, Less than 6 Hours Per Day (ICD-10-PCS; principal; 2019-02-11)
PROC: 5A1D70Z Performance of Urinary Filtration, Intermittent, Less than 6 Hours Per Day (ICD-10-PCS; 2019-02-13)
PROC: 5A1D70Z Performance of Urinary Filtration, Intermittent, Less than 6 Hours Per Day (ICD-10-PCS; 2019-02-15)
DX: R53.81 Other malaise (principal); E10.10 Type 1 diabetes mellitus with ketoacidosis without coma; N18.6 End stage renal disease; I12.0 Hypertensive chronic kidney disease with stage 5 chronic kidney disease or end stage renal disease; N25.81 Secondary hyperparathyroidism of renal origin; E78.5 Hyperlipidemia, unspecified; D63.1 Anemia in chronic kidney disease; E10.51 Type 1 diabetes mellitus with diabetic peripheral angiopathy without gangrene; M21.372 Foot drop, left foot; K59.00 Constipation, unspecified; E10.22 Type 1 diabetes mellitus with diabetic chronic kidney disease; Z89.611 Acquired absence of right leg above knee; Z99.2 Dependence on renal dialysis; Z82.49 Family history of ischemic heart disease and other diseases of the circulatory system; Z83.3 Family history of diabetes mellitus
CPT/HCPCS: 36415; 80048; 80053; 80074; 82088; 82962; 83036; 83735; 84100; 85025; 85027; 93970; G0378; G0515; A9270-GY; J1644; J1815; J7030; Q0162

== ENCOUNTER 2019-03-11 14:16 | Observation (INO) | payer OTHER ==
--- NOTE | 2019-03-11 14:27 | Event Note ---
ED Screening Note Date of service: 03/11/19 Time: 14:25 ED Screening Note: 33 Y o male presents to Ed from dialysis center because he wasnt able to get dialyzed through his port so he was sent to ED for picc line assessment and possibly dialysis This initial assessment/diagnostic orders/clinical plan/treatment(s) is/are subject to change based on patients health status, clinical progression and re- assessment by fellow clinical providers in the ED. Further treatment and workup at subsequent clinical providers discretion. Patient/guardian urged not to elope from the ED as their condition may be serious if not clinically assessed and managed. Initial orders include:
[2019-03-11 15:19] LABS: Calcium 8.9 mg/dL (8.4-10.2)
[2019-03-11 15:23] LABS: Eosinophils # (Auto) 0.1 K/mm3 (0.0-0.4); Eosinophils % (Auto) 0.9 % (0.0-4.3); Monocytes # (Auto) 0.4 K/mm3 (0.0-0.8); Monocytes % (Auto) 5.6 % (0.0-7.3)
[2019-03-11 15:24] LABS: Hematocrit 35.9 % (35.5-45.6); Hemoglobin 11.2 gm/dl (11.8-15.2); Mean Corpuscular HGB Conc 31 % (32-34); Mean Corpuscular Volume 83 fl (84-94); Red Blood Count 4.32 M/mm3 (3.65-5.03); Red Cell Distribution Width 16.9 % (13.2-15.2)
[2019-03-11 15:25] LABS: Basophils % (Auto) 0.6 % (0.0-1.8); Lymphocytes # (Auto) 1.7 K/mm3 (1.2-5.4); Lymphocytes % (Auto) 22.3 % (13.4-35.0); Platelet Count 267 K/mm3 (140-440)
[2019-03-11] MEDS ORDERED: CATHFLO IV SCH ×2 (17:19)
[2019-03-11] MEDS ORDERED: WATER FOR INJ Sterile (PF) 10 ML ONE (17:56)
--- NOTE | 2019-03-11 17:59 | Emergency Department Report ---
ED General Adult HPI - General Chief complaint: Medical Clearance Stated complaint: TO CHECK DIALYSIS ACCESS Time Seen by Provider: 03/11/19 14:22 Source: patient Mode of arrival: Wheelchair Limitations: No Limitations - History of Present Illness Initial comments: 33 yo M with ESRD, T-TH-SAT presents from HD clinic after dysfunction of HD cath. Per pt he did not recieve HD today. Pt has no physical complaints. Pt denies fever, cough, sob, cp, bleeding from catheter or pain. -: This afternoon - Related Data Previous Rx's Medication Instructions Recorded Last Taken Type AtorvaSTATin [Lipitor] 40 mg PO QHS #30 tablet 02/19/19 Unknown Rx Bumetanide [Bumex 1 mg tab] 2 mg PO QDAY #60 tablet 02/19/19 Unknown Rx Carvedilol [Coreg] 25 mg PO BID #60 tablet 02/19/19 Unknown Rx Diclofenac 1% [Diclofenac 1% 1 applic TP TID 30 Days tube 02/19/19 Unknown Rx topical gel] Gabapentin [Neurontin] 100 mg PO BID #60 capsule 02/19/19 Unknown Rx ISOSORBIDE MONOnitrate [Imdur ER] 60 mg PO BID #60 tablet 02/19/19 Unknown Rx Insulin Glargine [Lantus VIAL] 8 units SUB-Q QHS 30 Days units 02/19/19 Unknown Rx Lispro Insulin [HumaLOG] 0 unit SUB-Q AC 30 Days units 02/19/19 Unknown Rx Losartan [Cozaar] 100 mg PO QDAY #30 tablet 02/19/19 Unknown Rx Sevelamer Carbonate [Renvela] 2,400 mg PO AC #270 tablet 02/19/19 Unknown Rx Spironolactone [Aldactone] 25 mg PO QDAY #30 tablet 02/19/19 Unknown Rx amLODIPine [Norvasc] 5 mg PO QDAY #30 tablet 02/19/19 Unknown Rx diphenhydrAMINE/ZINC 2% [Banophen 1 applic TP Q8H PRN 30 Days tube 02/19/19 Unknown Rx Anti-Itch] hydrALAZINE [Apresoline TAB] 100 mg PO Q8HR #90 tab 02/19/19 Unknown Rx Allergies Allergy/AdvReac Type Severity Reaction Status Date / Time No Known Allergies Allergy Verified 08/07/17 23:24 ED Review of Systems ROS: Stated complaint: TO CHECK DIALYSIS ACCESS Other details as noted in HPI Constitutional: no symptoms reported, see HPI Eyes: as per HPI ENT: as per HPI Respiratory: no symptoms reported, see HPI Cardiovascular: as per HPI. denies: chest pain, palpitations Endocrine: no symptoms reported Gastrointestinal: as per HPI. denies: abdominal pain, nausea, vomiting, diarrhea Genitourinary: as per HPI. denies: frequency, hematuria Musculoskeletal: as per HPI. denies: back pain, joint swelling Skin: as per HPI Neurological: as per HPI. denies: headache, weakness Psychiatric: denies: anxiety, depression ED Past Medical Hx - Past Medical History Previous Medical History?: Yes Hx Diabetes: Yes Hx Renal Disease: Yes - Surgical History Past Surgical History?: Yes Additional Surgical History: toe amputation right foot - Social History Smoking Status: Former Smoker Substance Use Type: None - Medications Home Medications: Home Medications Medication Instructions Recorded Confirmed Last Taken Type AtorvaSTATin [Lipitor] 40 mg PO QHS #30 tablet 02/19/19 Unknown Rx Bumetanide [Bumex 1 mg tab] 2 mg PO QDAY #60 tablet 02/19/19 Unknown Rx Carvedilol [Coreg] 25 mg PO BID #60 tablet 02/19/19 Unknown Rx Diclofenac 1% [Diclofenac 1% 1 applic TP TID 30 Days tube 02/19/19 Unknown Rx topical gel] Gabapentin [Neurontin] 100 mg PO BID #60 capsule 02/19/19 Unknown Rx ISOSORBIDE MONOnitrate [Imdur ER] 60 mg PO BID #60 tablet 02/19/19 Unknown Rx Insulin Glargine [Lantus VIAL] 8 units SUB-Q QHS 30 Days units 02/19/19 Unknown Rx Lispro Insulin [HumaLOG] 0 unit SUB-Q AC 30 Days units 02/19/19 Unknown Rx Losartan [Cozaar] 100 mg PO QDAY #30 tablet 02/19/19 Unknown Rx Sevelamer Carbonate [Renvela] 2,400 mg PO AC #270 tablet 02/19/19 Unknown Rx Spironolactone [Aldactone] 25 mg PO QDAY #30 tablet 02/19/19 Unknown Rx amLODIPine [Norvasc] 5 mg PO QDAY #30 tablet 02/19/19 Unknown Rx diphenhydrAMINE/ZINC 2% [Banophen 1 applic TP Q8H PRN 30 Days tube 02/19/19 Unknown Rx Anti-Itch] hydrALAZINE [Apresoline TAB] 100 mg PO Q8HR #90 tab 02/19/19 Unknown Rx ED Physical Exam - General Limitations: No Limitations General appearance: alert, in no apparent distress - Eye Eye exam: Present: PERRL, EOMI Pupils: Present: normal accommodation - ENT ENT exam: Present: normal exam, normal orophraynx, mucous membranes moist - Neck Neck exam: Present: normal inspection, full ROM. Absent: tenderness, meningismus - Respiratory Respiratory exam: Present: normal lung sounds bilaterally. Absent: respiratory distress, wheezes, rales, chest wall tenderness - Cardiovascular Cardiovascular Exam: Present: regular rate - GI/Abdominal GI/Abdominal exam: Present: soft. Absent: distended, tenderness, guarding - Rectal Rectal exam: Present: deferred - Extremities Exam Extremities exam: Present: normal inspection, full ROM - Back Exam Back exam: Present: normal inspection, full ROM. Absent: CVA tenderness (R), CVA tenderness (L) - Neurological Exam Neurological exam: Present: alert, altered, oriented X3 - Psychiatric Psychiatric exam: Present: normal affect, normal mood - Skin Skin exam: Present: warm - Other Other exam information: right side subclavian HD catheter in place. No tenderness or erythema at site. ED Course Vital Signs 03/11/19 03/11/19 14:25 19:31 Temperature 98.6 F 98.0 F Pulse Rate 99 H 99 H Respiratory 20 16 Rate Blood Pressure 156/83 151/81 O2 Sat by Pulse 100 97 Oximetry - Consultations Consultation #1: 03/11/19 17:59 Discussed case in detal with Iraj Deal (nephrology) who recommends admission to hospital for HD Consultation #2: 03/11/19 20:15 Case discussed with the internal medicine service. Patient stable for admission. Patient resting comfortably in no distress. ED Medical Decision Making - Lab Data Result diagrams: 03/11/19 14:50 03/11/19 14:50 Lab Results 03/11/19 03/11/19 Range/Units 14:50 14:50 WBC 7.5 (4.5-11.0) K/mm3 RBC 4.32 (3.65-5.03) M/mm3 Hgb 11.2 L (11.8-15.2) gm/dl Hct 35.9 (35.5-45.6) % MCV 83 L (84-94) fl MCH 26 L (28-32) pg MCHC 31 L (32-34) % RDW 16.9 H (13.2-15.2) % Plt Count 267 (140-440) K/mm3 Lymph % (Auto) 22.3 (13.4-35.0) % Crowley % (Auto) 5.6 (0.0-7.3) % Eos % (Auto) 0.9 (0.0-4.3) % Baso % (Auto) 0.6 (0.0-1.8) % Lymph # 1.7 (1.2-5.4) K/mm3 Crowley # 0.4 (0.0-0.8) K/mm3 Eos # 0.1 (0.0-0.4) K/mm3 Baso # 0.0 (0.0-0.1) K/mm3 Add Manual Diff Complete Seg Neutrophils % 70.6 H (40.0-70.0) % Seg Neutrophils # 5.3 (1.8-7.7) K/mm3 Sodium 133 L (137-145) mmol/L Potassium 5.7 H (3.6-5.0) mmol/L Chloride 98.1 (98-107) mmol/L Carbon Dioxide 23 (22-30) mmol/L Anion Gap 18 mmol/L BUN 93 H (9-20) mg/dL Creatinine 6.4 H (0.8-1.5) mg/dL Estimated GFR 12 ml/min BUN/Creatinine Ratio 15 % Glucose 585 H* (75-100) mg/dL Calcium 8.9 (8.4-10.2) mg/dL - Medical Decision Making 33-year-old male presents with dialysis catheter malfunction prior to dialysis today. 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 Vital signs stable patient stable for admission to i nternal medicine service. Critical Care Time: No Critical care attestation.: If time is entered above; I have spent that time in minutes in the direct care of this critically ill patient, excluding procedure time. ED Disposition Clinical Impression: ESRD (end stage renal disease) on dialysis Disposition: OP ADMIT IP TO THIS HOSP Is pt being admited?: Yes Does the pt Need Aspirin: No Condition: Fair
[2019-03-11] MEDS ORDERED: HumuLIN R IV ONE (18:01)
[2019-03-11] MEDS ORDERED: TYLENOL PO PRN (22:16)
[2019-03-11] MEDS ORDERED: ZOFRAN IV PRN (22:16)
[2019-03-11] MEDS ORDERED: SODIUM CHLORIDE FLUSH SYRINGE 10 ML IV PRN (22:16)
[2019-03-11] MEDS ORDERED: PERCOCET 5/325 PO PRN (22:16)
[2019-03-11] MEDS ORDERED: DILAUDID IV PRN (22:16)
[2019-03-12] MEDS: IMDUR PO SCH ×2 (00:10→16:27)
[2019-03-12] MEDS: COREG PO SCH ×2 (00:11→16:26)
[2019-03-12] MEDS: HEPARIN SUB-Q SCH ×2 (00:11→14:32)
[2019-03-12] MEDS: NEURONTIN PO SCH ×2 (00:11→16:27)
[2019-03-12] MEDS ORDERED: D50W (25GM) Syringe IV PRN (03:34)
[2019-03-12 05:06] LABS: Hematocrit 33.5 % (35.5-45.6); Hemoglobin 10.9 gm/dl (11.8-15.2); Mean Corpuscular HGB Conc 32 % (32-34); Mean Corpuscular Volume 81 fl (84-94); Platelet Count 262 K/mm3 (140-440); Red Blood Count 4.14 M/mm3 (3.65-5.03); Red Cell Distribution Width 17.4 % (13.2-15.2)
[2019-03-12 05:23] LABS: Albumin 2.1 g/dL (3.9-5); Calcium 9.2 mg/dL (8.4-10.2)
[2019-03-12] MEDS: APRESOLINE PO SCH ×2 (06:10→16:21)
[2019-03-12 06:49] LABS: Anisocytosis 1+; Basophils % (Manual) 0 % (0.0-1.8); Schistocytes Few; Target Cells Few; Total Cells Counted 100
[2019-03-12 06:50] LABS: Ovalocytes Few; Platelet Estimate Consistent w Auto
--- NOTE | 2019-03-12 07:04 | Event Note ---
Date: 03/11/19 See H/p in reports Clotted HD catheter ESRD needing HD
--- NOTE | 2019-03-12 07:26 | History and Physical Report ---
CHIEF COMPLAINT: Clotted dialysis access. HISTORY OF PRESENT ILLNESS: A 33-year-old male with history of end-stage renal disease, on dialysis Sunday, and Sunday, was sent here for a HD catheter dysfunction secondary to clotting. Sent for declotting and hemodialysis. The patient did not receive hemodialysis today. No shortness of breath. No cough. PAST MEDICAL HISTORY: Significant for hypertension, hyperlipidemia, peripheral neuropathy, insulin-dependent diabetes. PAST SURGICAL HISTORY: Toe amputation of the right foot and Perm-A-Cath. SOCIAL HISTORY: Does not smoke, former smoker. FAMILY HISTORY: Hypertension. CURRENT MEDICATIONS: On the chart. REVIEW OF SYSTEMS: Significant for no acute symptoms. A 14-point review of systems done. Has a clotted hemodialysis catheter. PHYSICAL EXAMINATION: GENERAL: Young male, cooperative during examination. VITAL SIGNS: Temperature is 98.2, pulse is 102, respirations 20, sats are 96%. HEENT: Unremarkable. Pupils equal and reactive. NECK: Supple, no lymphadenopathy, no thyromegaly. LUNGS: Clear to auscultation and percussion. Good air entry. CARDIOVASCULAR: S1, S2 heard. No gallop, no murmur, no rub. Apical impulse in left fifth intercostal space in midclavicular line. ABDOMEN: Soft and benign. No hepatosplenomegaly. No guarding, no rigidity. Hernial orifices are normal. EXTREMITIES: Good pedal pulses. No pedal edema. CENTRAL NERVOUS SYSTEM: Alert and oriented x 4, nonfocal exam. LABORATORY DATA: White count is 7500, hemoglobin is 11.2, hematocrit is 35.9, platelet count is 267,000. Sodium is 133, potassium is 5.7, glucose is 585. A1c is 7.5. ASSESSMENT AND PLAN: 1. Clotted hemodialysis catheter, declotted in the Emergency Room. 2. End-stage renal disease, needing hemodialysis. The patient to get hemodialysis and be discharged the same night or the next day. 3. Uncontrolled diabetes, high dose sliding scale coverage and continue home insulin. 4. Hypertension. Continue antihypertensives. 5. Coronary artery disease. Continue isosorbide mononitrate. 6. Deep venous thrombosis prophylaxis, heparin 5000 q. 12. JOB# [id number] VSM/NTS RADHIKAD
[2019-03-12] MEDS: HumaLOG SUB-Q SCH ×3 (08:45→16:58)
[2019-03-12] MEDS ORDERED: PEPCID PO SCH (10:00)
[2019-03-12] MEDS ORDERED: NORVASC PO SCH (10:00)
[2019-03-12] MEDS ORDERED: SODIUM CHLORIDE FLUSH SYRINGE 10 ML IV SCH (10:00)
[2019-03-12] MEDS ORDERED: COZAAR PO SCH (10:00)
[2019-03-12] MEDS ORDERED: BUMEX PO SCH (10:00)
[2019-03-12] MEDS ORDERED: ALDACTONE PO SCH (10:00)
[2019-03-12] MEDS ORDERED: CATHFLO IV STA (10:08)
[2019-03-12] MEDS ORDERED: NACL 0.9 (PRIMING MACHINE ONLY DIALYSIS) MC ONE (10:14)
[2019-03-12] MEDS ORDERED: WATER FOR INJ Sterile (PF) 10 ML ONE (10:15)
[2019-03-12] MEDS ORDERED: HEPARIN 10,000 UNITS/10 ML IV PRN (10:24)
[2019-03-12] MEDS: RENVELA PO SCH ×3 (10:58→16:20)
--- NOTE | 2019-03-12 12:38 | Consultation ---
History of Present Illness - Reason for Consult end stage renal disease - History of Present Illness 33-year-old gentleman with medical history of diabetes mellitus type 2 status post amputation, hypertension, end-stage renal disease on dialysis admitted due to clotted dialysis catheter. he denies any orthopnea PND denies any fevers chills. Last dialysis was Sunday ,labs significantly for elevated potassium He denies any lower extremity swelling Past History Past Surgical History: denies: No surgical history, appendectomy Medications and Allergies Allergies Allergy/AdvReac Type Severity Reaction Status Date / Time No Known Allergies Allergy Verified 08/07/17 23:24 Home Medications Medication Instructions Recorded Confirmed Last Taken Type AtorvaSTATin [Lipitor] 40 mg PO QHS #30 tablet 02/19/19 Unknown Rx Bumetanide [Bumex 1 mg tab] 2 mg PO QDAY #60 tablet 02/19/19 Unknown Rx Carvedilol [Coreg] 25 mg PO BID #60 tablet 02/19/19 Unknown Rx Diclofenac 1% [Diclofenac 1% 1 applic TP TID 30 Days tube 02/19/19 Unknown Rx topical gel] Gabapentin [Neurontin] 100 mg PO BID #60 capsule 02/19/19 Unknown Rx ISOSORBIDE MONOnitrate [Imdur ER] 60 mg PO BID #60 tablet 02/19/19 Unknown Rx Insulin Glargine [Lantus VIAL] 8 units SUB-Q QHS 30 Days units 02/19/19 Unknown Rx Lispro Insulin [HumaLOG] 0 unit SUB-Q AC 30 Days units 02/19/19 Unknown Rx Losartan [Cozaar] 100 mg PO QDAY #30 tablet 02/19/19 Unknown Rx Sevelamer Carbonate [Renvela] 2,400 mg PO AC #270 tablet 02/19/19 Unknown Rx Spironolactone [Aldactone] 25 mg PO QDAY #30 tablet 02/19/19 Unknown Rx amLODIPine [Norvasc] 5 mg PO QDAY #30 tablet 02/19/19 Unknown Rx diphenhydrAMINE/ZINC 2% [Banophen 1 applic TP Q8H PRN 30 Days tube 02/19/19 Unknown Rx Anti-Itch] hydrALAZINE [Apresoline TAB] 100 mg PO Q8HR #90 tab 02/19/19 Unknown Rx Active Meds: Active Medications Acetaminophen (Tylenol) 650 mg PO Q4H PRN PRN Reason: Pain MILD(1-3)/Fever >100.5/BRUNO Amlodipine Besylate (Norvasc) 5 mg PO QDAY [facility] Atorvastatin Calcium (Lipitor) 40 mg PO QHS [facility] Bumetanide (Bumex) 2 mg PO QDAY [facility] Carvedilol (Coreg) 25 mg PO BID [facility] Last Admin: 03/12/19 00:11 Dose: 25 mg Documented by: Dextrose (D50w (25gm) Syringe) 50 ml IV PRN PRN PRN Reason: Hypoglycemia Famotidine (Pepcid) 10 mg PO BID [facility] Gabapentin (Neurontin) 100 mg PO BID [facility] Last Admin: 03/12/19 00:11 Dose: 100 mg Documented by: Heparin Sodium (Porcine) (Heparin) 5,000 unit SUB-Q Q12HR [facility] Last Admin: 03/12/19 00:11 Dose: 5,000 unit Documented by: Heparin Sodium (Porcine) (Heparin 10,000 Units/10 Ml) 2,000 unit IV GRIS PRN PRN Reason: hemodialysis Hydralazine HCl (Apresoline) 100 mg PO Q8HR [facility] Last Admin: 03/12/19 06:10 Dose: 100 mg Documented by: Hydromorphone HCl (Dilaudid) 0.5 mg IV Q3H PRN PRN Reason: Pain , Severe (7-10) Insulin Glargine (Lantus) 8 units SUB-Q QHS [facility] Insulin Human Lispro (Humalog) 0 unit SUB-Q [facility]; Protocol Last Admin: 03/12/19 08:45 Dose: 3 unit Documented by: Isosorbide Mononitrate (Imdur) 60 mg PO BID [facility] Last Admin: 03/12/19 00:10 Dose: 60 mg Documented by: Losartan Potassium (Cozaar) 100 mg PO QDAY [facility] Ondansetron HCl (Zofran) 4 mg IV Q8H PRN PRN Reason: Nausea And Vomiting Oxycodone/Acetaminophen (Percocet 5/325) 1 tab PO Q6H PRN PRN Reason: Pain, Moderate (4-6) Sevelamer Carbonate (Renvela) 2,400 mg PO AC [facility] Last Admin: 03/12/19 10:58 Dose: Not Given Documented by: Sodium Chloride (Sodium Chloride Flush Syringe 10 Ml) 10 ml IV BID [facility] Sodium Chloride (Sodium Chloride Flush Syringe 10 Ml) 10 ml IV PRN PRN PRN Reason: LINE FLUSH Spironolactone (Aldactone) 25 mg PO QDAY [facility] Review of Systems Constitutional: no weight loss, no weight gain, no fever, no chills, no sweats, no night sweats Ears, nose, mouth and throat: no deferred, no ear pain Cardiovascular: no chest pain, no orthopnea Respiratory: no cough Gastrointestinal: no abdominal pain, no nausea Genitourinary Male: no dysuria, no hematuria Rectal: no pain, no incontinence Integumentary: rash, no deferred Psychiatric: no anxiety, no memory loss Endocrine: no cold intolerance, no heat intolerance Allergic/Immunologic: no urticaria, no allergic rhinitis Exam - Vital Signs Vital signs: Vital Signs Temp Pulse Resp BP Pulse Ox 98.6 F 99 H 20 156/83 100 03/11/19 14:25 03/11/19 14:25 03/11/19 14:25 03/11/19 14:25 03/11/19 14:25 - General Appearance General appearance: well-developed, well-nourished EENT: ATNC Neck: Present: neck supple Respiratory: Clear to Ascultation Heart: regular, S1S2 Gastrointestinal: Present: normal, normoactive bowel sounds Integumentary: no rash Neurologic: alert and oriented x3, CN 3-12 intact Psychiatric: mood/affect appropriate Results - Lab Results 03/12/19 04:19 03/12/19 04:19 Most recent lab results Calcium 9.2 mg/dL (8.4-10.2) 03/12/19 04:19 - Image Kidney/bladder ultrasound: other (I REVIEWED cxr WITH PATCHY INTERSTITIAL TORIN NGS. ) Assessment and Plan - Patient Problems (1) ESRD (end stage renal disease) on dialysis Current Visit: Yes Status: Chronic Plan to address problem: End-stage renal disease We'll initiate dialysis Access : right IJ PermCath Continue ultrafiltration (2) Hyperkalemia, diminished renal excretion Current Visit: Yes Status: Acute Plan to address problem: Hyperkalemia We'll initiate dialysis (3) Anemia Current Visit: No Status: Acute Plan to address problem: Mild anemia hemoglobin 10.9 g/dl Secondary to chronic kidney disease Monitor CBC (4) DKA, type 1 Current Visit: No Status: Acute Plan to address problem: DKA Status post amputation in the setting of peripheral vascular disease Continue medications
--- NOTE | 2019-03-12 14:07 | Consultation ---
History of Present Illness - Reason for Consult Consult date: 03/12/19 mal-functioning catheter - History of Present Illness Patient with a history of end-stage renal disease on hemodialysis for a right chest wall tunneled hemodialysis catheter. Catheter was placed for months ago. He has not received dialysis for one day prior to presentation. Attempted dialysis today without significant clearance secondary to repeated pressure alarms. Past History Past Medical History: dialysis, ESRD Past Surgical History: denies: No surgical history, appendectomy Medications and Allergies Allergies Allergy/AdvReac Type Severity Reaction Status Date / Time No Known Allergies Allergy Verified 08/07/17 23:24 Home Medications Medication Instructions Recorded Confirmed Last Taken Type AtorvaSTATin [Lipitor] 40 mg PO QHS #30 tablet 02/19/19 Unknown Rx Bumetanide [Bumex 1 mg tab] 2 mg PO QDAY #60 tablet 02/19/19 Unknown Rx Carvedilol [Coreg] 25 mg PO BID #60 tablet 02/19/19 Unknown Rx Diclofenac 1% [Diclofenac 1% 1 applic TP TID 30 Days tube 02/19/19 Unknown Rx topical gel] Gabapentin [Neurontin] 100 mg PO BID #60 capsule 02/19/19 Unknown Rx ISOSORBIDE MONOnitrate [Imdur ER] 60 mg PO BID #60 tablet 02/19/19 Unknown Rx Insulin Glargine [Lantus VIAL] 8 units SUB-Q QHS 30 Days units 02/19/19 Unknown Rx Lispro Insulin [HumaLOG] 0 unit SUB-Q AC 30 Days units 02/19/19 Unknown Rx Losartan [Cozaar] 100 mg PO QDAY #30 tablet 02/19/19 Unknown Rx Sevelamer Carbonate [Renvela] 2,400 mg PO AC #270 tablet 02/19/19 Unknown Rx Spironolactone [Aldactone] 25 mg PO QDAY #30 tablet 02/19/19 Unknown Rx amLODIPine [Norvasc] 5 mg PO QDAY #30 tablet 02/19/19 Unknown Rx diphenhydrAMINE/ZINC 2% [Banophen 1 applic TP Q8H PRN 30 Days tube 02/19/19 Unknown Rx Anti-Itch] hydrALAZINE [Apresoline TAB] 100 mg PO Q8HR #90 tab 02/19/19 Unknown Rx Active Meds: Active Medications Acetaminophen (Tylenol) 650 mg PO Q4H PRN PRN Reason: Pain MILD(1-3)/Fever >100.5/BRUNO Amlodipine Besylate (Norvasc) 5 mg PO QDAY [facility] Atorvastatin Calcium (Lipitor) 40 mg PO QHS [facility] Bumetanide (Bumex) 2 mg PO QDAY [facility] Carvedilol (Coreg) 25 mg PO BID [facility] Last Admin: 03/12/19 00:11 Dose: 25 mg Documented by: Dextrose (D50w (25gm) Syringe) 50 ml IV PRN PRN PRN Reason: Hypoglycemia Famotidine (Pepcid) 10 mg PO BID [facility] Gabapentin (Neurontin) 100 mg PO BID [facility] Last Admin: 03/12/19 00:11 Dose: 100 mg Documented by: Heparin Sodium (Porcine) (Heparin) 5,000 unit SUB-Q Q12HR [facility] Last Admin: 03/12/19 00:11 Dose: 5,000 unit Documented by: Heparin Sodium (Porcine) (Heparin 10,000 Units/10 Ml) 2,000 unit IV GRIS PRN PRN Reason: hemodialysis Hydralazine HCl (Apresoline) 100 mg PO Q8HR [facility] Last Admin: 03/12/19 06:10 Dose: 100 mg Documented by: Hydromorphone HCl (Dilaudid) 0.5 mg IV Q3H PRN PRN Reason: Pain , Severe (7-10) Insulin Glargine (Lantus) 8 units SUB-Q QHS [facility] Insulin Human Lispro (Humalog) 0 unit SUB-Q [facility]; Protocol Last Admin: 03/12/19 08:45 Dose: 3 unit Documented by: Isosorbide Mononitrate (Imdur) 60 mg PO BID [facility] Last Admin: 03/12/19 00:10 Dose: 60 mg Documented by: Losartan Potassium (Cozaar) 100 mg PO QDAY [facility] Ondansetron HCl (Zofran) 4 mg IV Q8H PRN PRN Reason: Nausea And Vomiting Oxycodone/Acetaminophen (Percocet 5/325) 1 tab PO Q6H PRN PRN Reason: Pain, Moderate (4-6) Sevelamer Carbonate (Renvela) 2,400 mg PO AC [facility] Last Admin: 03/12/19 10:58 Dose: Not Given Documented by: Sodium Chloride (Sodium Chloride Flush Syringe 10 Ml) 10 ml IV BID [facility] Sodium Chloride (Sodium Chloride Flush Syringe 10 Ml) 10 ml IV PRN PRN PRN Reason: LINE FLUSH Spironolactone (Aldactone) 25 mg PO QDAY [facility] Review of Systems All systems: negative Exam - Constitutional Vitals: Temp Pulse Resp BP Pulse Ox 98.4 F 92 H 20 158/88 97 03/12/19 06:04 03/12/19 06:04 03/12/19 06:04 03/12/19 06:04 03/12/19 06:04 General appearance: Present: no acute distress - EENT Eyes: Present: EOM intact ENT: hearing intact - Neck Neck: Present: supple, normal ROM - Respiratory Respiratory effort: normal - Abdominal General gastrointestinal: Present: deferred Male genitourinary: Present: deferred - Rectal Rectal Exam: deferred - Psychiatric Psychiatric: appropriate mood/affect, cooperative Results - Labs CBC & Chem 7: 03/12/19 04:19 03/12/19 04:19 Labs: Abnormal lab results 03/11/19 03/11/19 03/11/19 Range/Units 14:50 14:50 14:50 Hgb 11.2 L (11.8-15.2) gm/dl Hct (35.5-45.6) % MCV 83 L (84-94) fl MCH 26 L (28-32) pg MCHC 31 L (32-34) % RDW 16.9 H (13.2-15.2) % Seg Neutrophils % 70.6 H (40.0-70.0) % Seg Neuts % (Manual) (40.0-70.0) % Sodium 133 L (137-145) mmol/L Potassium 5.7 H (3.6-5.0) mmol/L BUN 93 H (9-20) mg/dL Creatinine 6.4 H (0.8-1.5) mg/dL Glucose 585 H* (75-100) mg/dL POC Glucose (70-105) Hemoglobin A1c 7.5 H (4-6) % Alkaline Phosphatase (35-129) units/L Total Protein (6.3-8.2) g/dL Albumin (3.9-5) g/dL 03/11/19 03/12/19 03/12/19 Range/Units 21:58 04:19 04:19 Hgb 10.9 L (11.8-15.2) gm/dl Hct 33.5 L (35.5-45.6) % MCV 81 L (84-94) fl MCH 26 L (28-32) pg MCHC (32-34) % RDW 17.4 H (13.2-15.2) % Seg Neutrophils % (40.0-70.0) % Seg Neuts % (Manual) 72.0 H (40.0-70.0) % Sodium 135 L (137-145) mmol/L Potassium 5.3 H (3.6-5.0) mmol/L BUN 93 H (9-20) mg/dL Creatinine 6.5 H (0.8-1.5) mg/dL Glucose 243 H (75-100) mg/dL POC Glucose 212 H (70-105) Hemoglobin A1c (4-6) % Alkaline Phosphatase 155 H (35-129) units/L Total Protein 5.9 L (6.3-8.2) g/dL Albumin 2.1 L (3.9-5) g/dL 03/12/19 Range/Units 08:40 Hgb (11.8-15.2) gm/dl Hct (35.5-45.6) % MCV (84-94) fl MCH (28-32) pg MCHC (32-34) % RDW (13.2-15.2) % Seg Neutrophils % (40.0-70.0) % Seg Neuts % (Manual) (40.0-70.0) % Sodium (137-145) mmol/L Potassium (3.6-5.0) mmol/L BUN (9-20) mg/dL Creatinine (0.8-1.5) mg/dL Glucose (75-100) mg/dL POC Glucose 229 H (70-105) Hemoglobin A1c (4-6) % Alkaline Phosphatase (35-129) units/L Total Protein (6.3-8.2) g/dL Albumin (3.9-5) g/dL Assessment and Plan We'll plan on tunneled hemodialysis catheter exchange today.
[2019-03-12] MEDS ORDERED: NACL 0.9% 250ML 250 ML ONE (14:23)
[2019-03-12] MEDS: VERSED ONE ×2 (14:26→14:42)
[2019-03-12] MEDS: XYLOCAINE 2% INFILTRATI ONE ×3 (14:26→14:49)
[2019-03-12] MEDS: SUBLIMAZE ONE ×2 (14:26→14:42)
[2019-03-12] MEDS: HEPARIN/NS 5000 UNIT/500ML(CATH LAB) 500 ML IR ONE ×2 (14:34→14:49)
[2019-03-12] MEDS: HEPARIN 10,000 UNITS/10 ML ONE ×3 (14:34→14:53)
--- NOTE | 2019-03-12 15:02 | Operative Report ---
Operative Report Operative Report: Exam: Central venogram, fluoroscopic guided tunneled hemodialysis catheter exchange Clinical indication: Malfunctioning dialysis catheter Date: 03/12/2019 Procedure: Following an explanation of the risks, benefits and alternatives; written informed consent was obtained. The patient was angiographic suite and placed in supine position on the examination table. Initial fluoroscopic images were obtained which demonstrated patient's indwelling tunneled hemodialysis catheter with the tip in the SVC. The patient's right chest wall indwelling catheter were prepped and draped in usual sterile fashion. 1% lidocaine was used for anesthesia of the catheter exit site tunnel track. The catheter was freed using a combination of sharp and blunt dissection. The catheter was withdrawn proximally and contrast injected under fluoroscopy. This demonstrates no evidence of a fibrin sheath. The SVC is widely patent. A 0.035 guidewire was advanced through the venous lumen into the IVC in the indwelling catheter removed intact. A new [employer] tunneled hemodialysis catheter was advanced over the guidewire centrally to position the tip in the proximal right atrium. The trocar and guidewire were removed. Both ports flushed and aspirated easily and were locked with appropriate volumes with heparin. The catheter was securely fastened to the skin surface using 2-0 Ethilon suture and a sterile dressing applied. The patient tolerated the procedure well. There were no immediate postprocedure complications. Conscious sedation was performed under the guidance of radiologic nursing. Continuous cardiopulmonary monitoring was utilized. Impression: 1) Central venogram demonstrating widely patent SVC with no fibrin sheath. 2) Fluoroscopic guided exchange of tunneled hemodialysis catheter
[2019-03-12 17:48] VITALS: BP 164/100
--- NOTE | 2019-03-12 17:48 | Discharge Summary ---
Providers - Providers Date of Admission: 03/11/19 18:30 Date of discharge: 03/12/19 Attending physician: ROSMERY QUINTEROS 03/11/19 22:16 Consult to Physician [CONS] Routine Comment: Consulting Provider: SEAN YAN Physician Instructions: Reason For Exam: ESRD 03/12/19 04:58 Consult to Wound/ET Nurse [CONS] Routine Reason For Exam: wound eval Primary care physician: ASSOCIATE J[employer] JUDGE Hospitalization Condition: Fair Hospital course: 33-year-old gentleman with medical history of diabetes mellitus type 2 status post amputation, hypertension, end-stage renal disease on dialysis admitted due to clotted dialysis catheter. Last dialysis was Sunday ,labs significantly for elevated potassium, elevated blood glucose with hyperglycemia. Discharge diagnosis: Clotted hemodialysis catheter, status post exchanged permcath placement End-stage renal disease, with the volume overload needing hemodialysis Uncontrolled diabetes mellitus with hyperglycemia Coronary artery disease Hypertension Disposition: DC/TX- HOME UNDER HOME HL Time spent for discharge: 34 minutes Exam - Physical Exam Narrative exam: General appearance: well-developed, well-nourished EENT: ATNC Neck: Present: neck supple Respiratory: Clear to Ascultation Heart: regular, S1S2 Gastrointestinal: Present: normal, normoactive bowel sounds Integumentary: no rash Neurologic: alert and oriented x3, CN 3-12 intact Psychiatric: mood/affect appropriate - Constitutional Vitals: Temp Pulse Resp BP Pulse Ox 98.8 F 101 H 16 179/110 98 03/12/19 15:40 03/12/19 16:21 03/12/19 15:40 03/12/19 16:21 03/12/19 15:40 Plan Activity: fall precautions Weight Bearing Status: Non-Weight Bearing Diet: diabetic, renal Special Instructions: record blood sugar diary Follow up with: PRIMARY CAREMD [Primary Care Provider] - 3-5 Days HERO CHILDERS MD [Staff Physician] - 7 Days Prescriptions: Insulin Glargine [Lantus VIAL] 8 units SUB-Q QHS 30 Days #10 ml
[2019-03-12] MEDS ORDERED: LANTUS SUB-Q SCH (22:00)
[2019-03-13] MEDS ORDERED: ALDACTONE PO SCH (10:00)
== END 2019-03-12 19:13 | disposition home health service (06) ==
LOC: ED 14:16 → 3A 18:30
PROVIDERS: ADMIT Internal Medicine; ATTEND Internal Medicine
DX: T82.49XA Other complication of vascular dialysis catheter, initial encounter (principal); I12.0 Hypertensive chronic kidney disease with stage 5 chronic kidney disease or end stage renal disease; N18.6 End stage renal disease; E13.22 Other specified diabetes mellitus with diabetic chronic kidney disease; E87.5 Hyperkalemia; I25.10 Atherosclerotic heart disease of native coronary artery without angina pectoris; E78.5 Hyperlipidemia, unspecified; G62.9 Polyneuropathy, unspecified; D64.9 Anemia, unspecified; Z87.891 Personal history of nicotine dependence; Z79.4 Long term (current) use of insulin; Z90.49 Acquired absence of other specified parts of digestive tract; Z99.2 Dependence on renal dialysis
CPT/HCPCS: 36415; 36581; 36582; 77001; 80048; 80053; 82962; 83036; 84132; 85007; 85025; 96372; 96374; 96375; 96376; 99284; C1750; C1769; G0378; J1644; J2250; J2997; J3010; J7030; J7050; J1815; Q9967

== ENCOUNTER 2020-03-23 12:59 | Observation (INO) | payer OTHER, SELFPAY ==
[2020-03-23] MEDS ORDERED: amLODIPine 5 MG TAB PO ONE (13:41)
[2020-03-23 14:22] LABS: Basophils % (Auto) 0.8 % (0.0-1.8); Eosinophils # (Auto) 0.1 K/mm3 (0.0-0.4); Eosinophils % (Auto) 2.4 % (0.0-4.3); Hematocrit 37.6 % (35.5-45.6); Hemoglobin 12.2 gm/dl (11.8-15.2); Lymphocytes # (Auto) 1.5 K/mm3 (1.2-5.4); Mean Corpuscular HGB Conc 32 % (32-34); Mean Corpuscular Volume 90 fl (84-94); Monocytes # (Auto) 0.4 K/mm3 (0.0-0.8); Monocytes % (Auto) 6.2 % (0.0-7.3); Platelet Count 342 K/mm3 (140-440); Red Blood Count 4.17 M/mm3 (3.65-5.03); Red Cell Distribution Width 13.7 % (13.2-15.2)
--- NOTE | 2020-03-23 14:38 | Emergency Department Report ---
HPI - General Chief Complaint: High BP Time Seen by Provider: 03/23/20 13:25 - HPI HPI: This is a 34-year-old -[place] male presents to the emergency department via EMS from his dialysis center secondary to hypertension. Because of his elevated blood pressure they would not perform dialysis today. Usually gets it on Sunday, , Sunday and did have it on Sunday, 3 days ago. His synthetic cloth binding cutter is Dr. Garcia. The patient denies any fever, chest pain, shortness of breath, edema, nausea, vomiting or any physical complaints at this time. He is on multiple blood pressure medications for his hypertension but does not take them usually on the days where he is getting dialyzed. ED Past Medical Hx - Past Medical History Hx Diabetes: Yes Hx Renal Disease: Yes - Surgical History Additional Surgical History: toe amputation right foot - Social History Smoking Status: Never Smoker Substance Use Type: None - Medications Home Medications: Home Medications Medication Instructions Recorded Confirmed Last Taken Type AtorvaSTATin [Lipitor] 40 mg PO QHS #30 tablet 02/19/19 Unknown Rx Bumetanide [Bumex 1 mg tab] 2 mg PO QDAY #60 tablet 02/19/19 Unknown Rx Diclofenac 1% [Diclofenac 1% 1 applic TP TID 30 Days tube 02/19/19 Unknown Rx topical gel] Gabapentin 100 mg PO BID #60 capsule 02/19/19 Unknown Rx ISOSORBIDE MONOnitrate [Imdur ER] 60 mg PO BID #60 tablet 02/19/19 Unknown Rx Lispro Insulin [HumaLOG] 0 unit SUB-Q AC 30 Days units 02/19/19 Unknown Rx Sevelamer Carbonate [Renvela] 2,400 mg PO AC #270 tablet 02/19/19 Unknown Rx amLODIPine 5 mg PO QDAY #30 tablet 02/19/19 Unknown Rx carvediloL [Coreg] 25 mg PO BID #60 tablet 02/19/19 Unknown Rx diphenhydrAMINE/ZINC 2% [Banophen 1 applic TP Q8H PRN 30 Days tube 02/19/19 Unknown Rx Anti-Itch] hydrALAZINE [Apresoline TAB] 100 mg PO Q8HR #90 tab 02/19/19 Unknown Rx Insulin Glargine [Lantus VIAL] 8 units SUB-Q QHS 30 Days #10 ml 03/12/19 Unknown Rx ED Review of Systems ROS: Stated complaint: HTN Other details as noted in HPI Comment: All other systems reviewed and negative Constitutional: denies: chills, fever Eyes: denies: eye pain, vision change ENT: denies: ear pain, throat pain Respiratory: denies: cough, shortness of breath Cardiovascular: denies: chest pain, palpitations Gastrointestinal: denies: abdominal pain, vomiting Genitourinary: denies: dysuria, discharge Musculoskeletal: denies: back pain, arthralgia Skin: denies: rash, lesions Neurological: denies: headache, weakness Physical Exam - Physical Exam Vital Signs: Vital Signs 03/23/20 03/23/20 13:35 13:54 Temperature 98.0 F Pulse Rate 81 83 Respiratory 11 L Rate Blood Pressure 185/86 Blood Pressure 185/86 [Left] O2 Sat by Pulse 98 Oximetry Physical Exam: GENERAL: The patient is well-developed well-nourished. HENT: Normocephalic. Atraumatic. Patient has moist mucous membranes. EYES: Extraocular motions are intact. NECK: Supple. Trachea is midline. CHEST/LUNGS: Clear to auscultation. There is no respiratory distress noted. HEART/CARDIOVASCULAR: Regular. There is no tachycardia. There is no murmur. ABDOMEN: Abdomen is soft, nontender. Patient has normal bowel sounds. SKIN: Skin is warm and dry. NEURO: The patient is awake, alert, and oriented. The patient is cooperative. Normal speech. MUSCULOSKELETAL: There is no tenderness or deformity. ED Course Vital Signs 03/23/20 03/23/20 13:35 13:54 Temperature 98.0 F Pulse Rate 81 83 Respiratory 11 L Rate Blood Pressure 185/86 Blood Pressure 185/86 [Left] O2 Sat by Pulse 98 Oximetry - Consultations Consultation #1: 03/23/20 15:12 I spoke with the synthetic cloth binding cutter on-call for [facility], Doctor Gagandeep, who is going to dialyze the patient this evening. ED Medical Decision Making - Lab Data Result diagrams: 03/23/20 13:30 03/23/20 13:30 - Medical Decision Making This patient presents to the emergency department needing dialysis after they would not perform dialysis secondary to his uncontrolled blood pressure. He has no physical complaints at this time. Patient was given a dose of amlodipine and his blood pressure came down slightly. He will be given a dose of labetalol for the hypertension and a dose of IV insulin for his hyperglycemia. Nephrology contacted and consulted and will dialyze the patient this evening. Patient was accepted for admission by the hospitalist Dr. Karimi. Critical Care Time: No Critical care attestation.: If time is entered above; I have spent that time in minutes in the direct care o f this critically ill patient, excluding procedure time. ED Disposition Clinical Impression: ESRD needing dialysis, Hyperglycemia due to type 1 diabetes mellitus Hypertension Qualifiers: Hypertension type: essential hypertension Qualified Code(s): I10 - Essential (primary) hypertension Disposition: OP ADMIT IP TO THIS HOSP Is pt being admited?: Yes Condition: Fair Time of Disposition: 15:19
[2020-03-23 14:51] LABS: Calcium 9.2 mg/dL (8.4-10.2)
[2020-03-23] MEDS ORDERED: INSULIN REGULAR, HUMAN 100 UNIT/ML 3ML VIAL IV SCH ×2 (15:00→16:00)
[2020-03-23] MEDS ORDERED: SODIUM CHLORIDE 0.9% 100 ML IV PRN (15:22)
[2020-03-23 17:36] LABS: Hepatitis B Surface Antigen Non-Reactive (Negative); Hepatitis C Virus Antibody Non-Reactive (NonReactive)
--- NOTE | 2020-03-23 21:26 | History and Physical Report ---
History of Present Illness Date of examination: 03/23/20 Date of admission: 03/23/20 15:19 Chief complaint: Sent from dialysis center for uncontrolled high blood pressure History of present illness: 34-year-old -[place] male sent from dialysis center because of high blood pressure. The dialysis center did not perform the blood for hemodialysis. Patient goes for dialysis on Tuesdays and Saturdays. His nightclub manager is Dr. Garcia patient denies any chest pain shortness of breath nausea vomiting. Patient is on blood pressure medications which he does not take on the days he gets dialyzed. Otherwise compliant. - Past Medical History Hx Diabetes: Yes Hx Renal Disease: Yes - Surgical History Additional Surgical History: toe amputation right foot - Social History Smoking Status: Never Smoker Substance Use Type: None - Medications Home Medications: Home Medications Medication Instructions Recorded Confirmed Last Taken Type AtorvaSTATin [Lipitor] 40 mg PO QHS #30 tablet 02/19/19 Unknown Rx Bumetanide [Bumex 1 mg tab] 2 mg PO QDAY #60 tablet 02/19/19 Unknown Rx Diclofenac 1% [Diclofenac 1% 1 applic TP TID 30 Days tube 02/19/19 Unknown Rx topical gel] Gabapentin 100 mg PO BID #60 capsule 02/19/19 Unknown Rx ISOSORBIDE MONOnitrate [Imdur ER] 60 mg PO BID #60 tablet 02/19/19 Unknown Rx Lispro Insulin [HumaLOG] 0 unit SUB-Q AC 30 Days units 02/19/19 Unknown Rx Sevelamer Carbonate [Renvela] 2,400 mg PO AC #270 tablet 02/19/19 Unknown Rx amLODIPine 5 mg PO QDAY #30 tablet 02/19/19 Unknown Rx carvediloL [Coreg] 25 mg PO BID #60 tablet 02/19/19 Unknown Rx diphenhydrAMINE/ZINC 2% [Banophen 1 applic TP Q8H PRN 30 Days tube 02/19/19 Unknown Rx Anti-Itch] hydrALAZINE [Apresoline TAB] 100 mg PO Q8HR #90 tab 02/19/19 Unknown Rx Insulin Glargine [Lantus VIAL] 8 units SUB-Q QHS 30 Days #10 ml 03/12/19 Unknown Rx Review of Systems ROS: Stated complaint: HTN Other details as noted in HPI Comment: All other systems reviewed and negative Constitutional: denies: chills, fever Eyes: denies: eye pain, vision change ENT: denies: ear pain, throat pain Respiratory: denies: cough, shortness of breath Cardiovascular: denies: chest pain, palpitations Gastrointestinal: denies: abdominal pain, vomiting Genitourinary: denies: dysuria, discharge Musculoskeletal: denies: back pain, arthralgia Skin: denies: rash, lesions Neurological: denies: headache, weakness Medications and Allergies Allergies Allergy/AdvReac Type Severity Reaction Status Date / Time No Known Allergies Allergy Verified 08/07/17 23:24 Home Medications Medication Instructions Recorded Confirmed Last Taken Type AtorvaSTATin [Lipitor] 40 mg PO QHS #30 tablet 02/19/19 03/24/20 Unknown Rx Bumetanide [Bumex 1 mg tab] 2 mg PO QDAY #60 tablet 02/19/19 03/24/20 Unknown Rx Diclofenac 1% [Diclofenac 1% 1 applic TP TID 30 Days tube 02/19/19 03/24/20 Unknown Rx topical gel] Gabapentin 100 mg PO BID #60 capsule 02/19/19 03/24/20 Unknown Rx ISOSORBIDE MONOnitrate [Imdur ER] 60 mg PO BID #60 tablet 02/19/19 03/24/20 Unknown Rx Lispro Insulin [HumaLOG] 0 unit SUB-Q AC 30 Days units 02/19/19 03/24/20 Unknown Rx Sevelamer Carbonate [Renvela] 2,400 mg PO AC #270 tablet 02/19/19 03/24/20 U nknown Rx amLODIPine 5 mg PO QDAY #30 tablet 02/19/19 03/24/20 Unknown Rx carvediloL [Coreg] 25 mg PO BID #60 tablet 02/19/19 03/24/20 Unknown Rx diphenhydrAMINE/ZINC 2% [Banophen 1 applic TP Q8H PRN 30 Days tube 02/19/19 03/24/20 Unknown Rx Anti-Itch] hydrALAZINE [Apresoline TAB] 100 mg PO Q8HR #90 tab 02/19/19 03/24/20 Unknown Rx Insulin Glargine [Lantus VIAL] 8 units SUB-Q QHS 30 Days #10 ml 03/12/19 03/24/20 Unknown Rx Active Meds: Active Medications Sodium Chloride (Nacl 0.9%) 100 mls @ 999 mls/hr IV GRIS PRN PRN Reason: Hypotension Insulin Human Regular (Humulin R) 5 unit IV ONCE MINNIE Last Admin: 03/23/20 15:44 Dose: 5 unit Documented by: Exam - Constitutional Vitals: Temp Pulse Resp BP Pulse Ox 99.6 F 97 H 18 177/100 98 03/23/20 19:46 03/23/20 19:46 03/23/20 19:46 03/23/20 19:46 03/23/20 19:46 General appearance: Present: no acute distress, well-nourished - EENT Eyes: Present: PERRL ENT: hearing intact, clear oral mucosa - Neck Neck: Present: supple, normal ROM - Respiratory Respiratory effort: normal Respiratory: bilateral: CTA - Cardiovascular Heart rate: 78 Rhythm: regular Heart Sounds: Present: S1 & S2. Absent: rub, click - Extremities Extremities: pulses symmetrical, No edema Peripheral Pulses: within normal limits - Abdominal General gastrointestinal: Present: soft, non-tender, non-distended, normal bowel sounds Male genitourinary: Present: normal - Integumentary Integumentary: Present: clear, warm, dry - Musculoskeletal Musculoskeletal: gait normal, strength equal bilaterally - Psychiatric Psychiatric: appropriate mood/affect, intact judgment & insight - Neurologic Neurologic: CNII-XII intact, moves all extremities Results - Labs CBC & Chem 7: 03/23/20 13:30 03/23/20 13:30 Labs: Laboratory Last Values WBC 6.1 K/mm3 (4.5-11.0) 03/23/20 13:30 RBC 4.17 M/mm3 (3.65-5.03) 03/23/20 13:30 Hgb 12.2 gm/dl (11.8-15.2) 03/23/20 13:30 Hct 37.6 % (35.5-45.6) 03/23/20 13:30 MCV 90 fl (84-94) 03/23/20 13:30 MCH 29 pg (28-32) 03/23/20 13:30 MCHC 32 % (32-34) 03/23/20 13:30 RDW 13.7 % (13.2-15.2) 03/23/20 13:30 Plt Count 342 K/mm3 (140-440) 03/23/20 13:30 Lymph % (Auto) 25.0 % (13.4-35.0) 03/23/20 13:30 Grainger % (Auto) 6.2 % (0.0-7.3) 03/23/20 13:30 Eos % (Auto) 2.4 % (0.0-4.3) 03/23/20 13:30 Baso % (Auto) 0.8 % (0.0-1.8) 03/23/20 13:30 Lymph # 1.5 K/mm3 (1.2-5.4) 03/23/20 13:30 Grainger # 0.4 K/mm3 (0.0-0.8) 03/23/20 13:30 Eos # 0.1 K/mm3 (0.0-0.4) 03/23/20 13:30 Baso # 0.0 K/mm3 (0.0-0.1) 03/23/20 13:30 Seg Neutrophils % 65.6 % (40.0-70.0) 03/23/20 13:30 Seg Neutrophils # 4.0 K/mm3 (1.8-7.7) 03/23/20 13:30 Sodium 138 mmol/L (137-145) 03/23/20 13:30 Potassium 3.7 mmol/L (3.6-5.0) 03/23/20 13:30 Chloride 94.7 mmol/L (98-107) L 03/23/20 13:30 Carbon Dioxide 24 mmol/L (22-30) 03/23/20 13:30 Anion Gap 23 mmol/L 03/23/20 13:30 BUN 69 mg/dL (9-20) H 03/23/20 13:30 Creatinine 9.5 mg/dL (0.8-1.3) H 03/23/20 13:30 Estimated GFR 8 ml/min 03/23/20 13:30 BUN/Creatinine Ratio 7 % 03/23/20 13:30 Glucose 376 mg/dL (75-100) H 03/23/20 13:30 POC Glucose 328 (70-105) H 03/23/20 15:40 Calcium 9.2 mg/dL (8.4-10.2) 03/23/20 13:30 Hepatitis A IgM Ab Non-reactive (NonReactive) 03/23/20 16:30 Hep Bs Antigen Non-reactive (Negative) 03/23/20 16:30 Hep B Core IgM Ab Non-reactive (NonReactive) 03/23/20 16:30 Hepatitis C Antibody Non-reactive (NonReactive) 03/23/20 16:30 - Imaging and Cardiology EKG: report reviewed (Sinus rhythm LVH) Assessment and Plan Advance Directives: Yes (Full code) VTE prophylaxis?: Chemical (Full code) Plan of care discussed with patient/family: Yes - Patient Problems (1) Hypertensive emergency Current Visit: Yes Status: Acute Plan to address problem: Patient counseled about compliance and valsartan added to his blood pressure medication regime (2) ESRD needing dialysis Current Visit: Yes Status: Chronic Plan to address problem: Patient to get dialysis today (3) Insulin dependent diabetes mellitus Current Visit: Yes Status: Chronic Plan to address problem: Continue insulin coverage and check hemoglobin A1c (4) Hyperlipidemia Current Visit: Yes Status: Chronic Qualifiers: Hyperlipidemia type: mixed hyperlipidemia Qualified Code(s): E78.2 - Mixed hyperlipidemia Plan to address problem: Continue statins (5) Coronary artery disease Current Visit: Yes Status: Chronic Qualifiers: Coronary Disease-Associated Artery/Lesion type: [place] artery [place] vs. transplanted heart: [place] heart Plan to address problem: Continue isosorbide mononitrate. (6) DVT prophylaxis Current Visit: Yes Status: Acute Plan to address problem: On heparin and GI prophylaxis (7) Discharge planning issues Current Visit: Yes Status: Acute Plan to address problem: Patient may be discharged tomorrow blood pressure is controlled Patient to be counseled about compliance again patient in observation status
[2020-03-23] MEDS ORDERED: diphenhydrAMINE/ZINC ACET 2% CREAM 28.4 GM TP PRN (21:30)
[2020-03-23] MEDS ORDERED: oxyCODONE /ACETAMINOPHEN 5-325MG TAB PO PRN (21:35)
[2020-03-23] MEDS ORDERED: ACETAMINOPHEN 325 MG TAB PO PRN (21:35)
[2020-03-23] MEDS ORDERED: HYDROmorphone 1 MG/1 ML INJ IV PRN (21:35)
[2020-03-23] MEDS ORDERED: ONDANSETRON 4 MG/2 ML INJ IV PRN (21:35)
[2020-03-23] MEDS ORDERED: INSULIN GLARGINE 100 UNITS/ML SUB-Q SCH (22:00)
[2020-03-23] MEDS: FAMOTIDINE 10 MG TAB PO SCH (23:07)
[2020-03-23] MEDS: carvediloL 25 MG TAB PO SCH (23:08)
[2020-03-23] MEDS: GABAPENTIN 100 MG CAP PO SCH (23:08)
[2020-03-23] MEDS: amLODIPine 10 MG TAB PO SCH (23:09)
[2020-03-23] MEDS: VALSARTAN 160MG TAB PO SCH (23:09)
[2020-03-23] MEDS: hydrALAZINE 100 MG TAB PO SCH (23:09)
[2020-03-24] MEDS: hydrALAZINE 100 MG TAB PO SCH (05:59)
[2020-03-24] MEDS ORDERED: INSULIN LISPRO 5 UNIT SUB-Q SCH (07:30)
[2020-03-24] MEDS ORDERED: DICLOFENAC SODIUM 1% TOPICAL GEL 100 GM TP SCH (08:00)
[2020-03-24] MEDS ORDERED: BUMETANIDE 1 MG TAB PO SCH (08:00)
[2020-03-24] MEDS: INSULIN LISPRO 100 UNIT/ML VIAL 3 mL SUB-Q SCH ×2 (08:19→11:46)
[2020-03-24] MEDS: FAMOTIDINE 10 MG TAB PO SCH (08:22)
[2020-03-24] MEDS: SEVELAMER CARBONATE 800 MG TAB PO SCH ×2 (08:22→11:46)
[2020-03-24] MEDS: carvediloL 25 MG TAB PO SCH (08:23)
[2020-03-24] MEDS: amLODIPine 10 MG TAB PO SCH (08:23)
[2020-03-24] MEDS: GABAPENTIN 100 MG CAP PO SCH (08:23)
[2020-03-24] MEDS: VALSARTAN 160MG TAB PO SCH (08:23)
[2020-03-24 10:42] LABS: Hematocrit 36.3 % (35.5-45.6); Mean Corpuscular HGB Conc 33 % (32-34); Mean Corpuscular Volume 89 fl (84-94); Platelet Count 324 K/mm3 (140-440); Red Blood Count 4.09 M/mm3 (3.65-5.03); Red Cell Distribution Width 13.6 % (13.2-15.2)
[2020-03-24 11:04] LABS: Albumin 3.1 g/dL (3.9-5); Calcium 9.1 mg/dL (8.4-10.2)
[2020-03-24 11:10] VITALS: BP 130/69
[2020-03-24 11:48] LABS: Basophils % (Manual) 0 % (0.0-1.8); Platelet Estimate Consistent w Auto; RBC Morphology Normal; Total Cells Counted 100
--- NOTE | 2020-03-24 12:06 | Consultation ---
History of Present Illness - Reason for Consult Consult date: 03/24/20 end stage renal disease - History of Present Illness This is a 34 year-old man with ESRD who presents for hypertension Patient usually dialyzes // at [facility]. Last HD outpatient was on 03/20. Came to HD as usual on 03/23 but had high BPs and was sent to ED, was dialyzed last night without issues. Denies any recent issues with HD, including dizziness, lightheadedness, cramping, chest pain on HD. Currently, patient denies any issues including dyspnea, edema, access issues, nausea, vomiting, headaches. Past History Past Medical History: ESRD, hypertension Past Surgical History: No surgical history Social history: no significant social history Family history: no significant family history Medications and Allergies Allergies Allergy/AdvReac Type Severity Reaction Status Date / Time No Known Allergies Allergy Verified 08/07/17 23:24 Home Medications Medication Instructions Recorded Confirmed Last Taken Type AtorvaSTATin [Lipitor] 40 mg PO QHS #30 tablet 02/19/19 03/24/20 Unknown Rx Bumetanide [Bumex 1 mg tab] 2 mg PO QDAY #60 tablet 02/19/19 03/24/20 Unknown Rx Diclofenac 1% [Diclofenac 1% 1 applic TP TID 30 Days tube 02/19/19 03/24/20 Unknown Rx topical gel] Gabapentin 100 mg PO BID #60 capsule 02/19/19 03/24/20 Unknown Rx ISOSORBIDE MONOnitrate [Imdur ER] 60 mg PO BID #60 tablet 02/19/19 03/24/20 Unknown Rx Lispro Insulin [HumaLOG] 0 unit SUB-Q AC 30 Days units 02/19/19 03/24/20 Unknown Rx Sevelamer Carbonate [Renvela] 2,400 mg PO AC #270 tablet 02/19/19 03/24/20 Unknown Rx amLODIPine 5 mg PO QDAY #30 tablet 02/19/19 03/24/20 Unknown Rx carvediloL [Coreg] 25 mg PO BID #60 tablet 02/19/19 03/24/20 Unknown Rx diphenhydrAMINE/ZINC 2% [Banophen 1 applic TP Q8H PRN 30 Days tube 02/19/19 03/24/20 Unknown Rx Anti-Itch] hydrALAZINE [Apresoline TAB] 100 mg PO Q8HR #90 tab 02/19/19 03/24/20 Unknown Rx Insulin Glargine [Lantus VIAL] 8 units SUB-Q QHS 30 Days #10 ml 03/12/19 03/24/20 Unknown Rx Active Meds: Active Medications Acetaminophen (Tylenol) 650 mg PO Q4H PRN PRN Reason: Pain MILD(1-3)/Fever >100.5/BRUNO Amlodipine Besylate (Amlodipine) 10 mg PO QAM [facility] Last Admin: 03/24/20 08:23 Dose: 10 mg Documented by: Atorvastatin Calcium (Lipitor) 40 mg PO QHS [facility] Last Admin: 03/23/20 23:08 Dose: 40 mg Documented by: Bumetanide (Bumex) 2 mg PO QDAY@0800 [facility] Last Admin: 03/24/20 08:24 Dose: 2 mg Documented by: Carvedilol (Coreg) 25 mg PO BID@0800,1700 [facility] Last Admin: 03/24/20 08:23 Dose: 25 mg Documented by: Diclofenac Sodium (Diclofenac 1%) 1 applic TP TID [facility] Famotidine (Pepcid) 10 mg PO BID [facility] Last Admin: 03/24/20 08:22 Dose: 10 mg Documented by: Gabapentin (Gabapentin) 100 mg PO BID [facility] Last Admin: 03/24/20 08:23 Dose: 100 mg Documented by: Hydralazine HCl (Apresoline) 100 mg PO Q8HR [facility] Last Admin: 03/24/20 05:59 Dose: 100 mg Documented by: Hydromorphone HCl (Dilaudid) 0.5 mg IV Q3H PRN PRN Reason: Pain , Severe (7-10) Sodium Chloride (Nacl 0.9%) 100 mls @ 999 mls/hr IV GRIS PRN PRN Reason: Hypotension Insulin Glargine (Lantus) 8 units SUB-Q QHS [facility] Last Admin: 03/23/20 23:11 Dose: 8 units Documented by: Insulin Human Lispro (Humalog) 5 unit SUB-Q TIDAC [facility] Last Admin: 03/24/20 11:46 Dose: 5 unit Documented by: Insulin Human Regular (Humulin R) 5 unit IV ONCE [facility] Last Admin: 03/23/20 15:44 Dose: 5 unit Documented by: Isosorbide Mononitrate (Imdur) 60 mg PO BID [facility] Last Admin: 03/24/20 08:23 Dose: 60 mg Documented by: Labetalol HCl (Labetalol) 10 mg IV Q3H PRN PRN Reason: Blood Pressure Ondansetron HCl (Zofran) 4 mg IV Q8H PRN PRN Reason: Nausea And Vomiting Oxycodone/Acetaminophen (Percocet 5/325) 1 tab PO Q6H PRN PRN Reason: Pain, Moderate (4-6) Sevelamer Carbonate (Renvela) 2,400 mg PO AC [facility] Last Admin: 03/24/20 11:46 Dose: 2,400 mg Documented by: Sodium Chloride (Sodium Chloride Flush Syringe 10 Ml) 10 ml IV PRN PRN PRN Reason: LINE FLUSH Last Admin: 03/23/20 23:10 Dose: 10 ml Documented by: Valsartan (Diovan) 160 mg PO BID [facility] Last Admin: 03/24/20 08:23 Dose: 160 mg Documented by: Zinc Acetate/Diphenhydramine (Banophen Anti-Itch) 1 applic TP Q8H PRN PRN Reason: Itching Review of Systems All systems: negative (as per HPI) Exam - Vital Signs Vital signs: Vital Signs Resp Pulse Ox 13 99 03/23/20 13:34 03/23/20 13:34 - Physical Exam Narrative exam: Constitutional: no acute distress Head: NC/AT Neck: supple Lungs: clear to auscultation CV: RRR, no M/R/G Abdomen: soft, non-tender, bowel sounds present Back: nontender Extremities: no edema, pulses WNL Skin: intact Neuro: no focal deficits, alert and oriented x4 Results - Lab Results 03/24/20 10:30 03/24/20 10:30 Most recent lab results Calcium 9.1 mg/dL (8.4-10.2) 03/24/20 10:30 Assessment and Plan This is a 34 year old man who presents with hypertension # ESRD: s/p HD 03/23, no issues noted. Resume HD //, due tomorrow, no indication for HD today. Can be discharged from renal perspective - daily labs - renally dose meds - avoid nephrotoxins - renal diet # Anemia: last hemoglobin 12.0, no indication for ESAs # HTN: UF as tolerated. BP improved now. Continue current regimen. Advised to bring his home BP meds to HD center with him to take if his BP is running high. # Secondary Hyperparathyroidism: continue home binders as needed
--- NOTE | 2020-03-24 13:16 | Discharge Summary ---
Providers - Providers Date of Admission: 03/23/20 15:19 Date of discharge: 03/24/20 Attending physician: LIAN GOODMAN 03/23/20 15:10 Consult to Physician [CONS] Routine Comment: Consulting Provider: KANIKA CAIN Physician Instructions: Reason For Exam: Dialysis 03/24/20 08:39 Consult to Wound/ET Nurse [CONS] Routine Reason For Exam: wound eval Primary care physician: [employer] Hospitalization Condition: Fair Disposition: DC-01 TO HOME OR SELFCARE Time spent for discharge: 32 min Core Measure Documentation - Palliative Care Palliative Care/ Comfort Measures: Not Applicable - Core Measures Any of the following diagnoses?: none Exam - Constitutional Vitals: Temp Pulse Resp BP Pulse Ox 97.3 F L 98 H 16 130/69 100 03/24/20 11:06 03/24/20 11:06 03/24/20 11:06 03/24/20 11:06 03/24/20 11:06 General appearance: Present: no acute distress, well-nourished - EENT Eyes: Present: PERRL, EOM intact - Neck Neck: Present: supple, normal ROM - Respiratory Respiratory effort: normal Respiratory: bilateral: diminished, negative: rales, rhonchi, wheezing - Cardiovascular Rhythm: regular Heart Sounds: Present: S1 & S2 - Extremities Extremities: no ischemia, No edema - Abdominal General gastrointestinal: Present: soft, non-tender, non-distended, normal bowel sounds - Integumentary Integumentary: Present: clear, warm - Musculoskeletal Musculoskeletal: strength equal bilaterally - Psychiatric Psychiatric: appropriate mood/affect, cooperative - Neurologic Neurologic: moves all extremities Plan Activity: no restrictions Diet: renal Additional Instructions: Strongly advised to comply with medications, diet, hemodialysis, follow-up visits. If you have worsening symptoms contact MD or go to emergency room as needed Follow up with: VÍCTOR SANTA MD [Primary Care Provider] - 7 Days KANIKA CAIN MD [Staff Physician] - 7 Days
== END 2020-03-24 14:15 | disposition home or self-care (01) ==
LOC: ED 12:59 → 3A 15:19
PROVIDERS: ADMIT Internal Medicine; ATTEND Internal Medicine
DX: I16.0 Hypertensive urgency (principal); I12.0 Hypertensive chronic kidney disease with stage 5 chronic kidney disease or end stage renal disease; N18.6 End stage renal disease; E10.65 Type 1 diabetes mellitus with hyperglycemia; I25.10 Atherosclerotic heart disease of native coronary artery without angina pectoris; E10.22 Type 1 diabetes mellitus with diabetic chronic kidney disease; E78.5 Hyperlipidemia, unspecified; D63.1 Anemia in chronic kidney disease; E21.3 Hyperparathyroidism, unspecified; Z99.2 Dependence on renal dialysis; Z79.4 Long term (current) use of insulin; Z98.890 Other specified postprocedural states; Z79.899 Other long term (current) drug therapy
CPT/HCPCS: 36415; 80048; 80053; 80074; 82962; 83036; 85007; 85025; 87641; 96372; 96374; 96375; 99284; A9270; G0378; J1815

== ENCOUNTER 2020-05-21 10:16 | Observation (INO) | payer OTHER ==
--- NOTE | 2020-05-21 11:01 | Emergency Department Report ---
ED General Adult HPI - General Chief complaint: Recheck/Abnormal Lab/Rx Stated complaint: CLOGG PORT Time Seen by Provider: 05/21/20 10:34 Source: patient Mode of arrival: Wheelchair Limitations: Physical Limitation - History of Present Illness Initial comments: 35-year-old male with a past medical history of diabetes, hypertension, end- stage renal disease on dialysis Sunday, , and Sunday, and right AKA presents to the hospital complains of nonfunctioning right chest wall Vas-Cath. Patient attempted dialysis yesterday however, it would not work when hooked up to the machine therefore he did not receive his dialysis as scheduled. Patient denies any symptoms of chest pain, shortness of breath, or leg edema. He does have some urine output. Banquet Prep Cook: Dr. Garcia Severity scale (0 -10): 0 - Related Data Previous Rx's Medication Instructions Recorded Last Taken Type AtorvaSTATin [Lipitor] 40 mg PO QHS #30 tablet 02/19/19 Unknown Rx Bumetanide [Bumex 1 mg tab] 2 mg PO QDAY #60 tablet 02/19/19 Unknown Rx Diclofenac 1% [Diclofenac 1% 1 applic TP TID 30 Days tube 02/19/19 Unknown Rx topical gel] Gabapentin 100 mg PO BID #60 capsule 02/19/19 Unknown Rx ISOSORBIDE MONOnitrate [Imdur ER] 60 mg PO BID #60 tablet 02/19/19 Unknown Rx Lispro Insulin [HumaLOG] 0 unit SUB-Q AC 30 Days units 02/19/19 Unknown Rx Sevelamer Carbonate [Renvela] 2,400 mg PO AC #270 tablet 02/19/19 Unknown Rx amLODIPine 5 mg PO QDAY #30 tablet 02/19/19 Unknown Rx carvediloL [Coreg] 25 mg PO BID #60 tablet 02/19/19 Unknown Rx diphenhydrAMINE/ZINC 2% [Banophen 1 applic TP Q8H PRN 30 Days tube 02/19/19 Unknown Rx Anti-Itch] hydrALAZINE [Apresoline TAB] 100 mg PO Q8HR #90 tab 02/19/19 Unknown Rx Insulin Glargine [Lantus VIAL] 8 units SUB-Q QHS 30 Days #10 ml 03/12/19 Unknown Rx Allergies Allergy/AdvReac Type Severity Reaction Status Date / Time No Known Allergies Allergy Verified 01/23/18 23:24 ED Review of Systems ROS: Stated complaint: CLOGG PORT Other details as noted in HPI Comment: All other systems reviewed and negative ED Past Medical Hx - Past Medical History Previous Medical History?: Yes Hx Hypertension: Yes Hx Diabetes: Yes Hx Renal Disease: Yes - Surgical History Additional Surgical History: Right AKA - Social History Smoking Status: Never Smoker Substance Use Type: None - Medications Home Medications: Home Medications Medication Instructions Recorded Confirmed Last Taken Type AtorvaSTATin [Lipitor] 40 mg PO QHS #30 tablet 02/19/19 03/24/20 Unknown Rx Bumetanide [Bumex 1 mg tab] 2 mg PO QDAY #60 tablet 02/19/19 03/24/20 Unknown Rx Diclofenac 1% [Diclofenac 1% 1 applic TP TID 30 Days tube 02/19/19 03/24/20 Unknown Rx topical gel] Gabapentin 100 mg PO BID #60 capsule 02/19/19 03/24/20 Unknown Rx ISOSORBIDE MONOnitrate [Imdur ER] 60 mg PO BID #60 tablet 02/19/19 03/24/20 Unknown Rx Lispro Insulin [HumaLOG] 0 unit SUB-Q AC 30 Days units 02/19/19 03/24/20 Unknown Rx Sevelamer Carbonate [Renvela] 2,400 mg PO AC #270 tablet 02/19/19 03/24/20 Unknown Rx amLODIPine 5 mg PO QDAY #30 tablet 02/19/19 03/24/20 Unknown Rx carvediloL [Coreg] 25 mg PO BID #60 tablet 02/19/19 03/24/20 Unknown Rx diphenhydrAMINE/ZINC 2% [Banophen 1 applic TP Q8H PRN 30 Days tube 02/19/19 03/24/20 Unknown Rx Anti-Itch] hydrALAZINE [Apresoline TAB] 100 mg PO Q8HR #90 tab 02/19/19 03/24/20 Unknown Rx Insulin Glargine [Lantus VIAL] 8 units SUB-Q QHS 30 Days #10 ml 03/12/19 03/24/20 Unknown Rx ED Physical Exam - General Limitations: Physical Limitation - Other Other exam information: General: No acute distress Head: Atraumatic Eyes: normal appearance ENT: Moist mucous membranes Neck: Normal appearance, no midline tenderness Chest: Clear to auscultation bilaterally, right chest wall Vas-Cath CV: Regular rate and rhythm Abdomen: Soft, normal bowel sounds, nontender, nondistended, no rebound or guarding Back: Normal inspection Extremity: Normal inspection, full range of motion Neuro: Alert O x 3, no facial asymmetry, speech clear, no gross motor sensory deficit Psych: Appropriate behavior Skin: No rash ED Course Vital Signs 05/21/20 05/21/20 10:17 10:39 Temperature 97.9 F 98.6 F Pulse Rate 106 H 95 H Respiratory 16 14 Rate Blood Pressure 155/97 Blood Pressure 176/95 [Right] O2 Sat by Pulse 98 100 Oximetry - Consultations Consultation #1: 05/21/20 12:[address] Chambers who will arrange for Vas-Cath exchange. Request patient be n.p.o. ED Medical Decision Making - Lab Data Result diagrams: 05/21/20 10:59 05/21/20 10:59 Lab Results 05/21/20 05/21/20 05/21/20 Range/Units 10:59 10:59 10:59 WBC 6.6 (4.5-11.0) K/mm3 RBC 3.88 (3.65-5.03) M/mm3 Hgb 10.9 L (11.8-15.2) gm/dl Hct 33.2 L (35.5-45.6) % MCV 86 (84-94) fl MCH 28 (28-32) pg MCHC 33 (32-34) % RDW 13.2 (13.2-15.2) % Plt Count 259 (140-440) K/mm3 Lymph % (Auto) 26.6 (13.4-35.0) % [place] % (Auto) 8.0 H (0.0-7.3) % Eos % (Auto) 3.1 (0.0-4.3) % Baso % (Auto) 0.8 (0.0-1.8) % Lymph # (Auto) 1.8 (1.2-5.4) K/mm3 [place] # (Auto) 0.5 (0.0-0.8) K/mm3 Eos # (Auto) 0.2 (0.0-0.4) K/mm3 Baso # (Auto) 0.1 (0.0-0.1) K/mm3 Seg Neutrophils % 61.5 (40.0-70.0) % Seg Neutrophils # 4.1 (1.8-7.7) K/mm3 PT 12.4 (12.2-14.9) Sec. INR 0.91 (0.87-1.13) APTT 27.1 (24.2-36.6) Sec. Sodium 136 L (137-145) mmol/L Potassium 4.4 (3.6-5.0) mmol/L Chloride 95.6 L (98-107) mmol/L Carbon Dioxide 24 (22-30) mmol/L Anion Gap 21 mmol/L BUN 91 H (9-20) mg/dL Creatinine 10.2 H (0.8-1.3) mg/dL Estimated GFR 7 ml/min BUN/Creatinine Ratio 9 % Glucose 253 H (75-100) mg/dL Calcium 9.2 (8.4-10.2) mg/dL - EKG Data -: EKG Interpreted by Wy EKG shows normal: sinus rhythm, ST-T waves (No STEMI or peak T waves) Rate: normal (90) - Medical Decision Making 35-year-old male with past medical history of end-stage renal disease on dialysis Sunday, , and Sunday presents here with clotted dialysis access. No signs of hyperkalemia at this time. Case discussed with vascular surgery who recommends admission for catheter exchange. Case also discussed with Dr. Donis manufacturing cost estimator who will manage dialysis. Hospitalist to admit. Critical Care Time: No Critical care attestation.: If time is entered above; I have spent that time in minutes in the direct care of this critically ill patient, excluding procedure time. ED Disposition Clinical Impression: ESRD needing dialysis, Complications, dialysis, catheter, mechanical Disposition: OP ADMIT IP TO THIS HOSP Is pt being admited?: Yes Condition: Stable Time of Disposition: 12:14
[2020-05-21 11:39] LABS: Basophils # (Auto) 0.1 K/mm3 (0.0-0.1); Basophils % (Auto) 0.8 % (0.0-1.8); Eosinophils # (Auto) 0.2 K/mm3 (0.0-0.4); Eosinophils % (Auto) 3.1 % (0.0-4.3); Hematocrit 33.2 % (35.5-45.6); Hemoglobin 10.9 gm/dl (11.8-15.2); Lymphocytes # (Auto) 1.8 K/mm3 (1.2-5.4); Lymphocytes % (Auto) 26.6 % (13.4-35.0); Mean Corpuscular HGB Conc 33 % (32-34); Mean Corpuscular Volume 86 fl (84-94); Monocytes # (Auto) 0.5 K/mm3 (0.0-0.8); Platelet Count 259 K/mm3 (140-440); Red Blood Count 3.88 M/mm3 (3.65-5.03); Red Cell Distribution Width 13.2 % (13.2-15.2)
[2020-05-21 11:47] LABS: INR 0.91 (0.87-1.13)
[2020-05-21 11:48] LABS: Partial Thromboplastin Time 27.1 Sec. (24.2-36.6)
[2020-05-21 11:59] LABS: Calcium 9.2 mg/dL (8.4-10.2)
--- NOTE | 2020-05-21 12:08 | Event Note ---
Date: 05/21/20 35 year old male with ESRD and nonfunctional permcath. NPO except meds. Plan for permcath exchange.
--- NOTE | 2020-05-21 12:52 | History and Physical Report ---
History of Present Illness Chief complaint: I need dialysis History of present illness: 35 YO Male with ESRD on HD(T,R,Sa) last dialyzed on Sunday, DM, HTN, HLD presents to ED for evaluation. Patient states that he presented to his dialysis center on yesterday for his routine scheduled dialysis but was unable to undergo dialysis due to a malfunctioning dialysis catheter. Patient transported to [facility] via private vehicle for further care and evaluation. Patient seen and evaluated in the emergency department. Lab and imaging studies reviewed. Patient found to have malfunctioning dialysis catheter. Vascular surgery consulted in ED. Nephrology team consulted in ED for urgent dialysis after dialysis catheter p lacement. Patient admitted to medical floor and placed in observation status. Patient denies fever, chills, chest pain, palpitation, productive cough, skin rash, recent ill contacts, muscle weakness, or known exposure to COVID-19. All medication listed at time of admission has been reconciled. Prior admission on 03/23/2020 reviewed. Past History Past Medical History: diabetes, ESRD, hypertension Past Surgical History: Other (Right AKA) Social history: single. denies: smoking, alcohol abuse, prescription drug abuse Family history: diabetes, hypertension Medications and Allergies Allergies Allergy/AdvReac Type Severity Reaction Status Date / Time No Known Allergies Allergy Verified 08/07/17 23:24 Home Medications Medication Instructions Recorded Confirmed Last Taken Type AtorvaSTATin [Lipitor] 40 mg PO QHS #30 tablet 02/19/19 03/24/20 Unknown Rx Bumetanide [Bumex 1 mg tab] 2 mg PO QDAY #60 tablet 02/19/19 03/24/20 Unknown Rx Diclofenac 1% [Diclofenac 1% 1 applic TP TID 30 Days tube 02/19/19 03/24/20 Unknown Rx topical gel] Gabapentin 100 mg PO BID #60 capsule 02/19/19 03/24/20 Unknown Rx ISOSORBIDE MONOnitrate [Imdur ER] 60 mg PO BID #60 tablet 02/19/19 03/24/20 Unknown Rx Lispro Insulin [HumaLOG] 0 unit SUB-Q AC 30 Days units 02/19/19 03/24/20 Unknown Rx Sevelamer Carbonate [Renvela] 2,400 mg PO AC #270 tablet 02/19/19 03/24/20 Unknown Rx amLODIPine 5 mg PO QDAY #30 tablet 02/19/19 03/24/20 Unknown Rx carvediloL [Coreg] 25 mg PO BID #60 tablet 02/19/19 03/24/20 Unknown Rx diphenhydrAMINE/ZINC 2% [Banophen 1 applic TP Q8H PRN 30 Days tube 02/19/19 03/24/20 Unknown Rx Anti-Itch] hydrALAZINE [Apresoline TAB] 100 mg PO Q8HR #90 tab 02/19/19 03/24/20 Unknown Rx Insulin Glargine [Lantus VIAL] 8 units SUB-Q QHS 30 Days #10 ml 03/12/19 03/24/20 Unknown Rx Review of Systems Constitutional: no weight loss, no weight gain, no fever, no chills, no sweats Ears, nose, mouth and throat: no ear pain, no ear discharge, no tinnitis, no nose pain, no nasal congestion, no nasal discharge Cardiovascular: no chest pain, no orthopnea, no palpitations, no rapid/irregular heart beat, no edema Respiratory: no cough, no cough with sputum, no shortness of breath Gastrointestinal: no nausea, no vomiting Genitourinary Male: no hematuria, no flank pain, no discharge, no urinary f requency, no urinary hesitancy Rectal: no pain, no incontinence, no bleeding Musculoskeletal: no neck stiffness, no neck pain, no arm numbness/tingling, no low back pain Integumentary: no rash, no pruritis, no sores, no wounds, no jaundice Neurological: no transient paralysis, no paralysis, no parathesias, no numbness, no seizures Psychiatric: no anxiety, no change in sleep habits, no sleep disturbances, no hypersomnia, no change in libido, no hallucinations Endocrine: no cold intolerance, no heat intolerance, no polyphagia, no polydipsia, no polyuria Hematologic/Lymphatic: no easy bruising, no easy bleeding, no lymphadenopathy Allergic/Immunologic: no urticaria, no allergic rhinitis, no persistent infections, no anaphylaxis, no angioedema Exam - Constitutional Vitals: Temp Pulse Resp BP Pulse Ox 98.6 F 95 H 14 176/95 100 05/21/20 10:39 05/21/20 10:39 05/21/20 10:39 05/21/20 10:39 05/21/20 10:39 General appearance: Present: mild distress - EENT Eyes: Present: PERRL ENT: hearing intact, clear oral mucosa - Neck Neck: Present: supple, normal ROM - Respiratory Respiratory effort: normal Respiratory: bilateral: CTA - Cardiovascular Heart Sounds: Present: S1 & S2. Absent: rub, click - Extremities Extremities: pulses symmetrical, No edema Peripheral Pulses: within normal limits - Abdominal General gastrointestinal: Present: soft, non-tender, non-distended, normal bowel sounds Male genitourinary: Present: normal - Integumentary Integumentary: Present: clear, warm, dry - Musculoskeletal Musculoskeletal: gait normal, strength equal bilaterally - Psychiatric Psychiatric: appropriate mood/affect, intact judgment & insight - Neurologic Neurologic: CNII-XII intact, moves all extremities Results - Labs CBC & Chem 7: 05/21/20 10:59 05/21/20 10:59 Labs: Abnormal lab results 05/21/20 05/21/20 Range/Units 10:59 10:59 Hgb 10.9 L (11.8-15.2) gm/dl Hct 33.2 L (35.5-45.6) % [place] % (Auto) 8.0 H (0.0-7.3) % Sodium 136 L (137-145) mmol/L Chloride 95.6 L (98-107) mmol/L BUN 91 H (9-20) mg/dL Creatinine 10.2 H (0.8-1.3) mg/dL Glucose 253 H (75-100) mg/dL Assessment and Plan - Patient Problems (1) ESRD needing dialysis Current Visit: Yes Status: Chronic Plan to address problem: Nephrology team consulted in ED, strict I's/O, monitor urine output every shift, afterload reduction, dialysis as per renal team, avoid nephrotoxic agents. (2) Complications, dialysis, catheter, mechanical Current Visit: Yes Status: Acute Qualifiers: Encounter type: initial encounter Qualified Code(s): T82.49XA - Other complication of vascular dialysis catheter, initial encounter Plan to address problem: Vascular surgery service consulted, patient is pending surgical intervention (3) Diabetes mellitus Current Visit: Yes Status: Acute Plan to address problem: Sliding-scale insulin therapy, Accu-Chek, consistent carbohydrate diet, hypoglycemia protocol (4) Hypertension Current Visit: Yes Status: Acute Qualifiers: Hypertension type: essential hypertension Qualified Code(s): I10 - Essential (primary) hypertension Plan to address problem: Monitor blood pressure every shift, continue medical management (5) DVT prophylaxis Current Visit: No Status: Acute Plan to address problem: SCD to bilateral lower extremities while in bed, patient is ambulatory
[2020-05-21] MEDS ORDERED: ACETAMINOPHEN 325 MG TAB PO PRN (13:00)
[2020-05-21] MEDS ORDERED: ONDANSETRON 4 MG/2 ML INJ IV PRN (13:00)
[2020-05-21] MEDS ORDERED: HEPARIN/NS 5000 UNIT/500ML 500 ML IR ONE (16:27)
[2020-05-21] MEDS ORDERED: SODIUM CHLORIDE 0.9% 250ML 250 ML ONE (16:28)
[2020-05-21] MEDS ORDERED: LIDOCAINE (2%) 20 MG/1 ML VIAL 20 ML MDV INFILTRATI ONE (16:28)
[2020-05-21] MEDS ORDERED: MIDAZOLAM 2 MG/2 ML INJ ONE (16:29)
[2020-05-21] MEDS ORDERED: fentaNYL 100 MCG/2 ML INJ ONE (16:29)
[2020-05-21] MEDS ORDERED: HEPARIN 10,000 UNITS/10 ML VIAL ONE (16:56)
--- NOTE | 2020-05-21 17:02 | Consultation ---
History of Present Illness - Reason for Consult Consult date: 05/21/20 Malfunctioning Permacath Requesting physician: RASHID GORDON - History of Present Illness The patient is a 35-year-old male with multiple medical problems who is on hemodialysis through a right internal jugular permacath. He has had the permacath in place for approximately 1 year without complications however he presented to his dialysis center on and was unable to undergo dialysis secondary to a thrombosed catheter. His last dialysis session was on Sunday in which he underwent dialysis without any complications. The patient denies any fever or chills or drainage from the catheter. He has no additional complaints at this time. Past History Past Medical History: diabetes, ESRD, hypertension Past Surgical History: Other (Right AKA) Social history: single. denies: smoking, alcohol abuse, prescription drug abuse Family history: diabetes, hypertension Medications and Allergies Allergies Allergy/AdvReac Type Severity Reaction Status Date / Time No Known Allergies Allergy Verified 08/07/17 23:24 Home Medications Medication Instructions Recorded Confirmed Last Taken Type AtorvaSTATin [Lipitor] 40 mg PO QHS #30 tablet 02/19/19 03/24/20 Unknown Rx Bumetanide [Bumex 1 mg tab] 2 mg PO QDAY #60 tablet 02/19/19 03/24/20 Unknown Rx Diclofenac 1% [Diclofenac 1% 1 applic TP TID 30 Days tube 02/19/19 03/24/20 Unknown Rx topical gel] Gabapentin 100 mg PO BID #60 capsule 02/19/19 03/24/20 Unknown Rx ISOSORBIDE MONOnitrate [Imdur ER] 60 mg PO BID #60 tablet 02/19/19 03/24/20 Unknown Rx Lispro Insulin [HumaLOG] 0 unit SUB-Q AC 30 Days units 02/19/19 03/24/20 Unknown Rx Sevelamer Carbonate [Renvela] 2,400 mg PO AC #270 tablet 02/19/19 03/24/20 Unknown Rx amLODIPine 5 mg PO QDAY #30 tablet 02/19/19 03/24/20 Unknown Rx carvediloL [Coreg] 25 mg PO BID #60 tablet 02/19/19 03/24/20 Unknown Rx diphenhydrAMINE/ZINC 2% [Banophen 1 applic TP Q8H PRN 30 Days tube 02/19/19 03/24/20 Unknown Rx Anti-Itch] hydrALAZINE [Apresoline TAB] 100 mg PO Q8HR #90 tab 02/19/19 03/24/20 Unknown Rx Insulin Glargine [Lantus VIAL] 8 units SUB-Q QHS 30 Days #10 ml 03/12/19 03/24/20 Unknown Rx Active Meds: Active Medications Acetaminophen (Tylenol) 650 mg PO Q4H PRN PRN Reason: Pain MILD(1-3)/Fever >100.5/BRUNO Ondansetron HCl (Zofran) 4 mg IV Q8H PRN PRN Reason: Nausea And Vomiting Sodium Chloride (Sodium Chloride Flush Syringe 10 Ml) 10 ml IV BID MINNIE Sodium Chloride (Sodium Chloride Flush Syringe 10 Ml) 10 ml IV PRN PRN PRN Reason: LINE FLUSH Review of Systems All systems: negative Exam - Constitutional Vitals: Temp Pulse Resp BP Pulse Ox 98.6 F 93 H 14 171/105 100 05/21/20 10:39 05/21/20 15:30 05/21/20 15:30 05/21/20 15:30 05/21/20 15:30 General appearance: Present: no acute distress - Neck Neck: Present: supple, other (Right internal jugular permacath is in place without any evidence of infection.) - Respiratory Respiratory effort: normal - Cardiovascular Rhythm: regular - Extremities Extremities: no ischemia, abnormal (Right above-knee amputation) - Abdominal General gastrointestinal: Present: soft, non-tender Male genitourinary: Present: deferred - Rectal Rectal Exam: deferred Results - Labs CBC & Chem 7: 05/21/20 10:59 05/21/20 10:59 Labs: Abnormal lab results 05/21/20 05/21/20 Range/Units 10:59 10:59 Hgb 10.9 L (11.8-15.2) gm/dl Hct 33.2 L (35.5-45.6) % [place] % (Auto) 8.0 H (0.0-7.3) % Sodium 136 L (137-145) mmol/L Chloride 95.6 L (98-107) mmol/L BUN 91 H (9-20) mg/dL Creatinine 10.2 H (0.8-1.3) mg/dL Glucose 253 H (75-100) mg/dL Assessment and Plan The patient is a 35-year-old male with a history of end-stage renal disease who has a poorly functioning right internal jugular permacath. He is in need of exchange of the permacath. He has been given the risk, benefits, and alternativ e procedures and consented to the procedure.
[2020-05-21] MEDS: HEPARIN 10,000 UNITS/10 ML VIAL ONE ×4 (17:12→17:17)
--- NOTE | 2020-05-21 17:40 | Operative Report ---
Operative Report Operative Report: Date of Procedure: 05/21/2020 Pre-operative Diagnosis: Complications of Dialysis Access Post-operative Diagnosis: Same Procedure(s): 1. Diagnostic Central Venogram 2. Angioplasty of Superior Vena Cava with 12 x 60 EverCross Balloon 3. Exchange of Right Internal Jugular Permacath To 19 Cm Glidepath Permacath over Wire 4. Radiologic Supervision with Interpretation 5. Monitored Moderate Sedation (Total Anesthesia Time: 40 Minutes) Surgeon: Matthew Posey M.D. [place] Mold Maker: None Anesthesia: Monitored Moderate Sedation/Local Total Anesthesia Time: 40 Minutes EBL: Minimal Counts: Correct Complications: None Condition: Stable Specimen: Indwelling right internal jugular catheter was discarded. 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 He has been unable to work secondary to severe short distance buttock claudication and is in need of intervention to relieve the occlusion and restore flow. He has been given the risk, benefits, and alternative procedures and consented to the procedure. Venogram Findings: The initial studio technician video operator film revealed that the permacath was in adequate position with the distal tip in the right atrium. The diagnostic venogram revealed revealed a fibrin sheath with a reduction of the flow lumen by approximately 95%. After intervention the superior vena cava was patent with less than 10% residual narrowing. The permacath was placed with the distal tip in the right atrium and no evidence of pneumothorax. Description of Procedure: The patient was brought to the Wool Hat Flanger and laid in supine position. After timeout was performed the patient's right neck, chest, and indwelling catheter were prepped and draped in normal sterile fashion. A 0.035 stiff Glidewire was advanced through the catheter into the inferior vena cava under fluoroscopy. 2% lidocaine was used to anesthetize the skin overlying the access site on the chest and up to the cuff. A curved hemostat was then used to bluntly dissect the cuff free from the surrounding soft tissue and the permacath was removed leaving the stiff Glidewire in place. A 7 [place] sheath was then advanced over the Glidewire and a diagnostic venogram was performed with the previously described findings. A 12 x 40 EverCross balloon was used to perform angioplasty of the fibrin sheath with a result of less than 10% residual luminal narrowing. I then remove the balloon and advanced the 19 cm Glidepath Permacath into position by Seldinger technique. The catheter was positioned with the distal tip in the right atrium. Both ports easily aspirated and flushed and were then primed with the appropriate amount heparin. The catheter was secured in position with a 2-0 Ethilon in interrupted fashion and then dressed with a sterile dressing. The final fluoroscopy demonstrated the catheter was in adequate position with the distal tip in the right atrium and no evidence pneumothorax. The patient tolerated the procedure well was transported to his room in stable condition.
[2020-05-21] MEDS ORDERED: SODIUM CHLORIDE 0.9% 100 ML IV PRN (21:53)
--- NOTE | 2020-05-21 21:53 | Consultation ---
History of Present Illness - Reason for Consult Consult date: 05/21/20 end stage renal disease - History of Present Illness This is a 35 year-old man with ESRD who presents for misfunctioning CVC. Patient usually dialyzes // at [facility]. Last HD 05/18, went to HD 05/20 per usual but unable to run due to CVC issues and advised to come to ED (cannot follow outpatient due to insurance issues). Denies any recent issues with HD, including dizziness, lightheadedness, cramping, chest pain on HD. Currently, patient denies any issues including dyspnea, edema, access issues, nausea, vomiting, headaches. Past History Past Medical History: diabetes, ESRD, hypertension Past Surgical History: Other (Right AKA) Social history: single. denies: smoking, alcohol abuse, prescription drug abuse Family history: diabetes, hypertension Medications and Allergies Allergies Allergy/AdvReac Type Severity Reaction Status Date / Time No Known Allergies Allergy Verified 08/07/17 23:24 Home Medications Medication Instructions Recorded Confirmed Last Taken Type AtorvaSTATin [Lipitor] 40 mg PO QHS #30 tablet 02/19/19 03/24/20 Unknown Rx Bumetanide [Bumex 1 mg tab] 2 mg PO QDAY #60 tablet 02/19/19 03/24/20 Unknown Rx Diclofenac 1% [Diclofenac 1% 1 applic TP TID 30 Days tube 02/19/19 03/24/20 Unknown Rx topical gel] Gabapentin 100 mg PO BID #60 capsule 02/19/19 03/24/20 Unknown Rx ISOSORBIDE MONOnitrate [Imdur ER] 60 mg PO BID #60 tablet 02/19/19 03/24/20 Unknown Rx Lispro Insulin [HumaLOG] 0 unit SUB-Q AC 30 Days units 02/19/19 03/24/20 Unknown Rx Sevelamer Carbonate [Renvela] 2,400 mg PO AC #270 tablet 02/19/19 03/24/20 Unknown Rx amLODIPine 5 mg PO QDAY #30 tablet 02/19/19 03/24/20 Unknown Rx carvediloL [Coreg] 25 mg PO BID #60 tablet 02/19/19 03/24/20 Unknown Rx diphenhydrAMINE/ZINC 2% [Banophen 1 applic TP Q8H PRN 30 Days tube 02/19/19 03/24/20 Unknown Rx Anti-Itch] hydrALAZINE [Apresoline TAB] 100 mg PO Q8HR #90 tab 02/19/19 03/24/20 Unknown Rx Insulin Glargine [Lantus VIAL] 8 units SUB-Q QHS 30 Days #10 ml 03/12/19 03/24/20 Unknown Rx Active Meds: Active Medications Acetaminophen (Tylenol) 650 mg PO Q4H PRN PRN Reason: Pain MILD(1-3)/Fever >100.5/BRUNO Ondansetron HCl (Zofran) 4 mg IV Q8H PRN PRN Reason: Nausea And Vomiting Sodium Chloride (Sodium Chloride Flush Syringe 10 Ml) 10 ml IV BID MINNIE Sodium Chloride (Sodium Chloride Flush Syringe 10 Ml) 10 ml IV PRN PRN PRN Reason: LINE FLUSH Review of Systems All systems: negative (as per HPI) Exam - Vital Signs Vital signs: Vital Signs Temp Pulse Resp BP Pulse Ox 97.9 F 106 H 16 155/97 98 05/21/20 10:17 05/21/20 10:17 05/21/20 10:17 05/21/20 10:17 05/21/20 10:17 - Physical Exam Narrative exam: Constitutional: no acute distress Head: NC/AT Neck: supple Lungs: clear to auscultation CV: RRR, no M/R/G Abdomen: soft, non-tender, bowel sounds present Back: nontender Extremities: no edema, pulses WNL Skin: intact Neuro: no focal deficits, alert and oriented x4 Results - Lab Results 05/21/20 10:59 05/21/20 10:59 Most recent lab results Calcium 9.2 mg/dL (8.4-10.2) 05/21/20 10:59 Assessment and Plan This is a 35 year old man who presents with malfunctioning CVC # ESRD: appreciate vascular assistance with CVC, no immediate HD indication today, will plan for HD tomorrow and continue // or prn - daily labs - renally dose meds - avoid nephrotoxins - renal diet # Anemia: last hemoglobin 10.9, no indication for ESAs with HD # HTN: UF as tolerated. BP high, may need oral meds if remains high # Secondary Hyperparathyroidism: continue home binders as needed
[2020-05-22] MEDS: hydrALAZINE 100 MG TAB PO SCH ×3 (02:08→15:08)
[2020-05-22] MEDS: carvediloL 25 MG TAB PO SCH ×2 (02:08→15:06)
[2020-05-22 06:37] LABS: Calcium 8.9 mg/dL (8.4-10.2)
--- NOTE | 2020-05-22 07:11 | Progress Note ---
Assessment and Plan - Patient Problems (1) Complications, dialysis, catheter, mechanical Current Visit: Yes Status: Acute Qualifiers: Encounter type: initial encounter Qualified Code(s): T82.49XA - Other complication of vascular dialysis catheter, initial encounter Plan to address problem: Via vascular surgery stable for discharge (2) DVT prophylaxis Current Visit: Yes Status: Acute (3) Diabetes mellitus Current Visit: Yes Status: Acute Plan to address problem: Controlled continue present medical management. (4) Hypertension Current Visit: Yes Status: Acute Qualifiers: Hypertension type: essential hypertension Qualified Code(s): I10 - Essential (primary) hypertension Plan to address problem: Much better controlled after hemodialysis. (5) ESRD needing dialysis Current Visit: Yes Status: Chronic (6) Anemia Current Visit: No Status: Acute Qualifiers: Chronic kidney disease stage: on chronic dialysis Subjective Date of service: 05/22/20 Principal diagnosis: Malfunction catheter Interval history: 35 YO Male with ESRD on HD(T,R,Sa) last dialyzed on Sunday, DM, HTN, HLD presents to ED for evaluation. Patient states that he presented to his dialysis center on yesterday for his routine scheduled dialysis but was unable to undergo dialysis due to a malfunctioning dialysis catheter. Patient transported to [facility] via private vehicle for further care and evaluation. Patient seen and evaluated in the emergency department. Lab and imaging studies reviewed. Patient found to have malfunctioning dialysis catheter. Vascular surgery consulted in ED. Nephrology team consulted in ED for urgent dialysis after dialysis catheter placement. Patient admitted to medical floor and placed in observation status. Patient denies fever, chills, chest pain, palpitation, productive cough, skin rash, recent ill contacts, muscle weakness, or known exposure to COVID-19. All medication listed at time of admission has been reconciled. Prior admission on 03/23/2020 reviewed. Objective - Constitutional Vitals: Vital Signs - 12hr 05/21/20 05/21/20 05/21/20 19:12 19:20 19:30 Temperature Pulse Rate 92 H 96 H 91 H Pulse Rate [ Right Radial] Respiratory 14 13 12 Rate Blood Pressure 184/95 184/95 184/95 O2 Sat by Pulse 100 99 100 Oximetry 05/21/20 05/21/20 05/21/20 19:40 19:50 20:00 Temperature Pulse Rate 86 100 H 86 Pulse Rate [ Right Radial] Respiratory 16 15 9 L Rate Blood Pressure 184/95 184/95 203/111 O2 Sat by Pulse 98 100 99 Oximetry 05/21/20 05/21/20 05/21/20 20:10 20:20 20:30 Temperature Pulse Rate 88 90 89 Pulse Rate [ Right Radial] Respiratory 10 L 12 14 Rate Blood Pressure 203/111 203/111 203/111 O2 Sat by Pulse 100 100 100 Oximetry 05/21/20 05/21/20 05/22/20 20:40 21:06 00:20 Temperature 98.0 F Pulse Rate 85 87 Pulse Rate [ 88 Right Radial] Respiratory 12 20 20 Rate Blood Pressure 203/111 192/97 O2 Sat by Pulse 100 99 100 Oximetry 05/22/20 05/22/20 05/22/20 02:08 02:09 03:09 Temperature Pulse Rate 89 Pulse Rate [ Right Radial] Respiratory 20 18 Rate Blood Pressure 178/108 O2 Sat by Pulse Oximetry 05/22/20 03:16 Temperature 98.9 F Pulse Rate 96 H Pulse Rate [ Right Radial] Respiratory 22 Rate Blood Pressure 194/103 O2 Sat by Pulse 96 Oximetry General appearance: Present: no acute distress, well-nourished - EENT Eyes: PERRL, EOM intact ENT: hearing intact, clear oral mucosa Ears: bilateral: normal - Neck Neck: supple, normal ROM - Respiratory Respiratory effort: normal Respiratory: bilateral: CTA - Breasts Breasts: normal - Cardiovascular Rhythm: regular Heart Sounds: Present: S1 & S2. Absent: gallop, rub Extremities: pulses intact, No edema, normal color, Full ROM - Gastrointestinal General gastrointestinal: Present: soft, non-tender, non-distended, normal bowel sounds - Genitourinary Male genitourinary: normal - Integumentary Integumentary: clear, warm, dry - Musculoskeletal Musculoskeletal: 1, strength equal bilaterally - Neurologic Neurologic: moves all extremities - Psychiatric Psychiatric: memory intact, appropriate mood/affect, intact judgment & insight - Labs CBC & Chem 7: 05/21/20 10:59 05/22/20 05:41 Labs: Abnormal lab results 05/21/20 05/21/20 05/22/20 Range/Units 10:59 10:59 05:41 Hgb 10.9 L (11.8-15.2) gm/dl Hct 33.2 L (35.5-45.6) % [place] % (Auto) 8.0 H (0.0-7.3) % Sodium 136 L 136 L (137-145) mmol/L Chloride 95.6 L 96.5 L (98-107) mmol/L BUN 91 H 95 H (9-20) mg/dL Creatinine 10.2 H 10.8 H (0.8-1.3) mg/dL Glucose 253 H 296 H (75-100) mg/dL Hemoglobin A1c (4-6) % 05/22/20 Range/Units 05:41 Hgb (11.8-15.2) gm/dl Hct (35.5-45.6) % [place] % (Auto) (0.0-7.3) % Sodium (137-145) mmol/L Chloride (98-107) mmol/L BUN (9-20) mg/dL Creatinine (0.8-1.3) mg/dL Glucose (75-100) mg/dL Hemoglobin A1c 11.8 H (4-6) %
[2020-05-22] MEDS: INSULIN REGULAR, HUMAN 100 UNIT/ML 3ML VIAL SUB-Q SCH ×2 (08:40→14:40)
[2020-05-22] MEDS ORDERED: amLODIPine 5 MG TAB PO SCH (10:00)
[2020-05-22 10:41] LABS: Hepatitis B Surface Antigen Non-Reactive (Negative); Hepatitis C Virus Antibody Non-Reactive (NonReactive)
--- NOTE | 2020-05-22 12:09 | Discharge Summary ---
Providers - Providers Date of Admission: 05/21/20 12:53 Date of discharge: 05/22/20 Attending physician: JOEL ANSARI 05/21/20 11:40 Consult to Physician [CONS] Urgent Comment: Consulting Provider: KANIKA CAIN Physician Instructions: Reason For Exam: esrd missed dialysis Primary care physician: P[employer] OUT [employer]ER Hospitalization Condition: Stable Hospital course: Patient presented with a malfunctioning dialysis catheter. Patient was evaluated by vascular surgery and complication was corrected malfunction was corrected patient able to receive hemodialysis. Stable to transfer after dialysis. Patient back at his baseline dialysis Sunday. Disposition: DC- TO HOME OR SELFCARE - Discharge Diagnoses (1) Complications, dialysis, catheter, mechanical Status: Acute Qualifiers: Encounter type: initial encounter Qualified Code(s): T82.49XA - Other complication of vascular dialysis catheter, initial encounter Comment: Vascular dialysis catheter has been corrected. Unclogged. (2) DVT prophylaxis Status: Acute (3) Diabetes mellitus Status: Acute Comment: Uncontrolled blood sugar has been going on for long time. Will advance insulin. Hemoglobin A1c 11.9. Needs to be titrated as outpatient. (4) Hypertension Status: Acute Qualifiers: Hypertension type: essential hypertension Qualified Code(s): I10 - Essential (primary) hypertension Comment: Much better after hemodialysis. Continue present medical management. Amlodipine Coreg. (5) ESRD needing dialysis Status: Chronic Comment: Continue hemodialysis Sunday. (6) Anemia Status: Acute Qualifiers: Chronic kidney disease stage: on chronic dialysis Core Measure Documentation - Palliative Care Palliative Care/ Comfort Measures: Not Applicable - Core Measures Any of the following diagnoses?: none Exam - Constitutional Vitals: Temp Pulse Resp BP Pulse Ox 98.5 F 98 H 20 144/92 99 05/22/20 06:04 05/22/20 08:46 05/22/20 08:46 05/22/20 06:04 05/22/20 08:46 General appearance: Present: no acute distress, well-nourished - EENT Eyes: Present: PERRL ENT: hearing intact, clear oral mucosa - Neck Neck: Present: supple, normal ROM - Respiratory Respiratory effort: normal Respiratory: bilateral: CTA - Cardiovascular Heart Sounds: Present: S1 & S2. Absent: rub, click - Extremities Extremities: pulses symmetrical, No edema Peripheral Pulses: within normal limits - Abdominal General gastrointestinal: Present: soft, non-tender, non-distended, normal bowel sounds Male genitourinary: Present: normal - Integumentary Integumentary: Present: clear, warm, dry - Musculoskeletal Musculoskeletal: gait normal, strength equal bilaterally - Psychiatric Psychiatric: appropriate mood/affect, intact judgment & insight - Neurologic Neurologic: CNII-XII intact, moves all extremities Plan Activity: no restrictions Weight Bearing Status: Full Weight Bearing Diet: renal Follow up with: PRIMARY CARE, [Primary Care Provider] - 3-5 Days Prescriptions: Insulin Glargine [Lantus VIAL] 12 units SUB-Q QHS #1 units
[2020-05-22 15:08] VITALS: BP 189/113
--- NOTE | 2020-05-22 15:23 | Progress Note ---
Assessment and Plan 35-year-old male with PermCath malfunction who presents for PermCath exchange. Follow-up as outpatient for dialysis access creation. Ultrasound orders placed for vein mapping. Case management contacted to assist with insurance issues. MARYLOU card provided. Subjective Date of service: 05/22/20 Principal diagnosis: Malfunction catheter Interval history: Discussed follow-up, discussed need to create dialysis access. Patient reported insurance reasons being the most important reason why he cannot follow-up and expense associated with follow-up. Discussed with case management who promised to see patient and assist patient with insurance issues. Objective - Constitutional Vitals: Vital Signs - 12hr 05/22/20 05/22/20 05/22/20 06:04 08:46 09:30 Temperature 98.5 F 98.1 F Pulse Rate 98 H 88 Pulse Rate [ 98 H Right Radial] Respiratory 18 20 19 Rate Blood Pressure 144/92 192/110 O2 Sat by Pulse 99 99 Oximetry 05/22/20 05/22/20 09:45 15:06 Temperature Pulse Rate 86 102 H Pulse Rate [ Right Radial] Respiratory Rate Blood Pressure 178/104 189/113 O2 Sat by Pulse Oximetry General appearance: Present: no acute distress - EENT Eyes: EOM intact ENT: hearing intact - Neck Neck: supple - Respiratory Respiratory effort: normal - Psychiatric Psychiatric: appropriate mood/affect, cooperative - Labs CBC & Chem 7: 05/21/20 10:59 05/22/20 05:41 Labs: Abnormal lab results 05/22/20 05/22/20 05/22/20 Range/Units 05:41 05:41 08:33 Sodium 136 L (137-145) mmol/L Chloride 96.5 L (98-107) mmol/L BUN 95 H (9-20) mg/dL Creatinine 10.8 H (0.8-1.3) mg/dL Glucose 296 H (75-100) mg/dL POC Glucose 248 H (70-105) mg/dL Hemoglobin A1c 11.8 H (4-6) % Medications & Allergies - Medications Allergies/Adverse Reactions: Allergies No Known Allergies Allergy (Verified 08/07/17 23:24) Home Medications: Home Medications Medication Instructions Recorded Confirmed Last Taken Type AtorvaSTATin [Lipitor] 40 mg PO QHS #30 tablet 02/19/19 05/22/20 05/20/20 23:00 Rx 40 mg Bumetanide [Bumex 1 mg tab] 2 mg PO QDAY #60 tablet 02/19/19 05/22/20 Unknown Rx Diclofenac 1% [Diclofenac 1% 1 applic TP TID 30 Days tube 02/19/19 05/22/20 Unknown Rx topical gel] Gabapentin 100 mg PO BID #60 capsule 02/19/19 05/22/20 05/20/20 23:00 Rx 100 mg ISOSORBIDE MONOnitrate [Imdur ER] 60 mg PO BID #60 tablet 02/19/19 05/22/20 05/20/20 23:00 Rx 60 mg Lispro Insulin [HumaLOG] 0 unit SUB-Q AC 30 Days units 02/19/19 05/22/20 Unknown Rx Sevelamer Carbonate [Renvela] 2,400 mg PO AC #270 tablet 02/19/19 05/22/20 Unknown Rx amLODIPine 5 mg PO QDAY #30 tablet 02/19/19 05/22/20 05/20/20 23:00 Rx 5 mg carvediloL [Coreg] 25 mg PO BID #60 tablet 02/19/19 05/22/20 05/20/20 23:00 Rx 25 mg diphenhydrAMINE/ZINC 2% [Banophen 1 applic TP Q8H PRN 30 Days tube 02/19/19 05/22/20 Unknown Rx Anti-Itch] hydrALAZINE [Apresoline TAB] 100 mg PO Q8HR #90 tab 02/19/19 05/22/20 05/20/20 23:00 Rx 100 mg Insulin Glargine [Lantus VIAL] 8 units SUB-Q QHS 30 Days #10 ml 03/12/19 05/22/20 05/20/20 23:00 Rx 8 units Insulin Glargine [Lantus VIAL] 12 units SUB-Q QHS #1 units 05/22/20 Unknown Rx Insulin Regular, Human [HumuLIN R] 0 unit SUB-Q ACHS vial 05/22/20 Unknown Rx amLODIPine 5 mg PO QDAY tablet 05/22/20 Unknown Rx carvediloL [Coreg] 25 mg PO BID tablet 05/22/20 Unknown Rx hydrALAZINE [Apresoline TAB] 100 mg PO TID tab 05/22/20 Unknown Rx Active Medications: Generic Name Dose Route Start Last Admin Trade Name Freq PRN Reason Stop Dose Admin Acetaminophen 650 mg 05/21/20 13:00 05/22/20 02:09 Tylenol PO 650 mg Q4H PRN Administration Pain MILD(1-3)/Fever >100.5/BRUNO Amlodipine Besylate 5 mg 05/22/20 10:00 05/22/20 15:07 Amlodipine PO 5 mg QDAY MINNIE Administration Amlodipine Besylate 5 mg 05/23/20 10:00 Amlodipine PO QDAY [facility] Carvedilol 25 mg 05/22/20 02:00 05/22/20 15:06 Coreg PO 25 mg BID MINNIE Administration Hydralazine HCl 100 mg 05/22/20 02:00 05/22/20 15:08 Apresoline PO Not Given TID [facility] Sodium Chloride 100 mls @ 999 mls/hr 05/21/20 21:53 Nacl 0.9% IV GRIS PRN Hypotension Insulin Glargine 12 units 05/22/20 22:00 Lantus SUB-Q QHS [facility] Insulin Human Regular 0 unit 05/22/20 07:30 05/22/20 14:40 Humulin R SUB-Q Not Given [facility] Protocol Isosorbide Mononitrate 60 mg 05/22/20 10:00 05/22/20 15:06 Imdur PO 60 mg QDAY [facility] Administration Ondansetron HCl 4 mg 05/21/20 13:00 Zofran IV Q8H PRN Nausea And Vomiting Sodium Chloride 10 ml 05/21/20 13:00 05/22/20 15:08 Sodium Chloride Flush Syringe 10 Ml IV 10 ml BID MINNIE Administration Sodium Chloride 10 ml 05/21/20 13:00 Sodium Chloride Flush Syringe 10 Ml IV PRN PRN LINE FLUSH
[2020-05-22] MEDS ORDERED: INSULIN GLARGINE 100 UNITS/ML SUB-Q SCH ×2 (22:00)
[2020-05-23] MEDS ORDERED: AMLODIPINE 5 MG PO SCH (10:00)
[2020-05-23] MEDS ORDERED: amLODIPine 5 MG TAB PO SCH (10:00)
== END 2020-05-22 15:30 | disposition home or self-care (01) ==
LOC: ED 10:16 → 3A 12:53
PROVIDERS: ADMIT Internal Medicine; ATTEND Internal Medicine
DX: T82.49XA Other complication of vascular dialysis catheter, initial encounter (principal); I12.0 Hypertensive chronic kidney disease with stage 5 chronic kidney disease or end stage renal disease; N18.6 End stage renal disease; E11.22 Type 2 diabetes mellitus with diabetic chronic kidney disease; D64.9 Anemia, unspecified; Z99.2 Dependence on renal dialysis; Z79.899 Other long term (current) drug therapy; Z98.890 Other specified postprocedural states; Z79.4 Long term (current) use of insulin
CPT/HCPCS: 36415; 36558; 37248; 77001; 80048; 80074; 82962; 83036; 85025; 85610; 85730; 93005; 96372; 99284; C1725; C1750; C1769; G0378; J1644; J2250; J3010; J7050; J1815; Q9967

== ENCOUNTER 2020-09-24 06:38 | Day surgery (SDC) | payer OTHER, MEDICARE ==
[~2020-09-24 06:38] MED LIST: MIDAZOLAM 2 MG/2 ML INJ IV NR; SODIUM CHLORIDE 0.9% 1000 ML 1,000 ML IV SCH; ceFAZolin/Water 2 GM/20 ML 2 GM/20 ML SYRINGE IV NR
[2020-09-24] MEDS ORDERED: HYDROmorphone 1 MG/1 ML INJ ONE (07:18)
[2020-09-24] MEDS ORDERED: propofoL 200 MG/20 ML VIAL IV ONE (07:19)
[2020-09-24] MEDS ORDERED: LIDOCAINE MPF (2%) 20 MG/1 ML VIAL 5 ML ONE (07:19)
[2020-09-24] MEDS ORDERED: HEPARIN 10,000 UNITS/10 ML VIAL ONE (07:20)
[2020-09-24] MEDS ORDERED: SODIUM CHLORIDE 0.9% 250ML 250 ML ONE (07:22)
[2020-09-24] MEDS ORDERED: BUPIVACAINE/PF (0.5%) 5 MG/1 ML 30 ML VIAL INFILTRATI ONE (07:22)
[2020-09-24] MEDS ORDERED: PAPAVERINE 60 MG/2 ML INJ SDV ONE (07:23)
[2020-09-24] MEDS ORDERED: rifAMPin 600 MG VIAL ONE (07:24)
[2020-09-24] MEDS ORDERED: PROTAMINE SULFATE 50 MG/5 ML INJ ONE (07:24)
[2020-09-24] MEDS ORDERED: LIDOCAINE (1%) 10 MG/1 ML VIAL 20 ML MDV ONE (07:25)
[2020-09-24 07:26] LABS: Hematocrit 31.3 % (35.5-45.6); Hemoglobin 10.5 gm/dl (11.8-15.2); Mean Corpuscular HGB Conc 34 % (32-34); Mean Corpuscular Volume 87 fl (84-94); Platelet Count 254 K/mm3 (140-440); Red Blood Count 3.62 M/mm3 (3.65-5.03); Red Cell Distribution Width 13.5 % (13.2-15.2)
--- NOTE | 2020-09-24 07:28 | Anesthesia Day of Surgery ---
Anesthesia Day of Surgery - Day of Surgery Patient Examined: Yes Patient H&P Reviewed: Yes Patient is NPO: Yes
--- NOTE | 2020-09-24 07:28 | Anesthesia Consultation ---
Anesthesia Consult and Med Hx Date of service: 09/24/20 - Airway Anesthetic Teeth Evaluation: Poor ROM Head & Neck: Adequate Mental/Hyoid Distance: Adequate Mallampati Class: Class III Intubation Access Assessment: Possibly Difficult - Pre-Operative Health Status ASA Pre-Surgery Classification: ASA3 Proposed Anesthetic Plan: General - Pulmonary Hx Smoking: No Hx Respiratory Symptoms: No - Cardiovascular System Hx Hypertension: Yes Hx Coronary Artery Disease: Yes (neg ST and normal EF 07/2017) Hx Heart Attack/AMI: No Hx Percutaneous Transluminal Coronary Angioplasty (PTCA): No Hx Cardia Arrhythmia: No Hx Peripheral Vascular Disease: Yes (s/p R AKA) - Central Nervous System CVA: No Hx Back Pain: Yes - Endocrine Hx End Stage Renal Disease: Yes (last HD 09/23/20) Hx Liver Disease: No Hx Insulin Dependent Diabetes: Yes Hx Thyroid Disease: No - Hematic Hx Anemia: Yes
[2020-09-24] MEDS ORDERED: INSULIN REGULAR, HUMAN 100 UNITS/1 ML IV ONE (07:30)
[2020-09-24] MEDS ORDERED: HEPARIN 10,000 UNIT/1 ML VIAL IV SCH (07:30)
[2020-09-24 07:39] LABS: Calcium 8.5 mg/dL (8.4-10.2)
[2020-09-24] MEDS ORDERED: fentaNYL 100 MCG/2 ML INJ IV PRN (08:00)
[2020-09-24] MEDS ORDERED: ONDANSETRON 4 MG/2 ML INJ IV PRN (08:00)
[2020-09-24] MEDS ORDERED: INSULIN REGULAR, HUMAN 100 UNITS/1 ML IV SCH (08:30)
[2020-09-24] MEDS ORDERED: PHENYLEPHRINE/NS 1,000 MCG/10 ML SYRINGE (OR USE) IV ONE (08:56)
[2020-09-24] MEDS ORDERED: HEPARIN 10,000 UNITS/10 ML VIAL IV ONE (09:07)
[2020-09-24] MEDS ORDERED: BUPIVACAINE/PF (0.5%) 5 MG/1 ML 10 ML VIAL INFILTRATI ONE (09:08)
[2020-09-24] MEDS ORDERED: SODIUM CHLORIDE 0.9% 250 ML IVPB IV ONE (09:08)
[2020-09-24] MEDS ORDERED: ONDANSETRON 4 MG/2 ML INJ ONE (09:39)
--- NOTE | 2020-09-24 09:45 | Short Stay Summary ---
Short Stay Documentation Date of service: 09/24/20 Narrative H&P: See H&P - History H&P: obtained from office - Allergies and Medications Current Medications: Allergies No Known Allergies Allergy (Verified 08/07/17 23:24) Home Medications Medication Instructions Recorded Confirmed Last Taken Type AtorvaSTATin [Lipitor] 40 mg PO QHS #30 tablet 02/19/19 05/22/20 09/23/20 Rx Lispro Insulin [HumaLOG] 0 unit SUB-Q AC 30 Days units 02/19/19 05/22/20 09/23/20 Rx amLODIPine 5 mg PO QDAY tablet 05/22/20 09/24/20 09/24/20 05:00 Rx carvediloL [Coreg] 25 mg PO BID tablet 05/22/20 09/24/20 09/24/20 05:00 Rx Ferric Citrate (Nf) [Auryxia] 210 mg PO TID 09/20/20 09/20/20 09/23/20 History Insulin Glargine [Lantus VIAL] 20 units SUB-Q QHS 09/20/20 09/24/20 09/23/20 History Losartan Potassium 100 mg PO DAILY 09/20/20 09/20/20 09/24/20 05:00 History Sevelamer Carbonate [Renvela] 800 mg PO TID 09/20/20 09/24/20 09/23/20 History hydrALAZINE [Apresoline TAB] 50 mg PO TID 09/20/20 09/24/20 09/23/20 History Active Medications Fentanyl (Fentanyl 100 Mcg/2 Ml Inj) 50 mcg IV Q5MIN PRN PRN Reason: Pain , Severe (7-10) Stop: 09/24/20 17:00 Heparin Sodium (Porcine) (Heparin 10,000 Unit/1 Ml Vial) 5,000 unit IV ONCE MINNIE Stop: 09/24/20 15:00 Cefazolin Sodium (Ancef/Sterile Water 2 Gm/20 Ml) 2 gm in 20 mls @ 80 mls/hr IV PREOP NR; Protocol Stop: 09/24/20 23:00 Sodium Chloride (Nacl 0.9% 1000 Ml) 1,000 mls @ 42 mls/hr IV DIRECT MINNIE Stop: 09/24/20 23:59 Last Admin: 09/24/20 07:25 Dose: 42 mls/hr Documented by: Insulin Human Regular (Insulin Regular, Human 100 Units/1 Ml) 8 units IV ONCE MINNIE Stop: 09/24/20 10:30 Last Admin: 09/24/20 07:48 Dose: 8 units Documented by: Midazolam HCl (Midazolam 2 Mg/2 Ml Inj) 2 mg IV PREOP NR Stop: 09/24/20 23:59 Last Admin: 09/24/20 08:04 Dose: 2 mg Documented by: Ondansetron HCl (Ondansetron 4 Mg/2 Ml Inj) 4 mg IV ONCE PRN PRN Reason: Nausea And Vomiting Stop: 09/24/20 16:00 - Brief post op/procedure progress note Date of procedure: 09/24/20 Pre-op diagnosis: End-Stage Renal Disease Post-op diagnosis: same Procedure: Creation of Left Brachiocephalic Arteriovenous Fistula Anesthesia: LUIS F Surgeon: JOEL BURR Estimated blood loss: minimal Pathology: none Condition: stable - Disposition Condition at discharge: Good Disposition: DC-01 TO HOME OR SELFCARE Short Stay Discharge Plan Activity: other (No heavy lifting with left arm for 2 weeks. Use stress ball with left hand as often as possible.) Wound: open to air, keep clean and dry, other (Okay to wash the wound with soap and water but do not soak in water for 2 weeks.) Follow up with: JOEL BURR MD [Staff Physician] - 14 Days Prescriptions: HYDROcodone/APAP 5-325 [[place] 5/325] 1 each PO Q4HR PRN #30 tablet PRN Reason: Pain
--- NOTE | 2020-09-24 09:47 | Operative Report ---
Operative Report Operative Report: Date of procedure: 09/24/2020 Pre-operative diagnosis: End-Stage Renal Disease Post-operative diagnosis: End-Stage Renal Disease Procedure(s): Creation of Left brachial Artery to Cephalic Vein Arteriovenous Fistula Surgeon: Matthew Posey MD District Traffic Chief: None Anesthesia: General Endotracheal Anesthesia EBL: Minimal Counts: Correct Complications: None Condition: Stable Findings: Successful creation of left brachiocephalic arteriovenous fistula with palpable thrill and palpable radial pulse at the completion of the case. Specimen: None Indications: The patient is a 35-year-old male with a history of end-stage renal disease who is currently on hemodialysis through a right internal jugular permacath. He is in need of long-term dialysis access and a vein mapping demonstrated he is an adequate candidate for creation of a left brachiocephalic arteriovenous fistula. He was given the risk, benefits, and alternative procedures and consented to the procedure. Description of Procedure: The patient was brought to the operating room and laid in supine position. Af ter general endotracheal anesthesia was achieved his left arm was prepped and draped in normal sterile fashion. A transverse incision was then made and carried down to the cephalic vein using sharp dissection. The vein was dissected out both proximally and distally and suture ligated and divided distally. I flushed the vein with heparinized saline and flow was controlled with a bulldog clamp. I then dissected out the brachial artery through this incision circumferentially both proximal and distal and controlled the artery with vessel loops. I used angled DeBakey clamps to control flow through the artery. I created an arteriotomy using an 11 blade and Fishman scissors. I created an end to side anastomosis between the cephalic vein and brachial artery using a 6-0 Prolene in running fashion. Prior to completing the anastomosis I flashed the artery both proximally and distally and then flushed the anastomosis with heparinized saline to remove any debris. I then completed the anastomosis and removed all clamps allowing flow into the fistula which had an adequate thrill. I achieved hemostasis with a combination of Quick Clot and electrocautery. Once hemostasis had been achieved I closed the wound in 2 layers using a 3-0 Vicryl in a running fashion in the deep dermal layer and a 4- 0 Monocryl in running fashion in the subcuticular layer. I then dressed the wound with Dermabond. The patient tolerated the procedure well. All sponge, needle, and instrument counts were correct. The patient was taken to the recovery area in stable condition.
[2020-09-24] MEDS ORDERED: DEXTROSE 50% IN WATER (25GM) 50 ML SYRINGE IV ONE (09:57)
[2020-09-24] MEDS ORDERED: HEPARIN 10,000 UNIT/1 ML VIAL ONE (10:30)
--- NOTE | 2020-09-24 13:18 | Post Anesthesia Evaluation ---
- Post Anesthesia Evaluation Patient Participated: Yes Airway Patent: Yes Stable Respiratory Function: Yes Nausea/Vomiting: No Temp > 96.8F: Yes Pain Manageable: Yes Adequeate Hydration: Yes Anesthesia Complications: No
[2020-09-24 23:35] VITALS: BP 98/52
== END 2020-09-24 06:39 | disposition home or self-care (01) ==
LOC: OR 06:38
PROVIDERS: ATTEND Surgery Vascular Surgery
DX: I12.0 Hypertensive chronic kidney disease with stage 5 chronic kidney disease or end stage renal disease (principal); E11.22 Type 2 diabetes mellitus with diabetic chronic kidney disease; N18.6 End stage renal disease; I25.10 Atherosclerotic heart disease of native coronary artery without angina pectoris; E78.5 Hyperlipidemia, unspecified; D64.9 Anemia, unspecified; Z79.899 Other long term (current) drug therapy; Z86.718 Personal history of other venous thrombosis and embolism; Z87.01 Personal history of pneumonia (recurrent); Z83.3 Family history of diabetes mellitus; Z82.49 Family history of ischemic heart disease and other diseases of the circulatory system
CPT/HCPCS: 36415; 36821; 80048; 82962; 85027; C1757; J0690; J1170; J1644; J2250; J2370; J2405; J2440; J2704; J2720; J3490; J7030; J7050; J1815

== ENCOUNTER 2020-12-16 17:28 | Observation (INO) | payer MEDICAID, MEDICARE, OTHER ==
[2020-12-16 19:08] LABS: Basophils % (Auto) 0.4 % (0.0-1.8); Eosinophils # (Auto) 0.4 K/mm3 (0.0-0.4); Eosinophils % (Auto) 4.6 % (0.0-4.3); Hematocrit 27.8 % (35.5-45.6); Hemoglobin 9.4 gm/dl (11.8-15.2); Lymphocytes % (Auto) 26.1 % (13.4-35.0); Mean Corpuscular HGB Conc 34 % (32-34); Mean Corpuscular Volume 91 fl (84-94); Monocytes # (Auto) 0.6 K/mm3 (0.0-0.8); Monocytes % (Auto) 8.3 % (0.0-7.3); Platelet Count 314 K/mm3 (140-440); Red Blood Count 3.06 M/mm3 (3.65-5.03); Red Cell Distribution Width 12.7 % (13.2-15.2)
[2020-12-16 19:17] LABS: INR 1.01 (0.87-1.13)
[2020-12-16 19:18] LABS: Partial Thromboplastin Time 33.1 Sec. (24.2-36.6)
[2020-12-16 19:31] LABS: Albumin 3.6 g/dL (3.9-5)
[2020-12-16] MEDS ORDERED: INSULIN REGULAR, HUMAN 100 UNITS/1 ML IV ONE (19:45)
[2020-12-16] MEDS ORDERED: SODIUM POLYSTYRENE 15 GM/60 ML ORAL LIQD PO ONE (19:45)
[2020-12-16] MEDS ORDERED: SODIUM BICARB 8.4% 50 MEQ/50 ML SYRINGE IV ONE (19:46)
[2020-12-16] MEDS ORDERED: DEXTROSE 50% IN WATER (25GM) 50 ML SYRINGE IV ONE (19:46)
[2020-12-16] MEDS ORDERED: CALCIUM CHLORIDE 1,000 MG in SODIUM CHLORIDE 0.9% 100 ML IV ONE (20:00)
[2020-12-16] MEDS ORDERED: ONDANSETRON 4 MG/2 ML INJ IV PRN (20:19)
[2020-12-16] MEDS ORDERED: ACETAMINOPHEN 325 MG TAB PO PRN (20:19)
[2020-12-16] MEDS ORDERED: ALBUTEROL 2.5 MG/3 ML NEBU IH PRN (20:19)
[2020-12-16] MEDS ORDERED: HYDROcodone/ACETAMINOPHEN 5-325 MG TAB PO PRN (20:20)
[2020-12-16] MEDS ORDERED: SODIUM CHLORIDE 0.9% 100 ML IV PRN (20:56)
[2020-12-16] MEDS ORDERED: INSULIN GLARGINE 100 UNITS/ML SUB-Q SCH (22:00)
[2020-12-16 23:42] LABS: Hepatitis B Surface Antigen Non-Reactive (Negative); Hepatitis C Virus Antibody Non-Reactive (NonReactive)
[2020-12-17] MEDS: carvediloL 25 MG TAB PO SCH ×2 (03:02→10:54)
[2020-12-17 05:04] VITALS: BP 149/78
[2020-12-17] MEDS ORDERED: NON-FORMULARY EACH (Ferric Citrate (Nf) 210 MG Tablet) PO SCH (08:00)
[2020-12-17] MEDS ORDERED: hydrALAZINE 25 MG TAB PO SCH (08:00)
[2020-12-17] MEDS: SEVELAMER CARBONATE 800 MG TAB PO SCH ×2 (08:46→12:19)
[2020-12-17] MEDS ORDERED: NON-FORMULARY EACH (Losartan Potassium [Losartan Potassium] 100 MG Tablet) PO SCH (10:00)
[2020-12-17] MEDS ORDERED: LOSARTAN 50 MG TAB PO SCH (10:00)
[2020-12-17] MEDS ORDERED: amLODIPine 5 MG TAB PO SCH (10:00)
== END 2020-12-17 13:22 | disposition home health service (06) ==
LOC: ED 17:28 → 3A 20:19
PROVIDERS: ADMIT Internal Medicine; ATTEND Internal Medicine
DX: I12.0 Hypertensive chronic kidney disease with stage 5 chronic kidney disease or end stage renal disease (principal); N18.6 End stage renal disease; E87.5 Hyperkalemia; E10.22 Type 1 diabetes mellitus with diabetic chronic kidney disease; D63.1 Anemia in chronic kidney disease; E78.2 Mixed hyperlipidemia; Z99.2 Dependence on renal dialysis; Z79.899 Other long term (current) drug therapy; Z98.890 Other specified postprocedural states; Z79.4 Long term (current) use of insulin; Z86.711 Personal history of pulmonary embolism; Z86.718 Personal history of other venous thrombosis and embolism
CPT/HCPCS: 36415; 80048; 80053; 80074; 82962; 83735; 85025; 85610; 85730; 93005; 96374; 96375; 99291; A9270; G0257; G0378; J1815

== ENCOUNTER 2021-08-03 06:08 | Inpatient (IN) | payer MEDICAID ==
[2021-08-03] MEDS ORDERED: HEPARIN/NS 5000 UNIT/500ML 1,000 ML IR ONE (08:00)
[2021-08-03] MEDS: MIDAZOLAM 2 MG/2 ML INJ ONE ×2 (08:04→09:25)
[2021-08-03] MEDS: fentaNYL 100 MCG/2 ML INJ ONE ×2 (08:05→09:26)
[2021-08-03] MEDS: LIDOCAINE (2%) 20 MG/1 ML VIAL 20 ML MDV INFILTRATI ONE ×2 (08:06→09:27)
[2021-08-03] MEDS: SODIUM CHLORIDE 0.9% 500 ML 500 ML IV SCH ×2 (08:06→08:40)
[2021-08-03] MEDS: ceFAZolin/Water 2 GM/20 ML 2 GM/20 ML SYRINGE IV ONE ×2 (08:07→09:00)
[2021-08-03] MEDS ORDERED: INSULIN REGULAR, HUMAN 100 UNITS/1 ML IV ONE (08:07)
[2021-08-03] MEDS ORDERED: DEXTROSE 50% IN WATER (25GM) 50 ML SYRINGE IV ONE ×2 (08:09→10:03)
[2021-08-03] MEDS ORDERED: SODIUM CHLORIDE 0.9% 250ML 0 ML ONE (08:14)
[2021-08-03] MEDS ORDERED: CALCIUM CHLORIDE 1,000 MG/10 ML SDV IVP NR (08:30)
--- NOTE | 2021-08-03 08:30 | Short Stay Summary ---
Short Stay Documentation Date of service: 08/03/21 Narrative H&P: The patient is a 36-year-old male with a history of end-stage renal disease who is on hemodialysis through a left brachiocephalic arteriovenous fistula. He presents with thrombosis of the fistula. He states he was able to undergo dialysis through the fistula on Sunday however he presented to dialysis on Sunday and the fistula was found to be thrombosed. He denies having any prolonged bleeding or other complications prior to thrombosis of the fistula. The plan was for a percutaneous mechanical thrombectomy of the fistula however upon drawing labs today his potassium is 8.2 so he will require treatment of the potassium with IV insulin, D50, and calcium chloride. I would then have to please see Vas-Cath for urgent hemodialysis. After he has undergone hemodialysis he will then undergo a percutaneous mechanical thrombectomy of the fistula tomorrow. The patient has expressed understanding of the plan and agrees to proceed. - History Past Medical History: diabetes, dialysis, ESRD, heart failure, hypertension, hyperlipidemia Past Surgical History: Other (Left brachiocephalic arteriovenous fistula, right above-knee amputation) Social history: no significant social history - Allergies and Medications Current Medications: Allergies No Known Allergies Allergy (Verified 08/07/17 23:24) Home Medications Medication Instructions Recorded Confirmed Last Taken Type AtorvaSTATin [Lipitor] 40 mg PO QHS #30 tablet 02/19/19 05/22/20 09/23/20 Rx Lispro Insulin [HumaLOG] 0 unit SUB-Q AC 30 Days units 02/19/19 05/22/20 09/23/20 Rx amLODIPine 5 mg PO QDAY tablet 05/22/20 09/24/20 09/24/20 05:00 Rx carvediloL [Coreg] 25 mg PO BID tablet 05/22/20 09/24/20 09/24/20 05:00 Rx Ferric Citrate (Nf) [Auryxia] 210 mg PO TID 09/20/20 09/20/20 09/23/20 History Insulin Glargine [Lantus VIAL] 20 units SUB-Q QHS 09/20/20 09/24/20 09/23/20 History Losartan Potassium 100 mg PO DAILY 09/20/20 09/20/20 09/24/20 05:00 History Sevelamer Carbonate [Renvela] 800 mg PO TID 0309/24/20 09/23/20 History hydrALAZINE [Apresoline TAB] 50 mg PO TID 09/20/20 09/24/20 09/23/20 History HYDROcodone/APAP 5-325 [[place] 1 each PO Q4HR PRN #30 tablet 09/24/20 Unknown Rx 5-325 mg TAB] Active Medications Calcium Chloride (Calcium Chloride 1,000 Mg/10 Ml Sdv) 1,000 mg IVP ONCE NR Stop: 08/03/21 09:30 Sodium Chloride (Nacl 0.9% 500 Ml) 500 mls @ 50 mls/hr IV DIRECT MINNIE Last Admin: 08/03/21 08:06 Dose: 0 mls - Physical exam General appearance: no acute distress Lungs: Normal air movement Heart: Regular rate Gastrointestinal: normal Male Genitourinary: deferred Rectal Exam: deferred Extremities: no ischemia Short Stay Discharge Plan Follow up with: SANDRA GUNTER [Other] - 7 Days
[2021-08-03] MEDS ORDERED: CALCIUM CHLORIDE 1,000 MG/10 ML SYRINGE IV ONE (08:31)
[2021-08-03] MEDS: HEPARIN 10,000 UNITS/10 ML VIAL ONE ×2 (09:29→09:30)
--- NOTE | 2021-08-03 09:41 | Operative Report ---
Operative Report Operative Report: Date of Procedure: 08/03/2021 Pre-operative Diagnosis: Complications of Dialysis Access Post-operative Diagnosis: Same Procedure(s): 1. Ultrasound-Guided Access Right Internal Jugular Vein 2. Placement of 15 Martiniquais PreCurved Vas-Cath 3. Radiologic Supervision with Interpretation Surgeon: Matthew Posey M.D. Auto Design Checker: None Anesthesia: 2% Lidocaine EBL: Minimal Counts: Correct Complications: None Condition: Stable Findings: Vas-Cath was placed with distal tip in the right atrium and there was no pneumothorax at the completion of the case. Specimen: None Indication: The patient is a 36-year-old male with history of end-stage renal disease who is currently on hemodialysis through a left brachiocephalic arteriovenous fistula. He presented with a thrombosed arteriovenous fistula however his labs revealed hyperkalemia with a potassium of 8.2. He is in need of urgent hemodialysis so he requires placement of a Vas-Cath and will undergo percutaneous mechanical thrombectomy of his arteriovenous fistula tomorrow. He was given the risk, benefits, and alternative procedures and consented to the procedure. Description of Procedure: The patient was brought to the Operating Cost Clerk and laid in supine position. After timeout was performed his right neck and chest were prepped and draped in normal sterile fashion. Ultrasound was used to identify the right internal jugular vein to confirm patency. Once patency was confirmed the overlying skin and soft tissue was anesthetized with lidocaine. An 11 blade was used to make a small stab incision and then a curved hemostat was used to bluntly dissect down to the anterior surface of the right internal jugular vein. A 21-gauge micropuncture needle was used ultrasound guidance to access the right internal jugular vein and then a 0.018 micropuncture wire was advanced into the vein and down into the inferior vena cava under fluoroscopy. The needle was removed and a micropuncture sheath was placed by Seldinger technique. The dilator and wire were removed and a 0.035 J-wire was advanced into the inferior vena cava to anchor the wire. The micropuncture sheath was removed and the tract was dilated. The Vas-Cath was then inserted by Seldinger technique. Both ports easily aspirated and flushed were primed with appropriate amount of heparin. The catheter was secured in position with a 2-0 Ethilon in interrupted fashion and dressed with a sterile dressing. Final fluoroscopy demonstrated the catheter was in adequate position and there was no evidence of pneumothorax at the completion of the case. The patient tolerated the procedure well and was transported to recovery in stable condition.
[2021-08-03] MEDS ORDERED: D5W/0.2% NACL 1,000 ML IV ONE (10:02)
[2021-08-03] MEDS ORDERED: DEXTROSE 50% IN WATER (25GM) 50 ML SYRINGE IV SCH (10:30)
[2021-08-03 11:04] LABS: Calcium 9.9 mg/dL (8.4-10.2)
--- NOTE | 2021-08-03 12:52 | Consultation ---
History of Present Illness - Reason for Consult Consult date: 08/03/21 Requesting physician: JOEL BURR - History of Present Illness The patient is a 36-year-old male with a history of diabetes mellitus type 2, anemia of CKD, chronic diastolic heart failure, hypertension, hyperlipidemia and end-stage renal disease who is on hemodialysis through a left brachiocephalic arteriovenous fistula. He presents with thrombosis of the fistula. He states he was able to undergo dialysis through the fistula on Sunday however he presented to dialysis on Sunday and the fistula was found to be thrombosed. He denies having any prolonged bleeding or other complications prior to thrombosis of the fistula. The plan was for a percutaneous mechanical thrombectomy of the fistula however upon drawing labs today his potassium is 8.2 so he required treatment of the potassium with IV insulin, D50, and calcium chloride. Vascular surgery evaluated the patient for Vas-Cath and subsequent urgent hemodialysis. After he has undergone hemodialysis he will then undergo a percutaneous mechanical thrombectomy of the fistula tomorrow per vascular surgery. Past History Past Medical History: diabetes, dialysis, ESRD, heart failure, hypertension, hyperlipidemia Past Surgical History: Other (Left brachiocephalic arteriovenous fistula, right above-knee amputation) Social history: no significant social history Medications and Allergies Allergies Allergy/AdvReac Type Severity Reaction Status Date / Time No Known Allergies Allergy Verified 08/07/17 23:24 Home Medications Medication Instructions Recorded Confirmed Last Taken Type AtorvaSTATin [Lipitor] 40 mg PO QHS #30 tablet 02/19/19 08/03/21 08/02/21 Rx Lispro Insulin [HumaLOG] 0 unit SUB-Q AC 30 Days units 02/19/19 08/03/21 08/02/21 Rx carvediloL [Coreg] 25 mg PO BID tablet 05/22/20 08/03/21 08/02/21 Rx Insulin Glargine [Lantus VIAL] 20 units SUB-Q QHS 09/20/20 08/03/21 08/02/21 History Losartan Potassium 100 mg PO DAILY 09/20/20 08/03/21 08/02/21 History Sevelamer Carbonate [Renvela] 800 mg PO TID 09/20/20 08/03/21 08/02/21 History Active Meds: Active Medications Sodium Chloride (Nacl 0.9% 500 Ml) 500 mls @ 50 mls/hr IV DIRECT MINNIE Last Admin: 08/03/21 08:40 Dose: 300 mls Review of Systems All systems: negative Exam - Constitutional Vitals: Temp Pulse Resp BP Pulse Ox 97.5 F L 82 14 135/72 100 08/03/21 09:47 08/03/21 12:00 08/03/21 12:00 08/03/21 12:00 08/03/21 12:00 General appearance: Present: no acute distress, well-nourished - EENT Eyes: Present: PERRL ENT: hearing intact, clear oral mucosa - Neck Neck: Present: supple, normal ROM - Respiratory Respiratory effort: normal Respiratory: bilateral: CTA - Cardiovascular Heart Sounds: Present: S1 & S2. Absent: rub, click - Extremities Extremities: pulses symmetrical, No edema Peripheral Pulses: within normal limits - Abdominal General gastrointestinal: Present: soft, non-tender, non-distended, normal bowel sounds Male genitourinary: Present: normal - Integumentary Integumentary: Present: clear, warm, dry - Musculoskeletal Musculoskeletal: gait normal, strength equal bilaterally - Psychiatric Psychiatric: appropriate mood/affect, intact judgment & insight - Neurologic Neurologic: CNII-XII intact, moves all extremities Results - Labs CBC & Chem 7: 08/03/21 Unknown Labs: Abnormal lab results 08/03/21 08/03/21 08/03/21 Range/Units 07:10 08:06 10:01 Potassium 8.2 H* (3.6-5.0) mmol/L Carbon Dioxide (22-30) mmol/L BUN (9-20) mg/dL Creatinine (0.8-1.3) mg/dL POC Glucose 68 L 20 L (70-105) mg/dL 08/03/21 08/03/21 Range/Units 10:56 Unknown Potassium 6.9 H* (3.6-5.0) mmol/L Carbon Dioxide 16 L (22-30) mmol/L BUN 136 H (9-20) mg/dL Creatinine 14.5 H (0.8-1.3) mg/dL POC Glucose 55 L (70-105) mg/dL Assessment and Plan ESRD Severe hyperkalemia AV fistula thrombosis Chronic diastolic heart failure. Patient with echocardiogram in 2018 which revealed left ventricular systolic function normal and EF of 55-60%. Diabetes mellitus type 2 Hypertension Anemia of chronic kidney disease 08/03/2021. Patient had Vas-Cath placed by vascular surgery and will have urgent hemodialysis. I have discussed the case both with nephrology and vascular surgery. Thrombectomy per vascular surgery recommendations after hemodialysis completed and potassium stabilized. Continue Accu-Cheks and sliding scale insulin. Continue home medications for DM and hypertension
[2021-08-03] MEDS ORDERED: ALBUTEROL 2.5 MG/3 ML NEBU IH PRN (17:00)
[2021-08-03] MEDS ORDERED: ACETAMINOPHEN 325 MG TAB PO PRN (17:30)
[2021-08-03] MEDS ORDERED: HYDROmorphone 1 MG/1 ML INJ IV PRN (17:30)
[2021-08-03] MEDS ORDERED: ONDANSETRON 4 MG/2 ML INJ IV PRN (17:30)
--- NOTE | 2021-08-03 22:51 | Consultation ---
History of Present Illness - Reason for Consult Consult date: 08/03/21 end stage renal disease, hyperkalemia - History of Present Illness Mr. Fuentes is a 36yo with ESRD on HD TTS who last dialyzed on Sunday. He reports that treatment was uneventful. Per patient, there were no reported access issues. However, on Sunday, he noticed that access no longer had a thrill. He presented for fistulogram/angioplasty today but preprocedure labs were notable for K 8.0. Procedure cancelled and vascath placed for emergent dialysis. Past History Past Medical History: diabetes, dialysis, ESRD, heart failure, hypertension, hyperlipidemia Past Surgical History: Other (Left brachiocephalic arteriovenous fistula, right above-knee amputation) Social history: no significant social history Medications and Allergies Allergies Allergy/AdvReac Type Severity Reaction Status Date / Time No Known Allergies Allergy Verified 08/07/17 23:24 Home Medications Medication Instructions Recorded Confirmed Last Taken Type AtorvaSTATin [Lipitor] 40 mg PO QHS #30 tablet 02/19/19 08/03/21 08/02/21 Rx Lispro Insulin [HumaLOG] 0 unit SUB-Q AC 30 Days units 02/19/19 08/03/21 08/02/21 Rx carvediloL [Coreg] 25 mg PO BID tablet 05/22/20 08/03/21 08/02/21 Rx Insulin Glargine [Lantus VIAL] 20 units SUB-Q QHS 09/20/20 08/03/21 08/02/21 History Losartan Potassium 100 mg PO DAILY 09/20/20 08/03/21 08/02/21 History Sevelamer Carbonate [Renvela] 800 mg PO TID 09/20/20 08/03/21 08/02/21 History Active Meds: Active Medications Acetaminophen (Acetaminophen 325 Mg Tab) 650 mg PO Q4H PRN PRN Reason: Pain MILD(1-3)/Fever >100.5/BRUNO Albuterol (Albuterol 2.5 Mg/3 Ml Nebu) 2.5 mg IH Q4HRT PRN PRN Reason: Shortness Of Breath Hydromorphone HCl (Hydromorphone 1 Mg/1 Ml Inj) 0.5 mg IV Q23H PRN PRN Reason: Pain , Severe (7-10) Sodium Chloride (Nacl 0.9% 500 Ml) 500 mls @ 50 mls/hr IV DIRECT [facility] Last Admin: 08/03/21 08:40 Dose: 300 mls Ondansetron HCl (Ondansetron 4 Mg/2 Ml Inj) 4 mg IV Q8H PRN PRN Reason: Nausea And Vomiting Oxycodone/Acetaminophen (Oxycodone /Acetaminophen 5-325mg Tab) 1 tab PO Q16H PRN PRN Reason: Pain, Moderate (4-6) Sodium Chloride (Sodium Chloride 0.9% 10 Ml Flush Syringe) 10 ml IV BID MINNIE Sodium Chloride (Sodium Chloride 0.9% 10 Ml Flush Syringe) 10 ml IV PRN PRN PRN Reason: LINE FLUSH Review of Systems All systems: negative Exam - Vital Signs Vital signs: Vital Signs Pulse Ox 100 08/03/21 07:41 - General Appearance General appearance: well-developed, well-nourished EENT: ATNC Respiratory: Clear to Ascultation Heart: regular, S1S2 Gastrointestinal: Present: normal Integumentary: no rash, warm and dry Neurologic: no focal deficit, alert and oriented x3 Psychiatric: cooperative Results - Lab Results 08/03/21 Unknown Most recent lab results Calcium 9.9 mg/dL (8.4-10.2) 08/03/21 Unknown Assessment and Plan Impression: * End stage renal disease - [facility] TTS * Hyperkalemia, severe * Malfunctioning AV access * Hypertension Plan: * Vascath placement per vascular surgery * Hemodialysis to follow * Fistulogram/angioplasty planned for tomorrow * Will plan for HD tomorrow - continue TTS schedule * UF as tolerated * Renal diet * Dose medications for renal function
[2021-08-03] MEDS ORDERED: SODIUM CHLORIDE 0.9% 100 ML IV PRN (23:05)
[2021-08-03] MEDS: NIFEdipine XL 60 MG TAB PO SCH (23:28)
[2021-08-04] MEDS: oxyCODONE /ACETAMINOPHEN 5-325MG TAB PO PRN (01:46)
[2021-08-04] MEDS ORDERED: HEPARIN/NS 5000 UNIT/500ML 1,000 ML IR ONE (07:27)
[2021-08-04 07:35] LABS: Albumin 4.1 g/dL (3.9-5); Calcium 8.9 mg/dL (8.4-10.2)
[2021-08-04] MEDS ORDERED: SODIUM CHLORIDE 0.9% 250ML 250 ML ONE ×2 (07:35→09:52)
[2021-08-04] MEDS: fentaNYL 100 MCG/2 ML INJ ONE ×2 (07:38→22:09)
[2021-08-04] MEDS: MIDAZOLAM 2 MG/2 ML INJ ONE ×3 (07:39→09:30)
[2021-08-04] MEDS: LIDOCAINE (2%) 20 MG/1 ML VIAL 20 ML MDV INFILTRATI ONE ×3 (07:39→10:30)
--- NOTE | 2021-08-04 08:16 | Progress Note ---
Assessment and Plan Impression: * End stage renal disease - [facility] * Hyperkalemia, severe * Malfunctioning AV access * Hypertension Plan: * Patient is s/p vascath placement and hemodialysis yesterday * Fistulogram/angioplasty planned for today * Continue TTS schedule * UF as tolerated * Renal diet * Dose medications for renal function Subjective Date of service: 08/04/21 Interval history: Patient has no complaints. Objective - Vital Signs Vital signs: Vital Signs - 12hr 08/03/21 08/03/21 08/03/21 20:40 22:12 22:42 Temperature 98.3 F 98.8 F Pulse Rate 101 H 100 H Respiratory 17 20 Rate Blood Pressure 183/106 Blood Pressure 189/118 [Right] O2 Sat by Pulse 98 98 97 Oximetry 08/03/21 08/04/21 08/04/21 23:28 01:46 02:46 Temperature Pulse Rate 96 H Respiratory 17 17 Rate Blood Pressure 190/110 Blood Pressure [Right] O2 Sat by Pulse Oximetry 08/04/21 08/04/21 04:19 05:00 Temperature 98.1 F Pulse Rate 103 H 90 Respiratory 20 17 Rate Blood Pressure 181/111 Blood Pressure 150/92 [Right] O2 Sat by Pulse 99 98 Oximetry - General Appearance General appearance: well-developed, well-nourished EENT: ATNC Respiratory: Present: Clear to Ascultation Cardiology: regular, S1S2 Gastrointestinal: no tenderness, no distended Integumentary: no rash, warm and dry Neurologic: no focal deficit, alert and oriented x3 Psychiatric: cooperative - Lab 08/04/21 08:54 08/04/21 05:16 Most recent lab results Calcium 8.9 mg/dL (8.4-10.2) 08/04/21 05:16 Medications & Allergies - Medications Allergies/Adverse Reactions: Allergies hydromorphone [From Dilaudid] Allergy (Verified 08/04/21 01:59) Angioedema Home Medications: Home Medications Medication Instructions Recorded Confirmed Last Taken Type AtorvaSTATin [Lipitor] 40 mg PO QHS #30 tablet 02/19/19 08/03/21 08/02/21 Rx Lispro Insulin [HumaLOG] 0 unit SUB-Q AC 30 Days units 02/19/19 08/03/21 08/02/21 Rx carvediloL [Coreg] 25 mg PO BID tablet 05/22/20 08/03/21 08/02/21 Rx Insulin Glargine [Lantus VIAL] 20 units SUB-Q QHS 09/20/20 08/03/21 08/02/21 History Losartan Potassium 100 mg PO DAILY 09/20/20 08/03/21 08/02/21 History Sevelamer Carbonate [Renvela] 800 mg PO TID 09/20/20 08/03/21 08/02/21 History Labetalol HCl [Labetalol 300mg TAB] 300 mg PO BID 08/04/21 08/04/21 08/03/21 23:00 History Losartan Potassium 50 mg PO QDAY 08/04/21 08/04/21 08/02/21 09:00 History Active Medications: Generic Name Dose Route Start Last Admin Trade Name Freq PRN Reason Stop Dose Admin Acetaminophen 650 mg 08/03/21 17:30 Acetaminophen 325 Mg Tab PO Q4H PRN Pain MILD(1-3)/Fever >100.5/BRUNO Albuterol 2.5 mg 08/03/21 17:00 Albuterol 2.5 Mg/3 Ml Nebu IH Q4HRT PRN Shortness Of Breath Sodium Chloride 500 mls @ 50 mls/hr 08/03/21 08:00 08/03/21 08:40 Nacl 0.9% 500 Ml IV 300 mls DIRECT MINNIE Administration Sodium Chloride 100 mls @ 999 mls/hr 08/03/21 23:05 Nacl 0.9% IV GRIS PRN Hypotension Isosorbide Mononitrate 60 mg 08/04/21 10:00 Isosorbide Mononitrate Er 60 Mg Tab PO QDAY MINNIE Labetalol HCl 300 mg 08/03/21 23:45 08/03/21 23:28 Labetalol 200 Mg Tab PO 300 mg BID MINNIE Administration Nifedipine 60 mg 08/03/21 23:45 08/03/21 23:28 Nifedipine Xl 60 Mg Tab PO 60 mg Q12HR MINNIE Administration Ondansetron HCl 4 mg 08/03/21 17:30 Ondansetron 4 Mg/2 Ml Inj IV Q8H PRN Nausea And Vomiting Oxycodone/Acetaminophen 1 tab 08/03/21 17:30 08/04/21 01:46 Oxycodone /Acetaminophen 5-325mg Tab PO 1 tab Q16H PRN Administration Pain, Moderate (4-6) Sodium Chloride 10 ml 08/03/21 22:00 08/03/21 23:29 Sodium Chloride 0.9% 10 Ml Flush Syringe IV 10 ml BID MINNIE Administration Sodium Chloride 10 ml 08/03/21 17:30 Sodium Chloride 0.9% 10 Ml Flush Syringe IV PRN PRN LINE FLUSH
[2021-08-04] MEDS ORDERED: ALTEPLASE 2 MG INJ ONE ×2 (08:41→09:41)
[2021-08-04] MEDS ORDERED: WATER FOR INJ Sterile (PF) 10 ML ONE (08:42)
[2021-08-04] MEDS: HEPARIN 10,000 UNITS/10 ML VIAL ONE ×2 (08:56→09:38)
[2021-08-04 09:13] LABS: Mean Corpuscular HGB Conc 31 % (32-34); Mean Corpuscular Volume 87 fl (84-94); Platelet Count 260 K/mm3 (140-440); Red Blood Count 5.58 M/mm3 (3.65-5.03); Red Cell Distribution Width 15.7 % (13.2-15.2)
[2021-08-04 09:25] LABS: Hematocrit 48.3 % (35.5-45.6); Hemoglobin 14.8 gm/dl (11.8-15.2)
[2021-08-04] MEDS ORDERED: NITROGLYCERIN DRIP 50 MG/250 ML BOTTLE ONE (10:03)
[2021-08-04] MEDS ORDERED: HEPARIN/NS 5000 UNIT/500ML 500 ML IR ONE (10:11)
--- NOTE | 2021-08-04 11:37 | Consultation ---
History of Present Illness - Reason for Consult Consult date: 08/04/21 Thrombosed left upper arm brachiocephalic fistula - History of Present Illness Patient with a history of end-stage renal disease on hemodialysis through a left upper arm AV fistula. Per patient, this last worked normally on Sunday. He showed up at dialysis on Sunday where it still was nonfunctional and this was noted by dialysis nurse initiating patient's admission to the hospital and subsequent placement of Vas-Cath and procedure today to perform thrombectomy. Past History Past Medical History: diabetes, dialysis, ESRD, heart failure, hypertension, hyperlipidemia Past Surgical History: Other (Left brachiocephalic arteriovenous fistula, right above-knee amputation) Social history: no significant social history Medications and Allergies Allergies Allergy/AdvReac Type Severity Reaction Status Date / Time hydromorphone [From Dilaudid] Allergy Angioedema Verified 08/04/21 01:59 Home Medications Medication Instructions Recorded Confirmed Last Taken Type AtorvaSTATin [Lipitor] 40 mg PO QHS #30 tablet 02/19/19 08/03/21 08/02/21 Rx Lispro Insulin [HumaLOG] 0 unit SUB-Q AC 30 Days units 02/19/19 08/03/21 08/02/21 Rx carvediloL [Coreg] 25 mg PO BID tablet 05/22/20 08/03/21 08/02/21 Rx Insulin Glargine [Lantus VIAL] 20 units SUB-Q QHS 09/20/20 08/03/21 08/02/21 History Losartan Potassium 100 mg PO DAILY 09/20/20 08/03/21 08/02/21 History Sevelamer Carbonate [Renvela] 800 mg PO TID 09/20/20 08/03/21 08/02/21 History Labetalol HCl [Labetalol 300mg TAB] 300 mg PO BID 08/04/21 08/04/21 08/03/21 23:00 History Losartan Potassium 50 mg PO QDAY 08/04/21 08/04/21 08/02/21 09:00 History Active Meds: Active Medications Acetaminophen (Acetaminophen 325 Mg Tab) 650 mg PO Q4H PRN PRN Reason: Pain MILD(1-3)/Fever >100.5/BRUNO Albuterol (Albuterol 2.5 Mg/3 Ml Nebu) 2.5 mg IH Q4HRT PRN PRN Reason: Shortness Of Breath Sodium Chloride (Nacl 0.9% 500 Ml) 500 mls @ 50 mls/hr IV DIRECT [facility] Last Admin: 08/03/21 08:40 Dose: 300 mls Sodium Chloride (Nacl 0.9%) 100 mls @ 999 mls/hr IV GRIS PRN PRN Reason: Hypotension Isosorbide Mononitrate (Isosorbide Mononitrate Er 60 Mg Tab) 60 mg PO QDAY [facility] Labetalol HCl (Labetalol 200 Mg Tab) 300 mg PO BID [facility] Last Admin: 08/03/21 23:28 Dose: 300 mg Nifedipine (Nifedipine Xl 60 Mg Tab) 60 mg PO Q12HR [facility] Last Admin: 08/03/21 23:28 Dose: 60 mg Ondansetron HCl (Ondansetron 4 Mg/2 Ml Inj) 4 mg IV Q8H PRN PRN Reason: Nausea And Vomiting Oxycodone/Acetaminophen (Oxycodone /Acetaminophen 5-325mg Tab) 1 tab PO Q16H PRN PRN Reason: Pain, Moderate (4-6) Last Admin: 08/04/21 01:46 Dose: 1 tab Sodium Chloride (Sodium Chloride 0.9% 10 Ml Flush Syringe) 10 ml IV BID [facility] Last Admin: 08/03/21 23:29 Dose: 10 ml Sodium Chloride (Sodium Chloride 0.9% 10 Ml Flush Syringe) 10 ml IV PRN PRN PRN Reason: LINE FLUSH Review of Systems All systems: negative Exam - Constitutional Vitals: Temp Pulse Resp BP Pulse Ox 98.1 F 90 17 150/92 98 08/04/21 04:19 08/04/21 05:00 08/04/21 05:00 08/04/21 05:00 08/04/21 05:00 General appearance: Present: no acute distress - EENT Eyes: Present: EOM intact ENT: hearing intact - Neck Neck: Present: supple - Respiratory Respiratory effort: normal - Extremities Extremities: abnormal (Per HPI) - Abdominal General gastrointestinal: Present: deferred Male genitourinary: Present: deferred - Rectal Rectal Exam: deferred - Psychiatric Psychiatric: appropriate mood/affect, cooperative Results - Labs CBC & Chem 7: 08/04/21 08:54 08/04/21 05:16 Labs: Abnormal lab results 01/08/03/21 08/04/21 Range/Units 13:10 23:20 05:16 RBC (3.65-5.03) M/mm3 Hct (35.5-45.6) % MCH (28-32) pg MCHC (32-34) % RDW (13.2-15.2) % Sodium 134 L (137-145) mmol/L Potassium 5.4 H D (3.6-5.0) mmol/L Chloride 94.3 L (98-107) mmol/L Carbon Dioxide 20 L (22-30) mmol/L BUN 67 H (9-20) mg/dL Creatinine 10.2 H (0.8-1.3) mg/dL POC Glucose 107 H 149 H (70-105) mg/dL 08/04/21 Range/Units 08:54 RBC 5.58 H (3.65-5.03) M/mm3 Hct 48.3 H (35.5-45.6) % MCH 27 L (28-32) pg MCHC 31 L (32-34) % RDW 15.7 H (13.2-15.2) % Sodium (137-145) mmol/L Potassium (3.6-5.0) mmol/L Chloride (98-107) mmol/L Carbon Dioxide (22-30) mmol/L BUN (9-20) mg/dL Creatinine (0.8-1.3) mg/dL POC Glucose (70-105) mg/dL Assessment and Plan Patient was brought in the Supervisor Of Research for planned thrombectomy of his left upper arm brachiocephalic fistula. Intraoperative evaluation of the fistula demonstrated diminutive outflow veins which were patent. The proximal aspect of the fistula, there are chronic focal areas of thrombus that are not amenable to percutaneous removal. The patient will need to be scheduled for surgical thrombectomy of the proximal aspect of the fistula. Currently dialyzing through a Vas-Cath. This will need to be converted to a PermCath prior to patient's discharge and the patient can follow-up in an outpatient basis for his surgical thrombectomy.
--- NOTE | 2021-08-04 11:45 | Operative Report ---
Operative Report Operative Report: Exam: Left upper arm fistulogram with thrombectomy Clinical indication: Patient with a history of left upper arm brachiocephalic fistula thrombosed. Date: 08/04/2021 Procedure: Following an explanation of the risk, benefits and alternatives; written informed consent was obtained. The patient was brought to the angiographic suite and placed supine on the examination table. Initial evaluation of the fistula demonstrated no palpable thrill. The patient's left upper arm was prepped and draped in the usual sterile fashion. 2% lidocaine was used for anesthesia. The fistula was cannulated towards the venous outflow using a 7 cm 21-gauge needle under ultrasound guidance. A 0.018 guidewire was advanced distally. The needle was removed and using trocar technique a 7 Belarusian sheath placed towards the venous outflow. Access towards the arterial anastomosis was performed in a similar fashion and a 6 Belarusian sheath placed towards the arterial anastomosis. A vertebral catheter was advanced over the guidewire through the venous sheath to the central veins. The central veins are widely patent. Pullback venography was performed which demonstrates that the cephalic arch is patent although significantly diminutive measuring only 3 mm in diameter. There is thrombus predominantly within the body of the fistula to the sheath insertion site. Given the diminutive outflow veins, venoplasty of the venous outflow was first performed using an 8 mm x 100 mm balloon insufflated to between 6 and 8 cecilia at multiple locations from this cephalic arch to the sheath insertion site. At this point, the vertebral catheter was then advanced over the guidewire through the arterial sheath. There is significant difficulty advancing the guidewire through the thrombosed anastomosis but ultimately, the guidewire and catheter were advanced through the anastomosis into the proximal brachial artery. A 5.5 Bel[place]ian Luciana balloon was then advanced over the guidewire and used to sweep the arterial plug. The balloon demonstrated significant deformity going through the perianastomotic fistula. The vertebral catheter was then advanced over the guidewire into the brachial artery. Contrast was injected which demonstrates thrombus distal to the anastomosis. The radial and ulnar arteries fill through collateral vessels. There is chronic thrombus within the proximal aspect of the fistula. The guidewire was then advanced down the radial artery. Thrombectomy of the distal thrombus in the brachial artery was performed using both pharmacological and mechanical devices including 6 Belarusian MPA catheter, a 7 mm spider wire, and sweeping of the thrombus into the fistula using both a 4 mm x 20 mm balloon insufflated to 2 cecilia and a 5.5 Belarusian Luciana balloon insufflated to less than 1atm. Ultimately, these were unsuccessful and thrombectomy of the proximal brachial artery was performed using an 8 Belarusian penumbra catheter over a guidewire. 2 passes were made. Following thrombectomy, the patient was noted to have brisk flow throughout the distal radial artery into the radial, ulnar and interosseous arteries extending towards the hand. At this point, the guidewires, catheters and sheaths were removed. Hemostasis was achieved at the puncture sites using 3-0 Vicryl suture. Manual compression was also used. A mild pressure dressing was applied to the proximal venous sheath insertion site. The patient tolerated the procedure well. There were no immediate postprocedure complications. Given the patient's difficulty with sedation during placement of his Vas-Cath, Versed alone was used for anxiolysis. Continuous cardiopulmonary monitoring was utilized. Impression: 1) Left upper arm fistulogram with thrombectomy demonstrating chronic thrombus in the perianastomotic fistula. This will need to be scheduled for open thrombectomy however, this can be done on an outpatient basis. The patient has an indwelling Vas-Cath which will be converted to a PermCath prior to discharge. 2) Thrombectomy of the proximal brachial artery as described with brisk flow through the distal brachial artery into the radial, ulnar and interosseous arteries following thrombectomy.
[2021-08-04 12:27] LABS: Hepatitis B Surface Antigen Non-Reactive (Negative); Hepatitis C Virus Antibody Non-Reactive (NonReactive)
[2021-08-04] MEDS: NIFEdipine XL 60 MG TAB PO SCH ×2 (14:21→22:14)
--- NOTE | 2021-08-04 15:16 | Event Note ---
Date: 08/04/21 Patient evaluated after dialysis. Left upper arm brachiocephalic fistula with pulsatility at the arterial anastomosis with thrombus distally. The patient's left hand has intact sensation, strength with no complaints of any pain. Patient only complains of soreness in the region of his angioplasty in the cephalic vein outflow. I discussed with patient that he will require surgical thrombectomy to be performed on an outpatient basis to remove chronic thrombus adjacent to the anastomosis in his fistula. He will need conversion of his Vas-Cath to his PermCath tomorrow. He is in agreement. Ultrasound of his arm ordered to evaluate patient's left upper arm to determine options if necessary during patient's surgical thrombectomy.
--- NOTE | 2021-08-04 17:45 | Vascular Lab Report ---
ULTRASOUND EVALUATION OF LEFT UPPER EXTREMITY DIALYSIS ACCESS INDICATION: Thrombosed left brachiocephalic fistula. COMPARISON: None available. FINDINGS: A patent left upper extremity fistula is noted with nonocclusive thrombi seen along the arterial infl ow and venous outflow. Flow volume is abnormally low and measures 251-375 mL/minute. Peak systolic ve locity measures 107 cm/s at the arterial inflow and soft tissue 234 cm/s along the proximal arm. IMPRESSION: Abnormal left arm AV fistula as above. Signer Name: Basil Burrell MD Signed: 08/04/2021 5:40 PM Workstation Name: [id number]
[2021-08-05] MEDS: oxyCODONE /ACETAMINOPHEN 5-325MG TAB PO PRN ×2 (00:08→23:43)
--- NOTE | 2021-08-05 07:49 | Progress Note ---
Assessment and Plan Impression: * End stage renal disease - [facility] * Hyperkalemia, severe * Malfunctioning AV access * Hypertension Plan: * Patient is s/p fistulogram yesterday - unsuccessful. Per Dr. Grant, patient will need surgical thrombectomy - to be scheduled for next week * Permcath planned for today * Continue TTS schedule * UF as tolerated * Renal diet * Dose medications for renal function * Subjective Date of service: 08/05/21 Interval history: Patient is s/p fistulogram/angioplasty yesterday. Fistulogram unsuccessful. However, patient has no complaints. Objective - Vital Signs Vital signs: Vital Signs - 12hr 08/04/21 08/04/21 08/05/21 21:37 22:13 02:41 Temperature 99.3 F Pulse Rate 103 H 103 H Respiratory 19 Rate Blood Pressure 175/88 175/88 O2 Sat by Pulse 99 96 Oximetry 08/05/21 05:05 Temperature 97.9 F Pulse Rate 97 H Respiratory 18 Rate Blood Pressure 117/80 O2 Sat by Pulse 99 Oximetry - General Appearance General appearance: well-developed, well-nourished EENT: ATNC Respiratory: Present: Clear to Ascultation Cardiology: regular, S1S2 Gastrointestinal: normal Integumentary: warm and dry Neurologic: alert and oriented x3 Psychiatric: cooperative - Lab 08/04/21 08:54 08/04/21 05:16 Most recent lab results Calcium 8.9 mg/dL (8.4-10.2) 08/04/21 05:16 Medications & Allergies - Medications Allergies/Adverse Reactions: Allergies hydromorphone [From Dilaudid] Allergy (Verified 08/04/21 01:59) Angioedema Home Medications: Home Medications Medication Instructions Recorded Confirmed Last Taken Type AtorvaSTATin [Lipitor] 40 mg PO QHS #30 tablet 02/19/19 08/03/21 08/02/21 Rx Lispro Insulin [HumaLOG] 0 unit SUB-Q AC 30 Days units 02/19/19 08/03/2108/02 Rx carvediloL [Coreg] 25 mg PO BID tablet 05/22/20 08/03/21 08/02/21 Rx Insulin Glargine [Lantus VIAL] 20 units SUB-Q QHS 09/20/20 08/03/21 08/02/21 History Losartan Potassium 100 mg PO DAILY 09/20/20 08/03/21 08/02/21 History Sevelamer Carbonate [Renvela] 800 mg PO TID 09/20/20 08/03/21 08/02/21 History Labetalol HCl [Labetalol 300mg TAB] 300 mg PO BID 08/04/21 08/04/21 08/03/21 23 :00 History Losartan Potassium 50 mg PO QDAY 08/04/21 08/04/21 08/02/21 09:00 History Active Medications: Generic Name Dose Route Start Last Admin Trade Name Freq PRN Reason Stop Dose Admin Acetaminophen 650 mg 08/03/21 17:30 Acetaminophen 325 Mg Tab PO Q4H PRN Pain MILD(1-3)/Fever >100.5/BRUNO Albuterol 2.5 mg 08/03/21 17:00 Albuterol 2.5 Mg/3 Ml Nebu IH Q4HRT PRN Shortness Of Breath Sodium Chloride 500 mls @ 50 mls/hr 08/03/21 08:00 08/03/21 08:40 Nacl 0.9% 500 Ml IV 300 mls DIRECT MINNIE Administration Sodium Chloride 100 mls @ 999 mls/hr 08/03/21 23:05 Nacl 0.9% IV GRIS PRN Hypotension Isosorbide Mononitrate 60 mg 08/04/21 10:00 08/04/21 14:21 Isosorbide Mononitrate Er 60 Mg Tab PO 60 mg QDAY MINNIE Administration Labetalol HCl 300 mg 08/03/21 23:45 08/04/21 22:13 Labetalol 200 Mg Tab PO 300 mg BID MINNIE Administration Nifedipine 60 mg 08/03/21 23:45 08/04/21 22:14 Nifedipine Xl 60 Mg Tab PO 60 mg Q12HR MINNIE Administration Ondansetron HCl 4 mg 08/03/21 17:30 Ondansetron 4 Mg/2 Ml Inj IV Q8H PRN Nausea And Vomiting Oxycodone/Acetaminophen 1 tab 08/03/21 17:30 08/05/21 00:08 Oxycodone /Acetaminophen 5-325mg Tab PO 1 tab Q16H PRN Administration Pain, Moderate (4-6) Sodium Chloride 10 ml 08/03/21 22:00 08/04/21 22:14 Sodium Chloride 0.9% 10 Ml Flush Syringe IV 10 ml BID MINNIE Administration Sodium Chloride 10 ml 08/03/21 17:30 Sodium Chloride 0.9% 10 Ml Flush Syringe IV PRN PRN LINE FLUSH
--- NOTE | 2021-08-05 08:53 | Progress Note ---
Assessment and Plan Assessment and plan: ESRD Severe hyperkalemia AV fistula thrombosis Chronic diastolic heart failure. Patient with echocardiogram in 2018 which revealed left ventricular systolic function normal and EF of 55-60%. Diabetes mellitus type 2 Hypertension Anemia of chronic kidney disease 08/03/2021. Patient had Vas-Cath placed by vascular surgery and will have urgent hemodialysis. I have discussed the case both with nephrology and vascular surgery. Thrombectomy per vascular surgery recommendations after hemodialysis completed and potassium stabilized. Continue Accu-Cheks and sliding scale insulin. Continue home medications for DM and hypertension 08/04/2021. Patient with fistulogram today but unsuccessful. Patient will need to have surgical thrombectomy. Patient with PermCath planned for tomorrow. Continue hemodialysis per nephrology 08/05/2021. Patient with fistulogram that was unsuccessful yesterday. Patient will need surgical thrombectomy that is likely planned for next week. Patient had PermCath placement today. Continue hemodialysis per nephrology recommendations. UF as tolerated. Renal diet History Interval history: No new issues overnight. Hospitalist Physical - Constitutional Vitals: Temp Pulse Resp BP Pulse Ox 97.9 F 97 H 18 117/80 99 08/05/21 05:05 08/05/21 05:05 08/05/21 05:05 08/05/21 05:05 08/05/21 05:05 General appearance: Present: no acute distress - EENT Eyes: Present: PERRL, EOM intact ENT: hearing intact, clear oral mucosa, dentition normal - Neck Neck: Present: supple, normal ROM - Respiratory Respiratory effort: normal Respiratory: bilateral: CTA - Cardiovascular Rhythm: regular Heart Sounds: Present: S1 & S2. Absent: gallop, rub - Extremities Extremities: no ischemia, No edema, Full ROM - Abdominal General gastrointestinal: soft, non-tender, non-distended, normal bowel sounds - Integumentary Integumentary: Present: clear, warm, dry - Neurologic Neurologic: CNII-XII intact, moves all extremities Results - Labs CBC & Chem 7: 08/04/21 08:54 08/04/21 05:16 Labs: Laboratory Last Values WBC 5.5 K/mm3 (4.5-11.0) 08/04/21 08:54 RBC 5.58 M/mm3 (3.65-5.03) H 08/04/21 08:54 Hgb 14.8 gm/dl (11.8-15.2) 08/04/21 08:54 Hct 48.3 % (35.5-45.6) H 08/04/21 08:54 MCV 87 fl (84-94) 08/04/21 08:54 MCH 27 pg (28-32) L 08/04/21 08:54 MCHC 31 % (32-34) L 08/04/21 08:54 RDW 15.7 % (13.2-15.2) H 08/04/21 08:54 Plt Count 260 K/mm3 (140-440) 08/04/21 08:54 Sodium 134 mmol/L (137-145) L 08/04/21 05:16 Potassium 5.4 mmol/L (3.6-5.0) H D 08/04/21 05:16 Chloride 94.3 mmol/L (98-107) L 08/04/21 05:16 Carbon Dioxide 20 mmol/L (22-30) L 08/04/21 05:16 Anion Gap 25 mmol/L 08/04/21 05:16 BUN 67 mg/dL (9-20) H 08/04/21 05:16 Creatinine 10.2 mg/dL (0.8-1.3) H 08/04/21 05:16 Estimated GFR 7 ml/min 08/04/21 05:16 BUN/Creatinine Ratio 7 % 08/04/21 05:16 Glucose 78 mg/dL (75-100) 08/04/21 05:16 POC Glucose 163 mg/dL (70-105) H 08/04/21 21:36 Calcium 8.9 mg/dL (8.4-10.2) 08/04/21 05:16 Total Bilirubin 0.40 mg/dL (0.1-1.2) 08/04/21 05:16 AST 11 units/L (5-40) 08/04/21 05:16 ALT 7 units/L (7-56) 08/04/21 05:16 Alkaline Phosphatase 107 units/L (35-129) 08/04/21 05:16 Total Protein 7.8 g/dL (6.3-8.2) 08/04/21 05:16 Albumin 4.1 g/dL (3.9-5) 08/04/21 05:16 Albumin/Globulin Ratio 1.1 % 08/04/21 05:16 Hepatitis A IgM Ab Non-reactive (NonReactive) 08/04/21 08:54 Hep Bs Antigen Non-reactive (Negative) 08/04/21 08:54 Hep B Core IgM Ab Non-reactive (NonReactive) 08/04/21 08:54 Hepatitis C Antibody Non-reactive (NonReactive) 08/04/21 08:54 Srinivasan/IV: Voiding Method Urinal Active Medications - Current Medications Current Medications: Generic Name Dose Route Start Last Admin Trade Name Freq PRN Reason Stop Dose Admin Acetaminophen 650 mg 08/03/21 17:30 Acetaminophen 325 Mg Tab PO Q4H PRN Pain MILD(1-3)/Fever >100.5/BRUNO Albuterol 2.5 mg 08/03/21 17:00 Albuterol 2.5 Mg/3 Ml Nebu IH Q4HRT PRN Shortness Of Breath Sodium Chloride 500 mls @ 50 mls/hr 08/03/21 08:00 08/03/21 08:40 Nacl 0.9% 500 Ml IV 300 mls DIRECT MINNIE Administration Sodium Chloride 100 mls @ 999 mls/hr 08/03/21 23:05 Nacl 0.9% IV GRIS PRN Hypotension Isosorbide Mononitrate 60 mg 08/04/21 10:00 08/04/21 14:21 Isosorbide Mononitrate Er 60 Mg Tab PO 60 mg QDAY MINNIE Administration Labetalol HCl 300 mg 08/03/21 23:45 08/04/21 22:13 Labetalol 200 Mg Tab PO 300 mg BID MINNIE Administration Nifedipine 60 mg 08/03/21 23:45 08/04/21 22:14 Nifedipine Xl 60 Mg Tab PO 60 mg Q12HR MINNIE Administration Ondansetron HCl 4 mg 08/03/21 17:30 Ondansetron 4 Mg/2 Ml Inj IV Q8H PRN Nausea And Vomiting Oxycodone/Acetaminophen 1 tab 08/03/21 17:30 08/05/21 00:08 Oxycodone /Acetaminophen 5-325mg Tab PO 1 tab Q16H PRN Administration Pain, Moderate (4-6) Sodium Chloride 10 ml 08/03/21 22:00 08/04/21 22:14 Sodium Chloride 0.9% 10 Ml Flush Syringe IV 10 ml BID MINNIE Administration Sodium Chloride 10 ml 08/03/21 17:30 Sodium Chloride 0.9% 10 Ml Flush Syringe IV PRN PRN LINE FLUSH
[2021-08-05] MEDS ORDERED: LIDOCAINE (2%) 20 MG/1 ML VIAL 20 ML MDV INFILTRATI ONE (09:20)
[2021-08-05] MEDS ORDERED: HEPARIN/NS 5000 UNIT/500ML 500 ML IR ONE ×2 (09:20→10:38)
[2021-08-05] MEDS ORDERED: HEPARIN 10,000 UNITS/10 ML VIAL ONE (09:20)
[2021-08-05] MEDS ORDERED: SODIUM CHLORIDE 0.9% 250ML 250 ML ONE (09:38)
[2021-08-05] MEDS: MIDAZOLAM 2 MG/2 ML INJ ONE ×2 (10:05→10:41)
[2021-08-05] MEDS: fentaNYL 100 MCG/2 ML INJ ONE ×5 (10:06→10:55)
--- NOTE | 2021-08-05 11:24 | Operative Report ---
Operative Report Operative Report: Date of Procedure: 08/05/2021 Pre-operative Diagnosis: Complications of Dialysis Access Post-operative Diagnosis: Same Procedure(s): 1. Access Left Arm AV Fistula with 7 [place] Sheath Venous 2. Access Left Arm AV Fistula with 6 [place] Sheath Arterial 3. Diagnostic Fistulogram with Central Venogram 4. Angioplasty of Left Arm AV Fistula with 6 x 200 Angiosculpt Balloon and 7 x 80 Mehdi Balloon 5. Catheter in Left Brachial Artery 6. Diagnostic Left Upper Extremity Angiogram 7. Radiologic Supervision with Interpretation 8. Monitored Moderate Sedation (Total Anesthesia Time: 52 Minutes) Surgeon: Matthew Posey M.D. Cementing Bulk Material Operator: None Anesthesia: Local/Monitored Moderate Sedation Total Anesthesia Time: 52 Minutes EBL: Minimal Counts: Correct Complications: None Condition: Stable Specimen: None Indication: The patient is a 36-year-old male with a history of end-stage renal disease who is on hemodialysis through a left brachiocephalic arteriovenous fistula. He presented with a thrombosed fistula and initially required placement of a Vas- Cath for emergent dialysis for hyperkalemia. He underwent percutaneous mechanical thrombectomy of the fistula however it was initially believed to be unsuccessful with the plan to come to the [facility] today for exchange of his Vas-Cath to a permacath. Upon physical exam today he had a palpable thrill so the plan was for a fistulogram with possible intervention. He was given the risk, benefits, and alternative procedures and consented to the procedure. Angiographic Findings: The diagnostic fistulogram demonstrated a small amount of thrombus near the arterial inflow. There was a small pseudoaneurysm in the cannulation zone. There was approximately 50 to 75% stenosis in the venous outflow including cephalic arch. The central venous system was patent without evidence of flow- limiting stenosis. The diagnostic left upper extremity angiogram revealed that the brachial artery was patent without significant flow-limiting stenosis. Both the radial and ulnar arteries were patent without evidence of flow-limiting stenosis. There was approximately 75% stenosis of the arterial anastomosis with a small amount of thrombus within the arterial inflow. After intervention the fistula was patent with approximately 15% residual steno sis within the arterial inflow. There was minimal residual thrombus within the arterial inflow. There was approximately 15% residual stenosis within the venous outflow. The brachial artery remained patent without evidence of distal emboli. Description of Procedure: The patient was brought to the [facility] and laid in supine position. After timeout was performed his left arm was prepped and draped in normal sterile fashion. Lidocaine was used anesthetize the skin and soft tissue overlying the fistula, near the arterial inflow, and a 21-gauge micropuncture needle was used to access the fistula towards the venous outflow. A 0.018 micropuncture wire was advanced to the fistula and after removing the needle a 7 [place] sheath was placed by Seldinger technique. A diagnostic fistulogram with central venogram was performed with the previously described findings. I systemically heparinized the patient with 5000 units of heparin IV. I advanced a vertebral catheter and 0.014 Choice PT wire into the central venous system and eventually into the inferior vena cava. I then performed angioplasty of the stenosis within the cephalic arch, venous outflow, and cannulation zone using a 6 x 200 Angiosculpt Balloon followed by angioplasty with a 7 x 80 Mehdi Balloon which resulted in approximately 15% residual stenosis in the cephalic arch however there was approximately 40% residual stenosis in the distal cannulation zone. I advanced the micropuncture wire alongside the Mehdi balloon to create a suitable cutting wire and performed additional angioplasty was then resulted in approximately 15% residual stenosis. At that point I anesthetized the skin and soft tissue overlying the venous outflow of the fistula and then used a 21-gauge micropuncture needle to access the fistula towards the arterial inflow. I advanced a 0.018 micropuncture wire into the first and after removing the needle placed a 6 [place] sheath by secondary technique. I attempted to advance a vertebral catheter and 0.035 floppy Glidewire into the brachial artery however there was such significant stenosis that I could not advance the catheter and wire past the 7 [place] sheath. I decided to remove the 7 [place] sheath so I used 4-0 chromic in pressuring fashion to close the entry site of the 7 [place] sheath after removing the sheath. I then advanced the vertebral catheter and Glidewire into the mid brachial artery and after removing the wire performed a diagnostic angiogram with the previously described findings. I advanced a Choice PT wire into the brachial artery and performed angioplasty of the arterial inflow using the 6 x 200 Angiosculpt Balloon followed by angioplasty with the 7 x 80 Mehdi Balloon. I advanced to the vertebral catheter into the brachial artery and performed a final angiogram which revealed no evidence of distal emboli in the brachial artery with brisk flow of contrast throughout the fistula. There was minimal residual thrombus within the arterial inflow and approximately 15% residual stenosis throughout the fistula. At that point I removed all catheters and wires and used 4-0 chromic in pressuring fashion to close the entry site after removing the 6 [place] sheath. The patient tolerated the procedure well and was transported back to his room in stable condition
[2021-08-05] MEDS: NIFEdipine XL 60 MG TAB PO SCH ×2 (11:45→21:48)
--- NOTE | 2021-08-05 11:55 | Event Note ---
Date: 08/05/21 Okay to discharge, from a vascular surgical standpoint, when medically stable.
--- NOTE | 2021-08-06 11:09 | Progress Note ---
Assessment and Plan Assessment and plan: ESRD Severe hyperkalemia AV fistula thrombosis Chronic diastolic heart failure. Patient with echocardiogram in 2018 which revealed left ventricular systolic function normal and EF of 55-60%. Diabetes mellitus type 2 Hypertension Anemia of chronic kidney disease 08/03/2021. Patient had Vas-Cath placed by vascular surgery and will have urgent hemodialysis. I have discussed the case both with nephrology and vascular surgery. Thrombectomy per vascular surgery recommendations after hemodialysis completed and potassium stabilized. Continue Accu-Cheks and sliding scale insulin. Continue home medications for DM and hypertension 08/04/2021. Patient with fistulogram today but unsuccessful. Patient will need to have surgical thrombectomy. Patient with PermCath planned for tomorrow. Continue hemodialysis per nephrology 08/05/2021. Patient with fistulogram that was unsuccessful yesterday. Patient will need surgical thrombectomy that is likely planned for next week. Patient had PermCath placement today. Continue hemodialysis per nephrology recommendations. UF as tolerated. Renal diet 08/06/2021. Patient s/p Angioplasty of Left Arm AV Fistula with re-evaluation. The diagnostic left upper extremity angiogram revealed that the brachial artery was patent without significant flow-limiting stenosis. Patient seen in hemodialysis and AV fistula functioning properly at present. Anticipate d/c in am if ok with Nephrology History Interval history: No new issues overnight. Hospitalist Physical - Constitutional Vitals: Temp Pulse Resp BP Pulse Ox 98.5 F 98 H 18 147/84 98 08/06/21 05:22 08/06/21 05:22 08/06/21 05:22 08/06/21 05:22 08/06/21 05:22 General appearance: Present: no acute distress - EENT Eyes: Present: PERRL, EOM intact ENT: hearing intact, clear oral mucosa, dentition normal - Neck Neck: Present: supple, normal ROM - Respiratory Respiratory effort: normal Respiratory: bilateral: CTA - Cardiovascular Rhythm: regular Heart Sounds: Present: S1 & S2. Absent: gallop, rub - Extremities Extremities: no ischemia, No edema, Full ROM - Abdominal General gastrointestinal: soft, non-tender, non-distended, normal bowel sounds - Integumentary Integumentary: Present: clear, warm, dry - Neurologic Neurologic: CNII-XII intact, moves all extremities Results - Labs CBC & Chem 7: 08/04/21 08:54 08/04/21 05:16 Labs: Laboratory Last Values WBC 5.5 K/mm3 (4.5-11.0) 08/04/21 08:54 RBC 5.58 M/mm3 (3.65-5.03) H 08/04/21 08:54 Hgb 14.8 gm/dl (11.8-15.2) 08/04/21 08:54 Hct 48.3 % (35.5-45.6) H 08/04/21 08:54 MCV 87 fl (84-94) 08/04/21 08:54 MCH 27 pg (28-32) L 08/04/21 08:54 MCHC 31 % (32-34) L 08/04/21 08:54 RDW 15.7 % (13.2-15.2) H 08/04/21 08:54 Plt Count 260 K/mm3 (140-440) 08/04/21 08:54 Sodium 134 mmol/L (137-145) L 08/04/21 05:16 Potassium 5.4 mmol/L (3.6-5.0) H D 08/04/21 05:16 Chloride 94.3 mmol/L (98-107) L 08/04/21 05:16 Carbon Dioxide 20 mmol/L (22-30) L 08/04/21 05:16 Anion Gap 25 mmol/L 08/04/21 05:16 BUN 67 mg/dL (9-20) H 08/04/21 05:16 Creatinine 10.2 mg/dL (0.8-1.3) H 08/04/21 05:16 Estimated GFR 7 ml/min 08/04/21 05:16 BUN/Creatinine Ratio 7 % 08/04/21 05:16 Glucose 78 mg/dL (75-100) 08/04/21 05:16 POC Glucose 139 mg/dL (70-105) H 08/05/21 22:22 Calcium 8.9 mg/dL (8.4-10.2) 08/04/21 05:16 Total Bilirubin 0.40 mg/dL (0.1-1.2) 08/04/21 05:16 AST 11 units/L (5-40) 08/04/21 05:16 ALT 7 units/L (7-56) 08/04/21 05:16 Alkaline Phosphatase 107 units/L (35-129) 08/04/21 05:16 Total Protein 7.8 g/dL (6.3-8.2) 08/04/21 05:16 Albumin 4.1 g/dL (3.9-5) 08/04/21 05:16 Albumin/Globulin Ratio 1.1 % 08/04/21 05:16 Hepatitis A IgM Ab Non-reactive (NonReactive) 08/04/21 08:54 Hep Bs Antigen Non-reactive (Negative) 08/04/21 08:54 Hep B Core IgM Ab Non-reactive (NonReactive) 08/04/21 08:54 Hepatitis C Antibody Non-reactive (NonReactive) 08/04/21 08:54 Srinivasan/IV: Voiding Method Urinal Active Medications - Current Medications Current Medications: Generic Name Dose Route Start Last Admin Trade Name Freq PRN Reason Stop Dose Admin Acetaminophen 650 mg 08/03/21 17:30 Acetaminophen 325 Mg Tab PO Q4H PRN Pain MILD(1-3)/Fever >100.5/BRUNO Albuterol 2.5 mg 08/03/21 17:00 Albuterol 2.5 Mg/3 Ml Nebu IH Q4HRT PRN Shortness Of Breath Sodium Chloride 500 mls @ 50 mls/hr 08/03/21 08:00 08/03/21 08:40 Nacl 0.9% 500 Ml IV 300 mls DIRECT MINNIE Administration Sodium Chloride 100 mls @ 999 mls/hr 08/03/21 23:05 Nacl 0.9% IV GRIS PRN Hypotension Isosorbide Mononitrate 60 mg 08/04/21 10:00 08/05/21 11:39 Isosorbide Mononitrate Er 60 Mg Tab PO 60 mg QDAY MINNIE Administration Labetalol HCl 300 mg 08/03/21 23:45 08/05/21 21:46 Labetalol 200 Mg Tab PO 300 mg BID MINNIE Administration Nifedipine 60 mg 08/03/21 23:45 08/05/21 21:48 Nifedipine Xl 60 Mg Tab PO 60 mg Q12HR MINNIE Administration Ondansetron HCl 4 mg 08/03/21 17:30 Ondansetron 4 Mg/2 Ml Inj IV Q8H PRN Nausea And Vomiting Oxycodone/Acetaminophen 1 tab 08/03/21 17:30 08/05/21 23:43 Oxycodone /Acetaminophen 5-325mg Tab PO 1 tab Q16H PRN Administration Pain, Moderate (4-6) Sodium Chloride 10 ml 08/03/21 22:00 08/05/21 21:46 Sodium Chloride 0.9% 10 Ml Flush Syringe IV 10 ml BID MINNIE Administration Sodium Chloride 10 ml 08/03/21 17:30 Sodium Chloride 0.9% 10 Ml Flush Syringe IV PRN PRN LINE FLUSH
[2021-08-06] MEDS: oxyCODONE /ACETAMINOPHEN 5-325MG TAB PO PRN ×2 (11:25→22:53)
--- NOTE | 2021-08-06 12:20 | Progress Note ---
Assessment and Plan Impression: * End stage renal disease - [facility] * Hyperkalemia, severe * Malfunctioning AV access * Hypertension Plan: * Hemodialysis today - AV access in use * HD RN to remove [facility]IJ vas cath s/p HD treatment * Continue TTS schedule * UF as tolerated * Renal diet * Dose medications for renal function * Stable for discharge from a renal standpoint Subjective Date of service: 08/06/21 Interval history: Patient has no complaints Objective - Vital Signs Vital signs: Vital Signs - 12hr 08/06/21 08/06/21 08/06/21 02:00 05:22 10:00 Temperature 98.5 F 97.7 F Pulse Rate 98 H 96 H Respiratory 18 18 Rate Blood Pressure 147/84 151/83 O2 Sat by Pulse 100 98 Oximetry O2 Sat by Pulse 100 Oximetry [ Anterior Bilateral Throughout] 08/06/21 08/06/21 08/06/21 10:15 10:30 10:45 Temperature Pulse Rate 93 H 99 H 98 H Respiratory Rate Blood Pressure 144/80 154/86 159/84 O2 Sat by Pulse Oximetry O2 Sat by Pulse Oximetry [ Anterior Bilateral Throughout] 08/06/21 08/06/21 08/06/21 11:00 11:15 11:25 Temperature Pulse Rate 104 H 96 H Respiratory 18 Rate Blood Pressure 144/83 149/83 O2 Sat by Pulse Oximetry O2 Sat by Pulse Oximetry [ Anterior Bilateral Throughout] - General Appearance General appearance: well-developed, well-nourished EENT: ATNC Respiratory: Present: Clear to Ascultation Cardiology: regular, S1S2 Gastrointestinal: normal, no tenderness, no distended Integumentary: no rash, warm and dry Neurologic: no focal deficit, alert and oriented x3 Psychiatric: cooperative - Lab 08/04/21 08:54 08/04/21 05:16 Most recent lab results Calcium 8.9 mg/dL (8.4-10.2) 08/04/21 05:16 Medications & Allergies - Medications Allergies/Adverse Reactions: Allergies hydromorphone [From Dilaudid] Allergy (Verified 08/04/21 01:59) Angioedema Home Medications: Home Medications Medication Instructions Recorded Confirmed Last Taken Type AtorvaSTATin [Lipitor] 40 mg PO QHS #30 tablet 02/19/19 08/03/21 08/02/21 Rx Lispro Insulin [HumaLOG] 0 unit SUB-Q AC 30 Days units 02/19/19 08/03/21 08/02/21 Rx carvediloL [Coreg] 25 mg PO BID tablet 05/22/20 08/03/21 08/02/21 Rx Insulin Glargine [Lantus VIAL] 20 units SUB-Q QHS 09/20/20 08/03/21 08/02/21 History Losartan Potassium 100 mg PO DAILY 09/20/20 08/03/21 08/02/21 History Sevelamer Carbonate [Renvela] 800 mg PO TID 09/20/20 08/03/21 08/02/21 History Labetalol HCl [Labetalol 300mg TAB] 300 mg PO BID 08/04/21 08/04/21 08/03/21 23:00 History Losartan Potassium 50 mg PO QDAY 08/04/21 08/04/21 08/02/21 09:00 History Active Medications: Generic Name Dose Route Start Last Admin Trade Name Freq PRN Reason Stop Dose Admin Acetaminophen 650 mg 08/03/21 17:30 Acetaminophen 325 Mg Tab PO Q4H PRN Pain MILD(1-3)/Fever >100.5/BRUNO Albuterol 2.5 mg 08/03/21 17:00 Albuterol 2.5 Mg/3 Ml Nebu IH Q4HRT PRN Shortness Of Breath Sodium Chloride 500 mls @ 50 mls/hr 08/03/21 08:00 08/03/21 08:40 Nacl 0.9% 500 Ml IV 300 mls DIRECT MINNIE Administration Sodium Chloride 100 mls @ 999 mls/hr 08/03/21 23:05 Nacl 0.9% IV GRIS PRN Hypotension Isosorbide Mononitrate 60 mg 08/04/21 10:00 08/05/21 11:39 Isosorbide Mononitrate Er 60 Mg Tab PO 60 mg QDAY MINNIE Administration Labetalol HCl 300 mg 08/03/21 23:45 08/05/21 21:46 Labetalol 200 Mg Tab PO 300 mg BID MINNIE Administration Nifedipine 60 mg 08/03/21 23:45 08/05/21 21:48 Nifedipine Xl 60 Mg Tab PO 60 mg Q12HR MINNIE Administration Ondansetron HCl 4 mg 08/03/21 17:30 Ondansetron 4 Mg/2 Ml Inj IV Q8H PRN Nausea And Vomiting Oxycodone/Acetaminophen 1 tab 08/03/21 17:30 08/06/21 11:25 Oxycodone /Acetaminophen 5-325mg Tab PO 1 tab Q16H PRN Administration Pain, Moderate (4-6) Sodium Chloride 10 ml 08/03/21 22:00 08/05/21 21:46 Sodium Chloride 0.9% 10 Ml Flush Syringe IV 10 ml BID MINNIE Administration Sodium Chloride 10 ml 08/03/21 17:30 Sodium Chloride 0.9% 10 Ml Flush Syringe IV PRN PRN LINE FLUSH
[2021-08-06] MEDS: NIFEdipine XL 60 MG TAB PO SCH ×2 (15:05→22:37)
--- NOTE | 2021-08-07 08:14 | Discharge Summary ---
Providers - Providers Date of Admission: 08/04/21 13:15 Date of discharge: 08/07/21 Attending physician: HECTOR MANN 08/03/21 08:35 Consult to Physician [CONS] Routine Comment: I have already spoken with the Physician Consulting Provider: JAZMYN AMARAL Physician Instructions: Reason For Exam: Dialysis for hyperkalemia Hospitalization Reason for admission: ESRD Hospital course: 36-year-old male with a history of end-stage renal disease who is on hemodialysis through a left brachiocephalic arteriovenous fistula. He presented with thrombosis of the fistula. He stated he was able to undergo dialysis through the fistula on Sunday however he presented to dialysis on Sunday and the fistula was found to be thrombosed. He denied having any prolonged bleeding or other complications prior to thrombosis of the fistula. The plan was for a percutaneous mechanical thrombectomy of the fistula however upon drawing labs prior to procedure his potassium was noted to be 8.2. Therefore, he was admitted and treated with IV insulin, D50, and calcium chloride. Subsequently, the patient had a Vas-Cath placed for urgent hemodialysis. After he had undergone hemodialysis, Vascular surgery percutaneous attempted mechanical thrombectomy but initially believed unsuccessful. The patient was then sent to the [facility] later in the hospitalization for exchange of his Vas-Cath to a permacath. However, upon physical exam at that time, he had a palpable thrill so the plan was for a fistulogram with possible intervention. The diagnostic left upper extremity angiogram revealed that the brachial artery was patent without significant flow-limiting stenosis. Both the radial and ulnar arteries were patent without evidence of flow-limiting stenosis. There was approximately 75% stenosis of the arterial anastomosis with a small amount of thrombus within the arterial inflow. The initial thrombectomy proved to be successful with subsequent intervention as noted above. The AV access was noted to be functional and was used for hemodialysis on yesterday. HD RN removed [facility] vas cath s/p HD treatment. The patient is felt to have received maximal hospital benefit and will be discharged home. Dedicated discharge time 32 minutes Disposition: HOME / SELF CARE / HOMELESS Final Discharge Diagnosis (Prints w/discharge instructions): ESRD, hyperkalemia, malfunctioning AV access, hypertension Core Measure Documentation - Palliative Care Palliative Care/ Comfort Measures: Not Applicable - Core Measures Any of the following diagnoses?: none Exam - Constitutional Vitals: Temp Pulse Resp BP Pulse Ox 98.3 F 18 L 18 127/72 96 08/07/21 06:00 08/07/21 06:00 08/06/21 21:50 08/07/21 06:00 08/07/21 02:22 General appearance: Present: no acute distress, well-nourished - EENT Eyes: Present: PERRL ENT: hearing intact, clear oral mucosa - Neck Neck: Present: supple, normal ROM - Respiratory Respiratory effort: normal Respiratory: bilateral: CTA - Cardiovascular Heart Sounds: Present: S1 & S2. Absent: rub, click - Extremities Extremities: pulses symmetrical, No edema Peripheral Pulses: within normal limits - Abdominal General gastrointestinal: Present: soft, non-tender, non-distended, normal bowel sounds Male genitourinary: Present: normal - Integumentary Integumentary: Present: clear, warm, dry - Musculoskeletal Musculoskeletal: gait normal, strength equal bilaterally - Psychiatric Psychiatric: appropriate mood/affect, intact judgment & insight - Neurologic Neurologic: CNII-XII intact, moves all extremities Plan Activity: advance as tolerated Weight Bearing Status: Weight Bear as Tolerated Follow up with: SANDRA GUNTER [Other] - 7 Days JAZMYN AMARAL MD [Staff Physician] - 7 Days JOEL BURR MD [Staff Physician] - 7 Days
[2021-08-07] MEDS: NIFEdipine XL 60 MG TAB PO SCH (10:15)
[2021-08-07 10:17] VITALS: BP 151/86
== END 2021-08-07 12:40 | disposition home or self-care (01) | DRG 252 ==
LOC: CATHLABREC 06:08 → 3A 13:15 → OBSVTOIN 08-04 13:15 → 3A 08-05 12:11
PROVIDERS: ADMIT Internal Medicine; ATTEND Hospitalist
PROC: 5A1D70Z Performance of Urinary Filtration, Intermittent, Less than 6 Hours Per Day (ICD-10-PCS; 2021-08-03)
PROC: 02H633Z Insertion of Infusion Device into Right Atrium, Percutaneous Approach (ICD-10-PCS; 2021-08-03)
PROC: B548ZZA Ultrasonography of Superior Vena Cava, Guidance (ICD-10-PCS; 2021-08-03)
PROC: 03C83ZZ Extirpation of Matter from Left Brachial Artery, Percutaneous Approach (ICD-10-PCS; principal; 2021-08-04)
PROC: 5A1D70Z Performance of Urinary Filtration, Intermittent, Less than 6 Hours Per Day (ICD-10-PCS; 2021-08-04)
PROC: 03783ZZ Dilation of Left Brachial Artery, Percutaneous Approach (ICD-10-PCS; 2021-08-05)
PROC: B51W1ZZ Fluoroscopy of Dialysis Shunt/Fistula using Low Osmolar Contrast (ICD-10-PCS; 2021-08-05)
PROC: 5A1D70Z Performance of Urinary Filtration, Intermittent, Less than 6 Hours Per Day (ICD-10-PCS; 2021-08-06)
DX: T82.868A Thrombosis due to vascular prosthetic devices, implants and grafts, initial encounter (principal); N18.6 End stage renal disease; I50.32 Chronic diastolic (congestive) heart failure; Z88.8 Allergy status to other drugs, medicaments and biological substances; I13.2 Hypertensive heart and chronic kidney disease with heart failure and with stage 5 chronic kidney disease, or end stage renal disease; Z99.2 Dependence on renal dialysis; E11.22 Type 2 diabetes mellitus with diabetic chronic kidney disease; Z79.4 Long term (current) use of insulin; Z79.899 Other long term (current) drug therapy; Z89.611 Acquired absence of right leg above knee; E78.5 Hyperlipidemia, unspecified; E87.5 Hyperkalemia; D63.1 Anemia in chronic kidney disease; Y83.2 Surgical operation with anastomosis, bypass or graft as the cause of abnormal reaction of the patient, or of later complication, without mention of misadventure at the time of the procedure; Y92.89 Other specified places as the place of occurrence of the external cause
CPT/HCPCS: 36415; 36556; 36902; 36905; 80048; 80053; 80074; 82962; 84132; 85027; 93990; G0378; J3490; J7042; Q9967; C1725; C1751; C1752; C1757; C1769; C1884; C1887; C1894; J0690; J1644; J1815; J2250; J2997; J3010; J7040; J7050